=== PATIENT | male | born 1975 | race African-American/Black ===

== ENCOUNTER 2016-12-01 21:42 | Observation (INO) | payer SELFPAY ==
[~2016-12-01] VITALS: Ht 182.9 cm; Wt 82.0 kg
[~2016-12-01 21:42] MED LIST: BENA25TA3 PO; PRED-503 PO
[2016-12-01 21:47] VITALS: BP 168/92; PULSE 83; RESP 15; TEMP 98.2; O2SAT 98
[2016-12-01] MEDS ORDERED: LISI10TA3 PO (22:03)
--- NOTE | 2016-12-01 22:27 | PD ---
HPI Chief Complaint: Syncope/Near-Syncope Time Seen by Provider: 22:03 Travel History International Travel<30 days: No Contact w/Intl Traveler<30days: No Traveled to known affect area: No History of Present Illness HPI The patient is a 41 year old male who presents to the [facility] emergency department with a history of lightheaded since this morning. He has had syncopal events times two today. He reports that he has been staying at a residential as he is homeless. He reports that he has been out in the heat more than usual. He reports that he's had a diminished appetite since yesterday, therefore he has not been eating although he has been drinking fluids earlier today. The patient reports that he began to have chest pain this morning and has been coming and going. It is located in the center of his chest. It feels like a mashing sensation. He had SOB earlier today, however none currently. He had diaphoresis. No nausea, vomiting, or diarrhea. His last BM was yesterday. The patient additionally reports on review of systems that he has had a clear rhinorrhea today and a dry cough. He denies having any known fevers, neck pain , abdominal pain, urinary symptoms, or neurologic symptoms. PFSH Past Medical History Narrative Medical The patient's past medical history is significant for hypertension off meds for 2 months due to no insurance, childhood asthma. Hx Anticoagulant Therapy: Yes (81 MG ASA.) Asthma: Yes Cancer: No Cardiovascular Problems: Yes (HTN) Chest Pain: Yes Diminished Hearing: No Endocrine: No Gastrointestinal Disorders: No Genitourinary: No Headaches: Yes Hypertension: Yes Immune Disorder: No Implanted Vascular Access Dvce: No Musculoskeletal: No Neurologic: Yes Psychiatric: No Reproductive: No Respiratory: No Migraines: Yes Past Surgical History Surgical History: No Previous Surgery Neurologic Surgery: Yes (CYST ON TAIL BONE) Other Surgery: Yes (Cyst removed from lower back/buttocks) Social History Alcohol Use: No Tobacco Use: Yes (2 cigarettes/day) Substance Use: No (Denies) Allergies-Medications (Allergen,Severity, Reaction): Coded Allergies: No Known Allergies (Verified , 12/01/16) Reported Meds & Prescriptions Reported Meds & Active Scripts Active Amlodipine (Amlodipine Besylate) 10 Mg Tab 10 Mg PO DAILY Review of Systems Except as stated in HPI: all other systems reviewed are Neg General / Constitutional: No: Fever Eyes: No: Visual changes HENT: Positive: Rhinorrhea, No: Headaches Cardiovascular: Positive: Chest Pain or Discomfort, Syncope, Dyspnea on exertion Respiratory: Positive: Cough, Shortness of Breath Gastrointestinal: No: Nausea, Vomiting, Diarrhea, Abdominal Pain Genitourinary: No: Dysuria Musculoskeletal: No: Pain Skin: No Rash Neurologic: Positive: Weakness, Dizziness, Syncope, No: Focal Abnormalities, Change in Mentation, Slurred Speech, Sensory Disturbance Psychiatric: No: Depression Endocrine: No: Polydipsia Hematologic/Lymphatic: No: Easy Bruising Physical Exam Narrative General: The patient is a well-developed well-nourished male in no acute distress. Head and Neck exam: Head is normocephalic atraumatic. Eyes: EOMI, pupils are equal round and reactive to light. Nose: Midline septum with pink mucous membranes Mouth: Dentition unremarkable. Moist mucus membranes. Posterior oropharynx is not erythematous. No tonsillar hypertrophy. Uvula midline. Airway patent. Neck: No palpable lymphadenopathy. No nuchal rigidity. No thyromegaly. Cardiovascular: Regular rate and rhythm without murmurs, gallops, or rubs. No pulse deficit to the extremities on spontaneous auscultation and palpation of his radial artery. Lungs: Clear to auscultation bilaterally. No wheezes, rhonchi, or rales. Abdomen: Soft, without tenderness to palpation in all 4 quadrants of the abdomen. No guarding, rebound, or rigidity. Normal bowel sounds are audible. No tenderness on palpation of McBurney's point. Extremities: No clubbing, cyanosis, or edema. 2+ pulses in all 4 extremities. No calf tenderness on palpation. Back: No spinous process tenderness to palpation. No costovertebral angle tenderness to palpation. Neurologic Exam: Grossly nonfocal. Skin Exam: No rash noted. Intact skin that is warm and dry. Data Data Last Documented VS Vital Signs Date Time Temp Pulse Resp B/P (MAP) Pulse Ox O2 Delivery O2 Flow Rate FiO2 12/02/16 00:00 66 17 156/102 (120) 99 Room Air 12/01/16 21:47 98.2 Orders Orders Electrocardiogram (12/01/16 22:08) Complete Blood Count With Diff (12/01/16 22:08) Comprehensive Metabolic Panel (12/01/16 22:08) Creatine Kinase (Cpk) (12/01/16 22:08) Ckmb (Isoenzyme) Profile (12/01/16 22:08) Troponin I (12/01/16 22:08) B-Type Natriuretic Peptide (12/01/16 22:08) Prothrombin Time / Inr (Pt) (12/01/16 22:08) Act Partial Throm Time (Ptt) (12/01/16 22:08) Lipase (12/01/16 22:08) Urinalysis - C+S If Indicated (12/01/16 22:08) D-Dimer (12/01/16 22:08) Magnesium (Mg) (12/01/16 22:08) Chest, Single Ap (12/01/16 22:08) Ct Brain W/O Iv Contrast(Rout) (12/01/16 22:08) Iv Access Insert/Monitor (12/01/16 22:08) Ecg Monitoring (12/01/16 22:08) Oximetry (12/01/16 22:08) Drug Screen, Random Urine (12/01/16 22:08) Alcohol (Ethanol) (12/01/16 22:08) Orthostatic Vital Signs (12/01/16 22:08) Sodium Chlor 0.9% 1000 Ml Inj (Ns 1000 M (12/01/16 22:30) CKMB (12/01/16 22:36) CKMB% (12/01/16 22:36) Aspirin Chew (Aspirin Chew) (12/01/16 23:30) Sodium Chlor 0.9% 1000 Ml Inj (Ns 1000 M (12/02/16 00:30) Admit Order (Ed Use Only) (12/02/16 00:17) Labs Laboratory Tests Test 12/01/16 00:10 12/01/16 22:08 12/01/16 22:36 Urine Color YELLOW Urine Turbidity CLEAR Urine pH 6.0 Urine Specific [place] 1.035 Urine Protein 30 mg/dL Urine Glucose (UA) NEG mg/dL Urine Ketones NEG mg/dL Urine Occult Blood SMALL Urine Nitrite NEG Urine Bilirubin NEG Urine Urobilinogen 4.0 MG/DL Urine Leukocyte Esterase NEG Urine RBC 2 /hpf Urine WBC 1 /hpf Urine Squamous Epithelial Cells <1 /hpf Urine Hyaline Casts 10 /lpf Urine Mucus MOD /lpf Microscopic Urinalysis Comment CULT NOT INDICATED Urine Opiates Screen NEG Urine Barbiturates Screen NEG Urine Amphetamines Screen NEG Urine Benzodiazepines Screen NEG Urine Cocaine Screen POS Urine Cannabinoids Screen POS White Blood Count 5.1 TH/MM3 Red Blood Count 4.22 MIL/MM3 Hemoglobin 12.9 GM/DL Hematocrit 37.9 % Mean Corpuscular Volume 89.6 FL Mean Corpuscular Hemoglobin 30.5 PG Mean Corpuscular Hemoglobin Concent 34.0 % Red Cell Distribution Width 14.6 % Platelet Count 146 TH/MM3 Mean Platelet Volume 9.5 FL Neutrophils (%) (Auto) 47.7 % Lymphocytes (%) (Auto) 38.4 % Monocytes (%) (Auto) 11.1 % Eosinophils (%) (Auto) 2.2 % Basophils (%) (Auto) 0.6 % Neutrophils # (Auto) 2.4 TH/MM3 Lymphocytes # (Auto) 2.0 TH/MM3 Monocytes # (Auto) 0.6 TH/MM3 Eosinophils # (Auto) 0.1 TH/MM3 Basophils # (Auto) 0.0 TH/MM3 CBC Comment DIFF FINAL Differential Comment Prothrombin Time 11.1 SEC Prothromb Time International Ratio 1.0 RATIO Activated Partial Thromboplast Time 26.5 SEC D-Dimer Quantitative (PE/DVT) LESS THAN 0.19 MG/L FEU Blood Urea Nitrogen 12 MG/DL Creatinine 1.14 MG/DL Random Glucose 94 MG/DL Total Protein 7.7 GM/DL Albumin 3.7 GM/DL Calcium Level 8.2 MG/DL Magnesium Level 2.6 MG/DL Alkaline Phosphatase 55 U/L Aspartate Amino Transf (AST/SGOT) 19 U/L Alanine Aminotransferase (ALT/SGPT) 19 U/L Total Bilirubin 0.3 MG/DL Sodium Level 143 MEQ/L Potassium Level 3.8 MEQ/L Chloride Level 108 MEQ/L Carbon Dioxide Level 30.6 MEQ/L Anion Gap 4 MEQ/L Estimat Glomerular Filtration Rate 86 ML/MIN Total Creatine Kinase 610 U/L Creatine Kinase MB 2.3 NG/ML Creatine Kinase MB % 0.4 % Troponin I LESS THAN 0.02 NG/ML B-Type Natriuretic Peptide LESS THAN 2 PG/ML Lipase 101 U/L Ethyl Alcohol Level LESS THAN 3 MG/DL MDM Medical Decision Making Medical Screen Exam Complete: Yes Emergency Medical Condition: Yes Medical Record Reviewed: Yes Interpretation(s) Last Impressions Head CT 12/01/162207 Signed Impressions: Service Date/Time: Thursday, December 01, 2016 23:17 - CONCLUSION: Normal examination for a patient of this age. Mucosal thickening of the paranasal sinuses. Christopher Bhatt MD Chest X-Ray 12/01/162207 Signed Impressions: Service Date/Time: Thursday, December 01, 2016 22:22 - CONCLUSION: No evidence of acute cardiopulmonary disease. Jak To MD Differential Diagnosis Orthostasis, versus dehydration, versus electrolyte abnormalities, versus acute coronary syndrome, versus vasovagal syncope, versus heat exhaustion, versus rhabdomyolysis Narrative Course During the course of the patients emergency department visit, the patients history, examination, and differential diagnosis were reviewed with the patient. The patient had IV access obtained and blood work sent for analysis. The patient was placed on a transition specialist with oximetry and blood pressure monitoring. An ECG was done on arrival. The patient's ECG shows a sinus rhythm heart rate is 62, QRS duration is 97 ms, QTC 405 ms, no acute ST segment elevation or depression, T waves are inverted in V1. Orthostatic vital signs were ordered. The patient was initially provided normal saline a 1 L IV fluid bolus was administered. The patient was given aspirin 324 mg by mouth 1. The patients laboratory studies were reviewed and remarkable for a white count of 5.1, hemoglobin 12.9, platelets 146 with 11.1 monocytes, CMP is remarkable for a chloride of 108, anion gap 4, GFR of 86, calcium 8.2, magnesium 2.6, CPK 610, CK-MB percent 0.4, troponin I less than 0.02, lipase 101, BNP is less than 2, PT PTT within normal limits, d-dimer is less than 0.19 decreased the likelihood of pulmonary embolism in this patient with no other risk factors. Urine drug screen is positive for cocaine and marijuana, alcohol level less than 3, urinalysis shows 30 protein, small occult blood, 4 urobilinogen Radiology studies were reviewed and remarkable for a chest x-ray that shows no evidence of acute cardiopulmonary disease, CT scan of the brain shows a normal examination for patient of this age. The patients results were discussed with the patient, including the plan of care. I explained that further testing and/ or monitoring is indicated based on the patients history, examination, and/ or laboratory findings. Therefore, I recommended admission for additional evaluation. The patient expressed understanding and was agreeable with this plan. The patient was admitted to the hospital in stable condition and sent to a bed under the care of the chest pain center. Diagnosis Primary Impression: Chest pain, rule out acute myocardial infarction Additional Impression: Syncope Qualified Codes: R55 - Syncope and collapse Admitting Information Admitting Physician Requests: Observation Scripts Amlodipine (Amlodipine) 10 Mg Tab 10 MG PO DAILY for Blood Pressure Management, #30 TAB 0 Refills Prov: Alexis Cardona 12/02/16 Violet Harris MD Dec 01, 2016 22:27
[2016-12-01] MEDS ORDERED: SODIUM CHLOR 0.9% 1000 ML INJ 1,000 ML IV ONE (22:30)
--- NOTE | 2016-12-01 22:42 | RADRPT ---
EXAM DATE/TIME: 12/01/2016 22:22 [facility] COMPARISON: CHEST SINGLE AP, September 26, 2015, 15:29. INDICATIONS : Syncope. Patient states he past out today. MEDICAL HISTORY : Hypertension. SURGICAL HISTORY : None. ENCOUNTER: Initial ACUITY: 1 day PAIN SCORE: 0/10 LOCATION: Bilateral chest FINDINGS: A single view of the chest demonstrates the lungs to be symmetrically aerated without evidence of mas s, infiltrate or effusion. The cardiomediastinal contours are unremarkable. Osseous structures are intact. CONCLUSION: No evidence of acute cardiopulmonary disease. Jak To MD on December 01, 2016 at 22:40 Board Certified Radiologist. This report was verified electronically.
[2016-12-01 22:59] LABS: AUTOMATED NEUTROPHIL # 2.4 TH/MM3 (1.8-7.7); BASOPHIL % 0.6 % (0.0-2.0); EOSINOPHIL # 0.1 TH/MM3 (0-0.4); EOSINOPHIL % 2.2 % (0.0-4.0); HEMATOCRIT 37.9 % (39.0-51.0); HEMO FLAGS DIFF FINAL; LYMPH % 38.4 % (9.0-44.0); MEAN CELL VOLUME 89.6 FL (80.0-100.0); MEAN CORPUSCULAR HEMOGLOBIN 30.5 PG (27.0-34.0); MONO % 11.1 % (0.0-8.0); NEUT % 47.7 % (16.0-70.0); PLATELET COUNT 146 TH/MM3 (150-450); RED BLOOD COUNT 4.22 MIL/MM3 (4.50-5.90); RED CELL DISTRIBUTION WIDTH 14.6 % (11.6-17.2); WHITE BLOOD COUNT 5.1 TH/MM3 (4.0-11.0)
[2016-12-01 23:08] LABS: ALT (GPT) 19 U/L (12-78); ANION GAP 4 MEQ/L (5-15); AST (GOT) 19 U/L (15-37); BICARBONATE 30.6 MEQ/L (21.0-32.0); BLOOD UREA NITROGEN 12 MG/DL (7-18); CHLORIDE 108 MEQ/L (98-107); GLOMERULAR FILTRATION RATE 86 ML/MIN (>89); MAGNESIUM 2.6 MG/DL (1.5-2.5); POTASSIUM 3.8 MEQ/L (3.5-5.1); SODIUM (NA) 143 MEQ/L (136-145)
[2016-12-01 23:11] LABS: ALKALINE PHOSPHATASE 55 U/L (45-117); CREATINE KINASE 610 U/L (39-308); TOTAL BILIRUBIN ADULT 0.3 MG/DL (0.2-1.0)
[2016-12-01 23:14] LABS: APTT (PATIENT) 26.5 SEC (24.3-30.1); PROTHROMBIN TIME - PATIENT 11.1 SEC (9.8-11.6)
[2016-12-01 23:16] LABS: ALCOHOL LESS THAN 3 MG/DL (0-5)
[2016-12-01 23:29] LABS: CKMB 2.3 NG/ML (0.5-3.6)
[2016-12-01] MEDS ORDERED: ASPIRIN 81 MG CHEW TAB CHEW ONE (23:30)
--- NOTE | 2016-12-01 23:56 | RADRPT ---
EXAM DATE/TIME: 12/01/2016 23:17 [facility] COMPARISON: No previous studies available for comparison. INDICATIONS : Syncopal episode. RADIATION DOSE: 36.61 CTDIvol (mGy) MEDICAL HISTORY : Hypertension. Asthma. SURGICAL HISTORY : None. ENCOUNTER: Initial ACUITY: 1 day PAIN SCALE: 0/10 LOCATION: cranial TECHNIQUE: Multiple contiguous axial images were obtained of the head. Using automated exposure control and adj ustment of the mA and/or kV according to patient size, radiation dose was kept as low as reasonably a chievable to obtain optimal diagnostic quality images. DICOM format image data is available electro nically for review and comparison. FINDINGS: CEREBRUM: The ventricles are normal for age. No evidence of midline shift, mass lesion, hemorrhage or acute in farction. No extra-axial fluid collections are seen. POSTERIOR FOSSA: The cerebellum and brainstem are intact. The 4th ventricle is midline. The cerebellopontine angle i s unremarkable. EXTRACRANIAL: The visualized portion of the orbits is intact. SKULL: The calvaria is intact. No evidence of skull fracture. CONCLUSION: Normal examination for a patient of this age. Mucosal thickening of the paranasal sinuses. Christopher Bhatt MD on December 01, 2016 at 23:52 Board Certified Radiologist. This report was verified electronically.
[2016-12-02] VITALS (9 sets, daily range): BP systolic 140–163; BP diastolic 92–102; PULSE 55–72; RESP 16–18; TEMP 98–98.5; O2SAT 97–99
[2016-12-02] MEDS ORDERED: SODIUM CHLOR 0.9% 1000 ML INJ 1,000 ML IV ONE (00:30)
[2016-12-02 00:34] LABS: BLOOD, URINE SMALL (NEG); COMMENT (UR) CULT NOT INDICATED; CULTURE IF INDICATED CULT NOT INDICATED; GLUCOSE,URINE NEG (NEG); HYALINE CAST, URINE 10 /lpf (RARE); KETONE, URINE NEG (NEG); MUCUS URINE MOD /lpf (OCC); NITRITE,URINE NEG (NEG); SQUAMOUS EPITHELIAL CELL URINE <1 /hpf (0-5); URINE COLOR YELLOW (YELLW/STRAW)
[2016-12-02] MEDS ORDERED: SODIUM CHLORIDE 0.9% FLUSH 10 ML FLUSH IV FLUSH PRN (02:45)
[2016-12-02 03:54] LABS: CREATINE KINASE 493 U/L (39-308)
[2016-12-02 04:07] LABS: CKMB 1.7 NG/ML (0.5-3.6)
[2016-12-02 06:44] LABS: CREATINE KINASE 478 U/L (39-308)
[2016-12-02 06:57] LABS: CKMB 1.6 NG/ML (0.5-3.6)
[2016-12-02] MEDS ORDERED: amLODIPine BESYLATE 5 MG TAB PO ONE (08:15)
--- NOTE | 2016-12-02 08:49 | HHI.HP ---
[facility] Primary Care Physician Kely Moore MD Chief Complaint Chest pain History of Present Illness This is a 41-year-old male that presents to ED with a complaint of chest discomfort that began 2 days ago. 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 He went back to his room and pulled off and felt better. Little later that evening he had another syncopal episode. Cannot rule or coffee was having chest discomfort when it occurred but states that his chest discomfort has been intermittent for 2-3 days lasting 30-40 minutes with associated diaphoresis. No shortness breath or nausea. He also recalls having a slight headache before having the syncopal episode. He is not sure of his blood pressure was high. States he has hypertension but has not had medication for some time. He denies striking his head with these events. Denies incontinence. Denies seizure activity. Denies numbness tingling weakness in extremities at this time. Review of Systems General: Patient denies fevers, chills recent, and recent travel HEENT: Patient denies headache, sore throat, difficulty swallowing. Cardiovascular: Has the chest discomfort as mentioned above. Denies sensation of heart beating rapidly or irregularly. Has had 2 syncopal episodes. He was diaphoretic. Respiratory: Denies shortness of breath or inspirational chest discomfort. Denies coughing wheezing or hemoptysis. GI: Patient denies nausea, vomiting, diarrhea, abdominal pain, bloody stools. Musculoskeletal: Patient denies joint pain or edema. Denies calf pain or edema. Neurovascular: Patient denies numbness, tingling, weakness in extremities. Complains of a slight headache yesterday. Endocrine: Denies polyuria and polydipsia. Hematologic: Denies easy bruising. Skin: Denies rash or itching. Past Family Social History Allergies: Coded Allergies: No Known Allergies (Verified , 12/01/16) Past Medical History Hypertension and has not medication for some time. Tobacco abuse. Denies hyperlipidemia, diabetes, and known CAD. Past Surgical History Noncontributory. Reported Medications Reported Meds & Active Scripts Active Reported Lisinopril 10 Mg Tab 10 Mg PO DAILY Active Ordered Medications Current Medications Medications (Trade) Dose Ordered Sig/Pato Route Start Time Stop Time Status Last Admin (NS Flush) 2 ml UNSCH PRN IV FLUSH 12/02/16 02:45 (NS Flush) 2 ml BID IV FLUSH 12/02/16 09:00 Family History He is not sure his family medical history. Social History Patient states he smokes 2-3 cigarettes a day. Denies alcohol. Denies illicit drugs however toxicology screen was positive for cocaine and cannabinoids. Physical Exam Vital Signs Vital Signs Date Time Temp Pulse Resp B/P (MAP) Pulse Ox O2 Delivery O2 Flow Rate FiO2 12/02/16 07:44 56 12/02/16 07:10 98.0 59 18 140/101 (114) 98 12/02/16 04:14 72 12/02/16 03:53 146/92 (110) 12/02/16 03:45 98.5 55 18 163/100 (121) 98 12/02/16 03:40 12/02/16 02:43 97 12/02/16 01:09 143/98 (113) 148/100 (116) 151/99 (116) 12/02/16 01:00 62 16 142/94 (110) 97 Room Air 12/02/16 00:00 66 17 156/102 (120) 99 Room Air 12/01/16 21:58 78 98 Room Air 12/01/16 21:47 98.2 83 15 168/92 (117) 98 Room Air Physical Exam GENERAL: This is a well-nourished, well-developed patient, in no apparent distress. Patient speaks in clear complete sentences. Patient is pleasant. HEENT: Head is atraumatic and normocephalic. Neck is supple without lymphadenopathy and trachea is midline. No JVD or carotid bruits. CARDIOVASCULAR: Regular rate and rhythm without murmurs, gallops, or rubs. RESPIRATORY: Clear to auscultation. Breath sounds equal bilaterally. No wheezes , rales, or rhonchi. Chest wall is nontender. No use of accessory muscles. GASTROINTESTINAL: Abdomen is nontender, nondistended. Abdomen soft. No obvious pulsatile mass or bruit. No CVA tenderness. Strong femoral pulses bilaterally. Normal bowel sounds in all quadrants. MUSCULOSKELETAL: Patient is moving upper and lower extremities freely. No calf tenderness or edema, no Homans sign. Strong pulses in upper and lower extremities. NEUROLOGICAL: Patient is alert and oriented. Cranial nerves 2-12 are grossly intact. No focal deficits and speech is clear. SKIN: No rash and turgor is normal. Laboratory Laboratory Tests Test 12/01/16 22:08 12/01/16 22:36 12/02/16 03:00 12/02/16 06:00 Urine Opiates Screen NEG Urine Barbiturates Screen NEG Urine Amphetamines Screen NEG Urine Benzodiazepines Screen NEG Urine Cocaine Screen POS Urine Cannabinoids Screen POS White Blood Count 5.1 Red Blood Count 4.22 Hemoglobin 12.9 Hematocrit 37.9 Mean Corpuscular Volume 89.6 Mean Corpuscular Hemoglobin 30.5 Mean Corpuscular Hemoglobin Concent 34.0 Red Cell Distribution Width 14.6 Platelet Count 146 Mean Platelet Volume 9.5 Neutrophils (%) (Auto) 47.7 Lymphocytes (%) (Auto) 38.4 Monocytes (%) (Auto) 11.1 Eosinophils (%) (Auto) 2.2 Basophils (%) (Auto) 0.6 Neutrophils # (Auto) 2.4 Lymphocytes # (Auto) 2.0 Monocytes # (Auto) 0.6 Eosinophils # (Auto) 0.1 Basophils # (Auto) 0.0 CBC Comment DIFF FINAL Differential Comment Prothrombin Time 11.1 Prothromb Time International Ratio 1.0 Activated Partial Thromboplast Time 26.5 D-Dimer Quantitative (PE/DVT) LESS THAN 0.19 Blood Urea Nitrogen 12 Creatinine 1.14 Random Glucose 94 Total Protein 7.7 Albumin 3.7 Calcium Level 8.2 Magnesium Level 2.6 Alkaline Phosphatase 55 Aspartate Amino Transf (AST/SGOT) 19 Alanine Aminotransferase (ALT/SGPT) 19 Total Bilirubin 0.3 Sodium Level 143 Potassium Level 3.8 Chloride Level 108 Carbon Dioxide Level 30.6 Anion Gap 4 Estimat Glomerular Filtration Rate 86 Total Creatine Kinase 610 493 478 Creatine Kinase MB 2.3 1.7 1.6 Creatine Kinase MB % 0.4 0.3 0.3 Troponin I LESS THAN 0.02 LESS THAN 0.02 LESS THAN 0.02 B-Type Natriuretic Peptide LESS THAN 2 Lipase 101 Ethyl Alcohol Level LESS THAN 3 Result Diagram: 12/01/16223512/01/162235 Imaging Last [address] 12/01/162207 Signed Impressions: Service Date/Time: Thursday, December 01, 2016 23:17 - CONCLUSION: Normal examination for a patient of this age. Mucosal thickening of the paranasal sinuses. Christopher Bahtt MD Chest X-Ray 12/01/163 Signed Impressions: Service Date/Time: Thursday, December 01, 2016 22:22 - CONCLUSION: No evidence of acute cardiopulmonary disease. Jak To MD Course EKGs are sinus rhythm without significant ST segment depressions or elevations. Caprini VTE Risk Assessment Caprini VTE Risk Assessment: No/Low Risk (score <= 1) Caprini Risk Assessment Model Point Value = 1 Point Value = 2 Point Value = 3 Point Value = 5 Age 41-60 Minor surgery BMI > 25 kg/m2 Swollen legs Varicose veins or History of unexplained or recurrent spontaneous Oral contraceptives or hormone replacement Sepsis (< 1 month) Serious lung disease, including pneumonia (< 1 month) Abnormal pulmonary function Acute myocardial infarction Congestive heart failure (< 1 month) History of inflammatory bowel disease Medical patient at bed rest Age 61-74 Arthroscopic surgery Major open surgery (> 45 min) Laparoscopic surgery (> 45 min) Malignancy Confined to bed (> 72 hours) Immobilizing plaster cast Central venous access Age >= 75 History of VTE Family history of VTE Factor V Leiden Prothrombin [id number] Lupus anticoagulant Anticardiolipin antibodies Elevated serum homocysteine Heparin-induced thrombocytopenia Other congenital or acquired thrombophilia Stroke (< 1 month) Elective arthroplasty Hip, pelvis, or leg fracture Acute spinal cord injury (< 1 month) Prophylaxis Regimen Total Risk Factor Score Risk Level Prophylaxis Regimen 0-1 Low Early ambulation 2 Moderate Order ONE of the following: *Sequential Compression Device (SCD) *Heparin 5000 units SQ BID 3-4 Higher Order ONE of the following medications: *Heparin 5000 units SQ TID *Enoxaparin/Lovenox 40 mg SQ daily (WT < 150 kg, CrCl > 30 mL/min) *Enoxaparin/Lovenox 30 mg SQ daily (WT < 150 kg, CrCl > 10-29 mL/min) *Enoxaparin/Lovenox 30 mg SQ BID (WT < 150 kg, CrCl > 30 mL/min) AND/OR *Sequential Compression Device (SCD) 5 or more Highest Order ONE of the following medications: *Heparin 5000 units SQ TID (Preferred with Epidurals) *Enoxaparin/Lovenox 40 mg SQ daily (WT < 150 kg, CrCl > 30 mL/min) *Enoxaparin/Lovenox 30 mg SQ daily (WT < 150 kg, CrCl > 10-29 mL/min) *Enoxaparin/Lovenox 30 mg SQ BID (WT < 150 kg, CrCl > 30 mL/min) AND *Sequential Compression Device (SCD) Assessment and Plan Assessment and Plan * Chest pain: Patient has had serial cardiac enzymes and EKGs for ruling out purposes. He was seen by Dr. Sampson Newberry of cardiology in the chest pain center and will undergo a Gerald protocol ETT and be discharged if stress test is nonischemic. He should follow-up local PCP. * Hypertension: We'll start amlodipine. * Tobacco abuse: Patient counseled on importance of smoking cessation. * Cocaine abuse: Patient has been counseled on importance of no longer using cocaine. Patient is stable at this time. He is agreeable to this plan. Alexis Cardona Dec 02, 2016 08:49
[2016-12-02] MEDS ORDERED: AMLO10TA2 PO (08:51)
--- NOTE | 2016-12-02 08:52 | HHI.DCPOC ---
Discharge Care Plan Diagnosis: (1) Chest pain (2) Hypertension (3) Tobacco use (4) Cocaine abuse Goals to Promote Your Health * To prevent worsening of your condition and complications * To maintain your health at the optimal level Directions to Meet Your Goals Take your medications as prescribed Follow your dietary instruction Follow activity as directed Keep your appointments as scheduled Take your immunizations and boosters as scheduled If your symptoms worsen call your PCP, if no PCP go to Urgent Care Center or Emergency Room Smoking is Dangerous to Your Health. Avoid second hand smoke Call the 24-hour hour crisis hotline for domestic abuse at Alexis Cardona Dec 02, 2016 08:52
[2016-12-02] MEDS ORDERED: SODIUM CHLORIDE 0.9% FLUSH 10 ML FLUSH IV FLUSH SCH (09:00)
--- NOTE | 2016-12-02 16:37 | EKG ---
Date Performed: 12/02/2016 Time Performed: 03:10:05 PTAGE: 41 years EKG: SINUS BRADYCARDIA BORDERLINE ECG PREVIOUS TRACING : 09/26/2015 15.18 Since previous tracing, no significant change noted DOCTOR: Sampson Newberry Interpretating Date/Time 12/02/2016 16:36:06
--- NOTE | 2016-12-02 16:38 | EKG ---
Date Performed: 12/02/2016 Time Performed: 06:05:21 PTAGE: 41 years EKG: Sinus rhythm NORMAL ECG PREVIOUS TRACING : 12/02/2016 03.10 Since previous tracing, no significant change noted DOCTOR: Sampson Newberry Interpretating Date/Time 12/02/2016 16:37:32
--- NOTE | 2016-12-02 16:38 | EKG ---
Date Performed: 12/01/2016 Time Performed: 23:11:22 PTAGE: 41 years EKG: Sinus rhythm NORMAL ECG NO PREVIOUS TRACING DOCTOR: Sampson Newberry Interpretating Date/Time 12/02/2016 16:36:12
--- NOTE | 2016-12-03 16:04 | TR ---
Date Performed: 12/02/2016 Time Performed: 08:23:46 DOCTOR: Avelino Beckham DRUG LIST: CLINICAL HISTORY: REASON FOR TEST: REASON FOR ENDING: OBSERVATION: CONCLUSION: CARLOS PROTOCOL. NO CP. TEST STOPPED AFTER EXCEEDING GOAL HR SECONDARY TO SOB AND LEG FATIGUE.Maximum MB=924 % Max HR Achieved=89.0% Maximum CQ=709/112 Total Exercise Time=10:29 COMMENTS: Conclusion: Normal treadmill exercise. No evidence of ischemia.
== END 2016-12-02 11:25 | disposition home or self-care (01) ==
LOC: NEPC 21:42 → NEDA 12-02 00:20 → NEPFCDU 12-02 03:38
PROVIDERS: ADMIT Internal Medicine Interventional Cardiology; ATTEND Internal Medicine Interventional Cardiology
DX: R55 Syncope and collapse (principal); R07.89 Other chest pain; I10 Essential (primary) hypertension; F14.10 Cocaine abuse, uncomplicated; R94.31 Abnormal electrocardiogram [ECG] [EKG]; F17.210 Nicotine dependence, cigarettes, uncomplicated; J45.909 Unspecified asthma, uncomplicated; Z59.0 Homelessness
CPT/HCPCS: 70450; 71010; 80053; 80307; 81001; 82550; 82552; 83690; 83735; 83880; 84484; 85025; 85379; 85610; 85730; 93005; 93017; 99285; G0378; J7030

== ENCOUNTER 2016-12-11 22:43 | Emergency (ER) | payer SELFPAY ==
[~2016-12-11] VITALS: Ht 182.9 cm; Wt 88.0 kg
[~2016-12-11 22:43] MED LIST changes: +AMLO10TA2 PO; -BENA25TA3 PO; -PRED-503 PO
[2016-12-11 22:46] VITALS: BP 168/89; PULSE 87; RESP 16; TEMP 99; O2SAT 98
[2016-12-11 23:00] VITALS: BP_SYST 155; BP_SYST 157; BP_SYST 163; BP_DIAS 101; BP_DIAS 91; BP_DIAS 96; RESP 19; RESP 20; O2SAT 99
[2016-12-11] MEDS ORDERED: SODIUM CHLOR 0.9% 1000 ML INJ 1,000 ML IV ONE (23:04)
--- NOTE | 2016-12-11 23:11 | PD ---
HPI Chief Complaint: Chest Pain Time Seen by Provider: 22:55 Travel History International Travel<30 days: No Contact w/Intl Traveler<30days: No Traveled to known affect area: No History of Present Illness HPI The patient is a 41-year-old [place] male who presents to the emergency department for any possible syncopal episode. The patient states she was watching TV, sitting in a chair earlier today, when he awakened on the floor. The patient states his girlfriend told him he "fell out "and awakened on the floor. The patient states he had no symptoms prior to this possible syncopal episode. The patient does note he said some intermittent chest pain for the last several years, was actually admitted to the hospital one week ago and underwent a stress test which was unremarkable. The chest pain is described as heaviness, intermittent, and associated with fluttering of the chest. He denies any current shortness of breath, nausea, diaphoresis, or headache. Symptoms are mild to moderate, there are no alleviating or exacerbating factors. The patient denies any history of previous syncope, does note mild lightheadedness with standing. He does have a history of illicit drug use, states he has not used cocaine in one week. He denies any alcohol use earlier tonight. He denies any known history of arrhythmias. He denied any palpitations prior to the possible syncopal episode earlier tonight. PFSH Past Medical History Hx Anticoagulant Therapy: Yes (81 MG ASA.) Asthma: Yes Heart Rhythm Problems: No Cancer: No Cardiac Catheterization: No Cardiovascular Problems: Yes (HTN) High Cholesterol: No Chest Pain: Yes Congestive Heart Failure: No Diabetes: No Diminished Hearing: No Endocrine: No Gastrointestinal Disorders: No Genitourinary: No Headaches: Yes Hypertension: Yes Immune Disorder: No Implanted Vascular Access Dvce: No Musculoskeletal: No Neurologic: Yes Psychiatric: No Reproductive: No Respiratory: No Migraines: Yes Tetanus Vaccination: Unknown Past Surgical History Coronary Artery Bypass Graft: No Neurologic Surgery: Yes (CYST ON TAIL BONE) Other Surgery: Yes (Cyst removed from lower back/buttocks) Social History Alcohol Use: No Tobacco Use: Yes (2 cigarettes/day) Substance Use: Yes (cocaine) Allergies-Medications (Allergen,Severity, Reaction): Coded Allergies: No Known Allergies (Verified , 12/11/16) Reported Meds & Prescriptions Reported Meds & Active Scripts Active Amlodipine (Amlodipine Besylate) 10 Mg Tab 10 Mg PO DAILY Review of Systems Except as stated in HPI: all other systems reviewed are Neg General / Constitutional: No: Fever Cardiovascular: Positive: Chest Pain or Discomfort, Palpitations, Tachycardia, Syncope Respiratory: No: Shortness of Breath Gastrointestinal: No: Nausea, Vomiting, Abdominal Pain Neurologic: Positive: Dizziness, Syncope, No: Focal Abnormalities, Headache, Change in Mentation, Paresthesia, Sensory Disturbance Physical Exam Narrative GENERAL: Awake, alert, nontoxic-appearing 41-year-old male who appears his stated age and is in no acute respiratory distress. SKIN: Focused skin assessment warm/dry. HEAD: Atraumatic. Normocephalic. EYES: Pupils equal and round. No scleral icterus. No injection or drainage. ENT: No nasal bleeding or discharge. Mucous membranes pink and moist. NECK: Trachea midline. No JVD. CARDIOVASCULAR: Regular rate and rhythm. No murmur appreciated. RESPIRATORY: No accessory muscle use. Clear to auscultation. Breath sounds equal bilaterally. GASTROINTESTINAL: Abdomen soft, non-tender, nondistended. No rebound tenderness. MUSCULOSKELETAL: No obvious deformities. No clubbing. No cyanosis. No edema. NEUROLOGICAL: Awake and alert. No obvious cranial nerve deficits. Motor grossly within normal limits. Normal speech. Nonfocal. Oriented 4. Follows commands without difficulty. PSYCHIATRIC: Appropriate mood and affect; insight and judgment normal. Data Data Last Documented VS Vital Signs Date Time Temp Pulse Resp B/P (MAP) Pulse Ox O2 Delivery O2 Flow Rate FiO2 12/11/16 23:00 74 19 155/91 (112) 73 19 157/96 (116) 99 20 163/101 (121) 12/11/16 23:00 Room Air 12/11/16 23:00 99 12/11/16 22:46 99.0 Orders Orders Electrocardiogram (12/11/16 23:04) Complete Blood Count With Diff (12/11/16 23:04) Comprehensive Metabolic Panel (12/11/16 23:04) Magnesium (Mg) (12/11/16 23:04) Ckmb (Isoenzyme) Profile (12/11/16 23:04) Troponin I (12/11/16 23:04) Ecg Monitoring (12/11/16 23:04) Iv Access Insert/Monitor (12/11/16 23:04) Oximetry (12/11/16 23:04) Sodium Chloride 0.9% Flush (Ns Flush) (12/11/16 23:15) Sodium Chlor 0.9% 1000 Ml Inj (Ns 1000 M (12/11/16 23:04) Orthostatic Vital Signs (12/11/16 23:04) Potassium Chloride (Kcl) (12/11/16 23:45) CKMB (12/11/16 23:05) CKMB% (12/11/16 23:05) Labs Laboratory Tests Test 12/11/16 23:05 White Blood Count 5.1 TH/MM3 Red Blood Count 4.42 MIL/MM3 Hemoglobin 13.4 GM/DL Hematocrit 39.5 % Mean Corpuscular Volume 89.3 FL Mean Corpuscular Hemoglobin 30.4 PG Mean Corpuscular Hemoglobin Concent 34.0 % Red Cell Distribution Width 14.5 % Platelet Count 187 TH/MM3 Mean Platelet Volume 9.0 FL Neutrophils (%) (Auto) 44.8 % Lymphocytes (%) (Auto) 44.4 % Monocytes (%) (Auto) 9.0 % Eosinophils (%) (Auto) 1.2 % Basophils (%) (Auto) 0.6 % Neutrophils # (Auto) 2.3 TH/MM3 Lymphocytes # (Auto) 2.3 TH/MM3 Monocytes # (Auto) 0.5 TH/MM3 Eosinophils # (Auto) 0.1 TH/MM3 Basophils # (Auto) 0.0 TH/MM3 CBC Comment DIFF FINAL Differential Comment Blood Urea Nitrogen 13 MG/DL Creatinine 1.20 MG/DL Random Glucose 120 MG/DL Total Protein 7.6 GM/DL Albumin 3.7 GM/DL Calcium Level 8.5 MG/DL Magnesium Level 2.5 MG/DL Alkaline Phosphatase 56 U/L Aspartate Amino Transf (AST/SGOT) 17 U/L Alanine Aminotransferase (ALT/SGPT) 15 U/L Total Bilirubin 0.2 MG/DL Sodium Level 140 MEQ/L Potassium Level 3.2 MEQ/L Chloride Level 108 MEQ/L Carbon Dioxide Level 25.5 MEQ/L Anion Gap 7 MEQ/L Estimat Glomerular Filtration Rate 81 ML/MIN Total Creatine Kinase 276 U/L Creatine Kinase MB 1.9 NG/ML Troponin I LESS THAN 0.02 NG/ML MDM Medical Decision Making Medical Screen Exam Complete: Yes Emergency Medical Condition: Yes Medical Record Reviewed: Yes Interpretation(s) EKG reveals normal sinus rhythm with a rate of 71. Borderline short ME interval but no evidence of delta wave. Nonspecific T wave changes. Laboratory Tests Test 12/11/16 23:05 White Blood Count 5.1 TH/MM3 Red Blood Count 4.42 MIL/MM3 Hemoglobin 13.4 GM/DL Hematocrit 39.5 % Mean Corpuscular Volume 89.3 FL Mean Corpuscular Hemoglobin 30.4 PG Mean Corpuscular Hemoglobin Concent 34.0 % Red Cell Distribution Width 14.5 % Platelet Count 187 TH/MM3 Mean Platelet Volume 9.0 FL Neutrophils (%) (Auto) 44.8 % Lymphocytes (%) (Auto) 44.4 % Monocytes (%) (Auto) 9.0 % Eosinophils (%) (Auto) 1.2 % Basophils (%) (Auto) 0.6 % Neutrophils # (Auto) 2.3 TH/MM3 Lymphocytes # (Auto) 2.3 TH/MM3 Monocytes # (Auto) 0.5 TH/MM3 Eosinophils # (Auto) 0.1 TH/MM3 Basophils # (Auto) 0.0 TH/MM3 CBC Comment DIFF FINAL Differential Comment Blood Urea Nitrogen 13 MG/DL Creatinine 1.20 MG/DL Random Glucose 120 MG/DL Total Protein 7.6 GM/DL Albumin 3.7 GM/DL Calcium Level 8.5 MG/DL Magnesium Level 2.5 MG/DL Alkaline Phosphatase 56 U/L Aspartate Amino Transf (AST/SGOT) 17 U/L Alanine Aminotransferase (ALT/SGPT) 15 U/L Total Bilirubin 0.2 MG/DL Sodium Level 140 MEQ/L Potassium Level 3.2 MEQ/L Chloride Level 108 MEQ/L Carbon Dioxide Level 25.5 MEQ/L Anion Gap 7 MEQ/L Estimat Glomerular Filtration Rate 81 ML/MIN Total Creatine Kinase 276 U/L Creatine Kinase MB 1.9 NG/ML Troponin I LESS THAN 0.02 NG/ML Differential Diagnosis Differential diagnosis includes syncope, arrhythmia, seizure, ACS, electrolyte abnormality, orthostatic hypotension, dehydration. Narrative Course IV was established, labs are drawn and sent, and the patient was placed on cardiac telemetry monitoring and continuous pulse oximetry monitoring. EKG was ordered and interpreted. EKG reveals normal sinus rhythm with nonspecific T- wave changes in a short ME interval but no evidence of a delta wave. I reviewed the EMR, the patient had a stress test last week which was negative, however, I see no echocardiogram that was performed. Orthostatic vital signs were unremarkable. The patient's potassium was low, was replaced orally. The patient was just admitted to the hospital and had a stress test which was unremarkable, there is no evidence of ectopy or ventricular fibrillation. The patient is advised to follow-up with the patient outpatient as he may need an echocardiogram and/or Holter monitor. Patient is stable for outpatient follow- up. He is advised tonight use cocaine. Diagnosis Primary Impression: Syncope Qualified Codes: R55 - Syncope and collapse Additional Impression: Atypical chest pain Patient Instructions: General Instructions Additional Instructions: Follow-up with cardiology on an outpatient basis, you may benefit from a Holter monitor and/or echocardiogram if symptoms persist. Return if symptoms worsen or progress. Do not use cocaine. Med/Other Pt SpecificInfo: No Change to Meds Disposition: 01 DISCHARGE HOME Condition: Stable James Inman MD Dec 11, 2016 23:11
[2016-12-11] MEDS ORDERED: SODIUM CHLORIDE 0.9% FLUSH 10 ML FLUSH IVF PRN (23:15)
[2016-12-11 23:20] LABS: AUTOMATED NEUTROPHIL # 2.3 TH/MM3 (1.8-7.7); BASOPHIL % 0.6 % (0.0-2.0); EOSINOPHIL # 0.1 TH/MM3 (0-0.4); EOSINOPHIL % 1.2 % (0.0-4.0); HEMATOCRIT 39.5 % (39.0-51.0); HEMO FLAGS DIFF FINAL; LYMPH % 44.4 % (9.0-44.0); LYMPHOCYTE # 2.3 TH/MM3 (1.0-4.8); MEAN CELL VOLUME 89.3 FL (80.0-100.0); MEAN CORPUSCULAR HEMOGLOBIN 30.4 PG (27.0-34.0); NEUT % 44.8 % (16.0-70.0); PLATELET COUNT 187 TH/MM3 (150-450); RED BLOOD COUNT 4.42 MIL/MM3 (4.50-5.90); RED CELL DISTRIBUTION WIDTH 14.5 % (11.6-17.2); WHITE BLOOD COUNT 5.1 TH/MM3 (4.0-11.0)
[2016-12-11 23:38] LABS: ANION GAP 7 MEQ/L (5-15); AST (GOT) 17 U/L (15-37); BICARBONATE 25.5 MEQ/L (21.0-32.0); BLOOD UREA NITROGEN 13 MG/DL (7-18); CHLORIDE 108 MEQ/L (98-107); GLOMERULAR FILTRATION RATE 81 ML/MIN (>89); MAGNESIUM 2.5 MG/DL (1.5-2.5); POTASSIUM 3.2 MEQ/L (3.5-5.1); SODIUM (NA) 140 MEQ/L (136-145)
[2016-12-11 23:44] LABS: ALKALINE PHOSPHATASE 56 U/L (45-117); ALT (GPT) 15 U/L (12-78); CREATINE KINASE 276 U/L (39-308); TOTAL BILIRUBIN ADULT 0.2 MG/DL (0.2-1.0)
[2016-12-11] MEDS ORDERED: POTASSIUM CHLORIDE 20 MEQ CONTROLLED RELEASE TAB PO ONE (23:45)
[2016-12-11 23:55] LABS: CKMB 1.9 NG/ML (0.5-3.6)
[2016-12-12] MEDS ORDERED: ASPI81CH CHEW (08:15)
[2016-12-12] MEDS ORDERED: LISI10TA3 PO (08:15)
--- NOTE | 2016-12-12 15:45 | EKG ---
Date Performed: 12/11/2016 Time Performed: 23:06:24 PTAGE: 41 years EKG: Sinus rhythm Within normal limits Compared to prior tracing no significant change BORDERLINE ECG PREVIOUS TRACING : 12/02/2016 06.05 DOCTOR: Avelino Beckham Interpretating Date/Time 12/12/2016 15:43:49
== END 2016-12-12 00:16 | disposition home or self-care (01) ==
LOC: NEPE 22:43
DX: R55 Syncope and collapse (principal); R94.31 Abnormal electrocardiogram [ECG] [EKG]; I10 Essential (primary) hypertension
CPT/HCPCS: 80053; 82550; 82552; 83735; 84484; 85025; 93005; 96360; 99284; J7030

== ENCOUNTER 2016-12-12 03:13 | Inpatient (IN) | payer SELFPAY ==
[~2016-12-12] VITALS: Ht 182.9 cm; Wt 81.2 kg
[2016-12-12] VITALS (10 sets, daily range): BP systolic 132–178; BP diastolic 85–112; PULSE 48–78; RESP 16–20; TEMP 97.6–98.3; O2SAT 98–100
[2016-12-12] MEDS ORDERED: SODIUM CHLOR 0.9% 1000 ML INJ 1,000 ML IV ONE (04:18)
--- NOTE | 2016-12-12 04:23 | PD ---
HPI Chief Complaint: Syncope/Near-Syncope Time Seen by Provider: 04:08 Travel History International Travel<30 days: No Contact w/Intl Traveler<30days: No Traveled to known affect area: No History of Present Illness HPI The patient is a 41-year-old [place] male who presents to the emergency department after a syncopal episode. The patient states he was seen in the emergency department earlier [facility] for chest pain and syncope, was discharged home and advised to follow-up with cardiology. The patient states he had to walk home because his girlfriend works in the morning was unable to pick him up. The patient states he walked [place] the bridge and when he ran across another couple, he apparently had a syncopal episode. The patient states that the couple carried him to the [email or web address] and then called EMS. The patient states he was lightheaded and dizzy and have a syncopal episode, however , he denies falling all the way to the ground. The patient denies any trauma to the head, does state he landed on the left side. The patient does note he was recently hospitalized for chest pain and had a stress test that was unremarkable. He does complain of occasional fluttering of the chest, denies any acute shortness of breath, nausea, vomiting, or diaphoresis. He does complain of chest pain which is been intermittent for the last several weeks. PFSH Past Medical History Hx Anticoagulant Therapy: Yes (81 MG ASA.) Asthma: Yes Heart Rhythm Problems: No Cancer: No Cardiac Catheterization: No Cardiovascular Problems: Yes (HTN) High Cholesterol: No Chest Pain: Yes Congestive Heart Failure: No Diabetes: No Diminished Hearing: No Endocrine: No Gastrointestinal Disorders: No Genitourinary: No Headaches: Yes Hypertension: Yes Immune Disorder: No Implanted Vascular Access Dvce: No Musculoskeletal: No Neurologic: Yes Psychiatric: No Reproductive: No Respiratory: No Migraines: Yes Past Surgical History Coronary Artery Bypass Graft: No Neurologic Surgery: Yes (CYST ON TAIL BONE) Other Surgery: Yes (Cyst removed from lower back/buttocks) Social History Alcohol Use: No Tobacco Use: Yes (2 cigarettes/day) Substance Use: Yes (cocaine) Allergies-Medications (Allergen,Severity, Reaction): Coded Allergies: No Known Allergies (Verified , 12/12/16) Reported Meds & Prescriptions Reported Meds & Active Scripts Active Amlodipine (Amlodipine Besylate) 10 Mg Tab 10 Mg PO DAILY Review of Systems Except as stated in HPI: all other systems reviewed are Neg General / Constitutional: No: Fever HENT: Positive: Lightheadedness Cardiovascular: Positive: Chest Pain or Discomfort, Palpitations, Syncope, No: Diaphoresis Respiratory: No: Shortness of Breath Gastrointestinal: No: Nausea, Vomiting Musculoskeletal: Positive: Weakness Neurologic: Positive: Dizziness, Syncope Physical Exam Narrative GENERAL: Awake, alert, nontoxic-appearing 41-year-old male who appears his stated age and is in no acute respiratory distress. SKIN: Focused skin assessment warm/dry. HEAD: Atraumatic. Normocephalic. EYES: Pupils equal and round. No scleral icterus. No injection or drainage. ENT: No nasal bleeding or discharge. Mucous membranes pink and moist. NECK: Trachea midline. No JVD. CARDIOVASCULAR: Regular rate and rhythm. No murmur appreciated. Heart rate in the 60s. RESPIRATORY: No accessory muscle use. Clear to auscultation. Breath sounds equal bilaterally. GASTROINTESTINAL: Abdomen soft, non-tender, nondistended. No rebound tenderness. MUSCULOSKELETAL: No obvious deformities. No clubbing. No cyanosis. No edema. NEUROLOGICAL: Awake and alert. No obvious cranial nerve deficits. Motor grossly within normal limits. Normal speech. Nonfocal. PSYCHIATRIC: Appropriate mood and affect; insight and judgment normal. Data Data Last Documented VS Vital Signs Date Time Temp Pulse Resp B/P (MAP) Pulse Ox O2 Delivery O2 Flow Rate FiO2 12/12/16 04:29 18 98 Room Air 12/12/16 03:14 98.0 78 Orders Orders Electrocardiogram (12/12/16 04:18) Ckmb (Isoenzyme) Profile (12/12/16 04:18) Troponin I (12/12/16 04:18) Ecg Monitoring (12/12/16 04:18) Iv Access Insert/Monitor (12/12/16 04:18) Oximetry (12/12/16 04:18) Sodium Chloride 0.9% Flush (Ns Flush) (12/12/16 04:30) Sodium Chlor 0.9% 1000 Ml Inj (Ns 1000 M (12/12/16 04:18) Admit Order (Ed Use Only) (12/12/16 04:33) Echo 2d Comp With Doppler (12/12/16 ) Consult Cardiology (12/12/16 ) Place In Observation (12/12/16 ) Vital Signs (Adult) Q4H (12/12/16 04:30) Activity Oob Ad Linda (12/12/16 04:30) Legal Officer / Telemetry .CONTINUOUS (12/12/16 04:30) Intake + Output ALFONSO.QSHIFT (12/12/16 04:30) Diet Regular Basic (12/12/16 Breakfast) Sodium Chlor 0.9% 1000 Ml Inj (Ns 1000 M (12/12/16 04:30) Sodium Chloride 0.9% Flush (Ns Flush) (12/12/16 04:30) Sodium Chloride 0.9% Flush (Ns Flush) (12/12/16 09:00) Ondansetron Inj (Zofran Inj) (12/12/16 04:30) Comprehensive Metabolic Panel (12/12/16 10:00) Complete Blood Count With Diff (12/12/16 10:00) Troponin I (12/12/16 10:00) Troponin I (12/12/16 16:00) Scd Bilateral/Knee High ALFONSO.BID (12/12/16 04:30) Charlie Bilateral/Knee High ALFONSO.QSHIFT (12/12/16 04:33) Acetaminophen (Tylenol) (12/12/16 04:30) Acetamin-Hydrocod 325-5 Mg (Farson 5-325 (12/12/16 04:30) Morphine Inj (Morphine Inj) (12/12/16 04:30) Docusate Sodium-Senna (Tonja-Colace) (12/12/16 09:00) Magnesium Hydroxide Liq (Milk Of Magnesi (12/12/16 04:30) Sennosides (Senokot) (12/12/16 04:30) Bisacodyl Supp (Dulcolax Supp) (12/12/16 04:30) Lactulose Liq (Lactulose Liq) (12/12/16 04:30) CKMB (12/12/16 04:25) CKMB% (12/12/16 04:25) Labs Laboratory Tests Test 12/12/16 04:25 Total Creatine Kinase 272 U/L Creatine Kinase MB 2.0 NG/ML Troponin I LESS THAN 0.02 NG/ML MDM Medical Decision Making Medical Screen Exam Complete: Yes Emergency Medical Condition: Yes Medical Record Reviewed: Yes Interpretation(s) EKG reveals sinus bradycardia with a heart rate of 57. Questionable short CA interval. No ischemic changes noted. Laboratory Tests Test 12/12/16 04:25 Total Creatine Kinase 272 U/L Creatine Kinase MB 2.0 NG/ML Troponin I LESS THAN 0.02 NG/ML Differential Diagnosis Differential diagnosis includes syncope, arrhythmia, vasovagal syncope, dehydration, ACS, seizure, malingering. Narrative Course IV was established, repeat troponin, CPK, and EKG were performed. I reviewed the patient's labs from his prior visit in the emergency department. I also reviewed the EMR, the patient had a negative stress test performed earlier this month. There is no audible murmurs, however, I cannot find any old echocardiograms on record. Therefore, the patient will be 23 hour observation for syncope, will need cardiac telemetry monitoring and an echocardiogram. The on-call medical service was paged for 23 hour observation. Physician Communication Physician Communication The on-call medical service was paged for 23 hour observation. I discussed the patient with Dr. Alcantar who agrees with 23 hour observation. Diagnosis Primary Impression: Syncope Qualified Codes: R55 - Syncope and collapse Admitting Information Admitting Physician Requests: Observation Condition: Stable James Inman MD Dec 12, 2016 04:23
[2016-12-12] MEDS ORDERED: MAGNESIUM HYDROXIDE SUSP 30 ML CUP PO PRN (04:30)
[2016-12-12] MEDS ORDERED: MORPHINE SULFATE 4 MG/ML INJ IV PUSH PRN (04:30)
[2016-12-12] MEDS ORDERED: LACTULOSE SYRUP 20 GM/30 ML CUP PO PRN (04:30)
[2016-12-12] MEDS ORDERED: SODIUM CHLORIDE 0.9% FLUSH 10 ML FLUSH IV FLUSH PRN (04:30)
[2016-12-12] MEDS ORDERED: ONDANSETRON HCL 4 MG/2 ML VIAL IVP PRN (04:30)
[2016-12-12] MEDS ORDERED: SODIUM CHLORIDE 0.9% FLUSH 10 ML FLUSH IVF PRN (04:30)
[2016-12-12] MEDS ORDERED: BISACODYL 10 MG SUPP RECTAL PRN (04:30)
[2016-12-12] MEDS ORDERED: SENNOSIDES 8.6 MG TAB PO PRN (04:30)
[2016-12-12 04:55] LABS: CREATINE KINASE 272 U/L (39-308)
--- NOTE | 2016-12-12 04:57 | HHI.HP ---
[facility] Service [facility] Primary Care Physician No Primary Care Physician Admission Diagnosis syncope, atypical chest pain Diagnoses: (1) Syncope Diagnosis: Principal (2) HTN (hypertension) Diagnosis: Principal (3) Cocaine abuse Diagnosis: Principal (4) Tobacco use Diagnosis: Principal Travel History International Travel<30 Days: No Contact w/Intl Traveler <30 Da: No Traveled to Known Affected Are: No History of Present Illness This is a 41-year-old male with PMH of HTN, Cocaine Abuse and Tobacco Abuse was brought to the ER by EMS after syncopal episode. Recent admit on 12[facility] secondary to complaints of chest pain in addition to syncope, Stress Test 12/02/16 normal w/ no evidence of ischemia. Returned to ER last evening on 12/11/16 for syncope while watching TV, negative work up, d/c'd with instructions to follow up w/ Cardiology as outpatient. After being discharged, pt states he was walking home and had sudden syncopal event, bystanders called EMS. Admits to Cocaine abuse, however last use approx 1wk ago. No complaints at this time. On arrival, BP 168/89, HR 87 to O2 sat 98% on RA, Afebrile. Orthostatic Vital Signs negative. CBC unremarkable. K+ 3.2. GFR 81. Trop negative. EKG w/ no acute ischemia. Review of Systems Except as stated in HPI: all other systems reviewed are Neg ROS: 14 point review of systems otherwise negative. Past Family Social History Past Medical History PMH: HTN, Cocaine Abuse and Tobacco Abuse Past Surgical History PAST SURGICAL HISTORY: Pilonidal Cyst Allergies: Coded Allergies: No Known Allergies (Verified , 12/12/16) Family History PAST FAMILY HISTORY: Reviewed. No h/o DM or CAD Social History PAST SOCIAL HISTORY: Negative for alcohol. Positive for tobacco. Positive for cocaine. Physical Exam Vital Signs Vital Signs Date Time Temp Pulse Resp B/P (MAP) Pulse Ox O2 Delivery O2 Flow Rate FiO2 12/12/16 04:29 18 98 Room Air 12/12/16 03:14 98.0 78 16 160/99 (119) 98 Physical Exam PE: GENERAL: Malaise black male in no acute distress, ambulating to and from bathroom without difficulty. HEENT: PERRLA, EOMI. No scleral icterus or conjunctival pallor. No lid lag or facial droop. CARDIOVASCULAR: Regular rate and rhythm. No obvious murmurs to auscultation. No chest tenderness to palpation. RESPIRATORY: No obvious rhonchi or wheezing. Clear to auscultation. Breath sounds equal bilaterally. GASTROINTESTINAL: Abdomen soft, non-tender, nondistended. BS normal. MUSCULOSKELETAL: Extremities without clubbing, cyanosis, or edema. No obvious deformities. NEUROLOGICAL: Awake, alert and oriented x4. No focal neurologic deficits. Moving both upper and lower extremities spontaneously. Laboratory Laboratory Tests Test 12/12/16 04:25 Caprini VTE Risk Assessment Caprini VTE Risk Assessment: No/Low Risk (score <= 1) Caprini Risk Assessment Model Point Value = 1 Point Value = 2 Point Value = 3 Point Value = 5 Age 41-60 Minor surgery BMI > 25 kg/m2 Swollen legs Varicose veins or History of unexplained or recurrent spontaneous Oral contraceptives or hormone replacement Sepsis (< 1 month) Serious lung disease, including pneumonia (< 1 month) Abnormal pulmonary function Acute myocardial infarction Congestive heart failure (< 1 month) History of inflammatory bowel disease Medical patient at bed rest Age 61-74 Arthroscopic surgery Major open surgery (> 45 min) Laparoscopic surgery (> 45 min) Malignancy Confined to bed (> 72 hours) Immobilizing plaster cast Central venous access Age >= 75 History of VTE Family history of VTE Factor V Leiden Prothrombin [id number] Lupus anticoagulant Anticardiolipin antibodies Elevated serum homocysteine Heparin-induced thrombocytopenia Other congenital or acquired thrombophilia Stroke (< 1 month) Elective arthroplasty Hip, pelvis, or leg fracture Acute spinal cord injury (< 1 month) Prophylaxis Regimen Total Risk Factor Score Risk Level Prophylaxis Regimen 0-1 Low Early ambulation 2 Moderate Order ONE of the following: *Sequential Compression Device (SCD) *Heparin 5000 units SQ BID 3-4 Higher Order ONE of the following medications: *Heparin 5000 units SQ TID *Enoxaparin/Lovenox 40 mg SQ daily (WT < 150 kg, CrCl > 30 mL/min) *Enoxaparin/Lovenox 30 mg SQ daily (WT < 150 kg, CrCl > 10-29 mL/min) *Enoxaparin/Lovenox 30 mg SQ BID (WT < 150 kg, CrCl > 30 mL/min) AND/OR *Sequential Compression Device (SCD) 5 or more Highest Order ONE of the following medications: *Heparin 5000 units SQ TID (Preferred with Epidurals) *Enoxaparin/Lovenox 40 mg SQ daily (WT < 150 kg, CrCl > 30 mL/min) *Enoxaparin/Lovenox 30 mg SQ daily (WT < 150 kg, CrCl > 10-29 mL/min) *Enoxaparin/Lovenox 30 mg SQ BID (WT < 150 kg, CrCl > 30 mL/min) AND *Sequential Compression Device (SCD) Assessment and Plan Problem List: (1) Syncope ICD Code: R55 - Syncope and collapse Status: Acute (2) HTN (hypertension) ICD Code: I10 - Essential (primary) hypertension (3) Cocaine abuse ICD Code: F14.10 - Cocaine abuse, uncomplicated (4) Tobacco use ICD Code: Z72.0 - Tobacco use Status: Chronic Assessment and Plan A/P: 1. Syncope: Recurrent. Admit 12/01/16 for syncope and chest pain, [facility], Stress Test 12/02/16 negative for ischemia. Seen in ER for syncope, d/c'd home after negative work up however brought back by EMS after syncope while walking home. Denies complaints. Check Echo. Telemetry. Consult Cardiology for further evaluation. 2. HTN: BP 160's, resume home Norvasc, monitor BP. 3. Cocaine Abuse: Admits to h/o Cocaine Abuse, last use 12/01/16, denies recent ingestion. Ativan prn if needed for withdrawal. 4. Tobacco Abuse: Counselled. Ativan prn if needed. 5. DVT Prophylaxis: SCD/Teds. 6. Social work for d/c planning as needed. 7. Case discussed w/ ER physician at length. Problem Qualifiers (1) Syncope: Qualified Codes: R55 - Syncope and collapse Elif Alcantar MD Dec 12, 2016 04:57
[2016-12-12] MEDS: SODIUM CHLOR 0.9% 1000 ML INJ 1,000 ML IV SCH ×3 (05:50→20:54)
--- NOTE | 2016-12-12 08:00 | RADRPT ---
EXAM DATE/TIME: 12/12/2016 07:26 [place] COMPARISON: No previous studies available for comparison. INDICATIONS : Syncope. MEDICAL HISTORY : Hypertension. Cyst on tail bone. Asthma. Substance abuse. SURGICAL HISTORY : Cyst removed from buttocks. ENCOUNTER: Initial ACUITY: 1 day PAIN SCORE: 0/10 LOCATION: Bilateral neck PEAK SYSTOLIC VELOCITIES (cm/sec): ICA/CCA RATIO: Right: 0.9 Left: 1.2 ICA: Right: 83 Left: 83 CCA: Right: 89 Left: 98 ECA: Right: 58 Left: 63 VERTEBRAL: Right: 36 antegrade Left: 39 antegrade Elevated flow velocities and ICA/CCA ratios have been found to correlate with increased degrees of vessel stenosis, calculated as percentage of diameter relative to a normal segment of distal ICA/CCA FINDINGS: RIGHT CAROTID: No significant stenosis is visualized. There is minimal calcified plaque in the carotid bulb. The wa veforms are within normal limits. LEFT CAROTID: No significant stenosis is visualized. There is minimal calcified plaque in the carotid bulb. The wa veforms are within normal limits. VERTEBRAL ARTERIES: Antegrade flow is seen in both vertebral arteries. MISCELLANEOUS: None. CONCLUSION: 1. Minimal calcified plaque in the carotid bulbs bilaterally. However, there is no significant stenos is within either internal carotid artery (less than 50% stenosis). 2. There is antegrade flow in both vertebral arteries. Jak Francois MD on December 12, 2016 at 7:58 Board Certified Radiologist. This report was verified electronically.
[2016-12-12] MEDS ORDERED: ASPI81CH CHEW (08:15)
[2016-12-12] MEDS ORDERED: LISI10TA3 PO (08:15)
[2016-12-12] MEDS: SODIUM CHLORIDE 0.9% FLUSH 10 ML FLUSH IV FLUSH SCH ×2 (08:52→20:54)
[2016-12-12] MEDS: LISINOPRIL 10 MG TAB PO SCH (08:53)
[2016-12-12] MEDS: DOCUSATE SODIUM 50 MG/SENNA 8.6 MG TAB PO SCH ×2 (08:53→20:47)
--- NOTE | 2016-12-12 11:55 | HHI.PR ---
Subjective Remarks Follow-up for syncope and chest pain. The patient states that he had a headache and chest pain earlier when his blood pressure was high, which improved after his home blood pressure medications were restarted. He's been off his blood pressure medication for about 3 months now. He states she's been having multiple episodes of syncope recently. He states that he feels like he has a headache and heart palpitations prior to the syncopal episodes. He thinks that he loses consciousness for about 5 minutes at a time. He did walk well with PT today, states he still felt a little lightheaded. He admits to occasional marijuana use, but none around the syncopal episode. Tobacco abuse. No alcohol use. He states he feels like he's been keeping well hydrated with water, or issues, and Gatorade. He is not sure why he continues to feel weak and dehydrated. He denies any nausea, vomiting, diarrhea. Objective Vitals Vital Signs Date Time Temp Pulse Resp B/P (MAP) Pulse Ox O2 Delivery O2 Flow Rate FiO2 12/12/16 10:36 160/98 (118) 12/12/16 08:07 97.7 48 20 178/112 (134) 98 12/12/16 08:05 178/112 (134) 12/12/16 04:29 18 98 Room Air 12/12/16 03:14 98.0 78 16 160/99 (119) 98 I/O 12/11/16 12/11/16 12/11/16 12/12/16 12/12/16 12/12/16 07:00 15:00 23:00 07:00 15:00 23:00 Output Total 400 ml Balance -400 ml Output Urine Total 400 ml Imaging Last Impressions Carotid Artery Ultrasound 12/12/16 0000 Signed Impressions: Service Date/Time: Monday, December 12, 2016 07:26 - CONCLUSION: 1. Minimal calcified plaque in the carotid bulbs bilaterally. However, there is no significant stenosis within either internal carotid artery (less than 50%% stenosis). 2. There is antegrade flow in both vertebral arteries. Jak Francois MD Objective Remarks GENERAL: Well-developed well-nourished. In no acute distress. SKIN: Warm and dry. No lesions noted. HEENT: Normocephalic. Pupils equal and round. Mucous membranes pink and moist. CARDIOVASCULAR: Regular rate and rhythm. No murmur appreciated. RESPIRATORY: No accessory muscle use. Clear to auscultation. Breath sounds equal bilaterally. GASTROINTESTINAL: Abdomen soft, non-tender, nondistended. Bowel sounds x4. MUSCULOSKELETAL: No obvious deformities. No clubbing or cyanosis. No edema. NEUROLOGICAL: Awake and alert. No focal neurological deficits. Moves upper and lower extremities spontaneously. Normal speech. PSYCHIATRIC: Appropriate mood and affect; insight and judgment normal. A/P Problem List: (1) Syncope ICD Code: R55 - Syncope and collapse Status: Acute (2) HTN (hypertension) ICD Code: I10 - Essential (primary) hypertension Status: Acute (3) Cocaine abuse ICD Code: F14.10 - Cocaine abuse, uncomplicated Status: Chronic (4) Tobacco use ICD Code: Z72.0 - Tobacco use Status: Chronic Assessment and Plan 41-year-old male with PMH of HTN, Cocaine Abuse and Tobacco Abuse was brought to the ER by EMS after syncopal episode Syncope: Recurrent. Admit 12/01/16 for syncope and chest pain, [facility], Stress Test 12/02/16 negative for ischemia. Seen in ER for syncope, d/c'd home after negative work up however brought back by EMS after syncope while walking home. Reviewed: Non-orthostatic 12/11. Carotid ultrasound with no significant stenosis. UDS positive for cannabis. EKG shows Telemetry shows episodes of sinus bradycardia in the 40s. Head CT 12/01 was unremarkable. -Check Echo. -Telemetry monitoring. -Cardiology consulted for further evaluation. Chest pain: During episodes of accelerated HTN. EKG shows sinus bradycardia rate 57, no definite ischemic changes. Recent negative stress test earlier this month. Troponin overnight since 12/11 were negative 3. Aspirin. HTN: Accelerated. Often BP meds 3 months. Patient with headache and chest pain with high blood pressure, improved after resuming home amlodipine and lisinopril. BP improving. Monitor. Cocaine/MJ/tobacco Abuse: Admits to h/o Cocaine Abuse, last use 12/01/16, denies recent ingestion. Patient counseled regarding cessation. Hypokalemia: Potassium 3.2 on 12/11. Given oral replacement. Repeat BMP pending. Replace as needed. DVT Prophylaxis: SCD/Teds. Discharge Planning Follow-up echocardiogram. Follow cardiology recommendations. Monitor BP. Problem Qualifiers (1) Syncope: Qualified Codes: R55 - Syncope and collapse (2) HTN (hypertension): Qualified Codes: I10 - Essential (primary) hypertension Jimy Butt Dec 12, 2016 11:55
[2016-12-12 12:30] LABS: AUTOMATED NEUTROPHIL # 1.6 TH/MM3 (1.8-7.7); BASOPHIL % 0.5 % (0.0-2.0); EOSINOPHIL # 0.1 TH/MM3 (0-0.4); EOSINOPHIL % 1.5 % (0.0-4.0); HEMATOCRIT 38.2 % (39.0-51.0); HEMO FLAGS DIFF FINAL; LYMPHOCYTE # 1.7 TH/MM3 (1.0-4.8); MEAN CELL VOLUME 90.1 FL (80.0-100.0); MEAN CORPUSCULAR HGB CONC 33.3 % (32.0-36.0); MONO % 11.8 % (0.0-8.0); NEUT % 42.2 % (16.0-70.0); PLATELET COUNT 174 TH/MM3 (150-450); RED BLOOD COUNT 4.23 MIL/MM3 (4.50-5.90); RED CELL DISTRIBUTION WIDTH 14.3 % (11.6-17.2); WHITE BLOOD COUNT 3.9 TH/MM3 (4.0-11.0)
[2016-12-12 13:02] LABS: ANION GAP 4 MEQ/L (5-15); AST (GOT) 13 U/L (15-37); BICARBONATE 30.3 MEQ/L (21.0-32.0); BLOOD UREA NITROGEN 5 MG/DL (7-18); CHLORIDE 106 MEQ/L (98-107); GLOMERULAR FILTRATION RATE 113 ML/MIN (>89); POTASSIUM 3.8 MEQ/L (3.5-5.1); SODIUM (NA) 140 MEQ/L (136-145)
[2016-12-12 13:04] LABS: ALT (GPT) 18 U/L (12-78)
[2016-12-12 13:07] LABS: ALKALINE PHOSPHATASE 51 U/L (45-117); TOTAL BILIRUBIN ADULT 0.4 MG/DL (0.2-1.0)
[2016-12-12] MEDS: ASPIRIN 81 MG CHEW TAB CHEW SCH (13:11)
--- NOTE | 2016-12-12 14:05 | MB ---
cc: WYATT CORREA DO DATE OF CONSULTATION: 12/12/2016. REASON FOR CONSULTATION: Syncopal episode. HISTORY OF PRESENT ILLNESS: Benji Michele is a pleasant 41-year-old male who presented to [facility] on December 12, 2016 after a syncopal episode. He states that he was recently at [place] in the [facility] secondary to chest pain. He underwent an exercise stress test for which he did ten minutes with no chest pain and no evidence of ischemia per the report. He then presented to [facility] last night (December 11, 2016) after a syncopal episode while watching TV. While he was watching TV, he felt like he just started a blanchard out to the point where he blacked out. His girlfriend said that when he woke up, he was somewhat out of it and he felt like he was having shaking of his eyes and fingers. He states he had no chest pain, shortness of breath or palpitations before the episode. He was seen in the emergency room for the event and discharged home. While walking home, he had another similar type episode of passing out. A bystander helped him to a gas station and they called --1. He was brought to the emergency room in a stable condition. On seeing him in the emergency room, he denies chest pain, shortness of breath. He does state that he occasionally gets palpitations while sitting at home. He states that these palpitations feel somewhat irregular in nature but it is difficult to tell. He does not seem to have these palpitations before the episodes that cause him to pass out. He also has had chest pain on and off for some time and he usually has this when his blood pressure is elevated. He notes that he has been off his blood pressure medicines for about three months and has felt better since being re-started on them. PAST MEDICAL HISTORY: 1. Hypertension. 2. Tobacco abuse. 3. Cannabis abuse. 4. Positive for cocaine on last admission. He does not use cocaine but felt like it possibly could have been (dictation missing). MEDICATIONS: 1. Norvasc 10 milligrams daily. 2. Lisinopril 10 milligrams (dictation missing). FAMILY HISTORY: Denies premature coronary artery disease or sudden cardiac within the family. SOCIAL HISTORY: The patient smokes two to three cigarettes a day. Denies alcohol. He states that he smokes marijuana but adamantly denies cocaine abuse. REVIEW OF SYSTEMS Fourteen systems were reviewed including osteopathic with pertinent positives and negatives as above; otherwise negative. PHYSICAL EXAMINATION VITAL SIGNS: Temperature 97.6, heart rate 60, blood pressure 132/88, respirations 20, pulse oximetry 99% on room air. GENERAL: In general the patient appears well and in no acute distress. Awake, alert and oriented times four. HEENT: Extraocular muscles intact. Mucous membranes moist. NECK: The neck is supple. No JVD at 45 degrees. No carotid bruits heard bilaterally. Carotid upstroke is brisk in nature. HEART: Regular rate and rhythm. Positive first and second heart sounds with no noted murmurs, gallops or rubs. LUNGS: Clear to auscultation bilaterally. No wheezes, rales or rhonchi. ABDOMEN: The abdomen is soft, nontender and nondistended. No organomegaly noted. EXTREMITIES: No clubbing, cyanosis or edema. Femoral and distal pulses are intact bilaterally. NEUROLOGIC: No focal deficits. SKIN: Warm, dry and intact. OSTEOPATHIC: Osteopathically, no kyphoscoliosis, lordosis or paraspinal tender points. LAB WORK: Hemoglobin 12.7, hematocrit 38.2, platelets 174,000. Potassium 3.8, BUN 5, creatinine 0.90. Troponin negative x2. Urine drug screen positive for Marijuana EKGS: Electrocardiogram (December 12, 2016 at 0422): Sinus bradycardia with no acute S-T-T wave changes. IMPRESSIONS: 1. Syncopal episode due to an unknown cause. 2. Hypertension with accelerated hypertension off his medications. 3. Tobacco abuse. 4. Cannabis abuse. 5. Possible cocaine abuse, although the patient adamantly denies and states that he may have had cocaine in his cannabis without knowing it. 6. Sinus bradycardia for which the patient is asymptomatic. 7. Palpitations. RECOMMENDATIONS: 1. Mr. Michele has had multiple syncopal episodes and this is overall concerning as they have happened both standing and sitting. 2. We will check an echocardiogram to look at his overall left ventricular function, cardiac structure and possible valvulopathies. 3. We will watch him on telemetry for possible symptomatic bradycardia, arrhythmias or possible AV block. 4. We will plan on consulting neurology as post syncopal episodes, the patient may have a postictal phase and then has what sounds like possible nystagmus and shaking of his fingers. 5. As far as his blood pressure goes, we will re-start him on his medications. 6. I spoke to him for greater than three minutes about tobacco cessation. 7. The chest pain appears to correlate with his hypertensive episodes. He had an exercise stress test for which he did 10 minutes without chest pain and no ischemic changes. Also during stress testing, he had a rise of his heart rate with exercise showing good chronotropic response. 8. Further recommendations will be made based on the hospital course. Thank you for allowing me to see Benji Michele. If there are any questions, please do not hesitate to call. Wyatt Correa DO VGP/JCC /1:25 PM /1:42 PM STU
--- NOTE | 2016-12-12 15:24 | ECHRPT ---
Indication: cardiomyopathy CONCLUSIONS The left ventricular systolic function is low normal with an estimated ejection fraction in the rang e of 50- 55%. Normal left ventricular size. Mild concentric left ventricular hypertrophy. Mild mitral valve regurgitation. There is mild tricuspid valve regurgitation. The estimated pulmonary arterial pressure is 37.2 mmHg. BP: / HR: Rhythm: MEASUREMENTS (Male / Female) Normal Values Technical Quality:Good 2D ECHO LV Diastolic Diameter PLAX 4.4 cm 4.2 - 5.9 / 3.9 - 5.3 cm LV Systolic Diameter PLAX 3.6 cm IVS Diastolic Thickness 1.3 cm 0.6 - 1.0 / 0.6 - 0.9 cm LVPW Diastolic Thickness 1.0 cm 0.6 - 1.0 / 0.6 - 0.9 cm LV Relative Wall Thickness 0.5 RV Internal Dim ED PLAX 3.1 cm M-MODE Aortic Root Diameter MM 3.0 cm LA Systolic Diameter MM 3.4 cm LA Ao Ratio MM 1.1 AV Cusp Separation MM 2.2 cm DOPPLER LV E' Lateral Velocity 11.1 cm/s LV E' Septal Velocity 9.6 cm/s TR Peak Velocity 261.0 cm/s TR Peak Gradient 27.2 mmHg Right Atrial Pressure 10.0 mmHg Pulmonary Artery Systolic Pressu 37.2 mmHg Right Ventricular Systolic Press 37.2 mmHg FINDINGS LEFT VENTRICLE The left ventricular systolic function is low normal with an estimated ejection fraction in the rang e of 50- 55%. Mild concentric left ventricular hypertrophy. Normal left ventricular size. RIGHT VENTRICLE Normal right ventricular size and systolic function. LEFT ATRIUM The left atrial size is normal. RIGHT ATRIUM The right atrial size is normal. ATRIAL SEPTUM Normal atrial septal thickness without atrial level shunting by limited color doppler interrogation. AORTA The aortic root and proximal ascending aorta are normal in size on limited imaging. MITRAL VALVE Structurally normal mitral valve. Mild mitral valve regurgitation. AORTIC VALVE Trileaflet aortic valve. No aortic valve stenosis or regurgitation. TRICUSPID VALVE Structurally normal tricuspid valve. There is mild tricuspid valve regurgitation. The estimated pulmonary arterial pressure is 37.2 mmHg. PULMONARY VALVE No pulmonary valve regurgitation or stenosis. VESSELS The inferior vena cava is normal in size. PERICARDIUM No pericardial effusion. Elan Lowe MD (Electronically Signed) Final Date:12 December 2016 15:22
--- NOTE | 2016-12-12 15:45 | EKG ---
Date Performed: 12/12/2016 Time Performed: 04:22:28 PTAGE: 41 years EKG: SINUS BRADYCARDIA Compared to previous tracing, HR is slightly slower, otherwise no signifi cant change BORDERLINE ECG PREVIOUS TRACING : 12/02/2016 06.05 DOCTOR: Avelino Beckham Interpretating Date/Time 12/12/2016 15:44:16
[2016-12-12] MEDS: ACETAMINOPHEN/HYDROcodone 325 MG/5 MG TAB PO PRN (20:48)
[2016-12-13] VITALS (8 sets, daily range): BP systolic 128–172; BP diastolic 84–106; PULSE 46–56; RESP 18–21; TEMP 98–98.3; O2SAT 99–100
[2016-12-13] MEDS: SODIUM CHLOR 0.9% 1000 ML INJ 1,000 ML IV SCH (06:32)
[2016-12-13] MEDS: SODIUM CHLORIDE 0.9% FLUSH 10 ML FLUSH IV FLUSH SCH ×2 (09:00→21:00)
--- NOTE | 2016-12-13 09:16 | HHI.PR ---
Subjective Remarks Follow-up for syncope. The patient states that he has a mild headache today. He denies any further chest pain. He states lightheadedness and dizziness have improved. He denies any lightheadedness or dizziness with position changes. He has been ambulating here if no difficulties. Objective Vitals Vital Signs Date Time Temp Pulse Resp B/P (MAP) Pulse Ox O2 Delivery O2 Flow Rate FiO2 12/13/16 04:07 98.2 47 18 128/88 (101) 99 12/13/16 04:05 46 12/13/16 00:09 98.2 49 18 144/84 (104) 99 146/95 (112) 153/101 (118) 12/13/16 00:02 49 12/12/16 22:00 16 12/12/16 20:36 98.3 53 19 142/96 (111) 100 12/12/16 20:00 49 12/12/16 12:55 52 12/12/16 12:47 97.6 60 20 132/88 (103) 99 136/85 (102) 138/89 (105) 12/12/16 10:36 160/98 (118) I/O 12/12/16 12/12/16 12/12/16 12/13/16 12/13/16 12/13/16 07:00 15:00 23:00 07:00 15:00 23:00 Intake Total 720 ml 3136 ml Output Total 400 ml 550 ml Balance -400 ml 720 ml 2586 ml Intake Oral 720 ml 1400 ml IV Total 1736 ml Output Urine Total 400 ml 550 ml Result Diagram: 12/12/16 1202 12/12/16 1202 Imaging Last Impressions Carotid Artery Ultrasound 12/12/16 0000 Signed Impressions: Service Date/Time: Monday, December 12, 2016 07:26 - CONCLUSION: 1. Minimal calcified plaque in the carotid bulbs bilaterally. However, there is no significant stenosis within either internal carotid artery (less than 50%% stenosis). 2. There is antegrade flow in both vertebral arteries. Jak Francois MD Objective Remarks GENERAL: Well-developed well-nourished. In no acute distress. SKIN: Warm and dry. No lesions noted. HEENT: Normocephalic. Pupils equal and round. Mucous membranes pink and moist. CARDIOVASCULAR: Regular bradycardic rate and rhythm. No murmur appreciated. RESPIRATORY: No accessory muscle use. Clear to auscultation. Breath sounds equal bilaterally. GASTROINTESTINAL: Abdomen soft, non-tender, nondistended. Bowel sounds x4. MUSCULOSKELETAL: No obvious deformities. No clubbing or cyanosis. No edema. NEUROLOGICAL: Awake and alert. No focal neurological deficits. Moves upper and lower extremities spontaneously. Normal speech. PSYCHIATRIC: Appropriate mood and affect; insight and judgment normal. A/P Problem List: (1) Syncope ICD Code: R55 - Syncope and collapse Status: Acute (2) HTN (hypertension) ICD Code: I10 - Essential (primary) hypertension Status: Acute (3) Cocaine abuse ICD Code: F14.10 - Cocaine abuse, uncomplicated Status: Chronic (4) Tobacco use ICD Code: Z72.0 - Tobacco use Status: Chronic Assessment and Plan 41-year-old male with PMH of HTN, Cocaine Abuse and Tobacco Abuse was brought to the ER by EMS after syncopal episode Syncope: Recurrent. Admit 12/01/16 for syncope and chest pain, [facility], Stress Test 12/02/16 negative for ischemia. Seen in ER for syncope, d/c'd home after negative work up however brought back by EMS after syncope while walking home. Reviewed: Non-orthostatic 12/11. Carotid ultrasound with no significant stenosis. UDS positive for cannabis. EKG and Telemetry shows episodes of sinus bradycardia in the 40s. Head CT 12/01 was unremarkable. Echocardiogram essentially unremarkable. -Telemetry monitoring. -Cardiology consulted, discussed with Dr. Higgins, recommended neuro and electrophysiology evaluation -Neurology consulted -PT recommended no restrictions Chest pain: During episodes of accelerated HTN, resolved with better blood pressure control. EKG shows sinus bradycardia rate 57, no definite ischemic changes. Recent negative stress test earlier this month. Troponin negative 3. Aspirin. HTN: Better controlled today. Off of BP meds 3 months. Patient with headache and chest pain with high blood pressure, improved after resuming home amlodipine and lisinopril. BP improving. Monitor. Cocaine/MJ/tobacco Abuse: Admits to h/o Cocaine Abuse, last use 12/01/16, denies recent ingestion. Patient counseled regarding cessation. Hypokalemia: Potassium 3.2 on 12/11. Given oral replacement. Repeat potassium 3.8. Resolved. DVT Prophylaxis: SCD/Teds. Discharge Planning Follow-up cardiology and neurology recommendations. Problem Qualifiers (1) Syncope: Qualified Codes: R55 - Syncope and collapse (2) HTN (hypertension): Qualified Codes: I10 - Essential (primary) hypertension Jimy Butt Dec 13, 2016 09:16
[2016-12-13] MEDS: ASPIRIN 81 MG CHEW TAB CHEW SCH (10:23)
[2016-12-13] MEDS: DOCUSATE SODIUM 50 MG/SENNA 8.6 MG TAB PO SCH ×2 (10:24→20:26)
[2016-12-13] MEDS: LISINOPRIL 10 MG TAB PO SCH (10:24)
[2016-12-13] MEDS: ACETAMINOPHEN/HYDROcodone 325 MG/5 MG TAB PO PRN ×2 (10:29→20:26)
--- NOTE | 2016-12-13 12:01 | PD.CARD.PN ---
Subjective Subjective Remarks No events overnight No chest pain/SOB Objective Medications Current Medications Medications (Trade) Dose Ordered Sig/Pato Route Start Time Stop Time Status Last Admin Sodium Chloride 1,000 ml @ 100 mls/hr Q10H IV 12/12/16 04:30 12/13/16 06:32 (NS Flush) 2 ml UNSCH PRN IV FLUSH 12/12/16 04:30 (NS Flush) 2 ml BID IV FLUSH 12/12/16 09:00 (Zofran Inj) 4 mg Q6H PRN IVP 12/12/16 04:30 (Tylenol) 650 mg Q6H PRN PO 12/12/16 04:30 ([place] 5-325 Mg) 1 tab Q4H PRN PO 12/12/16 04:30 12/13/16 10:29 (Morphine Inj) 2 mg Q3H PRN IV PUSH 12/12/16 04:30 12/12/16 08:25 (Tonja-Colace) 1 tab BID PO 12/12/16 09:00 12/13/16 10:24 (Milk Of Magnesia Liq) 30 ml Q12H PRN PO 12/12/16 04:30 (Senokot) 17.2 mg Q12H PRN PO 12/12/16 04:30 (Dulcolax Supp) 10 mg DAILY PRN RECTAL 12/12/16 04:30 (Lactulose Liq) 30 ml DAILY PRN PO 12/12/16 04:30 (Norvasc) 10 mg DAILY PO 12/12/16 09:00 12/13/16 10:24 (Prinivil) 10 mg DAILY PO 12/12/16 09:00 12/13/16 10:24 (Aspirin Chew) 81 mg DAILY CHEW 12/12/16 12:30 12/13/16 10:23 Vital Signs / I&O Vital Signs Date Time Temp Pulse Resp B/P (MAP) Pulse Ox O2 Delivery O2 Flow Rate FiO2 12/13/16 09:13 98.0 48 20 159/104 (122) 100 159/101 (120) 172/106 (128) 12/13/16 04:07 98.2 47 18 128/88 (101) 99 12/13/16 04:05 46 12/13/16 00:09 98.2 49 18 144/84 (104) 99 146/95 (112) 153/101 (118) 12/13/16 00:02 49 12/12/16 22:00 16 12/12/16 20:36 98.3 53 19 142/96 (111) 100 12/12/16 20:00 49 12/12/16 12:55 52 12/12/16 12:47 97.6 60 20 132/88 (103) 99 136/85 (102) 138/89 (105) I/O 12/12/16 12/12/16 12/12/16 12/13/16 12/13/16 12/13/16 07:00 15:00 23:00 07:00 15:00 23:00 Intake Total 720 ml 3136 ml Output Total 400 ml 550 ml Balance -400 ml 720 ml 2586 ml Intake Oral 720 ml 1400 ml IV Total 1736 ml Output Urine Total 400 ml 550 ml Physical Exam GENERAL: NAD, AAOx3 SKIN: Warm and dry. HEAD: Atraumatic. Normocephalic. EYES: Pupils equal and round. No scleral icterus. No injection or drainage. ENT: No nasal bleeding or discharge. Mucous membranes pink and moist. NECK: Trachea midline. No JVD. CARDIOVASCULAR: Regular rate and rhythm. RESPIRATORY: No accessory muscle use. Clear to auscultation. Breath sounds equal bilaterally. GASTROINTESTINAL: Abdomen soft, non-tender, nondistended. Hepatic and splenic margins not palpable. MUSCULOSKELETAL: Extremities without clubbing, cyanosis, or edema. No obvious deformities. NEUROLOGICAL: Awake and alert. No obvious cranial nerve deficits. Motor grossly within normal limits. Five out of 5 muscle strength in the arms and legs. Normal speech. PSYCHIATRIC: Appropriate mood and affect; insight and judgment normal. Laboratory Laboratory Tests Test 12/12/16 12:02 12/12/16 19:05 White Blood Count 3.9 TH/MM3 Red Blood Count 4.23 MIL/MM3 Hemoglobin 12.7 GM/DL Hematocrit 38.2 % Mean Corpuscular Volume 90.1 FL Mean Corpuscular Hemoglobin 30.0 PG Mean Corpuscular Hemoglobin Concent 33.3 % Red Cell Distribution Width 14.3 % Platelet Count 174 TH/MM3 Mean Platelet Volume 9.2 FL Neutrophils (%) (Auto) 42.2 % Lymphocytes (%) (Auto) 44.0 % Monocytes (%) (Auto) 11.8 % Eosinophils (%) (Auto) 1.5 % Basophils (%) (Auto) 0.5 % Neutrophils # (Auto) 1.6 TH/MM3 Lymphocytes # (Auto) 1.7 TH/MM3 Monocytes # (Auto) 0.5 TH/MM3 Eosinophils # (Auto) 0.1 TH/MM3 Basophils # (Auto) 0.0 TH/MM3 CBC Comment DIFF FINAL Differential Comment Blood Urea Nitrogen 5 MG/DL Creatinine 0.90 MG/DL Random Glucose 121 MG/DL Total Protein 6.9 GM/DL Albumin 3.3 GM/DL Calcium Level 8.4 MG/DL Alkaline Phosphatase 51 U/L Aspartate Amino Transf (AST/SGOT) 13 U/L Alanine Aminotransferase (ALT/SGPT) 18 U/L Total Bilirubin 0.4 MG/DL Sodium Level 140 MEQ/L Potassium Level 3.8 MEQ/L Chloride Level 106 MEQ/L Carbon Dioxide Level 30.3 MEQ/L Anion Gap 4 MEQ/L Estimat Glomerular Filtration Rate 113 ML/MIN Troponin I LESS THAN 0.02 NG/ML LESS THAN 0.02 NG/ML Assessment and Plan Problem List: (1) Syncope ICD Codes: R55 - Syncope and collapse Status: Acute (2) Atypical chest pain ICD Codes: R07.89 - Other chest pain Status: Acute (3) Hypertension ICD Codes: I10 - Essential (primary) hypertension Status: Acute (4) Tobacco use ICD Codes: Z72.0 - Tobacco use Status: Chronic Assessment and Plan 1) Syncope while walking and sitting in a chair Unknown cause 2) EF 50-55%, mild LVH 3) Bradycardia at baseline Showed chronotropic competence on ETT stress test, reaching greater than 85% predicted maximum Doubt symptomatic bradycardia as a cause of syncope 4) Will discuss further with EP cardiology 5) Neuro evaluation 6) No arrhythmias noted on telemetry Problem Qualifiers (1) Syncope: Qualified Codes: R55 - Syncope and collapse Wyatt Higgins DO Dec 13, 2016 12:01
--- NOTE | 2016-12-13 12:04 | MB ---
cc: ROGELIO ACKERMAN M.D. DATE OF CONSULTATION: 12/13/2016 HISTORY OF PRESENT ILLNESS He is a 41-year-old seen because of recurrent syncopal episode. There is a history of hypertension and cocaine abuse. The patient was in the hospital on 12/02 with a chest pain and syncope, he was discharged and then returned on 12/11 for syncope. Apparently, he was discharged again and went home and had another syncopal episode and brought back to the hospital. He has no history of seizures, stroke or TIAs. He is a smoker as well but apparently no alcohol. NEUROLOGIC EXAMINATION Neurologic exam was entirely normal. Reflexes were 2+. Ocular movements and visual ray full. Plantar responses were flexor. IMAGING STUDIES Carotid ultrasound was unremarkable. CT had on 12/01 was unremarkable. ASSESSMENT Recurrent syncopal episodes. Cocaine abuse. He is having cardiology evaluation and from neurological standpoint, no additional intervention. We will be happy to see him in the office for outpatient followup. Thank you for asking us to assist in his care. Rogelio Ackerman MD OFC/TLL /10:55 AM /11:55 AM
--- NOTE | 2016-12-13 12:49 | EKG ---
Date Performed: 12/12/2016 Time Performed: 08:31:02 PTAGE: 41 years EKG: SINUS BRADYCARDIA BORDERLINE ECG INTERPRETATION BASED ON A DEFAULT AGE OF 40 YEARS NO PREVIOUS TRACING Since previous tracing, no significant change. DOCTOR: Avelino Beckham Interpretating Date/Time 12/13/2016 12:47:30
[2016-12-14] VITALS (7 sets, daily range): BP systolic 124–150; BP diastolic 78–99; PULSE 46–66; RESP 16–19; TEMP 98–98.5; O2SAT 98–99
[2016-12-14] MEDS: SODIUM CHLOR 0.9% 1000 ML INJ 1,000 ML IV SCH ×3 (03:01→20:44)
[2016-12-14] MEDS: LISINOPRIL 10 MG TAB PO SCH (09:05)
[2016-12-14] MEDS: ASPIRIN 81 MG CHEW TAB CHEW SCH (09:05)
[2016-12-14] MEDS: DOCUSATE SODIUM 50 MG/SENNA 8.6 MG TAB PO SCH ×2 (09:06→20:45)
[2016-12-14] MEDS: ACETAMINOPHEN 325 MG TAB PO PRN (09:06)
[2016-12-14] MEDS: SODIUM CHLORIDE 0.9% FLUSH 10 ML FLUSH IV FLUSH SCH ×2 (09:07→20:45)
--- NOTE | 2016-12-14 09:27 | HHI.PR ---
Subjective Remarks Follow-up for syncope. Discussed with cardiology, Dr. Higgins, recommends EP evaluation today. The patient is agreeable to this plan of care. Patient continues to have occasional frontal headache radiating to his neck. He states he's had these headaches for quite some time. The Tylenol yesterday didn't help too much. He does have chronic neck pain. The patient denies any shortness of breath. He does have some anterior chest discomfort that is worse whenever it is touched. He denies any chest injury. Objective Vitals Vital Signs Date Time Temp Pulse Resp B/P (MAP) Pulse Ox O2 Delivery O2 Flow Rate FiO2 12/14/16 08:40 98.0 51 16 141/99 (113) 99 12/14/16 03:13 98.1 48 19 150/93 (112) 99 12/13/16 23:53 98.2 52 18 134/87 (103) 99 12/13/16 20:44 98.3 56 19 158/98 (118) 100 149/95 (113) 156/96 (116) 12/13/16 13:06 98.2 48 21 146/93 (110) 99 I/O 12/13/16 12/13/16 12/13/16 12/14/16 12/14/16 12/14/16 07:00 15:00 23:00 07:00 15:00 23:00 Intake Total 3136 ml 1804 ml Output Total 550 ml 300 ml 300 ml Balance 2586 ml -300 ml 1504 ml Intake Oral 1400 ml 480 ml IV Total 1736 ml 1324 ml Output Urine Total 550 ml 300 ml 300 ml Result Diagram: 12/12/16 1202 12/12/16 1202 Imaging Last Impressions Carotid Artery Ultrasound 12/12/16 0000 Signed Impressions: Service Date/Time: Monday, December 12, 2016 07:26 - CONCLUSION: 1. Minimal calcified plaque in the carotid bulbs bilaterally. However, there is no significant stenosis within either internal carotid artery (less than 50%% stenosis). 2. There is antegrade flow in both vertebral arteries. Jak Francois MD Objective Remarks GENERAL: Well-developed well-nourished. In no acute distress. SKIN: Warm and dry. No lesions noted. HEENT: Normocephalic. Pupils equal and round. Mucous membranes pink and moist. CARDIOVASCULAR: Regular bradycardic rate and rhythm. No murmur appreciated. Right anterior chest wall TTP. RESPIRATORY: No accessory muscle use. Clear to auscultation. Breath sounds equal bilaterally. GASTROINTESTINAL: Abdomen soft, non-tender, nondistended. Bowel sounds x4. MUSCULOSKELETAL: Cervical paraspinal muscle TTP. No clubbing or cyanosis. No edema. NEUROLOGICAL: Awake and alert. No focal neurological deficits. Moves upper and lower extremities spontaneously. Normal speech. PSYCHIATRIC: Appropriate mood and affect; insight and judgment normal. A/P Problem List: (1) Syncope ICD Code: R55 - Syncope and collapse Status: Acute (2) HTN (hypertension) ICD Code: I10 - Essential (primary) hypertension Status: Acute (3) Cocaine abuse ICD Code: F14.10 - Cocaine abuse, uncomplicated Status: Chronic (4) Tobacco use ICD Code: Z72.0 - Tobacco use Status: Chronic Assessment and Plan 41-year-old male with PMH of HTN, Cocaine Abuse and Tobacco Abuse was brought to the ER by EMS after syncopal episode Syncope: Recurrent. Seen in ER 12/11/16 for syncope, d/c'd home after negative work up however brought back by EMS after syncope while walking home. Reviewed: Non-orthostatic 12/11. Carotid ultrasound with no significant stenosis. UDS positive for cannabis. EKG and Telemetry shows episodes of sinus bradycardia in the 40s. Head CT 12/01 was unremarkable. Echocardiogram essentially unremarkable. -Telemetry monitoring. -Cardiology consulted, discussed with Dr. Higgins, recommended neuro and electrophysiology evaluation -Neurology consulted, and no further neuro workup at this time -PT recommended no restrictions -Awaiting EP recommendation Chest pain: Atypical. Admit 12/01/16 for syncope and chest pain, [facility], Stress Test 12/02/16 negative for ischemia. Secondary to episodes of accelerated hypertension. Also possible musculoskeletal etiology/ costochondritis with reproducible tenderness to palpation and cocaine use. -EKG shows sinus bradycardia rate 57, no definite ischemic changes. Recent negative stress test earlier this month. Troponin negative 3. Aspirin. HTN: Better controlled today. Off of BP meds 3 months. Patient with headache and chest pain with high blood pressure, improved after resuming home amlodipine and lisinopril. BP improving. Monitor. Cocaine/MJ/tobacco Abuse: Admits to h/o Cocaine Abuse, last use 12/01/16, denies recent ingestion. Patient counseled regarding cessation. Hypokalemia: Potassium 3.2 on 12/11. Given oral replacement. Repeat potassium 3.8. Resolved. Headache/neck pain: Seems secondary to cervical muscle spasm on exam. Ibuprofen and Flexeril 1. Continue Tylenol and ibuprofen as needed. DVT Prophylaxis: SCD/Teds. Discharge Planning Awaiting electrophysiology recommendations. Problem Qualifiers (1) Syncope: Qualified Codes: R55 - Syncope and collapse (2) HTN (hypertension): Qualified Codes: I10 - Essential (primary) hypertension Jimy Butt Dec 14, 2016 09:27
[2016-12-14] MEDS ORDERED: IBUPROFEN 800 MG TAB PO ONE (09:30)
[2016-12-14] MEDS ORDERED: CYCLOBENZAPRINE HCL 10 MG TAB PO ONE (09:30)
[2016-12-14] MEDS ORDERED: PILL SPLITTER OTHER PRN (09:45)
[2016-12-14] MEDS: IBUPROFEN 400 MG TAB PO PRN (20:45)
[2016-12-15] VITALS (10 sets, daily range): BP systolic 129–153; BP diastolic 82–102; PULSE 48–61; RESP 18–20; TEMP 97.7–98.2; O2SAT 98–100
[2016-12-15] MEDS: ASPIRIN 81 MG CHEW TAB CHEW SCH (08:31)
[2016-12-15] MEDS: DOCUSATE SODIUM 50 MG/SENNA 8.6 MG TAB PO SCH ×2 (08:31→19:54)
[2016-12-15] MEDS: IBUPROFEN 400 MG TAB PO PRN ×2 (08:31→19:56)
[2016-12-15] MEDS: SODIUM CHLOR 0.9% 1000 ML INJ 1,000 ML IV SCH ×2 (08:31→12:30)
[2016-12-15] MEDS: LISINOPRIL 10 MG TAB PO SCH (08:31)
[2016-12-15] MEDS: SODIUM CHLORIDE 0.9% FLUSH 10 ML FLUSH IV FLUSH SCH ×2 (08:32→19:54)
--- NOTE | 2016-12-15 09:01 | HHI.PR ---
Subjective Remarks Follow up for syncope. The patient reports feeling better today. Does continue to have mild headache but was able to sleep well last night. Denies any further syncopal events. Denies any lightheadedness, dizziness, chest pain, palpitations , shortness of breath, or abdominal complaints. Discussed his positive drug screen for cocaine earlier this month. The patient states his marijuana must've been laced with cocaine because he never does this. He does admit to smoking marijuana regularly. Objective Vitals Vital Signs Date Time Temp Pulse Resp B/P (MAP) Pulse Ox O2 Delivery O2 Flow Rate FiO2 12/15/16 07:41 97.8 52 20 153/102 (119) 99 12/15/16 04:00 48 12/15/16 03:50 97.7 52 18 139/85 (103) 99 12/15/16 01:07 98.0 55 18 136/95 (109) 98 12/15/16 00:00 54 12/14/16 20:00 54 12/14/16 19:26 98.0 52 16 139/98 (112) 99 12/14/16 17:30 98.5 66 16 124/78 (93) 99 12/14/16 12:09 98.1 55 16 139/92 (108) 98 12/14/16 12:09 54 I/O 12/14/16 12/14/16 12/14/16 12/15/16 12/15/16 12/15/16 07:00 15:00 23:00 07:00 15:00 23:00 Intake Total 1804 ml 1928 ml Output Total 300 ml 2000 ml 800 ml Balance 1504 ml -2000 ml 1928 ml -800 ml Intake Oral 480 ml 946 ml IV Total 1324 ml 982 ml Output Urine Total 300 ml 2000 ml 800 ml # Voids 4 Result Diagram: 12/12/16 1202 12/12/16 1202 Imaging Last Impressions Carotid Artery Ultrasound 12/12/16 0000 Signed Impressions: Service Date/Time: Monday, December 12, 2016 07:26 - CONCLUSION: 1. Minimal calcified plaque in the carotid bulbs bilaterally. However, there is no significant stenosis within either internal carotid artery (less than 50%% stenosis). 2. There is antegrade flow in both vertebral arteries. Jak Francois MD Objective Remarks GENERAL: Well-nourished, well-developed middle aged male patient in [facility]. SKIN: Warm and dry. No rash. HEENT: Normocephalic. Atraumatic. Pupils equal and round. Mucous membranes pink and moist. CARDIOVASCULAR: Bradycardic, regular rhythm. S1, S2 noted. No murmur appreciated. RESPIRATORY: No accessory muscle use. Clear to auscultation. Breath sounds equal bilaterally. GASTROINTESTINAL: Abdomen soft, non-tender, nondistended. Normoactive bowel sounds x4. MUSCULOSKELETAL: No obvious deformities. Extremities without clubbing, cyanosis , or edema. NEUROLOGICAL: Awake and alert. No obvious cranial nerve deficits. Motor grossly within normal limits. Normal speech. PSYCHIATRIC: Appropriate mood and affect; insight and judgment normal. Medications and IVs Current Medications Medications (Trade) Dose Ordered Sig/Pato Route Start Time Stop Time Status Last Admin Sodium Chloride 1,000 ml @ 100 mls/hr Q10H IV 12/12/16 04:30 12/15/16 08:31 (NS Flush) 2 ml UNSCH PRN IV FLUSH 12/12/16 04:30 (NS Flush) 2 ml BID IV FLUSH 12/12/16 09:00 12/15/16 08:32 (Zofran Inj) 4 mg Q6H PRN IVP 12/12/16 04:30 (Tylenol) 650 mg Q6H PRN PO 12/12/16 04:30 12/14/16 09:06 (Tonja-Colace) 1 tab BID PO 12/12/16 09:00 12/15/16 08:31 (Milk Of Magnesia Liq) 30 ml Q12H PRN PO 12/12/16 04:30 (Senokot) 17.2 mg Q12H PRN PO 12/12/16 04:30 (Dulcolax Supp) 10 mg DAILY PRN RECTAL 12/12/16 04:30 (Lactulose Liq) 30 ml DAILY PRN PO 12/12/16 04:30 (Norvasc) 10 mg DAILY PO 12/12/16 09:00 12/15/16 08:31 (Aspirin Chew) 81 mg DAILY CHEW 12/12/16 12:30 12/15/16 08:31 (Motrin) 400 mg Q6H PRN PO 12/14/16 15:00 12/15/16 08:31 (Pill Splitter) 1 ea UNSCH PRN OTHER 12/14/16 09:45 (Hydrodiuril) 25 mg DAILY PO 12/15/16 09:00 UNV A/P Problem List: (1) Syncope ICD Code: R55 - Syncope and collapse Status: Acute (2) HTN (hypertension) ICD Code: I10 - Essential (primary) hypertension Status: Acute (3) Cocaine abuse ICD Code: F14.10 - Cocaine abuse, uncomplicated Status: Chronic (4) Tobacco use ICD Code: Z72.0 - Tobacco use Status: Chronic Assessment and Plan 41-year-old male with PMH of HTN, Cocaine Abuse and Tobacco Abuse was brought to the ER by EMS after syncopal episode Syncope: Recurrent. Seen in ER 12/11/16 for syncope, d/c'd home after negative work up however brought back by EMS after syncope while walking home. Reviewed: Non-orthostatic 12/11. Carotid U/S with no significant stenosis. UDS positive for cannabis. EKG and Telemetry shows episodes of sinus bradycardia in the 40s. Head CT 12/01 was unremarkable. Echocardiogram essentially unremarkable. -Telemetry monitoring. -Cardiology consulted, seen by Dr. Higgins, recommended neuro and electrophysiology evaluation -Neurology consulted, and no further neuro workup at this time -PT recommended no restrictions -Awaiting EP recommendation Chest pain: Atypical. Admit 12/01/16 for syncope and chest pain, [facility], Stress Test 12/02/16 negative for ischemia. Secondary to episodes of accelerated hypertension. Also possible musculoskeletal etiology/ costochondritis with reproducible tenderness to palpation and cocaine use. -EKG shows sinus bradycardia rate 57, no definite ischemic changes. Recent negative stress test earlier this month. Troponin negative 3. Aspirin. HTN: Better controlled today. Off of BP meds 3 months. Patient with headache and chest pain with high blood pressure, improved after resuming home amlodipine and lisinopril. BP improving. Monitor. Cocaine/MJ/tobacco Abuse: Admits to h/o Cocaine Abuse, last use 12/01/16, denies recent ingestion. Patient counseled regarding cessation. Hypokalemia: Potassium 3.2 on 12/11. Given oral replacement. Repeat potassium 3.8. Resolved. Headache/neck pain: Seems secondary to cervical muscle spasm on exam. Ibuprofen and Flexeril 1. Continue Tylenol and ibuprofen as needed. DVT Prophylaxis: SCD/Teds. Discharge Planning 0900hrs: Awaiting EP evaluation. Problem Qualifiers (1) Syncope: Qualified Codes: R55 - Syncope and collapse (2) HTN (hypertension): Qualified Codes: I10 - Essential (primary) hypertension Marie Martinez PA-C Dec 15, 2016 9:01 am
--- NOTE | 2016-12-15 09:06 | MB ---
cc: TIM CORREA HANSCY M.D. CUNHA, OLIMPIO F. M.D. DATE OF CONSULTATION 12/15/2016 REASON FOR CONSULTATION Syncopal episode. HISTORY Mr. Michele is a 46-year-old -[place] gentleman with a history of high blood pressure. This gentleman uses cannabis and cocaine. The last time he used was on December 01, 2016. He was admitted in the past with episode of syncope. The gentleman was discharged home, back into the hospital again because he started turning blanchard and blacked out. He was awoken by his girlfriend. He was discharged and passed out again in a gas station. Somebody call and he was brought to the emergency room. During hospitalization, no further episode observed. I was consulted for further evaluation and management. The chart was reviewed. The patient was evaluated. ALLERGIES None reported. SOCIAL HISTORY The gentleman claims he smokes two cigarettes a day and usually occasionally marijuana and cocaine. FAMILY HISTORY Noncontributory to his current medical condition. MEDICATIONS He is on: 1. Amlodipine 10 mg a day 2. Aspirin 3. Ibuprofen 4. Lisinopril 10 mg a day 5. Reglan 6. Magnesium REVIEW OF SYSTEMS Currently he refers no chest pain, no chest discomfort. No vomiting. No syncope. No fever. PHYSICAL EXAM Alert, fully oriented. VITAL SIGNS: His blood pressure is 153/102, pulse 52, respiratory 18. LUNGS: Ventilated. CARDIOVASCULAR: S1, S2 regular, no gallop. ABDOMEN: Soft. No mass. EXTREMITIES: No edema. Electrocardiogram sinus rhythm. No acute ST and T-wave changes. LABORATORY DATA Hemoglobin 12.7, white blood cell 3.9. Potassium 3.8, creatinine 0.90, troponin less than 0.02. Toxicology positive for cannabis. ASSESSMENT AND RECOMMENDATIONS Mr. Michele currently is stable. He has multiple hospitalization due to syncopal episodes. This is the third this month. He was cleared by neurologist. The only positive is cannabis at this at this point in the urine. Previous echocardiogram show apparently a normal ejection fraction. Cardiovascular, no gross valvular abnormality. EF around 55%. No tachyarrhythmia recorded during hospitalization. Stress test was also negative. At this point, my recommendation is an electrophysiology study. If no tachyarrhythmia induced, then put a loop recorder for the patient. At the same time, blood pressure is very high. Medications needs to be reviewed. I had a long conversation with Mr. Michele. I did talk to him about the need to look for help for dependency management. He understands and promised to go and look for some help. I will monitor him during hospitalization. I will keep him on n.p.o. after breakfast, possible procedure today or tomorrow. MD JIM Meza/DEUCE /8:42 AM /8:54 AM
[2016-12-15] MEDS: HYDROCHLOROTHIAZIDE 25 MG TAB PO SCH (09:57)
--- NOTE | 2016-12-15 12:22 | PD.CARD.PN ---
Subjective Subjective Remarks No events overnight Seen by Dr. Rivera for possible EPS Objective Medications Current Medications Medications (Trade) Dose Ordered Sig/Pato Route Start Time Stop Time Status Last Admin Sodium Chloride 1,000 ml @ 100 mls/hr Q10H IV 12/12/16 04:30 12/15/16 08:31 (NS Flush) 2 ml UNSCH PRN IV FLUSH 12/12/16 04:30 (NS Flush) 2 ml BID IV FLUSH 12/12/16 09:00 12/15/16 08:32 (Zofran Inj) 4 mg Q6H PRN IVP 12/12/16 04:30 (Tylenol) 650 mg Q6H PRN PO 12/12/16 04:30 12/14/16 09:06 (Tonja-Colace) 1 tab BID PO 12/12/16 09:00 12/15/16 08:31 (Milk Of Magnesia Liq) 30 ml Q12H PRN PO 12/12/16 04:30 (Senokot) 17.2 mg Q12H PRN PO 12/12/16 04:30 (Dulcolax Supp) 10 mg DAILY PRN RECTAL 12/12/16 04:30 (Lactulose Liq) 30 ml DAILY PRN PO 12/12/16 04:30 (Norvasc) 10 mg DAILY PO 12/12/16 09:00 12/15/16 08:31 (Aspirin Chew) 81 mg DAILY CHEW 12/12/16 12:30 12/15/16 08:31 (Motrin) 400 mg Q6H PRN PO 12/14/16 15:00 12/15/16 08:31 (Pill Splitter) 1 ea UNSCH PRN OTHER 12/14/16 09:45 (Hydrodiuril) 25 mg DAILY PO 12/15/16 09:15 12/15/16 09:57 Vital Signs / I&O Vital Signs Date Time Temp Pulse Resp B/P (MAP) Pulse Ox O2 Delivery O2 Flow Rate FiO2 12/15/16 11:32 98.0 58 18 131/89 (103) 100 12/15/16 08:08 61 12/15/16 07:41 97.8 52 20 153/102 (119) 99 12/15/16 04:00 48 12/15/16 03:50 97.7 52 18 139/85 (103) 99 12/15/16 01:07 98.0 55 18 136/95 (109) 98 12/15/16 00:00 54 12/14/16 20:00 54 12/14/16 19:26 98.0 52 16 139/98 (112) 99 12/14/16 17:30 98.5 66 16 124/78 (93) 99 I/O 12/14/16 12/14/16 12/14/16 12/15/16 12/15/16 12/15/16 07:00 15:00 23:00 07:00 15:00 23:00 Intake Total 1804 ml 1928 ml Output Total 300 ml 2000 ml 800 ml Balance 1504 ml -2000 ml 1928 ml -800 ml Intake Oral 480 ml 946 ml IV Total 1324 ml 982 ml Output Urine Total 300 ml 2000 ml 800 ml # Voids 4 Physical Exam GENERAL: NAD, AAOx3 SKIN: Warm and dry. HEAD: Atraumatic. Normocephalic. EYES: Pupils equal and round. No scleral icterus. No injection or drainage. ENT: No nasal bleeding or discharge. Mucous membranes pink and moist. NECK: Trachea midline. No JVD. CARDIOVASCULAR: Regular rate and rhythm. RESPIRATORY: No accessory muscle use. Clear to auscultation. Breath sounds equal bilaterally. GASTROINTESTINAL: Abdomen soft, non-tender, nondistended. Hepatic and splenic margins not palpable. MUSCULOSKELETAL: Extremities without clubbing, cyanosis, or edema. No obvious deformities. NEUROLOGICAL: Awake and alert. No obvious cranial nerve deficits. Motor grossly within normal limits. Five out of 5 muscle strength in the arms and legs. Normal speech. PSYCHIATRIC: Appropriate mood and affect; insight and judgment normal. Assessment and Plan Problem List: (1) Syncope ICD Codes: R55 - Syncope and collapse Status: Acute (2) Atypical chest pain ICD Codes: R07.89 - Other chest pain Status: Acute (3) Hypertension ICD Codes: I10 - Essential (primary) hypertension Status: Acute (4) Tobacco use ICD Codes: Z72.0 - Tobacco use Status: Chronic Assessment and Plan 1) Syncope while walking and sitting in a chair Unknown cause 2) EF 50-55%, mild LVH 3) Bradycardia at baseline Showed chronotropic competence on ETT stress test, reaching greater than 85% predicted maximum Doubt symptomatic bradycardia as a cause of syncope 4) Discussed with EP, will plan on EP study and possible Loop 5) Neuro evaluation negative 6) No arrhythmias noted on telemetry Problem Qualifiers (1) Syncope: Qualified Codes: R55 - Syncope and collapse Wyatt Higgins DO Dec 15, 2016 12:22
[2016-12-16] VITALS (14 sets, daily range): BP systolic 123–166; BP diastolic 76–105; PULSE 50–60; RESP 14–18; TEMP 97.9–98.3; O2SAT 98–100
[2016-12-16] MEDS: SODIUM CHLOR 0.9% 1000 ML INJ 1,000 ML IV SCH ×3 (00:24→18:30)
--- NOTE | 2016-12-16 08:09 | HHI.PR ---
Subjective Remarks Follow up for syncope, bradycardia. The patient reports feeling well today. Headache improved. Denies any lightheadedness, dizziness, chest pain, palpitations, or shortness of breath. He has been ambulating without difficulty. He has no other medical complaints at this time. Going for EP study today. Objective Vitals Vital Signs Date Time Temp Pulse Resp B/P (MAP) Pulse Ox O2 Delivery O2 Flow Rate FiO2 12/16/16 07:29 98.2 54 14 131/90 (104) 99 12/16/16 04:12 97.9 58 18 127/76 (93) 100 12/16/16 00:27 163/105 (124) 12/16/16 00:04 98.1 52 18 166/101 (122) 99 12/15/16 19:49 98.2 53 18 152/91 (111) 99 Manual Cuff/Auscultation 12/15/16 15:27 98.0 58 18 129/82 (98) 99 12/15/16 12:04 60 12/15/16 11:32 98.0 58 18 131/89 (103) 100 12/15/16 08:08 61 I/O 12/15/16 12/15/16 12/15/16 12/16/16 12/16/16 12/16/16 07:00 15:00 23:00 07:00 15:00 23:00 Intake Total 1928 ml Output Total 800 ml 800 ml Balance 1928 ml -800 ml -800 ml Intake Oral 946 ml IV Total 982 ml Output Urine Total 800 ml 800 ml # Voids 4 2 Result Diagram: 12/12/16 1202 12/12/16 1202 Imaging Last Impressions Carotid Artery Ultrasound 12/12/16 0000 Signed Impressions: Service Date/Time: Monday, December 12, 2016 07:26 - CONCLUSION: 1. Minimal calcified plaque in the carotid bulbs bilaterally. However, there is no significant stenosis within either internal carotid artery (less than 50%% stenosis). 2. There is antegrade flow in both vertebral arteries. Jak Francois MD Objective Remarks GENERAL: Well-nourished, well-developed middle aged male patient in [facility]. SKIN: Warm and dry. No rash. HEENT: Normocephalic. Atraumatic. Pupils equal and round. Mucous membranes pink and moist. CARDIOVASCULAR: Bradycardic, regular rhythm. S1, S2 noted. No murmur appreciated. RESPIRATORY: No accessory muscle use. Clear to auscultation. Breath sounds equal bilaterally. GASTROINTESTINAL: Abdomen soft, non-tender, nondistended. Normoactive bowel sounds x4. MUSCULOSKELETAL: No obvious deformities. Extremities without clubbing, cyanosis , or edema. NEUROLOGICAL: Awake and alert. No obvious cranial nerve deficits. Motor grossly within normal limits. Normal speech. PSYCHIATRIC: Appropriate mood and affect; insight and judgment normal. Medications and IVs Current Medications Medications (Trade) Dose Ordered Sig/Pato Route Start Time Stop Time Status Last Admin Sodium Chloride 1,000 ml @ 100 mls/hr Q10H IV 12/12/16 04:30 12/16/16 00:24 (NS Flush) 2 ml UNSCH PRN IV FLUSH 12/12/16 04:30 (NS Flush) 2 ml BID IV FLUSH 12/12/16 09:00 12/15/16 08:32 (Zofran Inj) 4 mg Q6H PRN IVP 12/12/16 04:30 (Tylenol) 650 mg Q6H PRN PO 12/12/16 04:30 12/14/16 09:06 (Tonja-Colace) 1 tab BID PO 12/12/16 09:00 12/15/16 08:31 (Milk Of Magnesia Liq) 30 ml Q12H PRN PO 12/12/16 04:30 (Senokot) 17.2 mg Q12H PRN PO 12/12/16 04:30 (Dulcolax Supp) 10 mg DAILY PRN RECTAL 12/12/16 04:30 (Lactulose Liq) 30 ml DAILY PRN PO 12/12/16 04:30 (Norvasc) 10 mg DAILY PO 12/12/16 09:00 12/15/16 08:31 (Aspirin Chew) 81 mg DAILY CHEW 12/12/16 12:30 12/15/16 08:31 (Motrin) 400 mg Q6H PRN PO 12/14/16 15:00 12/15/16 19:56 (Pill Splitter) 1 ea UNSCH PRN OTHER 12/14/16 09:45 (Hydrodiuril) 25 mg DAILY PO 12/15/16 09:15 12/15/16 09:57 A/P Problem List: (1) Syncope ICD Code: R55 - Syncope and collapse Status: Acute (2) HTN (hypertension) ICD Code: I10 - Essential (primary) hypertension Status: Acute (3) Cocaine abuse ICD Code: F14.10 - Cocaine abuse, uncomplicated Status: Chronic (4) Tobacco use ICD Code: Z72.0 - Tobacco use Status: Chronic Assessment and Plan 41-year-old male with PMH of HTN, Cocaine Abuse and Tobacco Abuse was brought to the ER by EMS after syncopal episode Syncope: Recurrent. Seen in ER 12/11/16 for syncope, d/c'd home after negative work up however brought back by EMS after syncope while walking home. Reviewed: Non-orthostatic 12/11. Carotid U/S with no significant stenosis. UDS positive for cannabis. EKG and Telemetry shows episodes of sinus bradycardia in the 40s. Head CT 12/01 was unremarkable. Echocardiogram essentially unremarkable. -Telemetry monitoring. -Cardiology consulted, seen by Dr. Higgins, recommended neuro and electrophysiology evaluation -Neurology consulted, and no further neuro workup at this time -PT recommended no restrictions -Dr. Rivera planning EP study today Chest pain: Atypical. Admit 12/01/16 for syncope and chest pain, [facility], Stress Test 12/02/16 negative for ischemia. Secondary to episodes of accelerated hypertension. Also possible musculoskeletal etiology/ costochondritis with reproducible tenderness to palpation and cocaine use. -EKG shows sinus bradycardia rate 57, no definite ischemic changes. Recent negative stress test earlier this month. Troponin negative 3. Aspirin. HTN: Better controlled today. Off of BP meds 3 months. Patient with headache and chest pain with high blood pressure, improved after resuming home amlodipine and lisinopril. BP improving. Monitor. Cocaine/MJ/tobacco Abuse: Admits to h/o Cocaine Abuse, last use 12/01/16, denies recent ingestion. Patient counseled regarding cessation. Hypokalemia: Potassium 3.2 on 12/11. Given oral replacement. Repeat potassium 3.8. Resolved. Headache/neck pain: Seems secondary to cervical muscle spasm on exam. Ibuprofen and Flexeril 1. Continue Tylenol and ibuprofen as needed. DVT Prophylaxis: SCD/Teds. Discharge Planning 0805hrs: Awaiting EP study today. Possible discharge after if cleared by cardiology. Problem Qualifiers (1) Syncope: Qualified Codes: R55 - Syncope and collapse (2) HTN (hypertension): Qualified Codes: I10 - Essential (primary) hypertension Marie Martinez PA-C Dec 16, 2016 8:09 am
[2016-12-16] MEDS: DOCUSATE SODIUM 50 MG/SENNA 8.6 MG TAB PO SCH ×2 (08:39→21:00)
[2016-12-16] MEDS: SODIUM CHLORIDE 0.9% FLUSH 10 ML FLUSH IV FLUSH SCH ×2 (08:40→21:00)
[2016-12-16] MEDS: ASPIRIN 81 MG CHEW TAB CHEW SCH (08:40)
[2016-12-16] MEDS: IBUPROFEN 400 MG TAB PO PRN (08:40)
[2016-12-16] MEDS: HYDROCHLOROTHIAZIDE 25 MG TAB PO SCH (08:40)
--- NOTE | 2016-12-16 16:40 | PD.CARD.PN ---
Subjective Subjective Remarks No problems overnight No complaints Objective Medications Current Medications Medications (Trade) Dose Ordered Sig/Pato Route Start Time Stop Time Status Last Admin Sodium Chloride 1,000 ml @ 100 mls/hr Q10H IV 12/12/16 04:30 12/16/16 08:40 (NS Flush) 2 ml UNSCH PRN IV FLUSH 12/12/16 04:30 (NS Flush) 2 ml BID IV FLUSH 12/12/16 09:00 12/15/16 08:32 (Zofran Inj) 4 mg Q6H PRN IVP 12/12/16 04:30 (Tylenol) 650 mg Q6H PRN PO 12/12/16 04:30 12/14/16 09:06 (Tonja-Colace) 1 tab BID PO 12/12/16 09:00 12/16/16 08:39 (Milk Of Magnesia Liq) 30 ml Q12H PRN PO 12/12/16 04:30 (Senokot) 17.2 mg Q12H PRN PO 12/12/16 04:30 (Dulcolax Supp) 10 mg DAILY PRN RECTAL 12/12/16 04:30 (Lactulose Liq) 30 ml DAILY PRN PO 12/12/16 04:30 (Norvasc) 10 mg DAILY PO 12/12/16 09:00 12/16/16 08:39 (Aspirin Chew) 81 mg DAILY CHEW 12/12/16 12:30 12/16/16 08:40 (Motrin) 400 mg Q6H PRN PO 12/14/16 15:00 12/16/16 08:40 (Pill Splitter) 1 ea UNSCH PRN OTHER 12/14/16 09:45 (Hydrodiuril) 25 mg DAILY PO 12/15/16 09:15 12/16/16 08:40 Vital Signs / I&O Vital Signs Date Time Temp Pulse Resp B/P (MAP) Pulse Ox O2 Delivery O2 Flow Rate FiO2 12/16/16 14:58 98.1 60 16 139/86 (103) 99 12/16/16 12:24 98.0 58 16 138/83 (101) 98 12/16/16 12:11 53 12/16/16 08:00 50 12/16/16 07:29 98.2 54 14 131/90 (104) 99 12/16/16 04:12 97.9 58 18 127/76 (93) 100 12/16/16 00:27 163/105 (124) 12/16/16 00:04 98.1 52 18 166/101 (122) 99 12/15/16 19:49 98.2 53 18 152/91 (111) 99 Manual Cuff/Auscultation I/O 12/15/16 12/15/16 12/15/16 12/16/16 12/16/16 12/16/16 07:00 15:00 23:00 07:00 15:00 23:00 Intake Total 1928 ml 900 ml Output Total 800 ml 800 ml Balance 1928 ml -800 ml -800 ml 900 ml Intake Oral 946 ml IV Total 982 ml 900 ml Output Urine Total 800 ml 800 ml # Voids 4 2 1 Physical Exam GENERAL: NAD, AAOx3 SKIN: Warm and dry. HEAD: Atraumatic. Normocephalic. EYES: Pupils equal and round. No scleral icterus. No injection or drainage. ENT: No nasal bleeding or discharge. Mucous membranes pink and moist. NECK: Trachea midline. No JVD. CARDIOVASCULAR: Regular rate and rhythm. RESPIRATORY: No accessory muscle use. Clear to auscultation. Breath sounds equal bilaterally. GASTROINTESTINAL: Abdomen soft, non-tender, nondistended. Hepatic and splenic margins not palpable. MUSCULOSKELETAL: Extremities without clubbing, cyanosis, or edema. No obvious deformities. NEUROLOGICAL: Awake and alert. No obvious cranial nerve deficits. Motor grossly within normal limits. Five out of 5 muscle strength in the arms and legs. Normal speech. PSYCHIATRIC: Appropriate mood and affect; insight and judgment normal. Assessment and Plan Problem List: (1) Syncope ICD Codes: R55 - Syncope and collapse Status: Acute (2) Atypical chest pain ICD Codes: R07.89 - Other chest pain Status: Acute (3) Hypertension ICD Codes: I10 - Essential (primary) hypertension Status: Acute (4) Tobacco use ICD Codes: Z72.0 - Tobacco use Status: Chronic Assessment and Plan 1) Syncope while walking and sitting in a chair Unknown cause 2) EF 50-55%, mild LVH 3) Bradycardia at baseline Showed chronotropic competence on ETT stress test, reaching greater than 85% predicted maximum Doubt symptomatic bradycardia as a cause of syncope 4) Discussed with EP, will plan on EP study and possible Loop today Will defer further management to Dr. Rivera from a cardiovascular standpoint 5) Neuro evaluation negative 6) No arrhythmias noted on telemetry Problem Qualifiers (1) Syncope: Qualified Codes: R55 - Syncope and collapse Wyatt Higgins DO Dec 16, 2016 16:39
[2016-12-16] MEDS ORDERED: ISOPROTERENOL HCL 1 MG/5 ML AMP ONE (18:31)
[2016-12-16] MEDS ORDERED: ATROPINE SULFATE 1 MG/ML VIAL IV PUSH PRN (19:30)
[2016-12-16] MEDS ORDERED: LORazepam 2 MG/ML VIAL IV PUSH PRN (19:30)
[2016-12-16] MEDS ORDERED: LIDOCAINE HCL 1% 50 ML VIAL INFIL PRN (19:30)
[2016-12-16] MEDS ORDERED: METOCLOPRAMIDE HCL 10 MG/2 ML VIAL IV PUSH PRN (19:30)
[2016-12-16] MEDS ORDERED: ONDANSETRON HCL 4 MG/2 ML VIAL IV PUSH PRN (19:30)
[2016-12-16] MEDS ORDERED: SODIUM CHLOR 0.9% 250 ML INJ 250 ML IV PRN (19:30)
[2016-12-16] MEDS ORDERED: oxyCODONE/ACETAMINOPHEN 5 MG/325 MG TAB PO PRN ×2 (19:30)
--- NOTE | 2016-12-16 19:40 | CATHPROC ---
[employer] HIS Report Study Information Study Number Admission Scheduled Start Study Start [id number] Dec 12 2016 4:34AM 12/16/2016 Dec 16 2016 10:22AM Melvin Service Electrophysiology Study Admit Source Facility Department Other [facility] - Console Operator Physician and Clinical Staff Initial Mejia Dickinson Cold Strip Roller Adrián Jamil,RT(R) Other Anesthesia, VEHICLE CARE SPECIALIST Recorder Romana Burks BSRTerrell Scrub Sole Conner,RT(R) TECH2 Equipment Time Timber Repairer Description Size Mfg Part Number Used/Scraped BIOSOn The BillTER [id number] 18:26 CATHETER, ACUNAV FR10 ICE FR 10 Used INC. *[id number] 10:27 the Shelf INDUST[employer]ES PACK, CCL CUSTOM * Used *[id number] 10:27 the Shelf PACER VOGEL, LIMB * 2530 *[id number] Used [id number] 10:27 Assurely BLANKET,WARM AIR CCL * Used *[id number] 18:27 [employer] CATHETER, JSN, QUAD FR 5 Used *[id number] 18:26 [employer] MED[employer] CATHETER, JSN, QUAD FR 5 Used *[id number] 18:26 [employer] MED[employer] CATHETER, JSN, QUAD FR 5 Used *[id number] 18:26 [employer] MED[employer] CATHETER, JSN, QUAD FR 5 Used *[id number] [id number] 18:26 [employer] MED[employer] SHEATH, EPS, FR5 FAST CATH FR 5 Used *[id number] 18:26 [employer] MED[employer] SHEATH, EPS, FR5 FAST CATH FR 5 Used *[id number] 147030 18:26 [employer] SHEATH, EPS, FR5 FAST CATH FR 5 Used *[id number] 18:26 [employer] MED[employer] SHEATH, EPS, FR6 FAST CATH FR 6 Used *[id number] RECORDER, REVEAL LINQ 9538 LNQSYS 19:23 [employer] Used SYSTEM *[id number] Equipment Model, Serial, Lot Number and Expiration Data Description Model Number Serial Number Lot Number Expiration Date RECORDER, REVEAL LINQ 9538 LNQ11 [id number] 08-02-2017 SYSTEM History: Current Medications Medication Dosage/Unit Route Frequency Last Date/Time Taken NORVASC ASA History: Allergies Allergy Reaction NKDA History: Risk Factors Hypertension Yes History: Symptoms/Diagnosis Selection Items Syncope Labs Hgb (g/dl) Hct (%) WBC (l/cumm) Platelets (thousands) 11.60-17.00 35.00-51.00 4.00-11.00 150.00-450.00 12.7 38.2 3.9 174 Glucose (mg/dl) BUN (mg/dl) Creatinine (mg/dl) BUN:Creatinine (1:x) 74.00-106.00 7.00-18.00 0.50-1.30 10.00-20.00 121 5 0.9 5.6 Na (meq/l) K (meq/l) Ca (mg/dl) 136.00-145.00 3.50-5.10 8.50-10.10 140 3.8 8.4 Medication Medication Total Dose (Bolus/Oral) Medication Total Dosage/Unit 1% XYLOCAINE 20 mL 2% XYLOCAINE 50 mL Medications (Bolus/Oral) Medication Time Given Dosage/Unit Administered By Reason 1% XYLOCAINE 12/16/2016 6:41:45 PM 20 mL Mejia Rivera For pain 20 mL 1% XYLOCAINE given in lab by Mejia Rivera in Right Groin via Subcutaneous. Ordered by Kb Rivera. Reason: For pain. 2% XYLOCAINE 12/16/2016 7:24:05 PM 50 mL Mejia Rivera As per physicians pepito verde order 50 mL 2% XYLOCAINE given in lab by Mejia Rivera via Subcutaneous. Ordered by Mejia Rivera. Reason: As per physicians verbal order. Medication (Drip) Medication Time Given Dosage/Unit Concentration/Unit Diluent (ml) Solution ANCEF 12/16/2016 7:12:00 PM 2 g 2 g ANCEF given in lab by Anesthesia, VEHICLE CARE SPECIALIST in Right Antecubital via Peripheral IV. Ordered by Mejia Rivera. Reason: As per physicians verbal order. ISUPREL 12/16/2016 7:01:00 PM 4 mcg/min 1 mg 250 NaCl .9 4 mcg/min ISUPREL given in lab by Anesthesia, VEHICLE CARE SPECIALIST in Right Antecubital via Peripheral IV. Pump/Drip Flow = 60 ml/hr using NaCl .9 with a concentration of 1 mg in 250 ml. Ordered by Mejia Rivera. Reason: As per physicians verbal order. IV Solutions 12/16/2016 6:21:38 PM 0 mL (IV) NaCl .9 IV Solutions given in lab by Romana Burks BSRN in Left Antecubital via Peripheral IV. Pump/Drip Flow = 50 ml/hr using NaCl .9. Ordered by Mejia Rivera. Reason: As per physicians verbal order. IV Solutions 12/16/2016 6:22:02 PM 0 mL (IV) NaCl .9 IV Solutions given in lab by Romana Burks BSRN in Right Antecubital via Peripheral IV. Pump/Drip Flow = 50 ml/hr using NaCl .9. Ordered by Mejia Rivera. Reason: As per physicians verbal order. Initial Case Assessment Cardiovascular HR NIBP 72 154/97 Edema Present Skin color Skin None Normal Warm Dry Neurological State Oriented to time-place- Alert Moves all extremities person Respiration - General Respiration Rate SpO2 (%) (B/min) 20 98 Final Case Assessment Cardiovascular HR NIBP 69 104/67 Edema Present Skin color Skin None Normal Warm Dry Neurological State Oriented to time-place- Alert Moves all extremities person Respiration - General Respiration Rate SpO2 (%) (B/min) 18 98 Chronological Log Time Study Chronological Log 18:02:33 Patient arrived via Bed. 18:02:36 Patient Name, D.O.B, / Armband Verified By R.N. 18:02:38 Consent signed by the physician and the patient and verified by the Console Operator staff. 18:20:35 Pre-op and post- op instructions given; patient acknowledges understanding of instructions. 18:20:38 Verbal Stimulation=22 Physical Stimulation=2 Airway=2 Respiration=2 TOTAL=10. (0=absent, 1= limited, 2=present) 18:20:53 Anesthesia at bedside. Assumes care of patient. Myles VEHICLE CARE SPECIALIST 18:21:04 Presedation assessment performed by Console Operator RN. 18:21:07 Patient has been NPO for More than 6Hrs. 18:21:09 Skin Breakdown- none 18:21:16 Patient Warmer Placed on the Table. 18:21:19 Disposable Defibrillator Pads Placed On Patient. 18:21:22 Stephani Prominences Protected 18:21:24 A # 20 IV was noted in the Antecubital (left). Grade = ~GRADE~ 18:21:30 A # 20 IV was noted in the Antecubital (right). Grade = ~GRADE~ IV Solutions given in lab by Romana Burks BSRN in Left Antecubital via Peripheral IV. Pump /Drip Flow = 50 ml/hr 18:21:38 using NaCl .9. Ordered by Mejia Rivera. Reason: As per physicians verbal order. IV Solutions given in lab by Romana Burks BSRN in Right Antecubital via Peripheral IV. Pum p/Drip Flow = 50 ml/hr 18:22:02 using NaCl .9. Ordered by Mejia Rivera. Reason: As per physicians verbal order. 18:23:16 History and physical on the chart or being dictated. Assessment: Initial Case, HR=72 BPM, PNDW=122/97 mmhg, Edema=None, Color=Normal, Skin = Warm, D ry 18:23:19 Neurological: State=Alert, Ox3, GLASER Respiration: Resp=20 B/min, SpO2=98 % 18:24:05 Table restraints applied according to hospital policy 18:24:07 Left Upper Chest Prepped Times Two. 18:24:09 Right groin prepped with 2% chlorhexidine, and with a 3 min. waiting time. 18:24:12 Left groin prepped with 2% chlorhexidine, and with a 3 min. waiting time. 18:24:40 Reference ECG taken 18:31:41 2% CHLORHEXIDINE GLUCONATE WASH AND NASAL SWIPE DONE PRIOR TO PROCEDURE. 18:37:28 Immediate Presedation assesment performed by physician. Time Out. Correct patient, procedure, procedure equipment, site and side verified with physicia n present. Time 18:41:02 concurred by MD, individual staff and VEHICLE CARE SPECIALIST. Time Out #2 - Consents verified, patient in correct position, all results are labled and displa yed, safety precautions 18:41:08 taken, antibiotics administered. Time out concurred by , individual staff and VEHICLE CARE SPECIALIST in procedu re 18:41:10 Case Start 20 mL 1% XYLOCAINE given in lab by Mejia Rivera in Right Groin via Subcutaneous. Ordered by Mejia Jaime. 18:41:45 Reason: For pain. 18:41:58 Vascular access was obtained in the Fem Vein (right). 18:42:03 Vascular access was obtained in the Fem Vein (right). 18:42:04 Vascular access was obtained in the Fem Vein (right). 18:42:04 Vascular access was obtained in the Fem Vein (right). 18:42:13 A SHEATH, EPS, FR5 FAST CATH FR 5 was advanced into the Fem Vein (right) using the Percutan eous technique. 18:42:21 A SHEATH, EPS, FR5 FAST CATH FR 5 was advanced into the Fem Vein (right) using the Percutan eous technique. 18:42:28 A SHEATH, EPS, FR5 FAST CATH FR 5 was advanced into the Fem Vein (right) using the Percutan eous technique. 18:42:34 A SHEATH, EPS, FR6 FAST CATH FR 6 was advanced into the Fem Vein (right) using the Percutan eous technique. A CATHETER, JSN, QUAD FR 5 was advanced vis Fem Vein (right) and placed in the HRA. Placement w as visually 18:42:42 confirmed under fluoroscopy. A CATHETER, JSN, QUAD FR 5 was advanced vis Fem Vein (right) and placed in the HIS. Placement w as visually 18:42:52 confirmed under fluoroscopy. A CATHETER, JSN, QUAD FR 5 was advanced vis Fem Vein (right) and placed in the CS. Placement w as visually 18:43:01 confirmed under fluoroscopy. A CATHETER, JSN, QUAD FR 5 was advanced vis Fem Vein (right) and placed in the RVA. Placement was visually 18:43:12 confirmed under fluoroscopy. 18:43:25 EP Study begun. 4 mcg/min ISUPREL given in lab by Anesthesia, VEHICLE CARE SPECIALIST in Right Antecubital via Peripheral IV. Pum p/Drip Flow = 60 ml/hr 19:01:00 using NaCl .9 with a concentration of 1 mg in 250 ml. Ordered by Mejia Rivera. Reason: As per physicians verbal order. 19:08:52 Isuprel gtt turned off. 2 g ANCEF given in lab by Anesthesia, VEHICLE CARE SPECIALIST in Right Antecubital via Peripheral IV. Ordered by Mejia Rivera. Reason: 19:12:00 As per physicians verbal order. 19:13:21 EP study complete. 19:13:47 Catheters were removed. 19:20:40 left upper chest reprepped times two. 50 mL 2% XYLOCAINE given in lab by Mejia Rivera via Subcutaneous. Ordered by Mejia Rivera. Jose geon: As per 19:24:05 physicians verbal order. 19:24:[address] by Dr. Rivera left chest. 19:25:17 Implant Procedure was performed. loop 19:25:26 A Loop Recorder Inserted . (~PPM TYPE~) 19:25:36 Bedside Report will be given. 19:25:38 Steri-strips and a sterile dressing applied to site. 19:27:46 Sheaths removed; pressure applied to access sites by Kb Conner. Hemostasis achieved and st erile dressings applied. 19:28:43 Case End 19:29:36 No case complications noted. 19:29:41 Cine recording checked. 19:30:11 Implantable Device card placed in patient's chart. 19:30:26 Defibrillator and ground pads removed. Skin intact. Assessment: Final Case, HR=69 BPM, EPYA=282/67 mmhg, Edema=None, Color=Normal, Skin = Warm, Dr koch 19:30:42 Neurological: State=Alert, Ox3, GLASER Respiration: Resp=18 B/min, SpO2=98 % 19:42:50 [facility] End Study - Contrast Media Used In Study Contrast Total Opened (mL) Total Used (mL) Total Wasted (mL) Unspecified 0 0 0 End Study - Maximum Contrast Load Max Contrast Load (mL) 451.8 End Study - Radiation Exposure Fluoro Time (minutes) 2.3 End Study - Patient Disposition Complications Transferred To Interventional Outcome No Telemetry Bed successful
[2016-12-16] MEDS ORDERED: BACITRACIN OINT 0.9 GM PKT TOP ONE (20:30)
[2016-12-16] MEDS ORDERED: ceFAZolin 2 GM PREMIX 50 ML IV SCH (21:15)
--- NOTE | 2016-12-16 22:08 | MA ---
cc: LATOYA KC M.D. DATE 12/16/16 PROCEDURE PERFORMED Electrophysiology study, CS cannulation, repeat electrophysiology study on Isuprel infusion. HISTORY Mr. Michele is a 41-year-old -[place] gentleman, multiple hospitalizations due to syncope, who will undergo electrophysiology study. The risks, the nature and the benefit of the procedure are clearly stated to him. The risks include pneumothorax, cardiac perforation, stroke, need for open heart surgery and even . He understood and agreed to proceed. PROCEDURE IN DETAIL After written informed consent was obtained, the patient was brought to the EP lab where he was prepped and draped in the usual sterile fashion. Conscious sedation was initiated and maintained throughout the procedure by anesthesiologist. Once sedation verified, the right inguinal area was anesthetized with 2% Xylocaine. Using modified Seldinger technique, the right femoral vein was cannulated on four occasions, four guidewire were advanced. Over the wire three 5 and a 6-Swiss Hemaquet were advanced. Then under fluoroscopic guidance through the 5 and 6 Swiss Hemaquet, four 5-Swiss María curved quadripolar electrophysiology catheters were advanced into position on the His, upper right atrium, coronary sinus and right ventricular apex. Basic interval was measured. They were within normal limits. At this point atrial pacing protocol was performed. Atrial pacing protocol consists of incremental atrial pacing as well as program stimulation with 110 cycle length and up to one extrastimuli delivered. No tachyarrhythmia was induced. Then ventricular pacing protocol was performed. There was VA conduction. Ventricular pacing protocol consisted of incremental ventricular pacing as well as program stimulation with 110 cycle length and up to three extrastimuli delivered. No tachyarrhythmia was induced. Then Isuprel infusion was initiated. Atrial and ventricular pacing protocol was repeated, again no tachyarrhythmia was induced. Post Isuprel no tachyarrhythmia was induced. At that point procedure was completed. All catheters were removed. The patient going to be kept on the table and loop recorder will be inserted. No incident report. The patient tolerated the procedure. Blood loss minimal. 1. Electrocardiogram: At baseline the patient was in sinus, postprocedure electrocardiogram was unchanged. 2. Basic interval: Base cycle length was 750, AH was around 70 and HV was around 40 milliseconds. 3. Atrial pacing protocol: Wenckebach of the node was around 400 milliseconds. ____ milliseconds. No tachyarrhythmia was induced. 4. Ventricular pacing protocol there was VA conduction. No tachyarrhythmia was induced. CONCLUSION Negative electrophysiology study for supraventricular tachyarrhythmia. Good AV node conduction. COMMENT/RECOMMENDATIONS The patient going to be kept on the table, a loop recorder will be inserted. Latoya Kc MD HS/DERRICK /7:19 PM /9:54 PM
[2016-12-17] VITALS (17 sets, daily range): BP systolic 133–157; BP diastolic 87–98; PULSE 50–78; RESP 16–20; TEMP 97.7–98.3; O2SAT 99–100
[2016-12-17] MEDS: ACETAMINOPHEN 325 MG TAB PO PRN (01:32)
[2016-12-17] MEDS: SODIUM CHLOR 0.9% 1000 ML INJ 1,000 ML IV SCH (07:40)
[2016-12-17] MEDS: DOCUSATE SODIUM 50 MG/SENNA 8.6 MG TAB PO SCH (07:52)
[2016-12-17] MEDS: HYDROCHLOROTHIAZIDE 25 MG TAB PO SCH (07:52)
[2016-12-17] MEDS: ASPIRIN 81 MG CHEW TAB CHEW SCH (07:53)
[2016-12-17] MEDS: SODIUM CHLORIDE 0.9% FLUSH 10 ML FLUSH IV FLUSH SCH (07:53)
[2016-12-17] MEDS: IBUPROFEN 400 MG TAB PO PRN (13:12)
--- NOTE | 2016-12-17 15:55 | HHI.DCPOC ---
Discharge Care Plan Diagnosis: (1) Syncope (2) HTN (hypertension) Goals to Promote Your Health * To prevent worsening of your condition and complications * To maintain your health at the optimal level Directions to Meet Your Goals Take your medications as prescribed Follow your dietary instruction Follow activity as directed Keep your appointments as scheduled Take your immunizations and boosters as scheduled If your symptoms worsen call your PCP, if no PCP go to Urgent Care Center or Emergency Room Smoking is Dangerous to Your Health. Avoid second hand smoke Call the 24-hour hour crisis hotline for domestic abuse at Jose M Becerril MD Dec 17, 2016 15:55
[2016-12-17] MEDS ORDERED: PROP60TA PO (15:57)
--- NOTE | 2016-12-17 15:58 | HHI.DS ---
Discharge Summary Admission Date Dec 17, 2016 at 14:45 Discharge Date: Dec 17, 2016 Admitting Diagnosis syncope, atypical chest pain (1) Syncope ICD Code: R55 - Syncope and collapse Status: Resolved (2) HTN (hypertension) ICD Code: I10 - Essential (primary) hypertension Status: Chronic (3) Tobacco use ICD Code: Z72.0 - Tobacco use Status: Chronic Procedures loop recorder implantation Brief History - From Admission This is a 41-year-old male with PMH of HTN, Cocaine Abuse and Tobacco Abuse was brought to the ER by EMS after syncopal episode. [facility] to complaints of chest pain in addition to syncope, Stress Test 12/02/16 normal w/ no evidence of ischemia. Returned to ER last evening on 12/11/16 for syncope while watching TV, negative work up, d/c'd with instructions to follow up w/ Cardiology as outpatient. After being discharged, pt states he was walking home and had sudden syncopal event, bystanders called EMS. Admits to Cocaine abuse, however last use approx 1wk ago. No complaints at this time. On arrival, BP 168/89, HR 87 to O2 sat 98% on RA, Afebrile. Orthostatic Vital Signs negative. CBC unremarkable. K+ 3.2. GFR 81. Trop negative. EKG w/ no acute ischemia. Imaging Last Impressions Carotid Artery Ultrasound 12/12/16 0000 Signed Impressions: Service Date/Time: Monday, December 12, 2016 07:26 - CONCLUSION: 1. Minimal calcified plaque in the carotid bulbs bilaterally. However, there is no significant stenosis within either internal carotid artery (less than 50%% stenosis). 2. There is antegrade flow in both vertebral arteries. Jak Francois MD PE at Discharge Heart sounds regular rate rhythm, no murmurs Lying in bed, awake alert Hospital Course Patient was admitted on telemetry, started on IV fluids. Neurology was consulted and found no exact cause. Cardiology went ahead and implanted a loop recorder. Patient's syncopal symptoms did not recur otherwise and was tolerating by mouth intake well. He reported chronic headaches that continue to fluctuate during his hospitalization stay. After giving a trial of NSAIDs and Reglan, his headache had completely resolved. The patient had been given thorough counseling on appropriately hydrating himself adequately on a daily basis as well as taking his blood pressure medications consistently due to a history of moderate to severe hypertension. He was also started on propranolol upon discharge to help minimize what could possibly be migraine headaches. Pt Condition on Discharge: Stable Discharge Disposition: Discharge Home Discharge Time: > 30 minutes Discharge Instructions DIET: Follow Instructions for: Heart Healthy Diet Activities to Avoid: Driving Follow up Referrals: Cardiology - 4 Weeks with Mejia Rivera MD PCP Follow-up - 1 Week New Medications: Propranolol (Propranolol) 60 Mg Tab 60 MG PO Q12HR for headaches, #60 TAB 0 Refills Continued Medications: Amlodipine (Amlodipine) 10 Mg Tab 10 MG PO DAILY for Blood Pressure Management, #30 TAB 0 Refills Aspirin (Aspirin) 81 Mg Chew 81 MG CHEW DAILY, TAB 0 Refills Discontinued Medications: Lisinopril (Lisinopril) 10 Mg Tab 10 MG PO DAILY, #30 TAB 0 Refills Jose M Becerril MD Dec 17, 2016 15:58
[2016-12-17] MEDS ORDERED: HYDR25TA5 PO (15:59)
[2016-12-17] MEDS ORDERED: KETOROLAC TROMETHAMINE 60 MG/2 ML (IM) VIAL IM ONE (16:00)
[2016-12-17] MEDS ORDERED: METOCLOPRAMIDE HCL 10 MG/2 ML VIAL IV PUSH ONE (16:00)
--- NOTE | 2016-12-17 17:13 | EKG ---
Date Performed: 12/16/2016 Time Performed: 22:49:06 PTAGE: 41 years EKG: Sinus rhythm with PVC(s) Borderline ECG Since PREVIOUS TRACING , no significant change noted PREVIOUS TRACIN12/12/2016 08.31 DOCTOR: Judith Chang Interpretating Date/Time 12/17/2016 17:13:06
--- NOTE | 2016-12-27 15:57 | MP ---
cc: LATOYA KC M.D. DATE OF SURGERY: 12/16/2016. OPERATION: Loop recorder insertion. SURGEON: Latoya Kc MD. INDICATIONS FOR THE PROCEDURE: Mr. Michele is a 41-year-old -[place] gentleman with syncopal episode and negative electrophysiology study who will undergo loop recorder insertion. The risks, the nature and the benefits of the procedure were clearly stated to him. The risks include pneumothorax, cardiac perforation, stroke, infection and even . He understood and agreed to proceed. DESCRIPTION OF THE PROCEDURE IN DETAIL: After written informed consent was obtained prior to the electrophysiology study, the patient was kept on the table where he was prepped and draped in the usual sterile fashion. Conscious sedation was continuing and maintained by the anesthesiologist. Once sedation was verified, the left parasternal area was anesthetized with 2% Xylocaine. Using a cautery, an 11-cm incision was made. Then a pocket was dissected. Then a loop was injected under the skin. After adequate sensing obtained, the borders were reapproximated using Dermabond and Steri-Strips. No incident report. The patient tolerated the procedure. Blood loss was minimal. 1. IMPLANTED HARDWARE: The implanted loop recorder is a [employer] model #[id number], serial #[id number] . 2. SENSING: Sensing of the R wave at 0.48 millivolts. 3. SETTINGS: The device was set for walter under 30, tachy over 182 beats per minute. CONCLUSIONS: Successful loop recorder insertion. COMMENTS AND RECOMMENDATIONS: The patient is going to be observed and can be discharged home later today. Latoya Kc MD /ABBY /3:15 PM /3:48 PM
== END 2016-12-17 17:00 | disposition home or self-care (01) | DRG 274 ==
LOC: NEPE 03:13 → NEDA 04:34 → NEPFCDU 07:25 → HCIS 12-16 17:57 → OBSVTOIN 12-17 14:45
PROVIDERS: ADMIT Hospitalist; ATTEND Hospitalist
PROC: 4A023FZ Measurement of Cardiac Rhythm, Percutaneous Approach (ICD-10-PCS; principal; 2016-12-17)
PROC: 4A0234Z Measurement of Cardiac Electrical Activity, Percutaneous Approach (ICD-10-PCS; 2016-12-17)
DX: R55 Syncope and collapse (principal); I10 Essential (primary) hypertension; F12.10 Cannabis abuse, uncomplicated; F17.210 Nicotine dependence, cigarettes, uncomplicated; F14.10 Cocaine abuse, uncomplicated; G89.29 Other chronic pain; M54.2 Cervicalgia; J45.909 Unspecified asthma, uncomplicated
CPT/HCPCS: 33282; 80053; 80307; 82550; 82552; 84484; 85025; 93005; 93306; 93620; 93623; 93880; 96361; 96374; C1730; C1764; G0378; G8987-GP; G8988-GP; J1885; J2270; J2765; J7030

== ENCOUNTER 2017-04-08 09:41 | Emergency (ER) | payer OTHER ==
[~2017-04-08] VITALS: Ht 182.9 cm; Wt 88.5 kg
[~2017-04-08 09:41] MED LIST changes: +HYDR25TA5 PO; +PROP60TA PO
[2017-04-08 09:43] VITALS: BP 180/107; PULSE 74; RESP 18; TEMP 98.7; O2SAT 99
[2017-04-08] MEDS ORDERED: LISI10TA3 PO (10:06)
[2017-04-08] MEDS ORDERED: ASPIRIN 81 MG CHEW TAB PO ONE (10:15)
[2017-04-08] MEDS ORDERED: SODIUM CHLORID 0.9% 500 ML INJ 500 ML IV ONE (10:15)
[2017-04-08] MEDS ORDERED: MORPHINE SULFATE 2 MG/ML INJ IV PUSH ONE (10:15)
[2017-04-08] MEDS: METOPROLOL TARTRATE 5 MG/5 ML VIAL IVS SCH ×3 (10:15→10:25)
[2017-04-08] MEDS ORDERED: SODIUM CHLORIDE 0.9% FLUSH 10 ML FLUSH IVF PRN (10:15)
--- NOTE | 2017-04-08 10:21 | PD ---
HPI Chief Complaint: Cold / Flu Symptoms Time Seen by Provider: 10:06 Travel History International Travel<30 days: No Contact w/Intl Traveler<30days: No Traveled to known affect area: No History of Present Illness HPI 41-year-old Afro-[place]ovenian male presents to the emergency Department with several months of chest discomfort from recent loop recorder, placed by Dr. Garrison, the dredge hand. Patient states pain over the loop recorder placement site. Patient also relates generalized muscle aches in the last 24 hours with chills and fever. He denies cough, nausea, vomiting, or other symptoms. Patient is noted be hypertensive triage and patient states he was seen by Dr. Garrison a week ago, and was given hypertensive medication prescriptions was the patient did not fill due to financial reasons. Patient is currently not on hypertensive medications. He has a history of being on lisinopril and amlodipine. Pain in the chest. It is 8 out of 10 and worse with palpation and certain movements. Patient denies shortness of breath . Patient has no known drug allergies PFSH Past Medical History Hx Anticoagulant Therapy: Yes (81 MG ASA.) Asthma: No Blood Disorders: No Heart Rhythm Problems: No Cancer: No Cardiac Catheterization: No Cardiovascular Problems: Yes Chemotherapy: No Chest Pain: Yes Congestive Heart Failure: No COPD: No Diabetes: No Diminished Hearing: No Endocrine: No Gastrointestinal Disorders: No Genitourinary: No Headaches: Yes Hypertension: Yes Immune Disorder: No Implanted Vascular Access Dvce: No Musculoskeletal: No Neurologic: No Psychiatric: No Reproductive: No Respiratory: No Migraines: Yes Radiation Therapy: No Sleep Apnea: No Thyroid Disease: No Past Surgical History Cardiac Surgery: Yes (LOOP RECORDER (11/2016)) Coronary Artery Bypass Graft: No Neurologic Surgery: Yes (CYST ON TAIL BONE) Other Surgery: Yes (Cyst removed from lower back/buttocks) Social History Alcohol Use: No Tobacco Use: Yes (2-3 cigarettes/day) Substance Use: Yes (smokes marijuanna ocasionally) Allergies-Medications (Allergen,Severity, Reaction): Coded Allergies: No Known Allergies (Verified Adverse Reaction, Unknown, 04/08/17) Reported Meds & Prescriptions Reported Meds & Active Scripts Active Amlodipine (Amlodipine Besylate) 10 Mg Tab 10 Mg PO DAILY Reported Lisinopril 10 Mg Tab 10 Mg PO BID Review of Systems Except as stated in HPI: all other systems reviewed are Neg General / Constitutional: Positive: Fever (subjective), Chills Eyes: No: Visual changes HENT: No: Headaches, Vertigo, Lightheadedness, Sore Throat, Rhinitis, Rhinorrhea, Congestion, Nosebleed, Neck Stiffness, Neck Pain, Dental Difficulties, Earache Cardiovascular: Positive: Chest Pain or Discomfort, No: Palpitations, Irregular Rhythm, Tachycardia, Diaphoresis, Syncope (see history of present illness.), Dyspnea on exertion, Edema Respiratory: No: Shortness of Breath Gastrointestinal: No: Abdominal Pain Genitourinary: No: Dysuria Musculoskeletal: Positive: Myalgias, No: Arthralgias, Limited ROM, Pain Skin: No Rash Neurologic: No: Weakness Psychiatric: No: Depression Endocrine: No: Polydipsia Hematologic/Lymphatic: No: Easy Bruising Physical Exam Narrative GENERAL: Patient appears in mild distress. SKIN: Warm and dry. Normal color. Normal turgor. Well healed scar over the loop recorder, with no signs of cellulitis. This area is tender with palpation. HEAD: Atraumatic. Normocephalic. EYES: Pupils equal and round. No scleral icterus. No injection or drainage. ENT: No nasal bleeding or discharge. Mucous membranes pink and moist. Pharynx is clear. Airway is patent. NECK: Trachea midline. Supple and nontender. CARDIOVASCULAR: Regular rate and rhythm. No murmurs gallops or rubs. RESPIRATORY: No accessory muscle use. Clear to auscultation. Breath sounds equal bilaterally. GASTROINTESTINAL: Abdomen soft, non-tender, nondistended. Hepatic and splenic margins not palpable. MUSCULOSKELETAL: Extremities without clubbing, cyanosis, or edema. No obvious deformities. NEUROLOGICAL: Awake and alert. No obvious cranial nerve deficits. Motor grossly within normal limits. Five out of 5 muscle strength in the arms and legs. Normal speech. PSYCHIATRIC: Appropriate mood and affect; insight and judgment normal. Data Data Last Documented VS Vital Signs Date Time Temp Pulse Resp B/P (MAP) Pulse Ox O2 Delivery O2 Flow Rate FiO2 04/08/17 11:12 164/101 (122) 04/08/17 11:06 65 04/08/17 09:43 98.7 18 99 Room Air Orders Orders Complete Blood Count With Diff (04/08/17 10:14) Comprehensive Metabolic Panel (04/08/17 10:14) Prothrombin Time / Inr (Pt) (04/08/17 10:14) Act Partial Throm Time (Ptt) (04/08/17 10:14) Chest, Single Ap (04/08/17 10:14) Ecg Monitoring (04/08/17 10:14) Iv Access Insert/Monitor (04/08/17 10:14) Oximetry (04/08/17 10:14) Aspirin Chew (Aspirin Chew) (04/08/17 10:15) Sodium Chloride 0.9% Flush (Ns Flush) (04/08/17 10:15) Metoprolol Tartrate Inj (Lopressor Inj) (04/08/17 10:15) Sodium Chlorid 0.9% 500 Ml Inj (Ns 500 M (04/08/17 10:15) Influenzae A/B Antigen (04/08/17 10:14) Morphine Inj (Morphine Inj) (04/08/17 10:15) Electrocardiogram (04/08/17 ) Hydralazine Inj (Apresoline Inj) (04/08/17 10:45) Labs Laboratory Tests Test 04/08/17 10:25 White Blood Count 4.0 TH/MM3 Red Blood Count 4.48 MIL/MM3 Hemoglobin 13.9 GM/DL Hematocrit 40.8 % Mean Corpuscular Volume 90.9 FL Mean Corpuscular Hemoglobin 31.1 PG Mean Corpuscular Hemoglobin Concent 34.2 % Red Cell Distribution Width 14.9 % Platelet Count 174 TH/MM3 Mean Platelet Volume 9.0 FL Neutrophils (%) (Auto) 64.0 % Lymphocytes (%) (Auto) 24.5 % Monocytes (%) (Auto) 9.9 % Eosinophils (%) (Auto) 0.8 % Basophils (%) (Auto) 0.8 % Neutrophils # (Auto) 2.5 TH/MM3 Lymphocytes # (Auto) 1.0 TH/MM3 Monocytes # (Auto) 0.4 TH/MM3 Eosinophils # (Auto) 0.0 TH/MM3 Basophils # (Auto) 0.0 TH/MM3 CBC Comment DIFF FINAL Differential Comment Prothrombin Time 11.1 SEC Prothromb Time International Ratio 1.1 RATIO Activated Partial Thromboplast Time 26.5 SEC Blood Urea Nitrogen 8 MG/DL Creatinine 0.88 MG/DL Random Glucose 95 MG/DL Total Protein 8.7 GM/DL Albumin 4.3 GM/DL Calcium Level 8.7 MG/DL Alkaline Phosphatase 64 U/L Aspartate Amino Transf (AST/SGOT) 26 U/L Alanine Aminotransferase (ALT/SGPT) 23 U/L Total Bilirubin 0.4 MG/DL Sodium Level 141 MEQ/L Potassium Level 3.1 MEQ/L Chloride Level 107 MEQ/L Carbon Dioxide Level 25.4 MEQ/L Anion Gap 9 MEQ/L Estimat Glomerular Filtration Rate 116 ML/MIN [facility] Medical Decision Making Medical Screen Exam Complete: Yes Emergency Medical Condition: Yes Medical Record Reviewed: Yes Differential Diagnosis Influenza. Chest pain. Hypertension. Narrative Course Patient appears medically stable at time of exam. Labs ordered including CBC, CMP, coagulation studies, and rapid influenza. Chest x-ray, EKG is ordered. Patient has IV access obtained, patient is given 2 mg morphine IV, 500 mL normal saline bolus, and propranolol 5 mg 3. Propranolol was canceled change to hydralazine 10 mg IV due to the patient's low heart rate. EKG shows normal sinus rhythm 60 bpm which is unchanged from his previous on December 2016. Labs are unremarkable. Rapid influenza test is negative. Recommend patient fill his prescriptions he was given by his dredge hand as soon as possible. Patient is given a prescription for Mapap, 500 mg he is to take 1-2 tabs every 6 hours when necessary #80. Patient is to watch his salt intake and follow up with his primary care physician or dredge hand as discussed. Diagnosis Primary Impression: Atypical chest pain Additional Impression: Hypertension Qualified Codes: I10 - Essential (primary) hypertension Referrals: Mejia Rivera MD Primary Care Physician Patient Instructions: General Instructions Additional Instructions: EKG shows normal sinus rhythm 60 bpm which is unchanged from his previous on December 2016. Labs are unremarkable. Rapid influenza test is negative. Recommend patient fill his prescriptions he was given by his dredge hand as soon as possible. Patient is given a prescription for Mapap, 500 mg he is to take 1-2 tabs every 6 hours when necessary #80. Patient is to watch his salt intake and follow up with his primary care physician or dredge hand as discussed. Med/Other Pt SpecificInfo: Prescription(s) given Disposition: 01 DISCHARGE HOME Condition: Stable Mohamud Schaefer Apr 08, 2017 10:21
[2017-04-08 10:40] VITALS: BP 174/107; PULSE 65
[2017-04-08 10:41] LABS: AUTOMATED NEUTROPHIL # 2.5 TH/MM3 (1.8-7.7); BASOPHIL % 0.8 % (0.0-2.0); EOSINOPHIL % 0.8 % (0.0-4.0); HEMATOCRIT 40.8 % (39.0-51.0); HEMOGLOBIN 13.9 GM/DL (13.0-17.0); LYMPH % 24.5 % (9.0-44.0); MEAN CELL VOLUME 90.9 FL (80.0-100.0); MEAN CORPUSCULAR HEMOGLOBIN 31.1 PG (27.0-34.0); MEAN CORPUSCULAR HGB CONC 34.2 % (32.0-36.0); MONO % 9.9 % (0.0-8.0); MONOCYTE # 0.4 TH/MM3 (0-0.9); PLATELET COUNT 174 TH/MM3 (150-450); RED BLOOD COUNT 4.48 MIL/MM3 (4.50-5.90); RED CELL DISTRIBUTION WIDTH 14.9 % (11.6-17.2)
[2017-04-08] MEDS ORDERED: hydrALAZINE HCL 20 MG/ML VIAL IV PUSH ONE (10:45)
[2017-04-08 10:52] LABS: INTERNATIONAL NORMALIZED RATIO 1.1 RATIO; PROTHROMBIN TIME - PATIENT 11.1 SEC (9.8-11.6)
[2017-04-08 11:04] LABS: ALBUMIN 4.3 GM/DL (3.4-5.0); AST (GOT) 26 U/L (15-37); BICARBONATE 25.4 MEQ/L (21.0-32.0); BLOOD UREA NITROGEN 8 MG/DL (7-18); CALCIUM 8.7 MG/DL (8.5-10.1); CHLORIDE 107 MEQ/L (98-107); CREATININE 0.88 MG/DL (0.60-1.30); GLOMERULAR FILTRATION RATE 116 ML/MIN (>89); GLUCOSE,RANDOM 95 MG/DL (74-106); SODIUM (NA) 141 MEQ/L (136-145)
[2017-04-08 11:06] VITALS: BP 172/104; PULSE 65
--- NOTE | 2017-04-08 11:07 | RADRPT ---
EXAM DATE/TIME: 04/08/2017 10:42 [facility] COMPARISON: CHEST SINGLE AP, January 16, 2017, 18:38. INDICATIONS : Chest pains with pressure and palpitations. MEDICAL HISTORY : A-fib SURGICAL HISTORY : Loop recorder ENCOUNTER: Initial ACUITY: 2 days PAIN SCORE: 7/10 LOCATION: Chest FINDINGS: A single view of the chest demonstrates the lungs to be symmetrically aerated without evidence of mas s, infiltrate or effusion. The cardiomediastinal contours are unremarkable. Osseous structures are intact. CONCLUSION: Normal examination. Byron Gallo MD on April 08, 2017 at 11:05 Board Certified Radiologist. This report was verified electronically.
[2017-04-08 11:08] LABS: ALKALINE PHOSPHATASE 64 U/L (45-117); ALT (GPT) 23 U/L (12-78); TOTAL BILIRUBIN ADULT 0.4 MG/DL (0.2-1.0); TOTAL PROTEIN 8.7 GM/DL (6.4-8.2)
[2017-04-08 11:12] VITALS: BP 164/101
[2017-04-08] MEDS ORDERED: MAPA500T13 PO (11:20)
--- NOTE | 2017-04-08 21:29 | EKG ---
Date Performed: 04/08/2017 Time Performed: 10:50:38 PTAGE: 41 years EKG: Sinus rhythm NORMAL ECG PREVIOUS TRACING : 01/16/2017 18.50 Since previous tracing, no significant change noted DOCTOR: Prem Funez Interpretating Date/Time 04/08/2017 21:27:54
[2017-04-13] MEDS ORDERED: ASPI81CH7 CHEW (01:57)
== END 2017-04-08 11:45 | disposition home or self-care (01) ==
LOC: NEPD 09:41
DX: R07.89 Other chest pain (principal); I10 Essential (primary) hypertension; F12.90 Cannabis use, unspecified, uncomplicated; Z79.82 Long term (current) use of aspirin; Z72.0 Tobacco use
CPT/HCPCS: 71045; 80053; 85025; 85610; 85730; 87804; 93005; 96361; 96374; 96375; 99285; J0360; J2270; J7040

== ENCOUNTER 2017-04-12 10:46 | Emergency (ER) | payer OTHER ==
[2017-04-12 12:13] LABS: AUTOMATED NEUTROPHIL # 1.4 TH/MM3 (1.8-7.7); BASOPHIL % 0.9 % (0.0-2.0); EOSINOPHIL # 0.1 TH/MM3 (0-0.4); EOSINOPHIL % 2.4 % (0.0-4.0); HEMATOCRIT 37.9 % (39.0-51.0); HEMOGLOBIN 12.9 GM/DL (13.0-17.0); LYMPH % 44.3 % (9.0-44.0); LYMPHOCYTE # 1.4 TH/MM3 (1.0-4.8); MEAN CELL VOLUME 91.4 FL (80.0-100.0); MEAN CORPUSCULAR HEMOGLOBIN 31.1 PG (27.0-34.0); MEAN PLATELET VOLUME 8.9 FL (7.0-11.0); MONO % 8.5 % (0.0-8.0); MONOCYTE # 0.3 TH/MM3 (0-0.9); NEUT % 43.9 % (16.0-70.0); PLATELET COUNT 162 TH/MM3 (150-450); RED BLOOD COUNT 4.15 MIL/MM3 (4.50-5.90); RED CELL DISTRIBUTION WIDTH 14.8 % (11.6-17.2); WHITE BLOOD COUNT 3.3 TH/MM3 (4.0-11.0)
[2017-04-12 12:14] LABS: AMPHETAMINE, URINE NEG (NEG); BARBITURATES, URINE NEG (NEG); BENZODIAZEPINE,URINE NEG (NEG); CANNABINOIDS, URINE POS (NEG); COCAINE, URINE NEG (NEG)
[2017-04-12 12:15] LABS: APTT (PATIENT) 26.8 SEC (24.3-30.1); INTERNATIONAL NORMALIZED RATIO 1.1 RATIO; PROTHROMBIN TIME - PATIENT 10.9 SEC (9.8-11.6)
[2017-04-12 12:18] LABS: HEMO FLAGS AUTO DIFF
[2017-04-12 12:18] LABS: D-DIMER 0.24 MG/L FEU (0.00-0.50)
[2017-04-12 12:22] LABS: ALBUMIN 3.4 GM/DL (3.4-5.0); ALT (GPT) 19 U/L (12-78); ANION GAP 8 MEQ/L (5-15); AST (GOT) 24 U/L (15-37); BICARBONATE 26.1 MEQ/L (21.0-32.0); BLOOD UREA NITROGEN 8 MG/DL (7-18); CALCIUM 8.1 MG/DL (8.5-10.1); CHLORIDE 110 MEQ/L (98-107); GLOMERULAR FILTRATION RATE 113 ML/MIN (>89); GLUCOSE,RANDOM 93 MG/DL (74-106); MAGNESIUM 2.7 MG/DL (1.5-2.5); POTASSIUM 3.7 MEQ/L (3.5-5.1); SODIUM (NA) 144 MEQ/L (136-145)
[2017-04-12 12:31] LABS: ALKALINE PHOSPHATASE 54 U/L (45-117); CREATINE KINASE 514 U/L (39-308); TOTAL BILIRUBIN ADULT 0.2 MG/DL (0.2-1.0); TOTAL PROTEIN 7.3 GM/DL (6.4-8.2); TROPONIN I LESS THAN 0.02 NG/ML (0.02-0.05)
[2017-04-12 12:44] LABS: CKMB % 0.6 % (0.0-4.0)
[2017-04-12 13:08] LABS: PLATELET ESTIMATE SMEAR NORMAL (NORMAL); PLATELET MORPHOLOGY CLUMPED (NORMAL); SCAN/DIFF AUTO DIFF CONFIRMED
[2017-04-12] MEDS ORDERED: SODIUM CHLORIDE 0.9% FLUSH 10 ML FLUSH IV FLUSH ×2 (13:45→21:00)
[2017-04-12] MEDS: ACETAMINOPHEN 500 MG CPLT PO (14:10)
== END 2017-04-12 15:00 | disposition home or self-care (01) ==
LOC: NEPE 10:46
DX: R07.89 Other chest pain (principal); R55 Syncope and collapse; I10 Essential (primary) hypertension; F17.210 Nicotine dependence, cigarettes, uncomplicated; Z79.899 Other long term (current) drug therapy
CPT/HCPCS: 70450; 71045; 80053; 80307; 82550; 82552; 83735; 84443; 84484; 85025; 85379; 85610; 85730; 87804; 87804-59; 93005; 99285

== ENCOUNTER 2017-04-12 22:31 | Emergency (ER) | payer OTHER ==
[2017-04-13 02:49] LABS: AUTOMATED NEUTROPHIL # 1.1 TH/MM3 (1.8-7.7); BASOPHIL % 0.9 % (0.0-2.0); EOSINOPHIL # 0.1 TH/MM3 (0-0.4); HEMATOCRIT 38.9 % (39.0-51.0); HEMO FLAGS DIFF FINAL; HEMOGLOBIN 13.2 GM/DL (13.0-17.0); LYMPH % 61.5 % (9.0-44.0); LYMPHOCYTE # 2.5 TH/MM3 (1.0-4.8); MEAN CORPUSCULAR HEMOGLOBIN 31.2 PG (27.0-34.0); MEAN CORPUSCULAR HGB CONC 33.9 % (32.0-36.0); MONO % 7.2 % (0.0-8.0); MONOCYTE # 0.3 TH/MM3 (0-0.9); NEUT % 27.4 % (16.0-70.0); PLATELET COUNT 199 TH/MM3 (150-450); RED BLOOD COUNT 4.23 MIL/MM3 (4.50-5.90); RED CELL DISTRIBUTION WIDTH 14.7 % (11.6-17.2)
[2017-04-13 03:11] LABS: ALBUMIN 3.7 GM/DL (3.4-5.0); ALT (GPT) 22 U/L (12-78); ANION GAP 4 MEQ/L (5-15); AST (GOT) 26 U/L (15-37); BICARBONATE 30.1 MEQ/L (21.0-32.0); BLOOD UREA NITROGEN 8 MG/DL (7-18); CHLORIDE 108 MEQ/L (98-107); CREATININE 0.94 MG/DL (0.60-1.30); GLOMERULAR FILTRATION RATE 107 ML/MIN (>89); GLUCOSE,RANDOM 91 MG/DL (74-106); POTASSIUM 3.4 MEQ/L (3.5-5.1); SODIUM (NA) 142 MEQ/L (136-145)
[2017-04-13 03:15] LABS: ALKALINE PHOSPHATASE 57 U/L (45-117); CREATINE KINASE 510 U/L (39-308); TOTAL BILIRUBIN ADULT 0.3 MG/DL (0.2-1.0); TOTAL PROTEIN 7.6 GM/DL (6.4-8.2); TROPONIN I LESS THAN 0.02 NG/ML (0.02-0.05)
[2017-04-13 03:28] LABS: CKMB 2.9 NG/ML (0.5-3.6); CKMB % 0.6 % (0.0-4.0)
[2017-04-13] MEDS: IBUPROFEN 600 MG TAB PO (04:15)
== END 2017-04-13 06:04 | disposition home or self-care (01) ==
LOC: NEPC 22:31
DX: R55 Syncope and collapse (principal); F17.210 Nicotine dependence, cigarettes, uncomplicated; I10 Essential (primary) hypertension
CPT/HCPCS: 71045; 80053; 82550; 82552; 84484; 85025; 93005; 99284

== ENCOUNTER 2017-05-05 11:29 | Emergency (ER) | payer OTHER ==
[~2017-05-05] VITALS: Ht 182.9 cm; Wt 80.0 kg
[~2017-05-05 11:29] MED LIST changes: +ASPI81CH7 CHEW; -HYDR25TA5 PO; +LISI10TA3 PO; +MAPA500T13 PO; -PROP60TA PO
[2017-05-05 11:31] VITALS: BP 160/97; PULSE 68; RESP 12; TEMP 96.6; O2SAT 99
--- NOTE | 2017-05-05 12:29 | RADRPT ---
EXAM DATE/TIME: 05/05/2017 12:18 [facility] COMPARISON: CHEST SINGLE AP, April 08, 2017, 10:42. CHEST SINGLE AP, April 12, 2017, 11:59. CHEST SINGLE AP , April 13, 2017, 2:45. INDICATIONS : Flu like symptoms for 1 week. MEDICAL HISTORY : Hypertension. Hypercholesterolemia. SURGICAL HISTORY : Loop recorder. ENCOUNTER: Initial ACUITY: 1 week PAIN SCORE: 10/10 LOCATION: Left chest FINDINGS: Portable AP view of the chest demonstrates a normal-sized cardiac silhouette. The lungs demonstrate n o definite effusion, consolidation, or pneumothorax. The bones and soft tissues demonstrate no acute finding. Nipple shadows are visualized. cardiac monitor technician overlies the chest. CONCLUSION: No acute cardiopulmonary abnormality is identified. Jak Francois MD on May 05, 2017 at 12:25 Board Certified Radiologist. This report was verified electronically.
--- NOTE | 2017-05-05 12:48 | PD ---
HPI Chief Complaint: General Weakness Time Seen by Provider: 12:46 Travel History International Travel<30 days: No Contact w/Intl Traveler<30days: No Traveled to known affect area: No History of Present Illness HPI 41-year-old male presents to the emergency Department with complaint of generalized weakness, body aches, headache, subjective fever times one week. Also reports nasal congestion, cough, sore throat, bilateral ear pain 1 week. He reports left-sided chest pain but this is not his complaint today. He is being worked up outpatient for chest pain that has been going on since November and his current chest pain is consistent with his past chest pain. He was seen here in March and worked up for chest pain and had a stress test. His lining strap closer is Dr. Harding. He has a follow-up appointment with lining strap closer on May 30. He has had a loop recorder placed for low heart rate. He reports having some shortness of breath earlier today, but not now. He denies vomiting, diarrhea. Rates chest pain 10/10 and says it stabbing and worse with deep breaths. Has been taking NyQuil for symptom management. No known relieving factors. No one else with similar symptoms. Primary care provider is Dr. Moore. No known allergies. History of hypertension and takes amlodipine and lisinopril and is requesting medication refills also. Has no other medical complaints. No other modifying factors or associated signs and symptoms. PFSH Past Medical History Hx Anticoagulant Therapy: Yes (81 MG ASA.) Asthma: No Blood Disorders: No Heart Rhythm Problems: No Cancer: No Cardiac Catheterization: No Cardiovascular Problems: Yes (HTN) Chemotherapy: No Chest Pain: Yes Congestive Heart Failure: No COPD: No Diabetes: No Diminished Hearing: No Endocrine: No Gastrointestinal Disorders: No Genitourinary: No Headaches: Yes Hypertension: Yes Immune Disorder: No Implanted Vascular Access Dvce: No Musculoskeletal: No Neurologic: No Psychiatric: No Reproductive: No Respiratory: No Migraines: Yes Radiation Therapy: No Sleep Apnea: No Thyroid Disease: No Past Surgical History Cardiac Surgery: Yes (LOOP RECORDER (11/2016)) Coronary Artery Bypass Graft: No Neurologic Surgery: Yes (CYST ON TAIL BONE) Other Surgery: Yes (Cyst removed from lower back/buttocks) Social History Alcohol Use: No Tobacco Use: Yes (2-3 cigarettes/day) Substance Use: Yes (smokes marijuanna ocasionally) Allergies-Medications (Allergen,Severity, Reaction): Coded Allergies: No Known Allergies (Verified Allergy, Unknown, 04/12/17) Reported Meds & Prescriptions Reported Meds & Active Scripts Active Lisinopril 10 Mg Tab 10 Mg PO BID Amlodipine (Amlodipine Besylate) 10 Mg Tab 10 Mg PO DAILY Mapap Extra Strength (Acetaminophen) 500 Mg Tab 1,000 Mg PO Q6HR PRN Reported Aspirin Children's (Aspirin) 81 Mg Chew 81 Mg CHEW DAILY Lisinopril 10 Mg Tab 10 Mg PO BID Review of Systems Except as stated in HPI: all other systems reviewed are Neg Physical Exam Narrative GENERAL: Well-nourished, well-developed black male patient, in no acute distress ; afebrile, nontoxic-appearing SKIN: Warm and dry. No rash. HEAD: Atraumatic. Normocephalic. EYES: Pupils equal and round. No scleral icterus. No injection or drainage. ENT: Mucosa pink and moist. No erythema or exudates. No uvular edema. No uvular , palatal, or tonsillar deviation. Airway patent. EARS: Bilateral pinnae and external canals appear within normal limits. Bilateral tympanic membranes without erythema, dullness or perforation. NECK: Trachea midline. No lymphadenopathy. CHEST: Reproducible tenderness on palpation to the left lower and lateral chest wall; without deformity or crepitance. No retractions or use of accessory muscles. CARDIOVASCULAR: Regular rate and rhythm. No murmur appreciated. RESPIRATORY: No accessory muscle use. Clear to auscultation. Breath sounds equal bilaterally. No retractions or tachypnea. GASTROINTESTINAL: Abdomen soft, non-tender, nondistended. Hepatic and splenic margins not palpable. Bowel sounds are active 4 quadrants. MUSCULOSKELETAL: No obvious deformities. No clubbing. No cyanosis. No edema. NEUROLOGICAL: Awake and alert. Oriented 3. No obvious cranial nerve deficits. Motor grossly within normal limits. Normal speech. Moves all extremities. 5/5 strength to all extremities. PSYCHIATRIC: Appropriate mood and affect; insight and judgment normal. Data Data Last Documented VS Vital Signs Date Time Temp Pulse Resp B/P (MAP) Pulse Ox O2 Delivery O2 Flow Rate FiO2 05/05/17 11:31 96.6 68 12 160/97 (118) 99 Orders Orders Electrocardiogram (05/05/17 11:51) Ckmb (Isoenzyme) Profile (05/05/17 11:51) Complete Blood Count With Diff (05/05/17 11:51) Comprehensive Metabolic Panel (05/05/17 11:51) Magnesium (Mg) (05/05/17 11:51) Prothrombin Time / Inr (Pt) (05/05/17 11:51) Act Partial Throm Time (Ptt) (05/05/17 11:51) Troponin I (05/05/17 11:51) Chest, Pa & Lat (05/05/17 11:51) Influenzae A/B Antigen (05/05/17 12:48) Group A Rapid Strep Screen (05/05/17 12:58) Ibuprofen (Motrin) (05/05/17 13:00) CKMB (05/05/17 12:00) CKMB% (05/05/17 12:00) Strep Culture (Group A) (05/05/17 13:15) Labs Laboratory Tests Test 05/05/17 12:00 White Blood Count 4.0 TH/MM3 Red Blood Count 4.61 MIL/MM3 Hemoglobin 14.6 GM/DL Hematocrit 42.1 % Mean Corpuscular Volume 91.4 FL Mean Corpuscular Hemoglobin 31.8 PG Mean Corpuscular Hemoglobin Concent 34.7 % Red Cell Distribution Width 14.5 % Platelet Count TH/MM3 Mean Platelet Volume 9.2 FL Neutrophils (%) (Auto) 36.8 % Lymphocytes (%) (Auto) 49.7 % Monocytes (%) (Auto) 10.6 % Eosinophils (%) (Auto) 2.2 % Basophils (%) (Auto) 0.7 % Neutrophils # (Auto) 1.5 TH/MM3 Lymphocytes # (Auto) 2.0 TH/MM3 Monocytes # (Auto) 0.4 TH/MM3 Eosinophils # (Auto) 0.1 TH/MM3 Basophils # (Auto) 0.0 TH/MM3 CBC Comment AUTO DIFF Differential Comment AUTO DIFF CONFIRMED Platelet Estimate NORMAL Platelet Morphology Comment CLUMPED Prothrombin Time 10.5 SEC Prothromb Time International Ratio 1.0 RATIO Activated Partial Thromboplast Time 26.5 SEC Blood Urea Nitrogen 6 MG/DL Creatinine 0.94 MG/DL Random Glucose 106 MG/DL Total Protein 8.3 GM/DL Albumin 4.0 GM/DL Calcium Level 8.7 MG/DL Magnesium Level 2.8 MG/DL Alkaline Phosphatase 62 U/L Aspartate Amino Transf (AST/SGOT) 22 U/L Alanine Aminotransferase (ALT/SGPT) 21 U/L Total Bilirubin 0.3 MG/DL Sodium Level 140 MEQ/L Potassium Level 3.6 MEQ/L Chloride Level 105 MEQ/L Carbon Dioxide Level 29.4 MEQ/L Anion Gap 6 MEQ/L Estimat Glomerular Filtration Rate 107 ML/MIN Total Creatine Kinase 404 U/L Creatine Kinase MB 3.1 NG/ML Creatine Kinase MB % 0.8 % Troponin I LESS THAN 0.02 NG/ML MDM Medical Decision Making Medical Screen Exam Complete: Yes Emergency Medical Condition: Yes Medical Record Reviewed: Yes Differential Diagnosis Influenza, strep pharyngitis, viral illness, musculoskeletal chest pain, pneumonia, bronchitis Narrative Course 41-year-old male with cold/flu symptoms 1 week. Patient is complaining of left -sided chest pain. He has had chest pain that is consistent with his current chest pain since November and says he is here for his cold/flu symptoms. He was seen December 12, 2016 and was admitted for chest pain center and cardiac cath with loop recorder placement. He follows up with Dr. Rivera, lining strap closer and has a follow-up appointment on May 30. Physical exam is unremarkable; patient has left lower and lateral chest wall pain that is reproducible on physical exam. Lungs are clear and equal throughout. Patient is in no acute distress without retractions or tachypnea. Chest pain protocol ordered in triage. Influenza, rapid strep, ibuprofen ordered. 1249: Chest x-ray with no acute findings. 1330: EKG with normal sinus rhythm without ST elevation or depression. CBC, CMP unremarkable. Total CK 404, which is consistent with past levels. Troponin less than 0.02. Coags unremarkable. 1400: Influenza and rapid strep negative. Patient provided medication refills on lisinopril and amlodipine. Instructed patient to follow up with lining strap closer at May 30 follow-up visit. Discussed viral illness and symptomatic management. Instructed patient to follow up with primary care provider. Patient verbalizes understanding and agreement with treatment plan. Patient is medically cleared and stable for discharge. Discussed reasons to return to the emergency department. Patient agrees with treatment plan. The patients vital signs are stable and the patient is stable for outpatient follow- up and treatment. Patient discharged home, stable and in no acute distress. Diagnosis Primary Impression: Viral illness Referrals: Chairperson Anesthesiology Primary Care Physician Patient Instructions: Cold Symptoms (ED), General Instructions, Safe Use of Cough and Cold Medicines (ED) Departure Forms: Tests/Procedures, Work Release Enter return to work date: May 06, 2017 Additional Instructions: Ibuprofen or Tylenol as directed and as needed to reduce fever; may alternate ibuprofen and Tylenol as needed every 3 hours to minimize fever [id number] cold/flu medications as directed and as needed for symptom management Get plenty of sleep/rest Drink plenty of fluids to prevent dehydration; such as Gatorade, Powerade, Pedialyte [place] diet to encourage nutrition such as crackers, fruit, applesauce, toast, soup etc. Use an air humidifier/turn off ceiling fans Follow-up with your primary care provider within 1 day Return immediately to the emergency department with worsening of symptoms Med/Other Pt SpecificInfo: Prescription(s) given Scripts Lisinopril (Lisinopril) 10 Mg Tab 10 MG PO BID, #60 TAB 0 Refills Prov: Sarah Kim 05/05/17 Amlodipine (Amlodipine) 10 Mg Tab 10 MG PO DAILY for Blood Pressure Management, #30 TAB 0 Refills Prov: Sarah Kim 05/05/17 Disposition: 01 DISCHARGE HOME Condition: Stable Sarah Kim May 05, 2017 12:47
[2017-05-05 13:00] LABS: PROTHROMBIN TIME - PATIENT 10.5 SEC (9.8-11.6)
[2017-05-05] MEDS ORDERED: IBUPROFEN 800 MG TAB PO ONE (13:00)
[2017-05-05 13:04] LABS: AUTOMATED NEUTROPHIL # 1.5 TH/MM3 (1.8-7.7); BASOPHIL % 0.7 % (0.0-2.0); EOSINOPHIL # 0.1 TH/MM3 (0-0.4); EOSINOPHIL % 2.2 % (0.0-4.0); HEMATOCRIT 42.1 % (39.0-51.0); HEMOGLOBIN 14.6 GM/DL (13.0-17.0); LYMPH % 49.7 % (9.0-44.0); MEAN CELL VOLUME 91.4 FL (80.0-100.0); MEAN CORPUSCULAR HEMOGLOBIN 31.8 PG (27.0-34.0); MEAN CORPUSCULAR HGB CONC 34.7 % (32.0-36.0); MEAN PLATELET VOLUME 9.2 FL (7.0-11.0); MONO % 10.6 % (0.0-8.0); MONOCYTE # 0.4 TH/MM3 (0-0.9); NEUT % 36.8 % (16.0-70.0); RED BLOOD COUNT 4.61 MIL/MM3 (4.50-5.90); RED CELL DISTRIBUTION WIDTH 14.5 % (11.6-17.2)
[2017-05-05 13:17] LABS: ALT (GPT) 21 U/L (12-78); AST (GOT) 22 U/L (15-37); BICARBONATE 29.4 MEQ/L (21.0-32.0); BLOOD UREA NITROGEN 6 MG/DL (7-18); CALCIUM 8.7 MG/DL (8.5-10.1); CHLORIDE 105 MEQ/L (98-107); CREATININE 0.94 MG/DL (0.60-1.30); GLOMERULAR FILTRATION RATE 107 ML/MIN (>89); GLUCOSE,RANDOM 106 MG/DL (74-106); MAGNESIUM 2.8 MG/DL (1.5-2.5); SODIUM (NA) 140 MEQ/L (136-145)
[2017-05-05 13:22] LABS: ALKALINE PHOSPHATASE 62 U/L (45-117); TOTAL BILIRUBIN ADULT 0.3 MG/DL (0.2-1.0); TOTAL PROTEIN 8.3 GM/DL (6.4-8.2); TROPONIN I LESS THAN 0.02 NG/ML (0.02-0.05)
[2017-05-05] MEDS ORDERED: LISI10TA3 PO (13:30)
[2017-05-05] MEDS ORDERED: AMLO10TA2 PO (13:30)
--- NOTE | 2017-05-06 14:51 | EKG ---
Date Performed: 05/05/2017 Time Performed: 12:03:15 PTAGE: 41 years EKG: Sinus rhythm NONSPECIFIC ST & T-WAVE ABNORMALITY BORDERLINE ECG PREVIOUS TRACING : 04/13/2017 02.48 Since the prior tracing, there has been no significant barrientos DOCTOR: Hood Hernandez Interpretating Date/Time 05/06/2017 14:43:56
== END 2017-05-05 14:09 | disposition home or self-care (01) ==
LOC: NEPD 11:29
DX: B34.9 Viral infection, unspecified (principal); I10 Essential (primary) hypertension; R94.31 Abnormal electrocardiogram [ECG] [EKG]; F17.210 Nicotine dependence, cigarettes, uncomplicated; Z79.82 Long term (current) use of aspirin
CPT/HCPCS: 71046; 80053; 82550; 82552; 83735; 84484; 85025; 85610; 85730; 87081; 87804; 87880; 93005; 99285

== ENCOUNTER 2017-05-16 21:44 | Observation (INO) | payer OTHER ==
[~2017-05-16] VITALS: Ht 182.9 cm; Wt 90.0 kg
[2017-05-16 21:45] VITALS: BP 161/102; PULSE 76; RESP 16; TEMP 99.2; O2SAT 99
[2017-05-16 22:00] VITALS: BP 156/97; PULSE 70; RESP 16; O2SAT 99
[2017-05-16 22:05] VITALS: O2SAT 95
--- NOTE | 2017-05-16 22:13 | PD ---
HPI Chief Complaint: Cardiac Complaint Time Seen by Provider: 21:58 Travel History International Travel<30 days: No Contact w/Intl Traveler<30days: No Traveled to known affect area: No History of Present Illness HPI The patient is a 41 year old male who presents to the [facility] emergency department with a history of chest pain that began this morning and he noticed when he first awakened. It has been constant. He has associated shortness of breath. He has had diaphoresis. The pain is in the left side of his chest and axilla and is sharp in character. It radiates into the left arm. He reports that because of this pain and a headache he went back to bed. He then awoke at 8 PM with continued pain. He then also noticed that he had numbness of the left upper and lower extremity. He reports having associated pain in the left upper and lower extremity. He denies ever having symptoms like this previously. He does not have any prior history of stroke. He does have a history of hypertension and syncope. He recently had a stress test that was unremarkable in November. He had a loop recorder implanted by his drug safety data management specialist , Dr. Rivera for his syncope. The patient additionally at that time had a carotid ultrasound that was unremarkable. He reports that he is supposed to be on blood pressure medication which he did get filled in the emergency department on May 05, however he has not gotten the prescriptions filled yet. The patient reports that he is also supposed to be on a low-dose aspirin daily, however he has not been taking this. He recently was diagnosed with an upper respiratory infection. He smokes 2 cigarettes per day. He last used marijuana 3-4 days ago. He denies any other drug use. He reports that he does have a history of migraine headaches. He reports that the headache that he has today began this morning in the left spiritism and now has generalized to involve the entire head. It is a throbbing sensation. Otherwise on review of systems, the patient denies having any known recent fevers, neck pain, abdominal pain, nausea, vomiting, diarrhea, or urinary symptoms. FORMERLY [facility] Past Medical History Narrative Medical The patient's past medical history is significant for recurrent chest pain and syncope followed by , history of hypertension, migraine headaches. Hx Anticoagulant Therapy: Yes (81 MG ASA.) Asthma: No Blood Disorders: No Heart Rhythm Problems: No Cancer: No Cardiac Catheterization: No Cardiovascular Problems: Yes (HTN) Chemotherapy: No Chest Pain: Yes Congestive Heart Failure: No COPD: No Diabetes: No Diminished Hearing: No Endocrine: No Gastrointestinal Disorders: No Genitourinary: No Headaches: Yes Hypertension: Yes Immune Disorder: No Implanted Vascular Access Dvce: No Musculoskeletal: No Neurologic: No Psychiatric: No Reproductive: No Respiratory: No Migraines: Yes Radiation Therapy: No Sleep Apnea: No Thyroid Disease: No ?: Not Past Surgical History Narrative Surgical The patient's past surgical history is significant for a loop recorder implant in November 2016, history of a cyst removal from the buttock area Cardiac Surgery: Yes (LOOP RECORDER (11/2016)) Coronary Artery Bypass Graft: No Neurologic Surgery: Yes (CYST ON TAIL BONE) Other Surgery: Yes (Cyst removed from lower back/buttocks) Social History Alcohol Use: No Tobacco Use: Yes (2-3 cigarettes/day) Substance Use: Yes (smokes marijuanna ocasionally) Allergies-Medications (Allergen,Severity, Reaction): Coded Allergies: No Known Allergies (Verified Allergy, Unknown, 04/12/17) Reported Meds & Prescriptions Reported Meds & Active Scripts Active Lisinopril 10 Mg Tab 10 Mg PO BID Amlodipine (Amlodipine Besylate) 10 Mg Tab 10 Mg PO DAILY Mapap Extra Strength (Acetaminophen) 500 Mg Tab 1,000 Mg PO Q6HR PRN Reported Aspirin Children's (Aspirin) 81 Mg Chew 81 Mg CHEW DAILY Lisinopril 10 Mg Tab 10 Mg PO BID Review of Systems Except as stated in HPI: all other systems reviewed are Neg General / Constitutional: No: Fever Eyes: No: Visual changes HENT: Positive: Headaches, Congestion, No: Neck Stiffness, Neck Pain Cardiovascular: Positive: Chest Pain or Discomfort, Dyspnea on exertion Respiratory: Positive: Cough, Shortness of Breath Gastrointestinal: No: Nausea, Vomiting, Diarrhea, Abdominal Pain Genitourinary: No: Dysuria Musculoskeletal: No: Pain Skin: No Rash Neurologic: Positive: Focal Abnormalities, Headache, Sensory Disturbance, No: Weakness, Change in Mentation, Slurred Speech Psychiatric: No: Depression Endocrine: No: Polydipsia Hematologic/Lymphatic: No: Easy Bruising Physical Exam Narrative General: The patient is a well-developed well-nourished male in no acute distress. Head and Neck exam: Head is normocephalic atraumatic. Eyes: EOMI, pupils are equal round and reactive to light. Nose: Midline septum with pink mucous membranes Mouth: Dentition unremarkable. Moist mucus membranes. Posterior oropharynx is not erythematous. No tonsillar hypertrophy. Uvula midline. Airway patent. Neck: No palpable lymphadenopathy. No nuchal rigidity. No thyromegaly. Cardiovascular: Regular rate and rhythm without murmurs, gallops, or rubs. No pulse deficit to the extremities. Lungs: Clear to auscultation bilaterally. No wheezes, rhonchi, or rales. Abdomen: Soft, without tenderness to palpation in all 4 quadrants of the abdomen. No guarding, rebound, or rigidity. Negative [place] sign. Extremities: No clubbing, cyanosis, or edema. 2+ pulses in all 4 extremities. Back: No spinous process tenderness to palpation. No costovertebral angle tenderness to palpation. Neurologic Exam: Cranial nerves 2-12 were intact on exam. Strength is 4/5 in the left upper and left lower extremity which seems to be partly related to reported pain, 5/5 in the right upper and right lower extremity. No sensory deficits noted. No dysdiadochokinesis. Good finger to nose and Heel to gomez bilaterally. Skin Exam: No rash noted. Intact skin that is warm and dry. Data Data Last Documented VS Vital Signs Date Time Temp Pulse Resp B/P (MAP) Pulse Ox O2 Delivery O2 Flow Rate FiO2 05/17/17 00:00 56 16 135/86 (102) 99 Room Air 05/16/17 21:45 99.2 Orders Orders Electrocardiogram (05/16/17 21:59) Complete Blood Count With Diff (05/16/17 21:59) Basic Metabolic Panel (Bmp) (05/16/17 21:59) Creatine Kinase (Cpk) (05/16/17 21:59) Ckmb (Isoenzyme) Profile (05/16/17 21:59) Troponin I (05/16/17 21:59) Prothrombin Time / Inr (Pt) (05/16/17 21:59) Act Partial Throm Time (Ptt) (05/16/17 21:59) Urinalysis - C+S If Indicated (05/16/17 21:59) Magnesium (Mg) (05/16/17 21:59) Thyroid Stimulating Hormone (05/16/17 21:59) Chest, Single Ap (05/16/17 21:59) Ct Brain W/O Iv Contrast(Rout) (05/16/17 21:59) Iv Access Insert/Monitor (05/16/17 21:59) Ecg Monitoring (05/16/17 21:59) Oximetry (05/16/17 21:59) Drug Screen, Random Urine (05/16/17 21:59) Aspirin Chew (Aspirin Chew) (05/16/17 23:00) Nitroglycerin 2% Oint (Nitroglycerin 2% (05/16/17 23:00) Nitroglycerin Sl (Nitrostat Sl) (05/16/17 23:00) CKMB (05/16/17 22:04) CKMB% (05/16/17 22:04) Admit Order (Ed Use Only) (05/17/17 00:37) Labs Laboratory Tests Test 05/16/17 22:04 05/16/17 22:09 White Blood Count 4.0 TH/MM3 Red Blood Count 4.11 MIL/MM3 Hemoglobin 13.2 GM/DL Hematocrit 37.6 % Mean Corpuscular Volume 91.4 FL Mean Corpuscular Hemoglobin 32.1 PG Mean Corpuscular Hemoglobin Concent 35.2 % Red Cell Distribution Width 14.0 % Platelet Count 148 TH/MM3 Mean Platelet Volume 9.5 FL Neutrophils (%) (Auto) 43.4 % Lymphocytes (%) (Auto) 47.3 % Monocytes (%) (Auto) 7.2 % Eosinophils (%) (Auto) 1.2 % Basophils (%) (Auto) 0.9 % Neutrophils # (Auto) 1.7 TH/MM3 Lymphocytes # (Auto) 1.9 TH/MM3 Monocytes # (Auto) 0.3 TH/MM3 Eosinophils # (Auto) 0.0 TH/MM3 Basophils # (Auto) 0.0 TH/MM3 CBC Comment DIFF FINAL Differential Comment Prothrombin Time 11.1 SEC Prothromb Time International Ratio 1.1 RATIO Activated Partial Thromboplast Time 26.1 SEC Blood Urea Nitrogen 9 MG/DL Creatinine 1.19 MG/DL Random Glucose 121 MG/DL Calcium Level 8.5 MG/DL Magnesium Level 2.4 MG/DL Sodium Level 142 MEQ/L Potassium Level 3.5 MEQ/L Chloride Level 108 MEQ/L Carbon Dioxide Level 28.8 MEQ/L Anion Gap 5 MEQ/L Estimat Glomerular Filtration Rate 82 ML/MIN Total Creatine Kinase 321 U/L Creatine Kinase MB 2.1 NG/ML Creatine Kinase MB % 0.7 % Troponin I LESS THAN 0.02 NG/ML Thyroid Stimulating Hormone 3rd Gen 1.430 uIU/ML Urine Color YELLOW Urine Turbidity CLEAR Urine pH 6.5 Urine Specific [place] 1.019 Urine Protein NEG mg/dL Urine Glucose (UA) NEG mg/dL Urine Ketones NEG mg/dL Urine Occult Blood NEG Urine Nitrite NEG Urine Bilirubin NEG Urine Urobilinogen 2.0 MG/DL Urine Leukocyte Esterase NEG Urine RBC 1 /hpf Urine WBC LESS THAN 1 /hpf Urine Mucus FEW /lpf Microscopic Urinalysis Comment CULT NOT INDICATED Urine Opiates Screen NEG Urine Barbiturates Screen NEG Urine Amphetamines Screen NEG Urine Benzodiazepines Screen NEG Urine Cocaine Screen NEG Urine Cannabinoids Screen POS MDM Medical Decision Making Medical Screen Exam Complete: Yes Emergency Medical Condition: Yes Medical Record Reviewed: Yes Differential Diagnosis Intracranial mass, versus atypical migraine headache, versus acute coronary syndrome, versus ischemic stroke, versus somatization, versus malingering Narrative Course During the course of the patient's emergency department visit, the patient's history, examination, and differential diagnosis were reviewed with the patient. The patient was placed on a property assessment monitor with oximetry and frequent blood pressure monitoring. The patient had IV access obtained and blood work sent for analysis. The patient had an EKG done on arrival. The patient's EKG shows a sinus rhythm heart rate of 65, nonspecific ST-T wave abnormalities, QRS duration is 96 ms, QTC [address] segment elevation. The patient on exam does report numbness to his left upper and left lower extremity. The patient also reports having weakness/pain inducing weakness of the left upper and lower extremity. The patient's NIH score would be 3. The patient is out of the timeframe for TPA administration and the patient unfortunately is a poor historian making it difficult to do a proper neurologic exam. The patient does seem to overcome any weakness that he has which he reports his pain during his neuro exam. A CT scan was ordered. The CT scan came back negative for intracranial hemorrhage the patient was given aspirin 324 mg p.o. 1. The patient was also provided sublingual nitroglycerin 1, nitroglycerin 1 inch the chest wall. The patient's laboratory studies were reviewed and remarkable for A white count of 4.0, hemoglobin 13.2, platelets 148 with 47.3 lymphocytes, basic metabolic profile is remarkable for a chloride of 108, glucose 121, CPK 321, CK-MB 0.7, troponin I is less than 0.02. TSH 1.43 PT 11.1, PTT 26.1. Urine drug screen is positive for cannabinoids. Urinalysis is unremarkable. Radiologic studies are remarkable for a chest x-ray that shows no acute cardiopulmonary disease, CT scan of the brain shows no acute abnormality. The patient will be admitted for further evaluation for possible TIA versus CVA. The patient's results were discussed with the patient, including the plan of care. I explained that further testing and/ or monitoring is indicated based on the patient's history, examination, and/ or laboratory findings. Therefore, I recommended admission for additional evaluation. The patient expressed understanding and was agreeable with this plan. The patient was admitted to the hospital in stable condition and sent to a bed under the care of the [facility] service. Physician Communication Physician Communication The patient's case including history, pertinent physical examination findings, and laboratory studies were discussed with Dr. Alcantar. It was agreed that the patient would be admitted to the [facility] service. Diagnosis Primary Impression: Left-sided weakness Additional Impression: Atypical chest pain Admitting Information Admitting Physician Requests: Violet Alonzo MD May 16, 2017 22:13
--- NOTE | 2017-05-16 22:33 | RADRPT ---
EXAM DATE/TIME: 05/16/2017 21:41 [facility] COMPARISON: No previous studies available for comparison. INDICATIONS : Chest pain, numbness hands and face MEDICAL HISTORY : Hypertension. Hypercholesterolemia SURGICAL HISTORY : Loop recorder ENCOUNTER: Initial ACUITY: 1 day PAIN SCORE: 4/10 LOCATION: chest FINDINGS: A single view of the chest demonstrates the lungs to be symmetrically aerated without evidence of mas s, infiltrate or effusion. The cardiomediastinal contours are unremarkable. Osseous structures are intact. CONCLUSION: No acute disease. Christopher Bhatt MD on May 16, 2017 at 22:31 Board Certified Radiologist. This report was verified electronically.
--- NOTE | 2017-05-16 22:33 | RADRPT ---
EXAM DATE/TIME: 05/16/2017 22:25 [facility] COMPARISON: CT BRAIN W/O CONTRAST, April 12, 2017, 12:06. INDICATIONS : chest pain with left sided weakness. RADIATION DOSE: 34.67 CTDIvol (mGy) MEDICAL HISTORY : Cardiovascular disease. Hypertension. SURGICAL HISTORY : None. ENCOUNTER: Initial ACUITY: 1 day PAIN SCALE: 10/10 LOCATION: chest TECHNIQUE: Multiple contiguous axial images were obtained of the head. Using automated exposure control and adj ustment of the mA and/or kV according to patient size, radiation dose was kept as low as reasonably a chievable to obtain optimal diagnostic quality images. DICOM format image data is available electro nically for review and comparison. FINDINGS: CEREBRUM: The ventricles are normal for age. No evidence of midline shift, mass lesion, hemorrhage or acute in farction. No extra-axial fluid collections are seen. POSTERIOR FOSSA: The cerebellum and brainstem are intact. The 4th ventricle is midline. The cerebellopontine angle i s unremarkable. EXTRACRANIAL: The visualized portion of the orbits is intact. SKULL: The calvaria is intact. No evidence of skull fracture. CONCLUSION: Normal examination. Christopher Bhatt MD on May 16, 2017 at 22:30 Board Certified Radiologist. This report was verified electronically.
[2017-05-16 22:34] LABS: BILIRUBIN, URINE NEG (NEG); BLOOD, URINE NEG (NEG); GLUCOSE,URINE NEG (NEG); KETONE, URINE NEG (NEG); MUCUS URINE FEW /lpf (OCC); NITRITE,URINE NEG (NEG); PH, URINE 6.5 (5.0-8.5); URINE COLOR YELLOW (YELLW/STRAW); URINE LEUKOCYTE ESTERASE NEG (NEG)
[2017-05-16 22:44] LABS: AUTOMATED NEUTROPHIL # 1.7 TH/MM3 (1.8-7.7); BASOPHIL % 0.9 % (0.0-2.0); EOSINOPHIL % 1.2 % (0.0-4.0); HEMATOCRIT 37.6 % (39.0-51.0); HEMOGLOBIN 13.2 GM/DL (13.0-17.0); LYMPH % 47.3 % (9.0-44.0); LYMPHOCYTE # 1.9 TH/MM3 (1.0-4.8); MEAN CELL VOLUME 91.4 FL (80.0-100.0); MEAN CORPUSCULAR HEMOGLOBIN 32.1 PG (27.0-34.0); MEAN CORPUSCULAR HGB CONC 35.2 % (32.0-36.0); MEAN PLATELET VOLUME 9.5 FL (7.0-11.0); MONO % 7.2 % (0.0-8.0); MONOCYTE # 0.3 TH/MM3 (0-0.9); NEUT % 43.4 % (16.0-70.0); PLATELET COUNT 148 TH/MM3 (150-450); RED BLOOD COUNT 4.11 MIL/MM3 (4.50-5.90)
[2017-05-16 22:50] LABS: BICARBONATE 28.8 MEQ/L (21.0-32.0); BLOOD UREA NITROGEN 9 MG/DL (7-18); CALCIUM 8.5 MG/DL (8.5-10.1); CHLORIDE 108 MEQ/L (98-107); CREATININE 1.19 MG/DL (0.60-1.30); GLOMERULAR FILTRATION RATE 82 ML/MIN (>89); GLUCOSE,RANDOM 121 MG/DL (74-106); INTERNATIONAL NORMALIZED RATIO 1.1 RATIO; MAGNESIUM 2.4 MG/DL (1.5-2.5); PROTHROMBIN TIME - PATIENT 11.1 SEC (9.8-11.6); SODIUM (NA) 142 MEQ/L (136-145)
[2017-05-16 23:00] VITALS: BP 147/93; PULSE 68; RESP 16; O2SAT 99
[2017-05-16 23:00] LABS: TROPONIN I LESS THAN 0.02 NG/ML (0.02-0.05)
[2017-05-16] MEDS ORDERED: NITROGLYCERIN 0.4 MG SL 25 TABS/BTL SL ONE (23:00)
[2017-05-16] MEDS ORDERED: ASPIRIN 81 MG CHEW TAB CHEW ONE (23:00)
[2017-05-16] MEDS ORDERED: NITROGLYCERIN 2% OINT 1 GM PACKET TOPICAL ONE (23:00)
[2017-05-17] VITALS (12 sets, daily range): BP systolic 135–157; BP diastolic 86–96; PULSE 47–59; RESP 16–20; TEMP 97.5–98.4; O2SAT 95–100
[2017-05-17] MEDS ORDERED: SENNOSIDES 8.6 MG TAB PO PRN (01:00)
[2017-05-17] MEDS ORDERED: BISACODYL 10 MG SUPP RECTAL PRN (01:00)
[2017-05-17] MEDS ORDERED: SODIUM CHLORIDE 0.9% FLUSH 10 ML FLUSH IV FLUSH PRN (01:00)
[2017-05-17] MEDS ORDERED: ONDANSETRON HCL 4 MG/2 ML VIAL IVP PRN (01:00)
[2017-05-17] MEDS ORDERED: ACETAMINOPHEN/HYDROcodone 325 MG/5 MG TAB PO PRN (01:00)
[2017-05-17] MEDS ORDERED: MAGNESIUM HYDROXIDE SUSP 30 ML CUP PO PRN (01:00)
[2017-05-17] MEDS ORDERED: LACTULOSE SYRUP 20 GM/30 ML CUP PO PRN (01:00)
[2017-05-17] MEDS: SODIUM CHLOR 0.9% 1000 ML INJ 1,000 ML IV SCH ×3 (01:06→22:19)
[2017-05-17] MEDS: MORPHINE SULFATE 2 MG/ML INJ IV PUSH PRN ×2 (01:07→22:16)
[2017-05-17] MEDS: ACETAMINOPHEN 325 MG TAB PO PRN (01:32)
--- NOTE | 2017-05-17 01:58 | HHI.HP ---
[facility] Service [facility] Primary Care Physician No Primary Care Physician Admission Diagnosis TIA vs CVA Diagnoses: (1) Chest pain Diagnosis: Principal (2) Left-sided weakness Diagnosis: Principal (3) Rhabdomyolysis Diagnosis: Principal (4) Tobacco abuse Diagnosis: Principal Travel History International Travel<30 Days: No Contact w/Intl Traveler <30 Da: No Traveled to Known Affected Are: No History of Present Illness This is a 41-year-old male with a PMH of Recurrent Chest Pain, Syncope s/p Loop Recorder by Dr. Rivera 12/16/16, HTN, Non-compliance and Tobacco Abuse who presented to the ER w/ complaints of chest pain and left-sided weakness starting yesterday morning. States he woke up at 7:30am w/ left-sided weakness and went back to sleep, woke up again at approx 8pm w/ persistent symptoms. Also c/o chest pain, multiple presentations/work up for similar symptoms in the past, s/p Stress Test November negative. On arrival, BP 161/102, HR 76, O2 sat 99% on RA Temp 99.2. CBC unremarkable except for platelets 148. Chemistry unremarkable except for GFR 82. Troponin negative. INR 1.1. UA negative. Urine Drug Screen positive for Marijuana. CXR with no acute findings. CT Head normal. Review of Systems Except as stated in HPI: all other systems reviewed are Neg ROS: 14 point review of systems otherwise negative. Past Family Social History Past Medical History PMH: Recurrent Chest Pain, Syncope s/p Loop Recorder by Dr. Rivera 12/16/16, HTN , Non-compliance and Tobacco Abuse Past Surgical History PAST SURGICAL HISTORY: Loop Recorder, Cyst Removal. Allergies: Coded Allergies: No Known Allergies (Verified Allergy, Unknown, 04/12/17) Family History PAST FAMILY HISTORY: Reviewed. No h/o DM or CAD Social History PAST SOCIAL HISTORY: Negative for alcohol. Positive for tobacco. + Marijuana. Physical Exam Vital Signs Vital Signs Date Time Temp Pulse Resp B/P (MAP) Pulse Ox O2 Delivery O2 Flow Rate FiO2 05/17/17 01:26 05/17/17 00:00 56 16 135/86 (102) 99 Room Air 05/16/17 23:00 68 16 147/93 (111) 99 Room Air 05/16/17 22:05 95 Room Air 05/16/17 22:00 70 16 156/97 (116) 99 Room Air 05/16/17 21:45 99.2 76 16 161/102 (121) 99 Room Air Physical Exam PE: GENERAL: Pleasant young black male in no acute distress. HEENT: PERRLA, EOMI. No scleral icterus or conjunctival pallor. No lid lag or facial droop. CARDIOVASCULAR: Regular rate and rhythm. No obvious murmurs to auscultation. No chest tenderness to palpation. RESPIRATORY: No obvious rhonchi or wheezing. Clear to auscultation. Breath sounds equal bilaterally. GASTROINTESTINAL: Abdomen soft, non-tender, nondistended. BS normal. MUSCULOSKELETAL: Extremities without clubbing, cyanosis, or edema. No obvious deformities. NEUROLOGICAL: Awake, alert and oriented x4. Neuro exam difficult to asses due pain complaints, however strength appears to be 5/5. Moving both upper and lower extremities spontaneously. Laboratory Laboratory Tests Test 05/16/17 22:04 05/16/17 22:09 White Blood Count 4.0 Red Blood Count 4.11 Hemoglobin 13.2 Hematocrit 37.6 Mean Corpuscular Volume 91.4 Mean Corpuscular Hemoglobin 32.1 Mean Corpuscular Hemoglobin Concent 35.2 Red Cell Distribution Width 14.0 Platelet Count 148 Mean Platelet Volume 9.5 Neutrophils (%) (Auto) 43.4 Lymphocytes (%) (Auto) 47.3 Monocytes (%) (Auto) 7.2 Eosinophils (%) (Auto) 1.2 Basophils (%) (Auto) 0.9 Neutrophils # (Auto) 1.7 Lymphocytes # (Auto) 1.9 Monocytes # (Auto) 0.3 Eosinophils # (Auto) 0.0 Basophils # (Auto) 0.0 CBC Comment DIFF FINAL Differential Comment Prothrombin Time 11.1 Prothromb Time International Ratio 1.1 Activated Partial Thromboplast Time 26.1 Blood Urea Nitrogen 9 Creatinine 1.19 Random Glucose 121 Calcium Level 8.5 Magnesium Level 2.4 Sodium Level 142 Potassium Level 3.5 Chloride Level 108 Carbon Dioxide Level 28.8 Anion Gap 5 Estimat Glomerular Filtration Rate 82 Total Creatine Kinase 321 Creatine Kinase MB 2.1 Creatine Kinase MB % 0.7 Troponin I LESS THAN 0.02 Thyroid Stimulating Hormone 3rd Gen 1.430 Urine Color YELLOW Urine Turbidity CLEAR Urine pH 6.5 Urine Specific [place] 1.019 Urine Protein NEG Urine Glucose (UA) NEG Urine Ketones NEG Urine Occult Blood NEG Urine Nitrite NEG Urine Bilirubin NEG Urine Urobilinogen 2.0 Urine Leukocyte Esterase NEG Urine RBC 1 Urine WBC LESS THAN 1 Urine Mucus FEW Microscopic Urinalysis Comment CULT NOT INDICATED Urine Opiates Screen NEG Urine Barbiturates Screen NEG Urine Amphetamines Screen NEG Urine Benzodiazepines Screen NEG Urine Cocaine Screen NEG Urine Cannabinoids Screen POS Result Diagram: 05/16/17220305/16/172203 Caprini VTE Risk Assessment Caprini VTE Risk Assessment: No/Low Risk (score <= 1) Caprini Risk Assessment Model Point Value = 1 Point Value = 2 Point Value = 3 Point Value = 5 Age 41-60 Minor surgery BMI > 25 kg/m2 Swollen legs Varicose veins or History of unexplained or recurrent spontaneous Oral contraceptives or hormone replacement Sepsis (< 1 month) Serious lung disease, including pneumonia (< 1 month) Abnormal pulmonary function Acute myocardial infarction Congestive heart failure (< 1 month) History of inflammatory bowel disease Medical patient at bed rest Age 61-74 Arthroscopic surgery Major open surgery (> 45 min) Laparoscopic surgery (> 45 min) Malignancy Confined to bed (> 72 hours) Immobilizing plaster cast Central venous access Age >= 75 History of VTE Family history of VTE Factor V Leiden Prothrombin [id number] Lupus anticoagulant Anticardiolipin antibodies Elevated serum homocysteine Heparin-induced thrombocytopenia Other congenital or acquired thrombophilia Stroke (< 1 month) Elective arthroplasty Hip, pelvis, or leg fracture Acute spinal cord injury (< 1 month) Prophylaxis Regimen Total Risk Factor Score Risk Level Prophylaxis Regimen 0-1 Low Early ambulation 2 Moderate Order ONE of the following: *Sequential Compression Device (SCD) *Heparin 5000 units SQ BID 3-4 Higher Order ONE of the following medications: *Heparin 5000 units SQ TID *Enoxaparin/Lovenox 40 mg SQ daily (WT < 150 kg, CrCl > 30 mL/min) *Enoxaparin/Lovenox 30 mg SQ daily (WT < 150 kg, CrCl > 10-29 mL/min) *Enoxaparin/Lovenox 30 mg SQ BID (WT < 150 kg, CrCl > 30 mL/min) AND/OR *Sequential Compression Device (SCD) 5 or more Highest Order ONE of the following medications: *Heparin 5000 units SQ TID (Preferred with Epidurals) *Enoxaparin/Lovenox 40 mg SQ daily (WT < 150 kg, CrCl > 30 mL/min) *Enoxaparin/Lovenox 30 mg SQ daily (WT < 150 kg, CrCl > 10-29 mL/min) *Enoxaparin/Lovenox 30 mg SQ BID (WT < 150 kg, CrCl > 30 mL/min) AND *Sequential Compression Device (SCD) Assessment and Plan Problem List: (1) Chest pain ICD Code: R07.9 - Chest pain, unspecified Status: Acute (2) Left-sided weakness ICD Code: R53.1 - Weakness Status: Acute (3) Rhabdomyolysis ICD Code: M62.82 - Rhabdomyolysis (4) Tobacco abuse ICD Code: Z72.0 - Tobacco use Assessment and Plan A/P: 1. Chest Pain: atypical chest pain, multiple visits/evaluations for same, Stress 11/2016 negative, initial trop negative. Admit for Observation, Telemetry , check serial cardiac enzymes for trend. ASA, Statin. Hold B-clyde in light of bradycardia. 2. Left Sided Weakness: acute onset of left-sided weakness since yesterday morning, strength 5/[address] Head negative for acute findings, images reviewed by me. Unable to obtain MRI due to loop recorder. PT for eval/tx. Consult Neurology for further evaluation/recommendations. 3. Rhabdomyolysis: CPK 321, IVF for hydration, repeat labs for trend. Urine Drug Screen positive for Marijuana, U/a negative. 4. Tobacco Abuse: Pt counselled. No NicoDerm to avoid vasoconstriction. Ativan prn if needed. 5. DVT Prophylaxis: SCD/Teds. 6. Social work for d/c planning as needed 7. Case discussed w/ ER physician at length, labs/records/imaging reviewed by me. Elif Alcantar MD May 17, 2017 01:58
[2017-05-17 05:20] LABS: TROPONIN I LESS THAN 0.02 NG/ML (0.02-0.05)
[2017-05-17] MEDS: SODIUM CHLORIDE 0.9% FLUSH 10 ML FLUSH IV FLUSH SCH ×2 (09:00→22:14)
--- NOTE | 2017-05-17 09:34 | HHI.PR ---
Subjective Remarks Follow up for left sided weakness and chest pain. The patient reports chest pain improved today, denies any currently. He described the pain yesterday as intermittent pressure 10/10 pains located at the left anterior chest with radiation into the left lateral thorax, associated with diaphoresis, dizziness, and nausea, but no shortness of breath or vomiting. He reports continued LUE and LLE weakness and paresthesias that began around 8pm last night. He is a poor historian but he doesn't not think it has improved much. He does admit that he has been out of all medications [id number]. He does not know what he's supposed to be taking. He states his medications haven't changed since he was last admitted to the hospital. He has no other medical complaints at this time including no lightheadedness, visual changes, speech difficulties, abdominal pain, nausea/vomiting, diarrhea, or urinary complaints. Objective Vitals Vital Signs Date Time Temp Pulse Resp B/P (MAP) Pulse Ox O2 Delivery O2 Flow Rate FiO2 05/17/17 08:25 97.5 56 18 135/94 (108) 98 05/17/17 04:07 56 05/17/17 02:55 98.0 59 18 152/91 (111) 95 05/17/17 02:05 54 05/17/17 01:26 05/17/17 00:00 56 16 135/86 (102) 99 Room Air 05/16/17 23:00 68 16 147/93 (111) 99 Room Air 05/16/17 22:05 95 Room Air 05/16/17 22:00 70 16 156/97 (116) 99 Room Air 05/16/17 21:45 99.2 76 16 161/102 (121) 99 Room Air Result Diagram: 05/16/17220305/16/172203 Imaging Last Impressions Head CT 05/16/172158 Signed Impressions: Service Date/Time: Tuesday, May 16, 2017 22:25 - CONCLUSION: Normal examination. Christopher Bhatt MD Chest X-Ray 05/16/172158 Signed Impressions: Service Date/Time: Tuesday, May 16, 2017 21:41 - CONCLUSION: No acute disease. Christopher Bhatt MD Objective Remarks GENERAL: Well-nourished, well-developed middle aged male patient in NAD. SKIN: Warm and dry. No rash. HEENT: Normocephalic. Atraumatic.Pupils equal and round. Mucous membranes pink and moist. CARDIOVASCULAR: Regular rate and rhythm. S1, S2 noted. No murmur appreciated. RESPIRATORY: No accessory muscle use. Clear to auscultation. Breath sounds equal bilaterally. GASTROINTESTINAL: Abdomen soft, non-tender, nondistended. Normoactive bowel sounds x4. MUSCULOSKELETAL: No obvious deformities. Extremities without clubbing, cyanosis , or edema. NEUROLOGICAL: Awake and alert. No obvious cranial nerve deficits. Motor grossly within normal limits. Initially LUE bath steward/stewardess strength 4/5, however improved throughout examination with LUE strength equal to the RUE. BLE 5/5 strength. Normal speech. No facial droop/lid lag/tongue deviation. Bilateral facial, upper and lower extremity sensation equal and intact. No pronator drift. Medications and IVs Current Medications Medications (Trade) Dose Ordered Sig/Pato Route Start Time Stop Time Status Last Admin (Ecotrin Ec) 81 mg DAILY PO 05/17/17 09:00 05/17/17 09:48 Sodium Chloride 1,000 ml @ 100 mls/hr Q10H IV 05/17/17 00:49 05/17/17 09:41 (NS Flush) 2 ml UNSCH PRN IV FLUSH 05/17/17 01:00 (NS Flush) 2 ml BID IV FLUSH 05/17/17 09:00 (Zofran Inj) 4 mg Q6H PRN IVP 05/17/17 01:00 (Tylenol) 650 mg Q6H PRN PO 05/17/17 01:00 05/17/17 01:32 ([place] 5-325 Mg) 1 tab Q4H PRN PO 05/17/17 01:00 (Morphine Inj) 2 mg Q3H PRN IV PUSH 05/17/17 01:00 05/17/17 01:07 (Tonja-Colace) 1 tab BID PO 05/17/17 09:00 05/17/17 09:48 (Milk Of Magnesia Liq) 30 ml Q12H PRN PO 05/17/17 01:00 (Senokot) 17.2 mg Q12H PRN PO 05/17/17 01:00 (Dulcolax Supp) 10 mg DAILY PRN RECTAL 05/17/17 01:00 (Lactulose Liq) 30 ml DAILY PRN PO 05/17/17 01:00 (Pravachol) 40 mg DAILY PO 05/17/17 09:00 05/17/17 09:48 A/P Problem List: (1) Chest pain ICD Code: R07.9 - Chest pain, unspecified Status: Acute (2) Left-sided weakness ICD Code: R53.1 - Weakness Status: Acute (3) Rhabdomyolysis ICD Code: M62.82 - Rhabdomyolysis (4) Tobacco abuse ICD Code: Z72.0 - Tobacco use Assessment and Plan 41-year-old male with a PMH of Recurrent Chest Pain, Syncope s/p Loop Recorder by Dr. Rivera 12/16/16, HTN, Non-compliance and Tobacco Abuse who presented to the ER w/ complaints of chest pain and left-sided weakness starting yesterday morning. Chest Pain: atypical chest pain, multiple visits/evaluations for same. -EMR reviewed, Nuclear Stress Test negative, and Treadmill Stress Test 12/02/16 normal with no evidence of ischemia. -ACS ruled out with negative serial cardiac enzymes x3, and EKG without acute ischemic changes, stable compared to previous -Monitor on telemetry -Continue ASA, Statin. Hold B-clyde in light of bradycardia. -Chest pain improving. Left Sided Weakness: acute onset of left-sided weakness x1day, exam variable, possibly diminished LUE bath steward/stewardess strength, otherwise strength 5/5 on exam. -CT Head negative for acute findings, images reviewed by me. -Unable to obtain MRI due to loop recorder. -PT for eval/tx. -Monitor neuro checks -Consult Neurology for further evaluation/recommendations. -Head/Neck CTA ordered Hypertension: chronic -Restart patient's home meds once CVA ruled out (patient has been out of all meds [id number] and does not know what he's supposed to be taking) -BP currently fairly well controlled Rhabdomyolysis: CPK 321 upon arrival. Urine Drug Screen positive for Marijuana , U/a negative. -Give IVF for hydration -Repeat labs shows improvement, CPK 256. -Resolved Tobacco Abuse: Pt counselled. No NicoDerm to avoid vasoconstriction. Ativan prn if needed. DVT Prophylaxis: SCD/Teds. Discharge Planning Hopefully discharge tomorrow pending neurology work up and clearance. Marie Martinez PA-C May 17, 2017 9:34 am
[2017-05-17] MEDS: PRAVASTATIN SOD 40 MG TAB PO SCH (09:48)
[2017-05-17] MEDS: ASPIRIN EC 81 MG TABEC PO SCH (09:48)
[2017-05-17] MEDS: DOCUSATE SODIUM 50 MG/SENNA 8.6 MG TAB PO SCH ×2 (09:48→22:14)
[2017-05-17 12:03] LABS: TROPONIN I LESS THAN 0.02 NG/ML (0.02-0.05)
--- NOTE | 2017-05-17 12:20 | EKG ---
Date Performed: 05/16/2017 Time Performed: 22:00:36 PTAGE: 41 years EKG: Sinus rhythm NONSPECIFIC ST & T-WAVE ABNORMALITY BORDERLINE ECG PREVIOUS TRACING : 05/05/2017 12.03 Since the prior tracing, there has been no significant barrientos DOCTOR: Hood Hernandez Interpretating Date/Time 05/17/2017 12:18:24
[2017-05-17] MEDS ORDERED: IOHEXOL 350 MG/ML 10 ML VIAL (for RAD DIAG) IVCONTRAST ONE (14:47)
--- NOTE | 2017-05-17 15:23 | RADRPT ---
EXAM DATE/TIME: 05/17/2017 14:40 [facility] COMPARISON: CT BRAIN W/O CONTRAST, May 16, 2017, 22:25. INDICATIONS : Possible stroke, left sided weakness RADIATION DOSE: 41.73 CTDIvol (mGy) MEDICAL HISTORY : Hypertension. SURGICAL HISTORY : None. ENCOUNTER: Initial ACUITY: 2 days PAIN SCALE: 0/10 LOCATION: flank TECHNIQUE: Multiple contiguous axial images were obtained of the head. Using automated exposure control and adjustment of the mA and/or kV according to patient size, radiation dose was kept as low as reasonably achievable to obtain optimal diagnostic quality images. DICOM format image data is av ailable electronically for review and comparison. FINDINGS: CEREBRUM: The ventricles are normal for age. No evidence of midline shift, mass lesion, hemorrha ge or acute infarction. No extra-axial fluid collections are seen. POSTERIOR FOSSA: The cerebellum and brainstem are intact. The 4th ventricle is midline. The cer ebellopontine angle is unremarkable. EXTRACRANIAL: The visualized portion of the orbits is intact. SKULL: The calvaria is intact. No evidence of skull fracture. CONCLUSION: Negative for acute process. MRI of the brain may offer more information. Lalo Phillips MD FACR on May 17, 2017 at 15:22 Board Certified Radiologist. This report was verified electronically.
--- NOTE | 2017-05-17 15:35 | RADRPT ---
EXAM DATE/TIME: 05/17/2017 14:40 [facility] COMPARISON: No previous studies available for comparison. INDICATIONS : Possible stroke, left sided weakness IV CONTRAST: 80 cc Omnipaque 350 (iohexol) IV ; Cumulative dose for multiple exams. RADIATION DOSE: 28.52 CTDIvol (mGy) ; Combined studies MEDICAL HISTORY : Hypertension. SURGICAL HISTORY : None. ENCOUNTER: Initial ACUITY: 2 days PAIN SCALE: 0/10 LOCATION: cranial TECHNIQUE: Volumetric scanning was performed using a multi-row detector CT scanner. The data was post processed with a variety of visualization algorithms including full volume maximum intensity projection, multi -planar sliding thin slab reformation, curved planar reformation, and surface rendering techniques. Using automated exposure control and adjustment of the mA and/or kV according to patient size, radiat ion dose was kept as low as reasonably achievable to obtain optimal diagnostic quality images. DICO M format image data is available electronically for review and comparison. FINDINGS: There is excellent visualization of the major intracranial arteries out to the second-order branch ve ssels. There is no evidence for aneurysm, vessel truncation or stenosis, and no evidence for vascula r malformation. CONCLUSION: Normal examination. Jak Dixon MD on May 17, 2017 at 15:26 Board Certified Radiologist. This report was verified electronically.
--- NOTE | 2017-05-17 15:43 | MB ---
cc: Agatha Salas MD DATE OF CONSULT: REASON FOR CONSULTATION: Left-sided weakness. This is a 41-year-old man with a history of syncope, loop recorder placed by Dr. Rivera in November of 2016, recurrent chest pain, hypertension, tobacco abuse, comes in because of some chest pain, left-sided weakness, started sometime yesterday. Woke up with it, went back to sleep, then woke up with similar complaints. He had a stress test in November that was negative. He states he does not have numbness or trouble speaking, but just has the feeling of weakness in the left arm and leg. PHYSICAL EXAMINATION: VITALS: His temperature is 98, pulse 55, respiratory rate 20, blood pressure 144/95, satting at 98%. NECK: Supple. I do not appreciate any bruits. HEART: Regular. NEUROLOGIC: He is awake and alert. He is oriented, fluent. His pupils reactive. Face symmetrical. Tongue midline. Motor-ignacio, no significant drift, no significant lid lag. He has a weaker field associate. No wrist drop. Toes withdraw bilaterally. Sensory is normal. DTRs are 1+. Bxqkju-oqiu-bhhboh a little slower on the left, but no dysmetria. Dexterity and random alternating movements in the left hand are slower than on the right. Gait is withheld. LABORATORY STUDIES: His CBC is reviewed. His platelets are 148,000. Chemistries: Glucose 121, GFR 82, CK initially of 321, now at 217. Three sets of troponin were negative. TSH 1.430. Urine is negative and toxicology positive for cannabinoids. CT head normal. Chest x-ray: No acute pathology. IMPRESSION: Weakness in the left side. Certainly, mild stroke in the differential versus just due to chest pain, but unlikely. Enzymes are negative. Worrisome would be a stroke; however, I am not sure his loop recorder is MRI compatible. I would defer to radiology. If it is, then MRI should be done. However, we will go ahead and get a repeat CT and a CTA of the ute of Rivera and carotids and continue on statin therapy. Hold the beta-clyde; he is somewhat bradycardic. Have PT, OT assess him. Counseling on smoking and drugs should be made and discharge planning if stable. MD Teo Bravo , 12:14 PM , 12:51 PM
--- NOTE | 2017-05-17 17:08 | RADRPT ---
EXAM DATE/TIME: 05/17/2017 14:40 [facility] COMPARISON: No previous studies available for comparison. INDICATIONS : Possible stroke, left sided weakness IV CONTRAST: 80 cc Omnipaque 350 (iohexol) IV ; Cumulative dose for multiple exams. RADIATION DOSE: 28.52 CTDIvol (mGy) ; Combined studies MEDICAL HISTORY : Hypertension. SURGICAL HISTORY : None. ENCOUNTER: Initial ACUITY: 1 day PAIN SCALE: 0/10 LOCATION: cranial Elevated flow velocities and ICA/CCA ratios have been found to correlate with increased degrees of vessel stenosis, calculated as percentage of diameter relative to a normal segment of distal ICA/CCA. TECHNIQUE: Volumetric scanning was performed using a multirow detector CT scanner. The data was post processed with a variety of visualization algorithms including full-volume maximum intensity projection, multip lanar sliding thin-slab reformation, curved-planar reformation, and surface-rendering techniques. Us ing automated exposure control and adjustment of the mA and/or kV according to patient size, radiatio n dose was kept as low as reasonably achievable to obtain optimal diagnostic quality images. DICOM f ormat image data is available electronically for review and comparison. FINDINGS: AORTIC ARCH: Truncus arch anatomy. Widely patent arch vessels. RIGHT CAROTID: The common carotid artery is intact. The carotid bulb has a normal configuration without ulceration o r narrowing. The internal carotid artery lumen is smooth without stenosis. The external carotid brice ry is intact. LEFT CAROTID: The common carotid artery is intact. The carotid bulb has a normal configuration without ulceration or narrowing. The internal carotid artery lumen is smooth without stenosis. The external carotid ar gregory is intact. VERTEBRALS: The vertebral arteries are patent bilaterally, left side dominant. No stenotic lesions are seen. CONCLUSION: No evidence of carotid stenosis. Jak Dixon MD on May 17, 2017 at 17:03 Board Certified Radiologist. This report was verified electronically.
[2017-05-18 00:09] VITALS: PULSE 46
[2017-05-18 04:06] VITALS: BP 165/99; PULSE 53; RESP 16; TEMP 98; O2SAT 98
[2017-05-18 04:23] VITALS: PULSE 47
[2017-05-18 06:58] LABS: AUTOMATED NEUTROPHIL # 1.2 TH/MM3 (1.8-7.7); EOSINOPHIL # 0.1 TH/MM3 (0-0.4); HEMATOCRIT 39.1 % (39.0-51.0); HEMOGLOBIN 13.4 GM/DL (13.0-17.0); LYMPH % 55.7 % (9.0-44.0); LYMPHOCYTE # 2.1 TH/MM3 (1.0-4.8); MEAN CELL VOLUME 91.3 FL (80.0-100.0); MEAN CORPUSCULAR HEMOGLOBIN 31.2 PG (27.0-34.0); MEAN CORPUSCULAR HGB CONC 34.2 % (32.0-36.0); MEAN PLATELET VOLUME 8.7 FL (7.0-11.0); MONO % 8.3 % (0.0-8.0); MONOCYTE # 0.3 TH/MM3 (0-0.9); PLATELET COUNT 163 TH/MM3 (150-450); RED BLOOD COUNT 4.29 MIL/MM3 (4.50-5.90); RED CELL DISTRIBUTION WIDTH 13.8 % (11.6-17.2); WHITE BLOOD COUNT 3.7 TH/MM3 (4.0-11.0)
[2017-05-18 07:23] LABS: ALBUMIN 3.5 GM/DL (3.4-5.0); ALT (GPT) 17 U/L (12-78); AST (GOT) 14 U/L (15-37); BICARBONATE 28.1 MEQ/L (21.0-32.0); BLOOD UREA NITROGEN 9 MG/DL (7-18); CALCIUM 8.4 MG/DL (8.5-10.1); CHLORIDE 108 MEQ/L (98-107); CREATININE 0.94 MG/DL (0.60-1.30); GLOMERULAR FILTRATION RATE 107 ML/MIN (>89); GLUCOSE,RANDOM 79 MG/DL (74-106); SODIUM (NA) 140 MEQ/L (136-145)
[2017-05-18 07:26] LABS: ALKALINE PHOSPHATASE 57 U/L (45-117); TOTAL BILIRUBIN ADULT 0.4 MG/DL (0.2-1.0); TOTAL PROTEIN 7.1 GM/DL (6.4-8.2)
[2017-05-18] MEDS: SODIUM CHLORIDE 0.9% FLUSH 10 ML FLUSH IV FLUSH SCH (08:23)
[2017-05-18] MEDS: SODIUM CHLOR 0.9% 1000 ML INJ 1,000 ML IV SCH (08:23)
[2017-05-18] MEDS: PRAVASTATIN SOD 40 MG TAB PO SCH (08:24)
[2017-05-18] MEDS: ACETAMINOPHEN 325 MG TAB PO PRN (08:24)
[2017-05-18] MEDS: ASPIRIN EC 81 MG TABEC PO SCH (08:24)
[2017-05-18] MEDS: DOCUSATE SODIUM 50 MG/SENNA 8.6 MG TAB PO SCH (08:24)
[2017-05-18 09:11] VITALS: BP 153/95; PULSE 50; RESP 18; TEMP 97.8; O2SAT 100
--- NOTE | 2017-05-18 11:14 | RADRPT ---
EXAM DATE/TIME: 05/18/2017 10:30 [facility] COMPARISON: CT BRAIN W/O CONTRAST, May 17, 2017, 14:40. INDICATIONS : Left sided weakness. MEDICAL HISTORY : Hypertension. SURGICAL HISTORY : cyst removed from spine, loop recorder ENCOUNTER: Subsequent ACUITY: 2 day PAIN SCORE: 0/10 LOCATION: cranial TECHNIQUE: Multiplanar, multisequence MRI of the brain was performed without contrast. FINDINGS: CEREBRUM: The ventricles are normal for age. No evidence of midline shift, mass lesion, hemorrhage or acute in farction. No extraaxial fluid collections are seen. The pituitary gland and suprasellar cistern are normal in configuration. WHITE MATTER: A few scattered foci of bright T2 signal abnormalities are seen in the white matter. POSTERIOR FOSSA: The cerebellum and brainstem are intact. The 4th ventricle is midline. The cerebellopontine angle is unremarkable. The cerebellar tonsils are normal in position. DIFFUSION IMAGING: No focal areas of restricted diffusion are seen. No evidence of acute infarction. EXTRACRANIAL: The visualized portions of the orbits and paranasal sinuses are unremarkable. CONCLUSION: 1. Minimal nonspecific white matter changes. 2. No acute infarction. Sancho Cam MD on May 18, 2017 at 11:07 Board Certified Radiologist. This report was verified electronically.
[2017-05-18 11:50] VITALS: PULSE 49
[2017-05-18 12:48] VITALS: BP 140/93; PULSE 52; RESP 18; TEMP 98.1; O2SAT 99
[2017-05-18] MEDS ORDERED: AMLO10TA2 PO (15:25)
--- NOTE | 2017-05-18 15:27 | HHI.DCPOC ---
Discharge Care Plan Diagnosis: (1) Left-sided weakness (2) Atypical chest pain (3) Tobacco abuse Goals to Promote Your Health * To prevent worsening of your condition and complications * To maintain your health at the optimal level Directions to Meet Your Goals Take your medications as prescribed Follow your dietary instruction Follow activity as directed Keep your appointments as scheduled Take your immunizations and boosters as scheduled If your symptoms worsen call your PCP, if no PCP go to Urgent Care Center or Emergency Room Smoking is Dangerous to Your Health. Avoid second hand smoke Call the 24-hour hour crisis hotline for domestic abuse at Valdo Landa MD May 18, 2017 15:26
--- NOTE | 2017-05-18 15:27 | HHI.PR ---
Subjective Remarks Patient reports he is feeling okay. No further weakness. Same chronic chest pain. Unchanged in intensity. Objective Vitals Vital Signs Date Time Temp Pulse Resp B/P (MAP) Pulse Ox O2 Delivery O2 Flow Rate FiO2 05/18/17 12:48 98.1 52 18 140/93 (109) 99 05/18/17 11:50 49 05/18/17 09:11 97.8 50 18 153/95 (114) 100 05/18/17 04:23 47 05/18/17 04:06 98.0 53 16 165/99 (121) 98 05/18/17 00:09 46 05/17/17 23:36 98.3 47 16 152/94 (113) 100 05/17/17 20:15 51 05/17/17 19:22 98.4 55 16 140/90 (107) 98 05/17/17 15:36 98.2 50 19 157/96 (116) 96 I/O 05/17/17 05/17/17 05/17/17 05/18/17 05/18/17 05/18/17 07:00 15:00 23:00 07:00 15:00 23:00 Intake Total 250 ml 1000 ml Output Total 1400 ml Balance 250 ml -400 ml Intake Oral 250 ml IV Total 1000 ml Output Urine Total 1400 ml Result Diagram: 05/18/1761905/18/17619 Objective Remarks GENERAL: This is a well-nourished, well-developed patient, in no apparent distress. CARDIOVASCULAR: Normal rate and regular rhythm without murmurs, gallops, or rubs. RESPIRATORY: Good respiratory efforts. Breath sounds equal and clear to auscultation bilaterally. GASTROINTESTINAL: Abdomen soft, non-tender, non-distended. Normal active bowel sounds MUSCULOSKELETAL: Extremities without cyanosis, or edema. NEURO: Alert & Oriented x4 to person, place, time, situation. Moves all ext x4 PSYCH: Appropriate mood and affect. A/P Problem List: (1) Chest pain ICD Code: R07.9 - Chest pain, unspecified Status: Acute (2) Left-sided weakness ICD Code: R53.1 - Weakness Status: Acute (3) Rhabdomyolysis ICD Code: M62.82 - Rhabdomyolysis (4) Tobacco abuse ICD Code: Z72.0 - Tobacco use Assessment and Plan 41-year-old male with a PMH of Recurrent Chest Pain, Syncope s/p Loop Recorder by Dr. Rivera 12/16/16, HTN, Non-compliance and Tobacco Abuse who presented to the ER w/ complaints of chest pain and left-sided weakness starting yesterday morning. Chest Pain: atypical chest pain, multiple visits/evaluations for same. -EMR reviewed, Nuclear Stress Test negative, and Treadmill Stress Test 12/02/16 normal with no evidence of ischemia. -ACS ruled out with negative serial cardiac enzymes x3, and EKG without acute ischemic changes, stable compared to previous -Continue ASA -Patient advised to follow-up with PCP Left Sided Weakness: acute onset of left-sided weakness x1day, exam variable, possibly diminished LUE veterinary practitioner strength, otherwise strength 5/5 on exam. -CT Head negative for acute findings. -Appreciate neurologist input. MRI negative. Patient's symptoms completely resolved. Hypertension: chronic -Resume amlodipine Rhabdomyolysis: CPK 321 upon arrival. Urine Drug Screen positive for Marijuana , U/a negative. -Give IVF for hydration -Repeat labs shows improvement, CPK 256. -Resolved Tobacco Abuse: Pt counselled. Discharge Planning Discharge home in good condition Diet: Heart healthy Activity: Regular as tolerated Follow-up: With PCP and cardiology Meds: Per med rec Valdo Landa MD May 18, 2017 15:27
== END 2017-05-18 16:17 | disposition home or self-care (01) ==
LOC: NEPE 21:44 → NEDA 05-17 00:41 → NEPHCDU 05-17 01:24
PROVIDERS: ADMIT Hospitalist; ATTEND Hospitalist
DX: R07.89 Other chest pain (principal); R53.1 Weakness; M62.82 Rhabdomyolysis; R00.1 Bradycardia, unspecified; R61 Generalized hyperhidrosis; R42 Dizziness and giddiness; R11.0 Nausea; R06.02 Shortness of breath; I10 Essential (primary) hypertension; F17.210 Nicotine dependence, cigarettes, uncomplicated; Z79.899 Other long term (current) drug therapy; Z79.82 Long term (current) use of aspirin; Z91.19 Patient's noncompliance with other medical treatment and regimen
CPT/HCPCS: 70450; 70496; 70498; 70551; 71045; 80048; 80053; 80307; 81001; 82550; 82552; 83735; 84443; 84484; 85025; 85610; 85730; 93005; 96361; 96374; 96376; 97162; 99285; G0378; G8987; G8988; J2270; J7030; Q9967

== ENCOUNTER 2017-05-22 18:08 | Emergency (ER) | payer OTHER ==
[~2017-05-22] VITALS: Ht 182.9 cm; Wt 85.0 kg
[~2017-05-22 18:08] MED LIST changes: -LISI10TA3 PO
[2017-05-22 18:20] VITALS: BP 150/102; PULSE 70; RESP 18; TEMP 98.6; O2SAT 99
--- NOTE | 2017-05-22 19:19 | PD ---
HPI Chief Complaint: Numbness/Tingling Time Seen by Provider: 18:28 Travel History International Travel<30 days: No Contact w/Intl Traveler<30days: No Traveled to known affect area: No History of Present Illness HPI 41-year-old male presents emergency department complaining of left upper persistent extremity weakness and tingling that started this morning. States that his fingertips have been tingling and is concerned about a worsening CVA. Patient denies fevers, chills, chest pain, shortness of breath, abdominal pain. Denies trauma. Says he walked to the hospital from his house to be evaluated today. He admits that his weakness is the same as when he was discharged from the hospital approximately 1 week ago. Patient has not taken any of his medications as prescribed from his discharge, to include his blood pressure medication. Says his "mother was supposed to pick it up today". PFSH Past Medical History Hx Anticoagulant Therapy: Yes (81 MG ASA.) Asthma: Yes (as a baby) Blood Disorders: No Anxiety: No Depression: No Heart Rhythm Problems: No Cancer: No Cardiac Catheterization: No Cardiovascular Problems: Yes (HTN) Chemotherapy: No Chest Pain: Yes (this admission and off and on this last year) Congestive Heart Failure: No COPD: No Diabetes: No Diminished Hearing: No Endocrine: No Gastrointestinal Disorders: No Genitourinary: Yes (frequent urination at night only) Headaches: Yes Heparin Induced Thrombocytopen: No Hypertension: Yes Immune Disorder: No Implanted Vascular Access Dvce: Yes Musculoskeletal: No Neurologic: Yes (current admit) Psychiatric: No Reproductive: No Respiratory: Yes Migraines: Yes Radiation Therapy: No Sleep Apnea: No Thyroid Disease: No Past Surgical History Body Medical Devices: loop recorder in 2016 Cardiac Surgery: Yes (LOOP RECORDER (11/2016)) Coronary Artery Bypass Graft: No Neurologic Surgery: Yes (CYST ON TAIL BONE) Other Surgery: Yes (Cyst removed from lower back/buttocks 1995/ loop recorder 2016) Family History Family Myocardial Infarction: No Social History Alcohol Use: No Tobacco Use: Yes (2-3 cigarettes/day) Substance Use: Yes (smokes marijuanna ocasionally) Allergies-Medications (Allergen,Severity, Reaction): Coded Allergies: egg (Verified Allergy, Severe, 05/17/17) No Known Allergies (Verified Allergy, Unknown, 04/12/17) Reported Meds & Prescriptions Reported Meds & Active Scripts Active Amlodipine (Amlodipine Besylate) 10 Mg Tab 10 Mg PO DAILY Reported Aspirin Children's (Aspirin) 81 Mg Chew 81 Mg CHEW DAILY Review of Systems Except as stated in HPI: all other systems reviewed are Neg Physical Exam Narrative GENERAL: WD, WN in NAD, resting comfortably in bed SKIN: Focused skin assessment warm/dry. No rashes HEAD: Atraumatic. Normocephalic. EYES: Pupils equal and round. No scleral icterus. No injection or drainage. ENT: No nasal bleeding or discharge. Mucous membranes pink and moist. NECK: Trachea midline. No JVD. No lymphadenopathy CARDIOVASCULAR: Regular rate and rhythm. No murmur appreciated. RESPIRATORY: No accessory muscle use. Clear to auscultation. Breath sounds equal bilaterally. GASTROINTESTINAL: Abdomen soft, non-tender, nondistended. Hepatic and splenic margins not palpable. MUSCULOSKELETAL: No obvious deformities. No clubbing. No cyanosis. No edema. Homans sign negative Tinel sign positive over left wrist, negative [place] NEUROLOGICAL: Awake and alert. No obvious cranial nerve deficits. Motor grossly within normal limits LLE& LUE 4.5/5 strength. Normal speech. PSYCHIATRIC: Appropriate mood and affect; insight and judgment normal. Data Data Last Documented VS Vital Signs Date Time Temp Pulse Resp B/P (MAP) Pulse Ox O2 Delivery O2 Flow Rate FiO2 05/22/17 22:22 50 18 146/88 (107) 100 05/22/17 21:35 Room Air 05/22/17 18:20 98.6 Orders Orders Electrocardiogram (05/22/17 ) Prothrombin Time / Inr (Pt) (05/22/17 18:46) Act Partial Throm Time (Ptt) (05/22/17 18:46) Complete Blood Count With Diff (05/22/17 18:46) Comprehensive Metabolic Panel (05/22/17 18:46) Creatine Kinase (Cpk) (05/22/17 18:46) Drug Screen, Random Urine (05/22/17 18:46) Troponin I (05/22/17 18:46) Urinalysis - C+S If Indicated (05/22/17 18:46) Ct Brain W/O Iv Contrast(Rout) (05/22/17 18:46) Chest, Single Ap (05/22/17 18:46) Ecg Monitoring (05/22/17 18:46) Iv Access Insert/Monitor (05/22/17 18:46) Oximetry (05/22/17 18:46) Blood Glucose (05/22/17 18:46) Acetaminophen (Tylenol) (05/22/17 20:00) CKMB (05/22/17 19:10) CKMB% (05/22/17 19:10) Clonidine (Catapres) (05/22/17 20:45) Ed Discharge Order (05/22/17 21:35) Labs Laboratory Tests Test 05/22/17 19:10 05/22/17 20:40 White Blood Count 4.1 TH/MM3 Red Blood Count 4.29 MIL/MM3 Hemoglobin 13.6 GM/DL Hematocrit 39.2 % Mean Corpuscular Volume 91.5 FL Mean Corpuscular Hemoglobin 31.6 PG Mean Corpuscular Hemoglobin Concent 34.6 % Red Cell Distribution Width 13.9 % Platelet Count 132 TH/MM3 Mean Platelet Volume 9.5 FL Neutrophils (%) (Auto) 39.5 % Lymphocytes (%) (Auto) 50.1 % Monocytes (%) (Auto) 8.0 % Eosinophils (%) (Auto) 1.7 % Basophils (%) (Auto) 0.7 % Neutrophils # (Auto) 1.6 TH/MM3 Lymphocytes # (Auto) 2.1 TH/MM3 Monocytes # (Auto) 0.3 TH/MM3 Eosinophils # (Auto) 0.1 TH/MM3 Basophils # (Auto) 0.0 TH/MM3 CBC Comment AUTO DIFF Differential Comment AUTO DIFF CONFIRMED Platelet Estimate NORMAL Platelet Morphology Comment CLUMPED Red Cell Morphology Comment NORMAL Prothrombin Time 11.3 SEC Prothromb Time International Ratio 1.1 RATIO Activated Partial Thromboplast Time 27.1 SEC Blood Urea Nitrogen 7 MG/DL Creatinine 0.96 MG/DL Random Glucose 84 MG/DL Total Protein 7.7 GM/DL Albumin 4.1 GM/DL Calcium Level 8.6 MG/DL Alkaline Phosphatase 61 U/L Aspartate Amino Transf (AST/SGOT) 23 U/L Alanine Aminotransferase (ALT/SGPT) 23 U/L Total Bilirubin 0.3 MG/DL Sodium Level 141 MEQ/L Potassium Level 3.6 MEQ/L Chloride Level 108 MEQ/L Carbon Dioxide Level 26.9 MEQ/L Anion Gap 6 MEQ/L Estimat Glomerular Filtration Rate 105 ML/MIN Total Creatine Kinase 374 U/L Creatine Kinase MB 3.3 NG/ML Creatine Kinase MB % 0.9 % Troponin I LESS THAN 0.02 NG/ML Urine Color LIGHT-YELLOW Urine Turbidity CLEAR Urine pH 6.5 Urine Specific [place] 1.009 Urine Protein NEG mg/dL Urine Glucose (UA) NEG mg/dL Urine Ketones NEG mg/dL Urine Occult Blood NEG Urine Nitrite NEG Urine Bilirubin NEG Urine Urobilinogen LESS THAN 2.0 MG/DL Urine Leukocyte Esterase NEG Urine RBC 1 /hpf Microscopic Urinalysis Comment CATH-CULT NOT IND Urine Opiates Screen NEG Urine Barbiturates Screen NEG Urine Amphetamines Screen NEG Urine Benzodiazepines Screen NEG Urine Cocaine Screen NEG Urine Cannabinoids Screen POS MDM Medical Decision Making Medical Screen Exam Complete: Yes Emergency Medical Condition: Yes Differential Diagnosis TIA, CVA, generalized weakness, noncompliance, Narrative Course 41-year-old male presents to the emergency department via ambulation concerned about left sided weakness and tingling. According to the note, patient was complained about bilateral upper extremity weakness however, patient only claims that he has tingling of his fingertips and some residual weakness of his left upper and lower extremity. Patient's history and physical is variable at this point. EKG shows sinus bradycardia without STEMI changes. Spoke with my attending regarding this patient. Recommended labs and imaging studies to r/o acute process. Will d/c if normal. Labs and imaging studies ordered. After review of the EMR, it appears the patient has similar symptoms as his discharge from May 18. In addition, patient had a treadmill stress test on 12/02/2016 and a loop recorder placed after a heart catheterization the same month to evaluate for his syncopal episodes. Last echocardiogram demonstrated EF 50-55% with mild LVH. 1951: Patient requests medication for his chest pain. Note that this patient's chest pain has been present for several months and after his loop recorder was placed. Patient has been evaluated for this chest pain to include a d-dimer April 14, 2017. Patient states his pain is similar to previous episodes and I do not believe that further workup is warranted at this point. Labs fairly unremarkable except for an elevated CK at 374. The patient did walk from his house to the emergency department today for evaluation. H&H 4.29/ 13.6, mild thrombocytopenia at 132 noted clumping in the differential, cardiac enzymes negative, no electrolyte abnormalities. Chest x-ray without acute process. Head CT normal. Vital signs are stable and trend with previous notes. Pt should increase his fluid intake and follow up with a neurologist and bass guitar teacher. Take medication as prescribed. 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 Follow-up with the neurologist and bass guitar teacher regarding her loop recorder and other symptoms. Follow up with your primary care physician within 2-3 days. If your symptoms persist or worsen, return to the emergency department. Disposition: 01 DISCHARGE HOME Condition: Stable Lucretia Tavarez May 22, 2017 19:19
[2017-05-22 19:28] LABS: AUTOMATED NEUTROPHIL # 1.6 TH/MM3 (1.8-7.7); BASOPHIL % 0.7 % (0.0-2.0); EOSINOPHIL # 0.1 TH/MM3 (0-0.4); EOSINOPHIL % 1.7 % (0.0-4.0); HEMATOCRIT 39.2 % (39.0-51.0); HEMOGLOBIN 13.6 GM/DL (13.0-17.0); LYMPH % 50.1 % (9.0-44.0); LYMPHOCYTE # 2.1 TH/MM3 (1.0-4.8); MEAN CELL VOLUME 91.5 FL (80.0-100.0); MEAN CORPUSCULAR HEMOGLOBIN 31.6 PG (27.0-34.0); MEAN CORPUSCULAR HGB CONC 34.6 % (32.0-36.0); MEAN PLATELET VOLUME 9.5 FL (7.0-11.0); MONOCYTE # 0.3 TH/MM3 (0-0.9); NEUT % 39.5 % (16.0-70.0); PLATELET COUNT 132 TH/MM3 (150-450); RED BLOOD COUNT 4.29 MIL/MM3 (4.50-5.90); RED CELL DISTRIBUTION WIDTH 13.9 % (11.6-17.2); WHITE BLOOD COUNT 4.1 TH/MM3 (4.0-11.0)
[2017-05-22 19:38] LABS: INTERNATIONAL NORMALIZED RATIO 1.1 RATIO; PROTHROMBIN TIME - PATIENT 11.3 SEC (9.8-11.6)
--- NOTE | 2017-05-22 19:40 | RADRPT ---
EXAM DATE/TIME: 05/22/2017 19:15 [facility] COMPARISON: No previous studies available for comparison. INDICATIONS : Chest pain with left sided numbness. MEDICAL HISTORY : Hypertension. SURGICAL HISTORY : Cyst removed from spine, loop recorder. ENCOUNTER: Initial ACUITY: 1 day PAIN SCORE: 0/10 LOCATION: Bilateral chest FINDINGS: A single view of the chest demonstrates the lungs to be symmetrically aerated without evidence of mas s, infiltrate or effusion. The cardiomediastinal contours are unremarkable. Osseous structures are intact. CONCLUSION: No acute disease. Sukhwinder Bailey MD on May 22, 2017 at 19:38 Board Certified Radiologist. This report was verified electronically.
[2017-05-22 19:46] VITALS: BP 157/100; PULSE 49; RESP 18; O2SAT 100
[2017-05-22 19:52] LABS: ALT (GPT) 23 U/L (12-78)
[2017-05-22 19:55] LABS: ALBUMIN 4.1 GM/DL (3.4-5.0); AST (GOT) 23 U/L (15-37); BICARBONATE 26.9 MEQ/L (21.0-32.0); BLOOD UREA NITROGEN 7 MG/DL (7-18); CALCIUM 8.6 MG/DL (8.5-10.1); CHLORIDE 108 MEQ/L (98-107); CREATININE 0.96 MG/DL (0.60-1.30); GLOMERULAR FILTRATION RATE 105 ML/MIN (>89); GLUCOSE,RANDOM 84 MG/DL (74-106); SODIUM (NA) 141 MEQ/L (136-145)
[2017-05-22 19:56] LABS: ALKALINE PHOSPHATASE 61 U/L (45-117); TOTAL BILIRUBIN ADULT 0.3 MG/DL (0.2-1.0); TOTAL PROTEIN 7.7 GM/DL (6.4-8.2); TROPONIN I LESS THAN 0.02 NG/ML (0.02-0.05)
[2017-05-22] MEDS ORDERED: ACETAMINOPHEN 500 MG CPLT PO ONE (20:00)
--- NOTE | 2017-05-22 20:10 | RADRPT ---
EXAM DATE/TIME: 05/22/2017 19:53 [facility] COMPARISON: MRI BRAIN W/O CONTRAST, May 18, 2017, 10:30. CT BRAIN W/O CONTRAST, May 17, 2017, 14:40. INDICATIONS : Bilateral upper extremity numbness and tingling. RADIATION DOSE: 37.63 CTDIvol (mGy) MEDICAL HISTORY : Cardiovascular disease. Hypertension. Asthma SURGICAL HISTORY : None. ENCOUNTER: Initial ACUITY: 1 day PAIN SCALE: 3/10 LOCATION: cranial TECHNIQUE: Multiple contiguous axial images were obtained of the head. Using automated exposure control and adj ustment of the mA and/or kV according to patient size, radiation dose was kept as low as reasonably a chievable to obtain optimal diagnostic quality images. DICOM format image data is available electro nically for review and comparison. FINDINGS: CEREBRUM: The ventricles are normal for age. No evidence of midline shift, mass lesion, hemorrhage or acute in farction. No extra-axial fluid collections are seen. POSTERIOR FOSSA: The cerebellum and brainstem are intact. The 4th ventricle is midline. The cerebellopontine angle i s unremarkable. EXTRACRANIAL: The visualized portion of the orbits is intact. SKULL: The calvaria is intact. No evidence of skull fracture. CONCLUSION: Normal examination. Sukhwinder Bailey MD on May 22, 2017 at 20:08 Board Certified Radiologist. This report was verified electronically.
[2017-05-22 20:33] VITALS: BP 150/100; PULSE 53; RESP 18; O2SAT 100
[2017-05-22] MEDS ORDERED: cloNIDine HCL 0.1 MG TAB PO ONE (20:45)
[2017-05-22 21:19] LABS: BILIRUBIN, URINE NEG (NEG); BLOOD, URINE NEG (NEG); GLUCOSE,URINE NEG (NEG); KETONE, URINE NEG (NEG); NITRITE,URINE NEG (NEG); PH, URINE 6.5 (5.0-8.5); URINE COLOR LIGHT-YELLOW (YELLW/STRAW); URINE LEUKOCYTE ESTERASE NEG (NEG)
[2017-05-22 21:35] VITALS: BP 148/96; PULSE 49; RESP 18; O2SAT 100
[2017-05-22 22:22] VITALS: BP 146/88
--- NOTE | 2017-05-23 10:19 | EKG ---
Date Performed: 05/22/2017 Time Performed: 18:27:41 PTAGE: 41 years EKG: SINUS BRADYCARDIA BORDERLINE ECG PREVIOUS TRACING : 05/16/2017 22.00 DOCTOR: Byron Koch Interpretating Date/Time 05/23/2017 10:19:10
== END 2017-05-22 22:36 | disposition home or self-care (01) ==
LOC: NEPC 18:08
DX: G62.9 Polyneuropathy, unspecified (principal); R00.1 Bradycardia, unspecified; D69.6 Thrombocytopenia, unspecified; F12.90 Cannabis use, unspecified, uncomplicated; J45.909 Unspecified asthma, uncomplicated; I10 Essential (primary) hypertension; F17.210 Nicotine dependence, cigarettes, uncomplicated; Z79.899 Other long term (current) drug therapy
CPT/HCPCS: 70450; 71045; 80053; 80307; 81001; 82550; 82552; 84484; 85025; 85610; 85730; 93005; 99285

== ENCOUNTER 2017-06-07 01:51 | Emergency (ER) | payer OTHER ==
[~2017-06-07] VITALS: Ht 182.9 cm; Wt 88.0 kg
[~2017-06-07 01:51] MED LIST changes: -MAPA500T13 PO
[2017-06-07 02:03] VITALS: BP 145/94; PULSE 68; RESP 16; TEMP 98.2; O2SAT 99
[2017-06-07] MEDS ORDERED: LISI-519 PO (03:59)
[2017-06-07] MEDS ORDERED: MULTTAB67 PO (03:59)
[2017-06-07 04:00] VITALS: BP 163/114; PULSE 51; RESP 16; O2SAT 99
--- NOTE | 2017-06-07 04:15 | PD ---
HPI Chief Complaint: Chest Pain Time Seen by Provider: 04:09 Travel History International Travel<30 days: No Contact w/Intl Traveler<30days: No Traveled to known affect area: No History of Present Illness HPI The patient is a 41 year old male who presents to the [facility] emergency department with a history of awakening with left side chest pain, left arm tingling, dizziness, and a bitemporal headache that began on Wednesday at 5AM. The patient reports that after the onset of symptoms he went to sleep. He reports that the symptoms have been present since awakening again. The patient has a prior history of recurrent problems with chest pain and has been admitted on multiple occasions for cardiac workups and a workup to evaluate for possible TIA versus CVA. The patient reports that he does not have a primary care physician. His lead setter is . On review of systems otherwise, the patient denies having any recent fevers, cough or congestion, neck pain, shortness of breath, abdominal pain, vomiting, diarrhea, urinary symptoms, one- sided weakness, slurred speech, facial droop, difficulty with word finding ability, vision changes, or dizziness PFSH Past Medical History Hx Anticoagulant Therapy: Yes (81 MG ASA.) Asthma: Yes (as a baby) Blood Disorders: No Anxiety: No Depression: No Heart Rhythm Problems: No Cancer: No Cardiac Catheterization: No Cardiovascular Problems: Yes (HTN) Chemotherapy: No Chest Pain: Yes (this admission and off and on this last year) Congestive Heart Failure: No COPD: No Diabetes: No Diminished Hearing: No Endocrine: No Gastrointestinal Disorders: No Genitourinary: Yes (frequent urination at night only) Headaches: Yes Heparin Induced Thrombocytopen: No Hypertension: Yes Immune Disorder: No Implanted Vascular Access Dvce: Yes Musculoskeletal: No Neurologic: Yes (current admit) Psychiatric: No Reproductive: No Respiratory: Yes Migraines: Yes Radiation Therapy: No Sleep Apnea: No Thyroid Disease: No Tetanus Vaccination: < 5 Years Influenza Vaccination: No Past Surgical History Body Medical Devices: loop recorder in 2016 Cardiac Surgery: Yes (LOOP RECORDER (11/2016)) Coronary Artery Bypass Graft: No Neurologic Surgery: Yes (CYST ON TAIL BONE) Other Surgery: Yes (Cyst removed from lower back/buttocks 1995/ loop recorder 2016) Social History Alcohol Use: No Tobacco Use: Yes (2-3 cigarettes/day) Substance Use: Yes (smokes marijuanna ocasionally) Allergies-Medications (Allergen,Severity, Reaction): Coded Allergies: egg (Verified Allergy, Severe, 06/07/17) Reported Meds & Prescriptions Reported Meds & Active Scripts Active Amlodipine (Amlodipine Besylate) 10 Mg Tab 10 Mg PO DAILY Reported Multiple Vitamin 1 Tab 1 Tab PO DAILY Lisinopril 5 Mg Tab 5 Mg PO DAILY Aspirin Children's (Aspirin) 81 Mg Chew 81 Mg CHEW DAILY Review of Systems Except as stated in HPI: all other systems reviewed are Neg General / Constitutional: No: Fever Eyes: No: Visual changes HENT: No: Headaches Cardiovascular: Positive: Chest Pain or Discomfort Respiratory: No: Shortness of Breath Gastrointestinal: No: Abdominal Pain Genitourinary: No: Dysuria Musculoskeletal: No: Pain Skin: No Rash Neurologic: No: Weakness, Focal Abnormalities, Change in Mentation, Slurred Speech, Sensory Disturbance Psychiatric: No: Depression Endocrine: No: Polydipsia Hematologic/Lymphatic: No: Easy Bruising Physical Exam Narrative General: The patient is a well-developed well-nourished male in no acute distress. Head and Neck exam: Head is normocephalic atraumatic. Eyes: EOMI, pupils are equal round and reactive to light. Nose: Midline septum with pink mucous membranes Mouth: Dentition unremarkable. Moist mucus membranes. Posterior oropharynx is not erythematous. No tonsillar hypertrophy. Uvula midline. Airway patent. Neck: No palpable lymphadenopathy. No nuchal rigidity. No thyromegaly. Cardiovascular: Regular rate and rhythm without murmurs, gallops, or rubs. Lungs: Clear to auscultation bilaterally. No wheezes, rhonchi, or rales. Abdomen: Soft, without tenderness to palpation in all 4 quadrants of the abdomen. No guarding, rebound, or rigidity. Normal bowel sounds are audible. No tenderness on palpation of McBurney's point. Negative Yang sign. Extremities: No clubbing, cyanosis, or edema. 2+ pulses in all 4 extremities. No calf tenderness on palpation. Back: No spinous process tenderness to palpation. No costovertebral angle tenderness to palpation. Neurologic Exam: Cranial nerves 2-12 were intact on exam. Strength is 5/5 in all 4 extremities. No sensory deficits noted. Skin Exam: No rash noted. Intact skin that is warm and dry. Data Data Last Documented VS Vital Signs Date Time Temp Pulse Resp B/P (MAP) Pulse Ox O2 Delivery O2 Flow Rate FiO2 06/07/17 08:15 159/99 (119) 06/07/17 06:09 99 Room Air 06/07/17 04:00 51 16 06/07/17 02:03 98.2 Orders Orders Electrocardiogram (06/07/17 04:10) Complete Blood Count With Diff (06/07/17 04:10) Basic Metabolic Panel (Bmp) (06/07/17 04:10) Creatine Kinase (Cpk) (06/07/17 04:10) Ckmb (Isoenzyme) Profile (06/07/17 04:10) Troponin I (06/07/17 04:10) Prothrombin Time / Inr (Pt) (06/07/17 04:10) Act Partial Throm Time (Ptt) (06/07/17 04:10) Magnesium (Mg) (06/07/17 04:10) Chest, Single Ap (06/07/17 04:10) Iv Access Insert/Monitor (06/07/17 04:10) Ecg Monitoring (06/07/17 04:10) Oximetry (06/07/17 04:10) CKMB (06/07/17 04:26) CKMB% (06/07/17 04:26) Ed Discharge Order (06/07/17 07:48) Acetaminophen (Tylenol) (06/07/17 08:00) Labs Laboratory Tests Test 06/07/17 04:26 06/07/17 06:20 Prothrombin Time 10.5 SEC Prothromb Time International Ratio 1.0 RATIO Activated Partial Thromboplast Time 25.3 SEC Blood Urea Nitrogen 14 MG/DL Creatinine 1.16 MG/DL Random Glucose 90 MG/DL Calcium Level 8.8 MG/DL Magnesium Level 2.9 MG/DL Sodium Level 142 MEQ/L Potassium Level 3.9 MEQ/L Chloride Level 106 MEQ/L Carbon Dioxide Level 28.2 MEQ/L Anion Gap 8 MEQ/L Estimat Glomerular Filtration Rate 84 ML/MIN Total Creatine Kinase 249 U/L Creatine Kinase MB 1.1 NG/ML Troponin I LESS THAN 0.02 NG/ML White Blood Count 4.6 TH/MM3 Red Blood Count 4.43 MIL/MM3 Hemoglobin 13.9 GM/DL Hematocrit 40.4 % Mean Corpuscular Volume 91.2 FL Mean Corpuscular Hemoglobin 31.4 PG Mean Corpuscular Hemoglobin Concent 34.4 % Red Cell Distribution Width 13.7 % Platelet Count TH/MM3 Mean Platelet Volume 9.8 FL Neutrophils (%) (Auto) 32.6 % Lymphocytes (%) (Auto) 57.1 % Monocytes (%) (Auto) 8.3 % Eosinophils (%) (Auto) 1.5 % Basophils (%) (Auto) 0.5 % Neutrophils # (Auto) 1.5 TH/MM3 Lymphocytes # (Auto) 2.6 TH/MM3 Monocytes # (Auto) 0.4 TH/MM3 Eosinophils # (Auto) 0.1 TH/MM3 Basophils # (Auto) 0.0 TH/MM3 CBC Comment AUTO DIFF Differential Comment AUTO DIFF CONFIRMED Platelet Estimate NORMAL Platelet Morphology Comment CLUMPED MDM Medical Decision Making Medical Screen Exam Complete: Yes Emergency Medical Condition: Yes Medical Record Reviewed: Yes Interpretation(s) Last Impressions Chest X-Ray 06/07/17 0410 Signed Impressions: Service Date/Time: Wednesday, June 07, 2017 04:24 - CONCLUSION: The lungs are clear. Farzad Landaverde MD Differential Diagnosis Acid reflux, versus anxiety disorder, versus cervical radiculopathy, versus acute coronary syndrome, versus costochondritis, versus musculoskeletal strain Narrative Course During the course of the patient's emergency department visit, the patient's history, examination, and differential diagnosis were reviewed with the patient. The patient was placed on a hospital monitor with oximetry and frequent blood pressure monitoring. The patient had IV access obtained and blood work sent for analysis. The patient had a EKG done on arrival that shows a sinus rhythm heart rate is 62, QRS duration 89 ms, QTC 396 ms, no acute ST segment elevation, T waves are inverted in V1. The patient was initially provided Tylenol for pain. The patient reports that he did take his aspirin earlier today. The patient's studies were reviewed and remarkable for a white count of 4.6, hemoglobin 13.9, platelets were clumped, therefore they were assessed by the differential and appeared to be in normal amount, lymphocytes 57.1, monocytes 8.3. Basic metabolic profile is unremarkable, magnesium 2.9, cardiac enzymes within normal limits. PT 10.5, PTT 25.3. A chest x-ray shows no acute cardiopulmonary disease. The patient's electronic medical record was reviewed and the patient has had cardiac evaluation with stress testing done as well as evaluation for possible TIA versus CVA which was unremarkable. I recommended that the patient continue on his aspirin daily and medications as previously prescribed by the lead setter. He was instructed regarding the importance of following up with a primary care physician in the area. The patient is resting comfortably and feels better, is alert and in no distress. The patient's results and examination findings were discussed with the patient. The repeat examination is unremarkable and benign. The history, exam, diagnostic testing, and current condition do not suggest any significant pathology to warrant further testing, continued ED treatment, admission, or surgical evaluation at this point. The vital signs have been stable. The patient does not have uncontrollable pain, intractable vomiting, or other significant symptoms. The patient's condition is stable and appropriate for discharge. The patient will pursue further outpatient evaluation with a primary care physician or other designated or consulting physician as indicated in the discharge instructions. The patient expressed understanding and was agreeable with this plan. Diagnosis Primary Impression: Atypical chest pain Referrals: Patient Assistance Program 2 days Patient Instructions: Chest Pain (ED), General Instructions Disposition: 01 DISCHARGE HOME Condition: Stable Violet Harris MD Jun 07, 2017 04:15
--- NOTE | 2017-06-07 04:57 | RADRPT ---
EXAM DATE/TIME: 06/07/2017 04:24 [facility] COMPARISON: CHEST SINGLE AP, May 22, 2017, 19:15. INDICATIONS : Short of breath. MEDICAL HISTORY : Hypertension. SURGICAL HISTORY : Cyst removed from spine, loop recorder. ENCOUNTER: Initial ACUITY: 1 day PAIN SCORE: 0/10 LOCATION: Bilateral chest FINDINGS: A single view of the chest demonstrates the lungs to be symmetrically aerated without evidence of mas s, infiltrate or effusion. The cardiomediastinal contours are unremarkable. Osseous structures are intact. Loop recorder device in place. CONCLUSION: The lungs are clear. Farzad Landaverde MD on June 07, 2017 at 4:55 Board Certified Radiologist. This report was verified electronically.
[2017-06-07 05:16] LABS: PROTHROMBIN TIME - PATIENT 10.5 SEC (9.8-11.6)
[2017-06-07 05:42] LABS: BICARBONATE 28.2 MEQ/L (21.0-32.0); BLOOD UREA NITROGEN 14 MG/DL (7-18); CALCIUM 8.8 MG/DL (8.5-10.1); CHLORIDE 106 MEQ/L (98-107); CREATININE 1.16 MG/DL (0.60-1.30); GLOMERULAR FILTRATION RATE 84 ML/MIN (>89); GLUCOSE,RANDOM 90 MG/DL (74-106); MAGNESIUM 2.9 MG/DL (1.5-2.5); SODIUM (NA) 142 MEQ/L (136-145)
[2017-06-07 05:46] LABS: TROPONIN I LESS THAN 0.02 NG/ML (0.02-0.05)
[2017-06-07 06:09] VITALS: O2SAT 99
[2017-06-07 07:21] LABS: AUTOMATED NEUTROPHIL # 1.5 TH/MM3 (1.8-7.7); BASOPHIL % 0.5 % (0.0-2.0); EOSINOPHIL # 0.1 TH/MM3 (0-0.4); EOSINOPHIL % 1.5 % (0.0-4.0); HEMATOCRIT 40.4 % (39.0-51.0); HEMOGLOBIN 13.9 GM/DL (13.0-17.0); LYMPH % 57.1 % (9.0-44.0); LYMPHOCYTE # 2.6 TH/MM3 (1.0-4.8); MEAN CELL VOLUME 91.2 FL (80.0-100.0); MEAN CORPUSCULAR HEMOGLOBIN 31.4 PG (27.0-34.0); MEAN CORPUSCULAR HGB CONC 34.4 % (32.0-36.0); MEAN PLATELET VOLUME 9.8 FL (7.0-11.0); MONO % 8.3 % (0.0-8.0); MONOCYTE # 0.4 TH/MM3 (0-0.9); NEUT % 32.6 % (16.0-70.0); RED BLOOD COUNT 4.43 MIL/MM3 (4.50-5.90); RED CELL DISTRIBUTION WIDTH 13.7 % (11.6-17.2); WHITE BLOOD COUNT 4.6 TH/MM3 (4.0-11.0)
[2017-06-07] MEDS ORDERED: ACETAMINOPHEN 325 MG TAB PO ONE (08:00)
[2017-06-07 08:15] VITALS: BP 159/99
--- NOTE | 2017-06-07 11:53 | EKG ---
Date Performed: 06/07/2017 Time Performed: 02:11:32 PTAGE: 41 years EKG: Sinus rhythm NORMAL ECG PREVIOUS TRACING : 05/22/2017 18.27 Since the previous tracing, no significant change noted DOCTOR: Judith Chang Interpretating Date/Time 06/07/2017 11:51:46
== END 2017-06-07 08:16 | disposition home or self-care (01) ==
LOC: NEPE 01:51
DX: R07.89 Other chest pain (principal); I10 Essential (primary) hypertension; F17.210 Nicotine dependence, cigarettes, uncomplicated; F12.90 Cannabis use, unspecified, uncomplicated
CPT/HCPCS: 71045; 80048; 82550; 82552; 83735; 84484; 85025; 85610; 85730; 93005

== ENCOUNTER 2017-06-07 09:49 | Observation (INO) | payer OTHER ==
[~2017-06-07] VITALS: Ht 182.9 cm; Wt 88.0 kg
[2017-06-07] VITALS (8 sets, daily range): BP systolic 137–170; BP diastolic 86–113; PULSE 48–58; RESP 15–20; TEMP 98–98.1; O2SAT 98–100
[~2017-06-07 09:49] MED LIST changes: +LISI-519 PO; +MULTTAB67 PO
--- NOTE | 2017-06-07 10:35 | PD ---
HPI Chief Complaint: Syncope/Near-Syncope Time Seen by Provider: 10:26 Travel History International Travel<30 days: No Contact w/Intl Traveler<30days: No Traveled to known affect area: No History of Present Illness HPI 41-year-old male patient with history of previous syncopal episodes and multiple visits for atypical chest pain, apparently has had workup done by cardiology in the past and follows up with Dr. Rivera, seen this morning for chest pains, presents to the ER today because he had a syncopal episode while picking up medication at the pharmacy. He still complains of left-sided chest pains unchanged from visit. He denies any injuries. Modifying Factors: None Associated Signs & Symptoms: Syncope, chest pain Risk Factors: History of evaluations for chest pain PFSH Past Medical History Hx Anticoagulant Therapy: Yes (81 MG ASA.) Asthma: Yes (as a baby) Blood Disorders: No Anxiety: No Depression: No Heart Rhythm Problems: No Cancer: No Cardiac Catheterization: No Cardiovascular Problems: Yes (HTN) Chemotherapy: No Chest Pain: Yes (this admission and off and on this last year) Congestive Heart Failure: No COPD: No Diabetes: No Diminished Hearing: No Endocrine: No Gastrointestinal Disorders: No Genitourinary: Yes (frequent urination at night only) Headaches: Yes Heparin Induced Thrombocytopen: No Hypertension: Yes Immune Disorder: No Implanted Vascular Access Dvce: Yes Musculoskeletal: No Neurologic: Yes (current admit) Psychiatric: No Reproductive: No Respiratory: Yes Migraines: Yes Radiation Therapy: No Sleep Apnea: No Thyroid Disease: No Past Surgical History Body Medical Devices: loop recorder in 2016 Cardiac Surgery: Yes (LOOP RECORDER (11/2016)) Coronary Artery Bypass Graft: No Coronary Stent: Yes (x1) Neurologic Surgery: Yes (CYST ON TAIL BONE) Other Surgery: Yes (Cyst removed from lower back/buttocks 1995/ loop recorder 2016) Social History Alcohol Use: No Tobacco Use: Yes (2-3 cigarettes/day) Substance Use: Yes (smokes marijuanna ocasionally) Allergies-Medications (Allergen,Severity, Reaction): Coded Allergies: egg (Verified Allergy, Severe, 06/07/17) Reported Meds & Prescriptions Reported Meds & Active Scripts Active Amlodipine (Amlodipine Besylate) 10 Mg Tab 10 Mg PO DAILY Reported Multiple Vitamin 1 Tab 1 Tab PO DAILY Lisinopril 5 Mg Tab 5 Mg PO DAILY Aspirin Children's (Aspirin) 81 Mg Chew 81 Mg CHEW DAILY Review of Systems Except as stated in HPI: all other systems reviewed are Neg Physical Exam Narrative GENERAL: Well-developed middle-age -[place] male patient currently not in acute distress. Awake and oriented 3. SKIN: Focused skin assessment warm/dry. HEAD: Atraumatic. Normocephalic. EYES: Pupils equal and round. No scleral icterus. No injection or drainage. ENT: No nasal bleeding or discharge. Mucous membranes pink and moist. NECK: Trachea midline. No JVD. Supple. CARDIOVASCULAR: Regular rate and rhythm. No murmur appreciated. RESPIRATORY: No accessory muscle use. Clear to auscultation. Breath sounds equal bilaterally. GASTROINTESTINAL: Abdomen soft, non-tender, nondistended. Hepatic and splenic margins not palpable. MUSCULOSKELETAL: No obvious deformities. No clubbing. No cyanosis. No edema. NEUROLOGICAL: Awake and alert. No obvious cranial nerve deficits. Motor grossly within normal limits. Normal speech. PSYCHIATRIC: Appropriate mood and affect; insight and judgment normal. Data Data Last Documented VS Vital Signs Date Time Temp Pulse Resp B/P (MAP) Pulse Ox O2 Delivery O2 Flow Rate FiO2 06/07/17 10:02 98.1 58 15 163/99 (120) 100 Orders Orders Electrocardiogram (06/07/17 10:26) Complete Blood Count With Diff (06/07/17 11:46) Basic Metabolic Panel (Bmp) (06/07/17 11:46) Troponin I (06/07/17 11:46) Admit Order (Ed Use Only) (06/07/17 12:49) Labs Laboratory Tests Test 06/07/17 12:09 White Blood Count 3.1 TH/MM3 Red Blood Count 4.38 MIL/MM3 Hemoglobin 13.5 GM/DL Hematocrit 40.1 % Mean Corpuscular Volume 91.6 FL Mean Corpuscular Hemoglobin 30.8 PG Mean Corpuscular Hemoglobin Concent 33.6 % Red Cell Distribution Width 13.6 % Platelet Count 162 TH/MM3 Mean Platelet Volume 8.6 FL Neutrophils (%) (Auto) 33.7 % Lymphocytes (%) (Auto) 51.9 % Monocytes (%) (Auto) 11.6 % Eosinophils (%) (Auto) 2.1 % Basophils (%) (Auto) 0.7 % Neutrophils # (Auto) 1.0 TH/MM3 Lymphocytes # (Auto) 1.6 TH/MM3 Monocytes # (Auto) 0.4 TH/MM3 Eosinophils # (Auto) 0.1 TH/MM3 Basophils # (Auto) 0.0 TH/MM3 CBC Comment DIFF FINAL Differential Comment Blood Urea Nitrogen 10 MG/DL Creatinine 0.99 MG/DL Random Glucose 84 MG/DL Calcium Level 8.4 MG/DL Sodium Level 141 MEQ/L Potassium Level 3.8 MEQ/L Chloride Level 106 MEQ/L Carbon Dioxide Level 31.3 MEQ/L Anion Gap 4 MEQ/L Estimat Glomerular Filtration Rate 101 ML/MIN Troponin I LESS THAN 0.02 NG/ML MDM Medical Decision Making Medical Screen Exam Complete: Yes Emergency Medical Condition: Yes Medical Record Reviewed: Yes Interpretation(s) EKG shows sinus bradycardia rate of 55 bpm. No signs of acute ST elevations or depressions. No deltoids identified. Laboratory Tests Test 06/07/17 12:09 White Blood Count 3.1 TH/MM3 (4.0-11.0) Red Blood Count 4.38 MIL/MM3 (4.50-5.90) Lymphocytes (%) (Auto) 51.9 % (9.0-44.0) Monocytes (%) (Auto) 11.6 % (0.0-8.0) Neutrophils # (Auto) 1.0 TH/MM3 (1.8-7.7) Calcium Level 8.4 MG/DL (8.5-10.1) Anion Gap 4 MEQ/L (5-15) Troponin I LESS THAN 0.02 NG/ML Differential Diagnosis Syncope, chest pain: Dysrhythmias versus vasovagal versus costochondral versus dehydration Narrative Course EKG did not show any signs of acute ST elevations or depressions. He did have a mildly slow heart rate. The rest of the lab work was fairly unremarkable. Case was discussed with Dr. Rivera, of cardiology, and he states that he would like me to admit the patient medically, patient may need catheterization for further evaluation. Case was discussed with Dr. Castillo for admission. Diagnosis Primary Impression: Syncope Additional Impression: Chest pain Admitting Information Admitting Physician Requests: Admit Lito Vasquez MD Jun 07, 2017 10:35
[2017-06-07 12:21] LABS: BASOPHIL % 0.7 % (0.0-2.0); EOSINOPHIL # 0.1 TH/MM3 (0-0.4); EOSINOPHIL % 2.1 % (0.0-4.0); HEMATOCRIT 40.1 % (39.0-51.0); HEMOGLOBIN 13.5 GM/DL (13.0-17.0); LYMPH % 51.9 % (9.0-44.0); LYMPHOCYTE # 1.6 TH/MM3 (1.0-4.8); MEAN CELL VOLUME 91.6 FL (80.0-100.0); MEAN CORPUSCULAR HEMOGLOBIN 30.8 PG (27.0-34.0); MEAN CORPUSCULAR HGB CONC 33.6 % (32.0-36.0); MEAN PLATELET VOLUME 8.6 FL (7.0-11.0); MONO % 11.6 % (0.0-8.0); MONOCYTE # 0.4 TH/MM3 (0-0.9); NEUT % 33.7 % (16.0-70.0); PLATELET COUNT 162 TH/MM3 (150-450); RED BLOOD COUNT 4.38 MIL/MM3 (4.50-5.90); RED CELL DISTRIBUTION WIDTH 13.6 % (11.6-17.2); WHITE BLOOD COUNT 3.1 TH/MM3 (4.0-11.0)
[2017-06-07 12:40] LABS: BICARBONATE 31.3 MEQ/L (21.0-32.0); BLOOD UREA NITROGEN 10 MG/DL (7-18); CALCIUM 8.4 MG/DL (8.5-10.1); CHLORIDE 106 MEQ/L (98-107); CREATININE 0.99 MG/DL (0.60-1.30); GLOMERULAR FILTRATION RATE 101 ML/MIN (>89); GLUCOSE,RANDOM 84 MG/DL (74-106); SODIUM (NA) 141 MEQ/L (136-145)
[2017-06-07 12:44] LABS: TROPONIN I LESS THAN 0.02 NG/ML (0.02-0.05)
[2017-06-07] MEDS ORDERED: SENNOSIDES 8.6 MG TAB PO PRN (13:00)
[2017-06-07] MEDS ORDERED: MAGNESIUM HYDROXIDE SUSP 30 ML CUP PO PRN (13:00)
[2017-06-07] MEDS ORDERED: NALOXONE HCL 0.4 MG/ML AMP IV PUSH PRN ×2 (13:00)
[2017-06-07] MEDS ORDERED: ACETAMINOPHEN 325 MG TAB PO PRN ×2 (13:00→17:00)
[2017-06-07] MEDS ORDERED: BISACODYL 10 MG SUPP RECTAL PRN (13:00)
[2017-06-07] MEDS ORDERED: ONDANSETRON HCL 4 MG/2 ML VIAL IVP PRN (13:00)
[2017-06-07] MEDS ORDERED: ENOXAPARIN SODIUM 40 MG/0.4 ML SYRINGE SQ SCH (13:00)
[2017-06-07] MEDS ORDERED: SODIUM CHLORIDE 0.9% FLUSH 10 ML FLUSH IV FLUSH PRN (13:00)
[2017-06-07] MEDS ORDERED: LACTULOSE SYRUP 20 GM/30 ML CUP PO PRN (13:00)
[2017-06-07] MEDS: SODIUM CHLOR 0.9% 1000 ML INJ 1,000 ML IV SCH ×2 (13:16→22:50)
--- NOTE | 2017-06-07 16:54 | HHI.HP ---
[facility] Service [facility] Primary Care Physician No Primary Care Physician Admission Diagnosis Syncope/chest pain Diagnoses: Chief Complaint: "passed out in [employer]" Travel History International Travel<30 Days: No Contact w/Intl Traveler <30 Da: No Traveled to Known Affected Are: No History of Present Illness Written by Erica Cash, acting as scribe for Dr. Castillo on 06/07/17 at 16:51. Patient is a 41-year-old male with primary medical history of syncopal episodes , status post loop recorder, recurrent chest pain, hypertension who came into the hospital after having another syncopal episode at [facility]. Patient seen and examined today. Reports that he passed out in [employer] while getting his medication. Patient states that he continues to have some chest pain, on and off left arm to axilla radiation, associated by lightheadedness, 10/10, pressure in the chest, right up in the lateral side and axillary area, relieved by repositioning, aggravated by certain position. Reports he has no dizziness now but when he drinks water sometimes or beverages he had some dizziness. States he has significant family medical history for strokes as his mother had a stroke at the age of 20. Admits he continues to smoke cigarettes 1-3 a day and marijuana use 3 times a week. Reports shortness of breath and dyspnea especially on exertion. Denies palpitations, headaches. Denies fevers, chills, n/v/d. Denies dysuria. Review of Systems Except as stated in HPI: all other systems reviewed are Neg Past Family Social History Past Medical History Syncopal episodes Loop recorder Tobacco use Recurrent chest pain Hypertension Past Surgical History Cyst removal in the back Loop recorder Stent placement Reported Medications Reported Meds & Active Scripts Active Amlodipine (Amlodipine Besylate) 10 Mg Tab 10 Mg PO DAILY Reported Multiple Vitamin 1 Tab 1 Tab PO DAILY Lisinopril 5 Mg Tab 5 Mg PO DAILY Aspirin Children's (Aspirin) 81 Mg Chew 81 Mg CHEW DAILY Allergies: Coded Allergies: egg (Verified Allergy, Severe, 06/07/17) Active Ordered Medications Current Medications Medications (Trade) Dose Ordered Sig/Pato Route Start Time Stop Time Status Last Admin Sodium Chloride 1,000 ml @ 100 mls/hr Q10H IV 06/07/17 12:50 06/07/17 13:16 (NS Flush) 2 ml UNSCH PRN IV FLUSH 06/07/17 13:00 (NS Flush) 2 ml BID IV FLUSH 06/07/17 21:00 (Zofran Inj) 4 mg Q6H PRN IVP 06/07/17 13:00 (Lovenox Inj) 40 mg Q24H SQ 06/07/17 13:00 06/07/17 13:17 (Narcan Inj) 0.4 mg UNSCH PRN IV PUSH 06/07/17 13:00 (Tonja-Colace) 1 tab BID PO 06/07/17 21:00 (Milk Of Magnesia Liq) 30 ml Q12H PRN PO 06/07/17 13:00 (Senokot) 17.2 mg Q12H PRN PO 06/07/17 13:00 (Dulcolax Supp) 10 mg DAILY PRN RECTAL 06/07/17 13:00 (Lactulose Liq) 30 ml DAILY PRN PO 06/07/17 13:00 (Norvasc) 10 mg DAILY PO 06/08/17 09:00 (Aspirin Chew) 81 mg DAILY CHEW 06/08/17 09:00 (Prinivil) 5 mg DAILY PO 06/08/17 09:00 Non-Formulary Medication 1 tab DAILY PO 06/08/17 09:00 UNV (Nitrostat Sl) 0.4 mg Q5M PRN SL 06/07/17 17:00 UNV (Morphine Inj) 2 mg Q4H PRN IV PUSH 06/07/17 17:00 UNV (Tylenol) 650 mg Q4H PRN PO 06/07/17 17:00 UNV Family History Mother had a stroke at age of 20 No diabetes in the family Social History Denies Alcohol use Marijuana 3x/week Smoking 1-3 cig/day Physical Exam Vital Signs Vital Signs Date Time Temp Pulse Resp B/P (MAP) Pulse Ox O2 Delivery O2 Flow Rate FiO2 06/07/17 16:05 06/07/17 14:00 48 16 137/89 (105) 100 Room Air 06/07/17 13:00 48 16 149/90 (109) 100 Room Air 06/07/17 12:10 52 16 152/100 (117) 100 Room Air 06/07/17 11:10 50 16 148/96 (113) 99 Room Air 06/07/17 10:10 52 16 170/113 (132) 98 Room Air 06/07/17 10:02 98.1 58 15 163/99 (120) 100 Physical Exam GENERAL: This is a well-nourished, well-developed patient, in no apparent distress. SKIN: Cool and dry. HEAD: Normocephalic. EYES: Pupils equal round and reactive. Extraocular motions intact. No scleral icterus. No injection or drainage. ENT: Nose without bleeding. Throat without erythema. Uvula midline. Airway patent. NECK: Trachea midline. CARDIOVASCULAR: Regular rate and rhythm without murmurs, gallops, or rubs. Nontender to palpation left chest area and left axillary area. RESPIRATORY: Clear to auscultation. Breath sounds equal bilaterally. No wheezes , rales, or rhonchi. GASTROINTESTINAL: Abdomen soft, non-tender, nondistended. MUSCULOSKELETAL: Extremities without clubbing, cyanosis, or edema. NEUROLOGICAL: Awake and alert. Cranial nerves II through XII intact. Motor and sensory grossly within normal limits. Normal speech. Laboratory Laboratory Tests Test 06/07/17 12:09 06/07/17 15:54 White Blood Count 3.1 Red Blood Count 4.38 Hemoglobin 13.5 Hematocrit 40.1 Mean Corpuscular Volume 91.6 Mean Corpuscular Hemoglobin 30.8 Mean Corpuscular Hemoglobin Concent 33.6 Red Cell Distribution Width 13.6 Platelet Count 162 Mean Platelet Volume 8.6 Neutrophils (%) (Auto) 33.7 Lymphocytes (%) (Auto) 51.9 Monocytes (%) (Auto) 11.6 Eosinophils (%) (Auto) 2.1 Basophils (%) (Auto) 0.7 Neutrophils # (Auto) 1.0 Lymphocytes # (Auto) 1.6 Monocytes # (Auto) 0.4 Eosinophils # (Auto) 0.1 Basophils # (Auto) 0.0 CBC Comment DIFF FINAL Differential Comment Blood Urea Nitrogen 10 Creatinine 0.99 Random Glucose 84 Calcium Level 8.4 Sodium Level 141 Potassium Level 3.8 Chloride Level 106 Carbon Dioxide Level 31.3 Anion Gap 4 Estimat Glomerular Filtration Rate 101 Troponin I LESS THAN 0.02 LESS THAN 0.02 Result Diagram: 06/07/17 1209 06/07/17 1209 Caprini VTE Risk Assessment Caprini VTE Risk Assessment: No/Low Risk (score <= 1) Caprini Risk Assessment Model Point Value = 1 Point Value = 2 Point Value = 3 Point Value = 5 Age 41-60 Minor surgery BMI > 25 kg/m2 Swollen legs Varicose veins or History of unexplained or recurrent spontaneous Oral contraceptives or hormone replacement Sepsis (< 1 month) Serious lung disease, including pneumonia (< 1 month) Abnormal pulmonary function Acute myocardial infarction Congestive heart failure (< 1 month) History of inflammatory bowel disease Medical patient at bed rest Age 61-74 Arthroscopic surgery Major open surgery (> 45 min) Laparoscopic surgery (> 45 min) Malignancy Confined to bed (> 72 hours) Immobilizing plaster cast Central venous access Age >= 75 History of VTE Family history of VTE Factor V Leiden Prothrombin [id number] Lupus anticoagulant Anticardiolipin antibodies Elevated serum homocysteine Heparin-induced thrombocytopenia Other congenital or acquired thrombophilia Stroke (< 1 month) Elective arthroplasty Hip, pelvis, or leg fracture Acute spinal cord injury (< 1 month) Prophylaxis Regimen Total Risk Factor Score Risk Level Prophylaxis Regimen 0-1 Low Early ambulation 2 Moderate Order ONE of the following: *Sequential Compression Device (SCD) *Heparin 5000 units SQ BID 3-4 Higher Order ONE of the following medications: *Heparin 5000 units SQ TID *Enoxaparin/Lovenox 40 mg SQ daily (WT < 150 kg, CrCl > 30 mL/min) *Enoxaparin/Lovenox 30 mg SQ daily (WT < 150 kg, CrCl > 10-29 mL/min) *Enoxaparin/Lovenox 30 mg SQ BID (WT < 150 kg, CrCl > 30 mL/min) AND/OR *Sequential Compression Device (SCD) 5 or more Highest Order ONE of the following medications: *Heparin 5000 units SQ TID (Preferred with Epidurals) *Enoxaparin/Lovenox 40 mg SQ daily (WT < 150 kg, CrCl > 30 mL/min) *Enoxaparin/Lovenox 30 mg SQ daily (WT < 150 kg, CrCl > 10-29 mL/min) *Enoxaparin/Lovenox 30 mg SQ BID (WT < 150 kg, CrCl > 30 mL/min) AND *Sequential Compression Device (SCD) Assessment and Plan Problem List: (1) Chest pain ICD Code: R07.9 - Chest pain, unspecified Status: Acute (2) Syncope ICD Code: R55 - Syncope and collapse Status: Acute (3) Atypical chest pain ICD Code: R07.89 - Other chest pain Status: Acute (4) Tobacco abuse ICD Code: Z72.0 - Tobacco use (5) HTN (hypertension) ICD Code: I10 - Essential (primary) hypertension Status: Chronic Assessment and Plan Patient is a 41-year-old male with primary medical history of syncopal episodes , status post loop recorder, recurrent chest pain, hypertension who came into the hospital after having another syncopal episode at [facility]. Recurrent syncope Recurrent chest pain -Noncompliance with substance use, tobacco use -Troponins negative -CK negative -Chest x-ray negative -Consult cardiology. Dr. Rivera consulted and will take the patient to cardiac cath. Recent echo 12/12/16 showed EF 50-55%, normal left ventricular size, mild concentric left ventricular hypertrophy, mild MVR, mild TVR -N.p.o. for cardiac cath -Telemetry -Morphine for pain. Nitro for chest pain -Follow-up labs. Check hemoglobin A1c. Check lipid profile. HTN -Continue home medication aspirin 81 mg daily, Norvasc 10 mg daily, lisinopril 5 mg daily -Monitor BP trend Tobacco Substance use -Counseled -States he will not need nicotine patch DVT prop Lovenox This note was transcribed by DORINA Stafford. I, Dr. Sally Castillo personally performed the history, physical exam, and medical decision making; and confirmed the accuracy of the information in the transcribed note. Authenticated by Dr. Sally Castillo on 06/07/17 at 16:51. Code Status Full code Discussed Condition With Patient, nurse Erica Be Jun 07, 2017 16:54 Sally Castillo MD Jun 07, 2017 17:11
[2017-06-07] MEDS ORDERED: NITROGLYCERIN 0.4 MG SL 25 TABS/BTL SL PRN (17:00)
[2017-06-07] MEDS: MORPHINE SULFATE 2 MG/ML INJ IV PUSH PRN (20:31)
[2017-06-07] MEDS: LISINOPRIL 20 MG TAB PO SCH (20:31)
[2017-06-07] MEDS: SODIUM CHLORIDE 0.9% FLUSH 10 ML FLUSH IV FLUSH SCH (20:31)
[2017-06-07] MEDS: DOCUSATE SODIUM 50 MG/SENNA 8.6 MG TAB PO SCH (20:31)
--- NOTE | 2017-06-07 21:24 | EKG ---
Date Performed: 06/07/2017 Time Performed: 10:11:17 PTAGE: 41 years EKG: SINUS BRADYCARDIA Since previous tracing, no significant change noted BORDERLINE ECG PREVIOUS TRACING : 06/07/2017 02.11 DOCTOR: Judith Chang Interpretating Date/Time 06/07/2017 21:23:49
[2017-06-07 22:51] LABS: CHOLESTEROL 165 MG/DL (120-200); TRIGLYCERIDES 88 MG/DL (42-150)
[2017-06-07 22:52] LABS: CHOLESTEROL/ HDL RATIO 3.01 RATIO; HDL CHOLESTEROL 54.8 MG/DL (40.0-60.0); LDL CHOLESTEROL 93 MG/DL (0-99)
[2017-06-08 07:34] LABS: AUTOMATED NEUTROPHIL # 1.1 TH/MM3 (1.8-7.7); BASOPHIL % 0.9 % (0.0-2.0); EOSINOPHIL # 0.1 TH/MM3 (0-0.4); EOSINOPHIL % 2.4 % (0.0-4.0); HEMATOCRIT 41.4 % (39.0-51.0); HEMOGLOBIN 14.1 GM/DL (13.0-17.0); LYMPH % 51.5 % (9.0-44.0); LYMPHOCYTE # 1.7 TH/MM3 (1.0-4.8); MEAN CELL VOLUME 90.6 FL (80.0-100.0); MEAN CORPUSCULAR HEMOGLOBIN 30.7 PG (27.0-34.0); MEAN CORPUSCULAR HGB CONC 33.9 % (32.0-36.0); MEAN PLATELET VOLUME 9.1 FL (7.0-11.0); MONO % 10.3 % (0.0-8.0); MONOCYTE # 0.3 TH/MM3 (0-0.9); NEUT % 34.9 % (16.0-70.0); PLATELET COUNT 138 TH/MM3 (150-450); RED BLOOD COUNT 4.57 MIL/MM3 (4.50-5.90); RED CELL DISTRIBUTION WIDTH 13.7 % (11.6-17.2); WHITE BLOOD COUNT 3.3 TH/MM3 (4.0-11.0)
[2017-06-08 08:06] VITALS: BP 154/94; PULSE 52; RESP 16; TEMP 97.9; O2SAT 95
[2017-06-08 08:31] LABS: CALCIUM 8.7 MG/DL (8.5-10.1); CREATININE 0.96 MG/DL (0.60-1.30)
--- NOTE | 2017-06-08 08:45 | EKG ---
Date Performed: 06/07/2017 Time Performed: 18:21:47 PTAGE: 41 years EKG: SINUS BRADYCARDIA POSSIBLE EARLY REPOLARIZATION ABNORMAL ECG PREVIOUS TRACING : 06/07/2017 15.51 No significant change from previous tracing noted. DOCTOR: Oscar Hernandez Interpretating Date/Time 06/08/2017 08:36:49
--- NOTE | 2017-06-08 08:50 | HHI.PR ---
Subjective Remarks The patient is in bed. He states complaints of chest pain no shortness of breath. No nausea vomiting no lightheadedness. Objective Vitals Vital Signs Date Time Temp Pulse Resp B/P (MAP) Pulse Ox O2 Delivery O2 Flow Rate FiO2 06/08/17 08:06 97.9 52 16 154/94 (114) 95 06/07/17 23:38 98.0 54 18 142/86 (104) 98 06/07/17 20:36 18 06/07/17 18:11 98.1 56 20 165/105 (125) 100 06/07/17 16:05 06/07/17 14:00 48 16 137/89 (105) 100 Room Air 06/07/17 13:00 48 16 149/90 (109) 100 Room Air 06/07/17 12:10 52 16 152/100 (117) 100 Room Air 06/07/17 11:10 50 16 148/96 (113) 99 Room Air 06/07/17 10:10 52 16 170/113 (132) 98 Room Air 06/07/17 10:02 98.1 58 15 163/99 (120) 100 Result Diagram: 06/08/17 0608 06/08/17 0608 Objective Remarks GENERAL: This is a well-nourished, well-developed patient, in no apparent distress. CARDIOVASCULAR: Regular rate and rhythm without murmurs, gallops, or rubs. Nontender to palpation left chest area and left axillary area. RESPIRATORY: Clear to auscultation. Breath sounds equal bilaterally. No wheezes , rales, or rhonchi. GASTROINTESTINAL: Abdomen soft, non-tender, nondistended. MUSCULOSKELETAL: Extremities without clubbing, cyanosis, or edema. NEUROLOGICAL: Awake and alert. Cranial nerves II through XII intact. Motor and sensory grossly within normal limits. Normal speech. Procedures none A/P Problem List: (1) Chest pain ICD Code: R07.9 - Chest pain, unspecified Status: Acute (2) Syncope ICD Code: R55 - Syncope and collapse Status: Acute (3) Atypical chest pain ICD Code: R07.89 - Other chest pain Status: Acute (4) Tobacco abuse ICD Code: Z72.0 - Tobacco use (5) HTN (hypertension) ICD Code: I10 - Essential (primary) hypertension Status: Chronic Assessment and Plan Patient is a 41-year-old male with primary medical history of syncopal episodes , status post loop recorder, recurrent chest pain, hypertension who came into the hospital after having another syncopal episode at [facility]. Recurrent syncope Recurrent chest pain -Noncompliance with substance use, tobacco use -Troponins negative -CK negative -Chest x-ray negative -Consult cardiology. Dr. Rivera consulted and will take the patient to cardiac cath. Recent echo 12/12/16 showed EF 50-55%, normal left ventricular size, mild concentric left ventricular hypertrophy, mild MVR, mild TVR -N.p.o. for possible cardiac cath. -Telemetry -Morphine for pain. Nitro for chest pain -Follow-up labs. Check hemoglobin A1c. Check lipid profile. HTN -Continue home medication aspirin 81 mg daily, Norvasc 10 mg daily, lisinopril 5 mg daily -Monitor BP trend Tobacco Substance use -Counseled -States he will not need nicotine patch DVT prop Lovenox Patient, nurse Sally Castillo MD Jun 08, 2017 08:50
[2017-06-08] MEDS ORDERED: MULTIVITAMIN TAB PO SCH (09:00)
[2017-06-08] MEDS: LISINOPRIL 20 MG TAB PO SCH (09:00)
[2017-06-08] MEDS ORDERED: NON-FORMULARY DRUG (Multiple Vitamin 1 TAB) PO SCH (09:00)
[2017-06-08] MEDS: DOCUSATE SODIUM 50 MG/SENNA 8.6 MG TAB PO SCH (09:00)
[2017-06-08] MEDS ORDERED: ASPIRIN 81 MG CHEW TAB CHEW SCH (09:00)
[2017-06-08] MEDS ORDERED: LISINOPRIL 5 MG TAB PO SCH (09:00)
[2017-06-08] MEDS: SODIUM CHLORIDE 0.9% FLUSH 10 ML FLUSH IV FLUSH SCH (09:02)
[2017-06-08] MEDS: SODIUM CHLOR 0.9% 1000 ML INJ 1,000 ML IV SCH (09:02)
[2017-06-08] MEDS: MORPHINE SULFATE 2 MG/ML INJ IV PUSH PRN (09:05)
--- NOTE | 2017-06-08 10:17 | MB ---
cc: Mejia Rivera MD DATE OF CONSULT: 06/07/2017 REASON FOR CONSULTATION: Syncopal episode. HISTORY OF PRESENT ILLNESS: Mr. Michele is a 41-year-old gentleman with frequent episode of syncope. The gentleman was admitted last November. The electrophysiology study was negative. Loop recorder inserted. He was in the emergency room yesterday. He was sent home. On his way to order picker his medication, he had another episode and came back to the emergency room. I was consulted for further evaluation and management. The chart was reviewed. The patient was evaluated. ALLERGIES: EGGS. SOCIAL HISTORY: The gentleman at this point denied smoking and drinking. FAMILY HISTORY: Noncontributory to his current medical condition. MEDICATIONS: He is on aspirin, lisinopril and multivitamin. REVIEW OF SYSTEMS: Currently, he feels no chest pain or chest discomfort. He referred new episode of syncope today, but no fever. PHYSICAL EXAMINATION: GENERAL: Alert, fully oriented. VITAL SIGNS: His blood pressure is high, 165/105, pulse is 56, respiratory rate 20. LUNGS: Ventilated. CARDIOVASCULAR: S1, S2. No gallop. No murmur. ABDOMEN: Soft. No masses. No bruit. EXTREMITIES: With no edema. ELECTROCARDIOGRAM: Sinus rhythm, short PA interval. No ST and T-wave changes. Normal QT intervals. LABORATORY DATA: Hemoglobin 13.5, white blood cell 3.1, potassium 2.8, creatinine 0.99. Troponin less than 0.02. IMPRESSION AND RECOMMENDATIONS: Mr. Michele is currently stable. His blood pressure is high. That needs to be controlled. He had a syncopal episode. He has a previous negative electrophysiology study. At this point, the loop recorder will be interrogated. Based on the result, further decision will be taken. Case discussed extensively with him. MD JIM Meza/ANALILIA , 06:49 PM , 10:09 PM
[2017-06-08 11:19] VITALS: BP 148/97; PULSE 51; RESP 16; TEMP 98; O2SAT 98
--- NOTE | 2017-06-08 15:00 | HHI.DS ---
Discharge Summary Admission Date Jun 07, 2017 at 12:51 Discharge Date: Jun 08, 2017 Admitting Diagnosis Syncope/chest pain (1) Chest pain ICD Code: R07.9 - Chest pain, unspecified Status: Acute (2) Syncope ICD Code: R55 - Syncope and collapse Status: Acute (3) Atypical chest pain ICD Code: R07.89 - Other chest pain Status: Acute (4) Tobacco abuse ICD Code: Z72.0 - Tobacco use (5) HTN (hypertension) ICD Code: I10 - Essential (primary) hypertension Status: Chronic Procedures No procedures Brief History - From Admission Written by Erica Cash, acting as scribe for Dr. Castillo on 06/07/17 at 16:51. Patient is a 41-year-old male with primary medical history of syncopal episodes , status post loop recorder, recurrent chest pain, hypertension who came into the hospital after having another syncopal episode at [facility]. Patient seen and examined today. Reports that he passed out in [facility] while getting his medication. Patient states that he continues to have some chest pain, on and off left arm to axilla radiation, associated by lightheadedness, 10/10, pressure in the chest, right up in the lateral side and axillary area, relieved by repositioning, aggravated by certain position. Reports he has no dizziness now but when he drinks water sometimes or beverages he had some dizziness. States he has significant family medical history for strokes as his mother had a stroke at the age of 20. Admits he continues to smoke cigarettes 1-3 a day and marijuana use 3 times a week. Reports shortness of breath and dyspnea especially on exertion. Denies palpitations, headaches. Denies fevers, chills, n/v/d. Denies dysuria. CBC/BMP: 06/08/17 0608 06/08/17 0608 Significant Findings Laboratory Tests Test 06/07/17 12:09 06/07/17 15:54 06/07/17 16:40 06/08/17 06:08 White Blood Count 3.1 TH/MM3 (4.0-11.0) 3.3 TH/MM3 (4.0-11.0) Red Blood Count 4.38 MIL/MM3 (4.50-5.90) Lymphocytes (%) (Auto) 51.9 % (9.0-44.0) 51.5 % (9.0-44.0) Monocytes (%) (Auto) 11.6 % (0.0-8.0) 10.3 % (0.0-8.0) Neutrophils # (Auto) 1.0 TH/MM3 (1.8-7.7) 1.1 TH/MM3 (1.8-7.7) Calcium Level 8.4 MG/DL (8.5-10.1) Anion Gap 4 MEQ/L (5-15) Troponin I LESS THAN 0.02 NG/ML LESS THAN 0.02 NG/ML LESS THAN 0.02 NG/ML Platelet Count 138 TH/MM3 (150-450) Chloride Level 108 MEQ/L (98-107) PE at Discharge Left AMA Hospital Course Left AMA Pt Condition on Discharge: Stable Discharge Disposition: Discharge Home (left AMA) Discharge Time: > 30 minutes Sally Castillo MD Jun 08, 2017 15:00
--- NOTE | 2017-06-08 15:03 | HHI.PR ---
Subjective Remarks No syncopal episode Feeling ok Objective Vital Signs Date Time Temp Pulse Resp B/P (MAP) Pulse Ox O2 Delivery O2 Flow Rate FiO2 06/08/17 11:19 98.0 51 16 148/97 (114) 98 06/08/17 08:06 97.9 52 16 154/94 (114) 95 06/07/17 23:38 98.0 54 18 142/86 (104) 98 06/07/17 20:36 18 06/07/17 18:11 98.1 56 20 165/105 (125) 100 06/07/17 16:05 Result Diagram: 06/08/17 0608 06/08/17 0608 Imaging Alert, fully oriented Lungs: ventilated Heart: S1, S2 regular, no gallop Abdomen: soft, no mass ext: no edema Current Medications Medications (Trade) Dose Ordered Sig/Pato Route Start Time Stop Time Status Last Admin Sodium Chloride 1,000 ml @ 100 mls/hr Q10H IV 06/07/17 12:50 06/08/17 09:02 (NS Flush) 2 ml UNSCH PRN IV FLUSH 06/07/17 13:00 (NS Flush) 2 ml BID IV FLUSH 06/07/17 21:00 06/08/17 09:02 (Zofran Inj) 4 mg Q6H PRN IVP 06/07/17 13:00 (Lovenox Inj) 40 mg Q24H SQ 06/07/17 13:00 06/07/17 13:17 (Narcan Inj) 0.4 mg UNSCH PRN IV PUSH 06/07/17 13:00 (Tonja-Colace) 1 tab BID PO 06/07/17 21:00 06/07/17 20:31 (Milk Of Magnesia Liq) 30 ml Q12H PRN PO 06/07/17 13:00 (Senokot) 17.2 mg Q12H PRN PO 06/07/17 13:00 (Dulcolax Supp) 10 mg DAILY PRN RECTAL 06/07/17 13:00 (Lactulose Liq) 30 ml DAILY PRN PO 06/07/17 13:00 (Norvasc) 10 mg DAILY PO 06/08/17 09:00 06/08/17 09:01 (Aspirin Chew) 81 mg DAILY CHEW 3/20/18 09:00 06/08/17 09:01 (Nitrostat Sl) 0.4 mg Q5M PRN SL 06/07/17 17:00 (Morphine Inj) 2 mg Q4H PRN IV PUSH 06/07/17 17:00 06/08/17 09:05 (Tylenol) 650 mg Q4H PRN PO 06/07/17 17:00 (Theragran) 1 tab DAILY PO 06/08/17 09:00 06/08/17 09:01 (Prinivil) 20 mg BID PO 06/07/17 21:00 06/08/17 09:00 Assessment and Plan Problem List: (1) Syncope ICD Codes: R55 - Syncope and collapse Status: Acute Plan: No new episode reported Loop interrogation shows no walter, no tachy case discussed with patient Will need neurological evaluation Previous EP study was negative patient can be DH Follow up as OP (2) Chest pain ICD Codes: R07.9 - Chest pain, unspecified Status: Acute Plan: No chest pain reported Doing well Mejia Rivera MD Jun 08, 2017 15:03
--- NOTE | 2017-06-08 15:58 | EKG ---
Date Performed: 06/07/2017 Time Performed: 15:51:49 PTAGE: 41 years EKG: SINUS BRADYCARDIA ST ELEVATION, PROBABLY EARLY REPOLARIZATION BORDERLINE ECG PREVIOUS TRACING : 06/07/2017 10.11 No significant change from previous tracing noted. DOCTOR: Oscar Hernandez Interpretating Date/Time 06/08/2017 15:56:47
[2017-06-08 16:06] LABS: HEMOGLOBIN A1C 5.7 % (4.3-6.0)
== END 2017-06-08 17:19 | disposition home or self-care (01) ==
LOC: NEPE 09:49 → NEDA 12:51 → NEPFCDU 16:26
PROVIDERS: ADMIT Hospitalist; ATTEND Hospitalist
DX: R07.89 Other chest pain (principal); R55 Syncope and collapse; R42 Dizziness and giddiness; I11.9 Hypertensive heart disease without heart failure; I51.7 Cardiomegaly; R00.1 Bradycardia, unspecified; R94.31 Abnormal electrocardiogram [ECG] [EKG]; J45.909 Unspecified asthma, uncomplicated; F17.210 Nicotine dependence, cigarettes, uncomplicated; F12.90 Cannabis use, unspecified, uncomplicated; Z79.899 Other long term (current) drug therapy; Z79.82 Long term (current) use of aspirin
CPT/HCPCS: 80048; 80061; 83036; 84484; 85025; 93005; 96361; 96372; 96374; 96376; 99285; G0378; J1650; J2270; J7030

== ENCOUNTER 2017-06-09 23:56 | Emergency (ER) | payer OTHER ==
[~2017-06-09] VITALS: Ht 182.9 cm; Wt 78.0 kg
[2017-06-10 00:09] VITALS: BP 154/98; PULSE 66; RESP 16; TEMP 98.1; O2SAT 98
[2017-06-10 00:21] VITALS: BP_SYST 158; BP_SYST 166; BP_DIAS 100; BP_DIAS 110; PULSE 65; RESP 18; TEMP 98.1; O2SAT 100
--- NOTE | 2017-06-10 00:50 | RADRPT ---
EXAM DATE/TIME: 06/10/2017 00:38 [facility] COMPARISON: CHEST SINGLE AP, June 07, 2017, 4:24. INDICATIONS : Chest pain. MEDICAL HISTORY : Hypertension. SURGICAL HISTORY : Cyst removed from spine, loop recorder. ENCOUNTER: [employer] ACUITY: 4 - 6 days PAIN SCORE: 6/10 LOCATION: Bilateral chest FINDINGS: A single view of the chest demonstrates the lungs to be symmetrically aerated without evidence of mas s, infiltrate or effusion. The cardiomediastinal contours are unremarkable. Osseous structures are intact. Loop recorder device in place. CONCLUSION: The lungs are clear. Farzad Landaverde MD on June 10, 2017 at 0:47 Board Certified Radiologist. This report was verified electronically.
[2017-06-10 01:04] LABS: AUTOMATED NEUTROPHIL # 1.6 TH/MM3 (1.8-7.7); BASOPHIL % 0.7 % (0.0-2.0); EOSINOPHIL % 0.8 % (0.0-4.0); HEMATOCRIT 39.3 % (39.0-51.0); HEMOGLOBIN 13.6 GM/DL (13.0-17.0); LYMPH % 45.9 % (9.0-44.0); LYMPHOCYTE # 1.7 TH/MM3 (1.0-4.8); MEAN CELL VOLUME 89.2 FL (80.0-100.0); MEAN CORPUSCULAR HEMOGLOBIN 30.8 PG (27.0-34.0); MEAN CORPUSCULAR HGB CONC 34.5 % (32.0-36.0); MEAN PLATELET VOLUME 9.4 FL (7.0-11.0); MONO % 9.5 % (0.0-8.0); MONOCYTE # 0.3 TH/MM3 (0-0.9); NEUT % 43.1 % (16.0-70.0); PLATELET COUNT 156 TH/MM3 (150-450); RED CELL DISTRIBUTION WIDTH 13.5 % (11.6-17.2); WHITE BLOOD COUNT 3.6 TH/MM3 (4.0-11.0)
[2017-06-10 01:07] LABS: BICARBONATE 29.3 MEQ/L (21.0-32.0); BLOOD UREA NITROGEN 7 MG/DL (7-18); CALCIUM 8.5 MG/DL (8.5-10.1); CHLORIDE 108 MEQ/L (98-107); CREATININE 1.29 MG/DL (0.60-1.30); GLOMERULAR FILTRATION RATE 74 ML/MIN (>89); GLUCOSE,RANDOM 101 MG/DL (74-106); SODIUM (NA) 144 MEQ/L (136-145)
--- NOTE | 2017-06-10 01:11 | PD ---
HPI . Chest pain Chief Complaint: Chest Pain Time Seen by Provider: 00:32 Travel History International Travel<30 days: No Contact w/Intl Traveler<30days: No Traveled to known affect area: No History of Present Illness HPI This patient presents with a chief complaint of chest pain. Onset was at least 4 days ago. He states that it is associated with shortness of breath and tingling in his left arm. He rates it 10/10. No modifying factors. PFSH Past Medical History Hx Anticoagulant Therapy: Yes (81 MG ASA.) Asthma: Yes (as a baby) Blood Disorders: No Anxiety: No Depression: No Heart Rhythm Problems: No Cancer: No Cardiac Catheterization: No Cardiovascular Problems: Yes (HTN) High Cholesterol: No Chemotherapy: No Chest Pain: Yes (this admission and off and on this last year) Congestive Heart Failure: No COPD: No Diabetes: No Diminished Hearing: No Endocrine: No Gastrointestinal Disorders: No Genitourinary: Yes (frequent urination at night only) Headaches: Yes Heparin Induced Thrombocytopen: No Hypertension: Yes Immune Disorder: No Implanted Vascular Access Dvce: Yes Musculoskeletal: No Neurologic: Yes (current admit) Psychiatric: No Reproductive: No Respiratory: Yes Immunizations Current: Yes Migraines: Yes Radiation Therapy: No Sleep Apnea: No Thyroid Disease: No Tetanus Vaccination: Unknown Influenza Vaccination: No Past Surgical History Body Medical Devices: loop recorder in 2016 Cardiac Surgery: Yes (LOOP RECORDER (11/2016)) Coronary Artery Bypass Graft: No Coronary Stent: Yes (x1) Neurologic Surgery: Yes (CYST ON TAIL BONE) Other Surgery: Yes (Cyst removed from lower back/buttocks 1995/ loop recorder 2016) Family History Family Myocardial Infarction: No Social History Alcohol Use: No Tobacco Use: Yes (2-3 cigarettes/day) Substance Use: Yes (smokes marijuanna ocasionally) Allergies-Medications (Allergen,Severity, Reaction): Coded Allergies: egg (Verified Allergy, Severe, 06/10/17) Reported Meds & Prescriptions Reported Meds & Active Scripts Active Amlodipine (Amlodipine Besylate) 10 Mg Tab 10 Mg PO DAILY Reported Multiple Vitamin 1 Tab 1 Tab PO DAILY Lisinopril 5 Mg Tab 5 Mg PO DAILY Aspirin Children's (Aspirin) 81 Mg Chew 81 Mg CHEW DAILY Review of Systems Except as stated in HPI: all other systems reviewed are Neg Cardiovascular: Positive: Chest Pain or Discomfort Respiratory: Positive: Shortness of Breath Neurologic: Positive: Paresthesia Physical Exam Narrative GENERAL: Awake and alert and in no acute distress. SKIN: warm/dry. HEAD: Normocephalic. Atraumatic. EYES: Pupils equal and round. No scleral icterus. No injection or drainage. ENT: No nasal bleeding or discharge. Mucous membranes pink and moist. NECK: Trachea midline. Full range of motion without pain.. CARDIOVASCULAR: Regular rate and rhythm. Heart sounds are normal. RESPIRATORY: No accessory muscle use. Clear to auscultation. Breath sounds equal bilaterally. Chest wall is tender. GASTROINTESTINAL: Abdomen soft. Nontender. Bowel sounds present. Nondistended. MUSCULOSKELETAL: No obvious deformities. NEUROLOGICAL: Awake and alert. No obvious cranial nerve deficits. Motor grossly within normal limits. Normal speech. PSYCHIATRIC: Appropriate mood and affect; insight and judgment normal. Data Data Last Documented VS Vital Signs Date Time Temp Pulse Resp B/P (MAP) Pulse Ox O2 Delivery O2 Flow Rate FiO2 06/10/17 00:21 98.1 65 18 158/100 (119) 100 Room Air 166/110 (128) Orders Orders Electrocardiogram (06/10/17 00:33) Complete Blood Count With Diff (06/10/17 00:33) Basic Metabolic Panel (Bmp) (06/10/17 00:33) Ckmb (Isoenzyme) Profile (06/10/17 00:33) Troponin I (06/10/17 00:33) Chest, Single Ap (06/10/17 00:33) Iv Access Insert/Monitor (06/10/17 00:33) Ecg Monitoring (06/10/17 00:33) Oxygen Administration (06/10/17 00:33) Oximetry (06/10/17 00:33) CKMB (06/10/17 00:35) CKMB% (06/10/17 00:35) Ketorolac Inj (Toradol Inj) (06/10/17 01:30) Labs Laboratory Tests Test 06/10/17 00:35 White Blood Count 3.6 TH/MM3 Red Blood Count 4.40 MIL/MM3 Hemoglobin 13.6 GM/DL Hematocrit 39.3 % Mean Corpuscular Volume 89.2 FL Mean Corpuscular Hemoglobin 30.8 PG Mean Corpuscular Hemoglobin Concent 34.5 % Red Cell Distribution Width 13.5 % Platelet Count 156 TH/MM3 Mean Platelet Volume 9.4 FL Neutrophils (%) (Auto) 43.1 % Lymphocytes (%) (Auto) 45.9 % Monocytes (%) (Auto) 9.5 % Eosinophils (%) (Auto) 0.8 % Basophils (%) (Auto) 0.7 % Neutrophils # (Auto) 1.6 TH/MM3 Lymphocytes # (Auto) 1.7 TH/MM3 Monocytes # (Auto) 0.3 TH/MM3 Eosinophils # (Auto) 0.0 TH/MM3 Basophils # (Auto) 0.0 TH/MM3 CBC Comment DIFF FINAL Differential Comment Blood Urea Nitrogen 7 MG/DL Creatinine 1.29 MG/DL Random Glucose 101 MG/DL Calcium Level 8.5 MG/DL Sodium Level 144 MEQ/L Potassium Level 3.4 MEQ/L Chloride Level 108 MEQ/L Carbon Dioxide Level 29.3 MEQ/L Anion Gap 7 MEQ/L Estimat Glomerular Filtration Rate 74 ML/MIN Total Creatine Kinase 329 U/L Creatine Kinase MB 1.5 NG/ML Creatine Kinase MB % 0.5 % Troponin I LESS THAN 0.02 NG/ML MDM Medical Decision Making Medical Screen Exam Complete: Yes Emergency Medical Condition: Yes Medical Record Reviewed: Yes (The patient has been evaluated several times in the recent past. The etiology of his chest pain has been undetermined. He had an EP study done in November because of recurrent syncope and EP study was negative. He had an echo done also in November which shows a normal ejection fraction. He had an exercise stress test which was normal.) Interpretation(s) EKG shows a sinus rhythm with no acute ischemic changes. Differential Diagnosis Differential diagnosis of chest pain includes but is not limited to musculoskeletal pain, pulmonary embolism, acute coronary syndrome, pneumonia, pleurisy Narrative Course This patient presents with a chief complaint of chest pain. He has been evaluated on numerous previous occasions with no etiology for chest pain discovered. I have a very low index of suspicion for a significant etiology for his chest pain. CBC & BMP Diagram 06/10/17 00:35 Calcium Level 8.5 trop < 0.02 This patient has been evaluated on many previous occasions for chest pain. His workups have been negative. He comes in tonight complaining with a four-day history of chest pain. Enzymes are negative. He is effectively ruled out for NSTEMI as he has had chest pain for 4 days with normal enzymes. He will be given a dose of Toradol and discharged home. Diagnosis Primary Impression: Atypical chest pain Patient Instructions: Chest Pain (DC), General Instructions Disposition: 01 DISCHARGE HOME Condition: Stable Jenae Guillory MD Jun 10, 2017 01:11
[2017-06-10 01:12] LABS: TROPONIN I LESS THAN 0.02 NG/ML (0.02-0.05)
[2017-06-10] MEDS ORDERED: KETOROLAC TROMETHAMINE 30 MG/ML (IVP) VIAL IV PUSH ONE (01:30)
[2017-06-10 01:48] VITALS: BP 154/95
--- NOTE | 2017-06-10 14:13 | EKG ---
Date Performed: 06/10/2017 Time Performed: 00:37:05 PTAGE: 41 years EKG: Sinus rhythm NORMAL ECG Compared to prior electrocardiogram, rate has increased PREVIOUS TRACING : 06/07/2017 18.21 DOCTOR: Carlos Patten Interpretating Date/Time 06/10/2017 14:12:27
== END 2017-06-10 01:48 | disposition home or self-care (01) ==
LOC: NEPC 23:56
DX: R07.89 Other chest pain (principal); I10 Essential (primary) hypertension; F17.210 Nicotine dependence, cigarettes, uncomplicated; F12.90 Cannabis use, unspecified, uncomplicated
CPT/HCPCS: 71045; 80048; 82550; 82552; 84484; 85025; 93005; 96374; 99285; J1885

== ENCOUNTER 2017-06-10 09:52 | Observation (INO) | payer OTHER ==
[~2017-06-10] VITALS: Ht 182.9 cm; Wt 90.0 kg
[2017-06-10 09:55] VITALS: BP 169/104; PULSE 70; RESP 16; TEMP 97.6; O2SAT 99
--- NOTE | 2017-06-10 10:55 | RADRPT ---
EXAM DATE/TIME: 06/10/2017 10:36 [facility] COMPARISON: CHEST SINGLE AP, June 10, 2017, 0:38. INDICATIONS : Chest pain MEDICAL HISTORY : Hypertension. SURGICAL HISTORY : Cyst removed from spine, loop recorder ENCOUNTER: [employer] ACUITY: 4 - 6 days PAIN SCORE: 6/10 LOCATION: Bilateral chest FINDINGS: A single view of the chest demonstrates the lungs to be symmetrically aerated without evidence of mas s, infiltrate or effusion. The cardiomediastinal contours are unremarkable. Osseous structures are intact. CONCLUSION: No acute disease. Jak Dixon MD on June 10, 2017 at 10:52 Board Certified Radiologist. This report was verified electronically.
--- NOTE | 2017-06-10 10:57 | PD ---
HPI Chief Complaint: Chest Pain Time Seen by Provider: 10:28 Travel History International Travel<30 days: No Contact w/Intl Traveler<30days: No Traveled to known affect area: No History of Present Illness HPI Patient is a 41 year old male who comes in complaining of chest pain and syncope. He has been here multiple times for this, most recently earlier this morning. He was seen by Dr. Rivera in the hospital a few days ago and was cleared for discharge. He says he tried to go to his office today (without an appointment), and was told to come to the ED. He says that he continues to syncopize. He believes his symptoms are related to his implanted loop recorder. He says he takes Tylenol for his pain without relief. Severity is mild. PFSH Past Medical History Hx Anticoagulant Therapy: Yes (81 MG ASA.) Asthma: Yes (as a baby) Blood Disorders: No Anxiety: No Depression: No Heart Rhythm Problems: No Cancer: No Cardiac Catheterization: No Cardiovascular Problems: Yes (HTN) High Cholesterol: No Chemotherapy: No Chest Pain: Yes (this admission and off and on this last year) Congestive Heart Failure: No COPD: No Diabetes: No Diminished Hearing: No Endocrine: No Gastrointestinal Disorders: No Genitourinary: Yes (frequent urination at night only) Headaches: Yes Heparin Induced Thrombocytopen: No Hypertension: Yes Immune Disorder: No Implanted Vascular Access Dvce: Yes Musculoskeletal: No Neurologic: Yes (TIA) Psychiatric: No Reproductive: No Respiratory: Yes Immunizations Current: Yes Migraines: Yes Radiation Therapy: No Sleep Apnea: No Thyroid Disease: No Influenza Vaccination: No Past Surgical History Body Medical Devices: loop recorder in 2016 Cardiac Surgery: Yes (LOOP RECORDER (11/2016)) Coronary Artery Bypass Graft: No Coronary Stent: Yes (x1) Neurologic Surgery: Yes (CYST ON TAIL BONE) Other Surgery: Yes (Cyst removed from lower back/buttocks 1995/ loop recorder 2016) Social History Alcohol Use: No Tobacco Use: Yes (2-3 cigarettes/day) Substance Use: Yes (smokes marijuanna ocasionally) Allergies-Medications (Allergen,Severity, Reaction): Coded Allergies: egg (Verified Allergy, Severe, 06/10/17) Reported Meds & Prescriptions Reported Meds & Active Scripts Active Amlodipine (Amlodipine Besylate) 10 Mg Tab 10 Mg PO DAILY Reported Multiple Vitamin 1 Tab 1 Tab PO DAILY Lisinopril 5 Mg Tab 5 Mg PO DAILY Aspirin Children's (Aspirin) 81 Mg Chew 81 Mg CHEW DAILY Review of Systems Except as stated in HPI: all other systems reviewed are Neg General / Constitutional: No: Fever, Chills HENT: No: Headaches, Lightheadedness Cardiovascular: Positive: Chest Pain or Discomfort Respiratory: No: Shortness of Breath Gastrointestinal: No: Nausea, Vomiting Neurologic: Positive: Syncope, No: Weakness, Dizziness Physical Exam Narrative GENERAL: Awake and alert, in no acute distress. SKIN: Focused skin assessment warm/dry. HEAD: Atraumatic. Normocephalic. EYES: Pupils equal and round. No scleral icterus. ENT: Mucous membranes pink and moist. NECK: Trachea midline. No JVD. CARDIOVASCULAR: Regular rate and rhythm. No murmur appreciated. RESPIRATORY: No accessory muscle use. Clear to auscultation. Breath sounds equal bilaterally. GASTROINTESTINAL: Abdomen soft, non-tender, nondistended. MUSCULOSKELETAL: No obvious deformities. No clubbing. No cyanosis. No edema. NEUROLOGICAL: Awake and alert. No obvious cranial nerve deficits. Motor grossly within normal limits. Normal speech. PSYCHIATRIC: Appropriate mood and affect; insight and judgment normal. Data Data Last Documented VS Vital Signs Date Time Temp Pulse Resp B/P (MAP) Pulse Ox O2 Delivery O2 Flow Rate FiO2 06/10/17 10:13 99 Room Air 06/10/17 09:55 97.6 70 16 169/104 (125) Orders Orders Complete Blood Count With Diff (06/10/17 10:36) Comprehensive Metabolic Panel (06/10/17 10:36) Troponin I (06/10/17 10:36) Chest, Single Ap (06/10/17 10:36) Act Partial Throm Time (Ptt) (06/10/17 11:16) Prothrombin Time / Inr (Pt) (06/10/17 11:16) Electrocardiogram (06/10/17 10:08) Labs Laboratory Tests Test 06/10/17 10:45 06/10/17 11:24 Blood Urea Nitrogen 11 MG/DL Creatinine 1.03 MG/DL Random Glucose 85 MG/DL Total Protein 8.4 GM/DL Albumin 4.1 GM/DL Calcium Level 8.9 MG/DL Alkaline Phosphatase 64 U/L Aspartate Amino Transf (AST/SGOT) 31 U/L Alanine Aminotransferase (ALT/SGPT) 32 U/L Total Bilirubin 0.3 MG/DL Sodium Level 140 MEQ/L Potassium Level 3.6 MEQ/L Chloride Level 107 MEQ/L Carbon Dioxide Level 24.9 MEQ/L Anion Gap 8 MEQ/L Estimat Glomerular Filtration Rate 96 ML/MIN Troponin I LESS THAN 0.02 NG/ML White Blood Count 4.6 TH/MM3 Red Blood Count 4.37 MIL/MM3 Hemoglobin 13.5 GM/DL Hematocrit 39.4 % Mean Corpuscular Volume 90.2 FL Mean Corpuscular Hemoglobin 30.9 PG Mean Corpuscular Hemoglobin Concent 34.3 % Red Cell Distribution Width 13.4 % Platelet Count 139 TH/MM3 Mean Platelet Volume 9.1 FL Neutrophils (%) (Auto) 57.5 % Lymphocytes (%) (Auto) 31.6 % Monocytes (%) (Auto) 9.6 % Eosinophils (%) (Auto) 0.7 % Basophils (%) (Auto) 0.6 % Neutrophils # (Auto) 2.7 TH/MM3 Lymphocytes # (Auto) 1.5 TH/MM3 Monocytes # (Auto) 0.5 TH/MM3 Eosinophils # (Auto) 0.0 TH/MM3 Basophils # (Auto) 0.0 TH/MM3 CBC Comment DIFF FINAL Differential Comment Prothrombin Time 11.4 SEC Prothromb Time International Ratio 1.1 RATIO Activated Partial Thromboplast Time 26.4 SEC MDM Medical Decision Making Medical Screen Exam Complete: Yes Emergency Medical Condition: Yes Medical Record Reviewed: Yes Interpretation(s) ECG shows normal sinus rhythm with no ST elevation or depression Differential Diagnosis ACS versus an STEMI versus STEMI versus costochondritis versus pneumothorax Narrative Course Patient is a 41-year-old male comes in complaining of chest pain. He has been here multiple times for this, but it does not appear that he has had a stress test or cardiac cath within the past 6 months. He has been seen by Dr. Mehta, the plant worker for possible rhythm issues, but the coronary arteries have not been addressed. Labs show no acute abnormalities. However, I do feel patient would benefit from further testing due to the continued chest pain. Diagnosis Primary Impression: Chest pain Qualified Codes: R07.9 - Chest pain, unspecified Maggie Roach MD Jun 10, 2017 10:57
[2017-06-10 11:33] LABS: ALBUMIN 4.1 GM/DL (3.4-5.0); AST (GOT) 31 U/L (15-37); BICARBONATE 24.9 MEQ/L (21.0-32.0); BLOOD UREA NITROGEN 11 MG/DL (7-18); CALCIUM 8.9 MG/DL (8.5-10.1); CHLORIDE 107 MEQ/L (98-107); CREATININE 1.03 MG/DL (0.60-1.30); GLOMERULAR FILTRATION RATE 96 ML/MIN (>89); GLUCOSE,RANDOM 85 MG/DL (74-106); SODIUM (NA) 140 MEQ/L (136-145)
[2017-06-10 11:34] LABS: ALT (GPT) 32 U/L (12-78)
[2017-06-10 11:38] LABS: ALKALINE PHOSPHATASE 64 U/L (45-117); TOTAL BILIRUBIN ADULT 0.3 MG/DL (0.2-1.0); TOTAL PROTEIN 8.4 GM/DL (6.4-8.2); TROPONIN I LESS THAN 0.02 NG/ML (0.02-0.05)
[2017-06-10 11:53] LABS: AUTOMATED NEUTROPHIL # 2.7 TH/MM3 (1.8-7.7); BASOPHIL % 0.6 % (0.0-2.0); EOSINOPHIL % 0.7 % (0.0-4.0); HEMATOCRIT 39.4 % (39.0-51.0); HEMOGLOBIN 13.5 GM/DL (13.0-17.0); LYMPH % 31.6 % (9.0-44.0); LYMPHOCYTE # 1.5 TH/MM3 (1.0-4.8); MEAN CELL VOLUME 90.2 FL (80.0-100.0); MEAN CORPUSCULAR HEMOGLOBIN 30.9 PG (27.0-34.0); MEAN CORPUSCULAR HGB CONC 34.3 % (32.0-36.0); MEAN PLATELET VOLUME 9.1 FL (7.0-11.0); MONO % 9.6 % (0.0-8.0); MONOCYTE # 0.5 TH/MM3 (0-0.9); NEUT % 57.5 % (16.0-70.0); RED BLOOD COUNT 4.37 MIL/MM3 (4.50-5.90); RED CELL DISTRIBUTION WIDTH 13.4 % (11.6-17.2)
[2017-06-10 11:57] LABS: PLATELET COUNT 139 TH/MM3 (150-450); WHITE BLOOD COUNT 4.6 TH/MM3 (4.0-11.0)
[2017-06-10 11:58] LABS: INTERNATIONAL NORMALIZED RATIO 1.1 RATIO; PROTHROMBIN TIME - PATIENT 11.4 SEC (9.8-11.6)
--- NOTE | 2017-06-10 13:41 | EKG ---
Date Performed: 06/10/2017 Time Performed: 10:08:51 PTAGE: 41 years EKG: Sinus rhythm NORMAL ECG No significant change from prior electrocardiogram. PREVIOUS TRACING : 06/10/2017 00.37 DOCTOR: Carlos Patten Interpretating Date/Time 06/10/2017 13:19:03
[2017-06-10 14:35] VITALS: BP 161/96; PULSE 52; RESP 18; TEMP 98.3; O2SAT 99
--- NOTE | 2017-06-10 15:34 | HHI.HP ---
HPI Primary Care Physician No Primary Care Physician Chief Complaint Chest pain History of Present Illness This is a 41-year-old male presents to ED via private vehicle with a complaint of 3 months of constant chest discomfort. He states he has had chest pain for more than a year but it has been constant for the last 3 months. He thinks that this constant discomfort is related to the loop recorder and states "I want someone to take it out." He has been to the hospital 6 times this year for chest discomfort. He was here yesterday as well as twice the day before. A consultation to Dr. Rivera occurred on June 07 and loop recorder was interrogated and did not detect any irregularities. States that the area around the loop recorder is area that is most tender but the chest discomfort is essentially across the entire chest. It is worse when he presses on the area or if he sits completely upright. Denies associated shortness breath, nausea, or diaphoresis. He has had multiple syncopal episodes and he states last time was 3 days ago. When asked what is different today than it has been over the last several months he states "I want the loop recorder out." Review of Systems General: Patient denies fevers, chills, and recent travel. HEENT: Patient denies headache, sore throat, difficulty swallowing. Cardiovascular: Has the chest discomfort as mentioned above. Denies sensation of heart beating rapidly or irregularly. No syncope today, states last syncopal episode was 3 days ago.. Respiratory: Denies shortness of breath or inspirational chest discomfort. Denies coughing wheezing or hemoptysis. GI: Patient denies nausea, vomiting, diarrhea, abdominal pain, bloody stools. Musculoskeletal: Patient denies joint pain or edema. Denies calf pain or edema. Neurovascular: Patient denies numbness, tingling, weakness in extremities. Denies headache. Endocrine: Denies polyuria and polydipsia. Hematologic: Denies easy bruising. Skin: Denies rash or itching. Past Family Social History Allergies: Coded Allergies: egg (Verified Allergy, Severe, 06/10/17) Past Medical History Hypertension. Tobacco abuse. Syncopal episodes. Denies hyperlipidemia, diabetes, and known CAD. Past Surgical History He has a loop recorder. Reported Medications Reported Meds & Active Scripts Active Amlodipine (Amlodipine Besylate) 10 Mg Tab 10 Mg PO DAILY Reported Multiple Vitamin 1 Tab 1 Tab PO DAILY Lisinopril 5 Mg Tab 5 Mg PO DAILY Aspirin Children's (Aspirin) 81 Mg Chew 81 Mg CHEW DAILY Family History Denies family history of CAD. Social History Smokes on average 3 cigarettes a day. Has done so for 10 years. He smokes marijuana 2-3 times a week. Denies other illicit drugs. Denies alcohol use. Physical Exam Vital Signs Vital Signs Date Time Temp Pulse Resp B/P (MAP) Pulse Ox O2 Delivery O2 Flow Rate FiO2 06/10/17 14:35 98.3 52 18 161/96 (117) 99 06/10/17 10:13 99 Room Air 06/10/17 09:55 97.6 70 16 169/104 (125) 99 Physical Exam GENERAL: This is a well-nourished, well-developed patient, in no apparent distress. Patient speaks in clear complete sentences. Patient is pleasant. HEENT: Head is atraumatic and normocephalic. Neck is supple without lymphadenopathy and trachea is midline. No JVD or carotid bruits. CARDIOVASCULAR: Regular rate and rhythm without murmurs, gallops, or rubs. RESPIRATORY: Clear to auscultation. Breath sounds equal bilaterally. No wheezes , rales, or rhonchi. Chest wall is tender more so at the site of the loop recorder. There is no erythema. No edema.. No use of accessory muscles. GASTROINTESTINAL: Abdomen is nontender, nondistended. Abdomen soft. No obvious pulsatile mass or bruit. No CVA tenderness. Strong femoral pulses bilaterally. Normal bowel sounds in all quadrants. MUSCULOSKELETAL: Patient is moving upper and lower extremities freely. No calf tenderness or edema, no Homans sign. Strong pulses in upper and lower extremities. NEUROLOGICAL: Patient is alert and oriented. Cranial nerves 2-12 are grossly intact. No focal deficits and speech is clear. SKIN: No rash and turgor is normal. Laboratory Laboratory Tests Test 06/10/17 10:45 06/10/17 11:24 Blood Urea Nitrogen 11 Creatinine 1.03 Random Glucose 85 Total Protein 8.4 Albumin 4.1 Calcium Level 8.9 Alkaline Phosphatase 64 Aspartate Amino Transf (AST/SGOT) 31 Alanine Aminotransferase (ALT/SGPT) 32 Total Bilirubin 0.3 Sodium Level 140 Potassium Level 3.6 Chloride Level 107 Carbon Dioxide Level 24.9 Anion Gap 8 Estimat Glomerular Filtration Rate 96 Troponin I LESS THAN 0.02 White Blood Count 4.6 Red Blood Count 4.37 Hemoglobin 13.5 Hematocrit 39.4 Mean Corpuscular Volume 90.2 Mean Corpuscular Hemoglobin 30.9 Mean Corpuscular Hemoglobin Concent 34.3 Red Cell Distribution Width 13.4 Platelet Count 139 Mean Platelet Volume 9.1 Neutrophils (%) (Auto) 57.5 Lymphocytes (%) (Auto) 31.6 Monocytes (%) (Auto) 9.6 Eosinophils (%) (Auto) 0.7 Basophils (%) (Auto) 0.6 Neutrophils # (Auto) 2.7 Lymphocytes # (Auto) 1.5 Monocytes # (Auto) 0.5 Eosinophils # (Auto) 0.0 Basophils # (Auto) 0.0 CBC Comment DIFF FINAL Differential Comment Prothrombin Time 11.4 Prothromb Time International Ratio 1.1 Activated Partial Thromboplast Time 26.4 Result Diagram: 06/10/17 1124 06/10/17 1045 Imaging Last 48 hours Impressions Chest X-Ray 06/10/17 1036 Signed Impressions: Service Date/Time: May 10:36 - CONCLUSION: No acute disease. Jak Dixon MD Course Initial EKG is sinus rhythm without significant ST segment depressions or elevations. Caprini VTE Risk Assessment Caprini VTE Risk Assessment: No/Low Risk (score <= 1) Caprini Risk Assessment Model Point Value = 1 Point Value = 2 Point Value = 3 Point Value = 5 Age 41-60 Minor surgery BMI > 25 kg/m2 Swollen legs Varicose veins or History of unexplained or recurrent spontaneous Oral contraceptives or hormone replacement Sepsis (< 1 month) Serious lung disease, including pneumonia (< 1 month) Abnormal pulmonary function Acute myocardial infarction Congestive heart failure (< 1 month) History of inflammatory bowel disease Medical patient at bed rest Age 61-74 Arthroscopic surgery Major open surgery (> 45 min) Laparoscopic surgery (> 45 min) Malignancy Confined to bed (> 72 hours) Immobilizing plaster cast Central venous access Age >= 75 History of VTE Family history of VTE Factor V Leiden Prothrombin [id number] Lupus anticoagulant Anticardiolipin antibodies Elevated serum homocysteine Heparin-induced thrombocytopenia Other congenital or acquired thrombophilia Stroke (< 1 month) Elective arthroplasty Hip, pelvis, or leg fracture Acute spinal cord injury (< 1 month) Prophylaxis Regimen Total Risk Factor Score Risk Level Prophylaxis Regimen 0-1 Low Early ambulation 2 Moderate Order ONE of the following: *Sequential Compression Device (SCD) *Heparin 5000 units SQ BID 3-4 Higher Order ONE of the following medications: *Heparin 5000 units SQ TID *Enoxaparin/Lovenox 40 mg SQ daily (WT < 150 kg, CrCl > 30 mL/min) *Enoxaparin/Lovenox 30 mg SQ daily (WT < 150 kg, CrCl > 10-29 mL/min) *Enoxaparin/Lovenox 30 mg SQ BID (WT < 150 kg, CrCl > 30 mL/min) AND/OR *Sequential Compression Device (SCD) 5 or more Highest Order ONE of the following medications: *Heparin 5000 units SQ TID (Preferred with Epidurals) *Enoxaparin/Lovenox 40 mg SQ daily (WT < 150 kg, CrCl > 30 mL/min) *Enoxaparin/Lovenox 30 mg SQ daily (WT < 150 kg, CrCl > 10-29 mL/min) *Enoxaparin/Lovenox 30 mg SQ BID (WT < 150 kg, CrCl > 30 mL/min) AND *Sequential Compression Device (SCD) Assessment and Plan Assessment and Plan * Chest pain: His symptoms are atypical. He states that constant chest discomfort 3 months that is worsened during examination when palpating the area. First EKG and cardiac enzymes normal. Patient had a nonischemic ETT 12/02. Patient to be seen by Dr. Hernandez of cardiology in the chest pain center. He has been seen for chest discomfort and syncopal episodes multiple times recently. He follows Dr. Rivera of cardiology. Further plan is pending conversation with Dr. Rivera. * Hypertension: Patient forgot to take his medications morning. This will be provided. * Tobacco abuse: Patient has been counseled on the importance of smoking cessation. Patient is stable at this time. He is agreeable to this plan. I spoke with Dr. Rivera. He is not taking out the loop recorder. States the patient can go home at this time. Patient does not need any further testing. He will see him in the office in 2-3 weeks. This is explained to the patient. He is agreeable. Alexis Cardona Jun 10, 2017 15:33
[2017-06-10] MEDS ORDERED: ACETAMINOPHEN/HYDROcodone 325 MG/7.5 MG TAB PO PRN (15:45)
[2017-06-10] MEDS ORDERED: ACETAMINOPHEN 500 MG CPLT PO PRN (15:45)
[2017-06-10] MEDS ORDERED: ONDANSETRON HCL 4 MG/2 ML VIAL IV PUSH PRN (15:45)
[2017-06-10] MEDS ORDERED: PANTOPRAZOLE SOD 40 MG DELAYED RELEASE TAB PO SCH (15:45)
[2017-06-10] MEDS ORDERED: LISINOPRIL 5 MG TAB PO SCH (16:00)
--- NOTE | 2017-06-10 16:03 | HHI.DCPOC ---
Discharge Care Plan Diagnosis: (1) Chest pain (2) HTN (hypertension) (3) Tobacco abuse Goals to Promote Your Health * To prevent worsening of your condition and complications * To maintain your health at the optimal level Directions to Meet Your Goals Take your medications as prescribed Follow your dietary instruction Follow activity as directed Keep your appointments as scheduled Take your immunizations and boosters as scheduled If your symptoms worsen call your PCP, if no PCP go to Urgent Care Center or Emergency Room Smoking is Dangerous to Your Health. Avoid second hand smoke Call the 24-hour hour crisis hotline for domestic abuse at Alexis Cardona Jun 10, 2017 16:03
--- NOTE | 2017-06-10 17:10 | PD.CARD.PN ---
Subjective Subjective Remarks The patient was reviewed with PA in the medical records were reviewed. I personally saw and examined the patient and am in agreement with documentation He has a protracted history of syncopal episodes that resulted in placement of a loop recorder to verify or exclude cardiac etiology. The loop is been in place since about November and he is adamant about wanting it removed. This was discussed with Dr. Harding who wishes to see him in outpatient follow-up in his office. I took time to personally explain, again, the need for loop recorder the purpose of a loop recorder and the ultimate impact on his long- term care and safety. We also discussed further outpatient evaluation should the loop recorder prove to be unremarkable. He does have high blood pressure but states that he is taking his medication and does check his pressure regularly. I believe he understands the importance of working with Dr. Harding and abiding by the decision-making that he and Dr. Harding come to. He also understands that simply returning to the emergency room repeatedly is not accomplishing much in terms of his evaluation or care. He is strongly encouraged to establish either with [facility] or possibly the [facility]. Objective Medications Current Medications Medications (Trade) Dose Ordered Sig/Pato Route Start Time Stop Time Status Last Admin (Tylenol) 500 mg Q4H PRN PO 06/10/17 15:45 ([place] 7.5-325 Mg) 1 tab Q4H PRN PO 06/10/17 15:45 (Zofran Inj) 4 mg Q6H PRN IV PUSH 06/10/17 15:45 (Protonix) 40 mg DAILY PO 06/10/17 15:45 (Aspirin) 325 mg DAILY PO 06/11/17 09:00 (Norvasc) 10 mg DAILY PO 06/10/17 16:00 (Prinivil) 5 mg DAILY PO 06/10/17 16:00 Vital Signs / I&O Vital Signs Date Time Temp Pulse Resp B/P (MAP) Pulse Ox O2 Delivery O2 Flow Rate FiO2 06/10/17 16:24 21 06/10/17 14:35 98.3 52 18 161/96 (117) 99 06/10/17 10:13 99 Room Air 06/10/17 09:55 97.6 70 16 169/104 (125) 99 Physical Exam Well-nourished well-developed pleasantly cooperative black male who is in no acute distress Chest is clear to auscultation with good breath sounds no rales wheezes or rhonchi Loop recorder appears stable There is a regular sinus rhythm without gallop rub or murmur Laboratory Laboratory Tests Test 06/10/17 10:45 06/10/17 11:24 Blood Urea Nitrogen 11 MG/DL Creatinine 1.03 MG/DL Random Glucose 85 MG/DL Total Protein 8.4 GM/DL Albumin 4.1 GM/DL Calcium Level 8.9 MG/DL Alkaline Phosphatase 64 U/L Aspartate Amino Transf (AST/SGOT) 31 U/L Alanine Aminotransferase (ALT/SGPT) 32 U/L Total Bilirubin 0.3 MG/DL Sodium Level 140 MEQ/L Potassium Level 3.6 MEQ/L Chloride Level 107 MEQ/L Carbon Dioxide Level 24.9 MEQ/L Anion Gap 8 MEQ/L Estimat Glomerular Filtration Rate 96 ML/MIN Troponin I LESS THAN 0.02 NG/ML White Blood Count 4.6 TH/MM3 Red Blood Count 4.37 MIL/MM3 Hemoglobin 13.5 GM/DL Hematocrit 39.4 % Mean Corpuscular Volume 90.2 FL Mean Corpuscular Hemoglobin 30.9 PG Mean Corpuscular Hemoglobin Concent 34.3 % Red Cell Distribution Width 13.4 % Platelet Count 139 TH/MM3 Mean Platelet Volume 9.1 FL Neutrophils (%) (Auto) 57.5 % Lymphocytes (%) (Auto) 31.6 % Monocytes (%) (Auto) 9.6 % Eosinophils (%) (Auto) 0.7 % Basophils (%) (Auto) 0.6 % Neutrophils # (Auto) 2.7 TH/MM3 Lymphocytes # (Auto) 1.5 TH/MM3 Monocytes # (Auto) 0.5 TH/MM3 Eosinophils # (Auto) 0.0 TH/MM3 Basophils # (Auto) 0.0 TH/MM3 CBC Comment DIFF FINAL Differential Comment Prothrombin Time 11.4 SEC Prothromb Time International Ratio 1.1 RATIO Activated Partial Thromboplast Time 26.4 SEC Imaging Last 24 hours Impressions Chest X-Ray 06/10/17 1036 Signed Impressions: Service Date/Time: May 10:36 - CONCLUSION: No acute disease. Jak Dixon MD Assessment and Plan Assessment and Plan Discharge to follow-up with Dr. Sayed as scheduled and also attempt to establish outpatient follow-up with either [facility] or the [facility] or a physician of his choice Discussed Condition With This was discussed with the patient at some length Hood Hernandez MD Jun 10, 2017 17:10
[2017-06-11] MEDS ORDERED: ASPIRIN 325 MG TAB PO SCH (09:00)
== END 2017-06-10 18:45 | disposition home or self-care (01) ==
LOC: NEPC 09:52 → NEDA 13:47 → NEPGCP 14:20
PROVIDERS: ADMIT Internal Medicine Interventional Cardiology; ATTEND Internal Medicine Interventional Cardiology
DX: R07.89 Other chest pain (principal); R55 Syncope and collapse; I10 Essential (primary) hypertension; F17.210 Nicotine dependence, cigarettes, uncomplicated; Z79.899 Other long term (current) drug therapy; Z79.82 Long term (current) use of aspirin; Z86.73 Personal history of transient ischemic attack (TIA), and cerebral infarction without residual deficits
CPT/HCPCS: 71045; 80053; 84484; 85025; 85610; 85730; 93005; 99285; G0378

== ENCOUNTER 2017-09-19 03:39 | Observation (INO) ==
[2017-09-19] MEDS ORDERED: Morphine Inj 4 MG/ML Vial IV.PUSH ONE (04:48)
[2017-09-19] MEDS ORDERED: Sodium Chlor 0.9% Inj 500 ML IV.SIG ONE (04:48)
--- NOTE | 2017-09-19 04:54 | ED ---
HPI General Chief Complaint: Chest Pain Stated Complaint: Chest / abd pain Time Seen by Provider: 09/19/17 04:48 Source: patient Mode of arrival: ambulatory Limitations: no limitations History of Present Illness HPI narrative: 41-year-old male patient with history of hypertension, syncopal episodes currently being evaluated by cardiology with a loop recorder, presents to the ER today because of 1 day history of substernal chest pains which she states are sharp and 10 out of 10. He also complains of a right lower quadrant abdominal pain also a 10 out of 10 that started yesterday. He has noticed blood in his urine yesterday as well. He has been nauseous, vomited one time. He denies any diarrhea, fevers, shortness of breath, or any other symptoms. He denies any previous history of chest pains and abdominal pains. Complete Quality Measures for STEMI Alert Patients Related Data Home Medications Medication Instructions Recorded Confirmed Aspir-81 81 mg PO DAILY 09/19/17 09/19/17 lisinopril 10 mg PO DAILY 09/19/17 09/19/17 Allergies Allergy/AdvReac Type Severity Reaction Status Date / Time egg Allergy Severe Verified 06/10/17 00:09 Review of Systems ROS Unobtainable All other systems reviewed negative except as stated in HPI [facility] Medical History Medical History Chronic neck and back pain (Acute) Hypertension (Acute) Syncope (Acute) Surgical History Surgical History History of loop recorder (Acute) Social History Social History Smoking Status: Current every day smoker Tobacco Type: Cigarettes How Often Do You Have a Drink Containing Alcohol: Never Recent Travel in [place] within the Last 8 Weeks: No Recent Out of Country Travel within the Last 8 Weeks: No Exam Narrative Exam Narrative: GENERAL: Well-developed middle-age -[place] male patient currently in mild distress. Awake and oriented x3. SKIN: Focused skin assessment warm/dry. HEAD: Atraumatic. Normocephalic. EYES: Pupils equal and round. No scleral icterus. No injection or drainage. ENT: No nasal bleeding or discharge. Mucous membranes pink and moist. NECK: Trachea midline. No JVD. CARDIOVASCULAR: Regular rate and rhythm. No murmur appreciated. RESPIRATORY: No accessory muscle use. Clear to auscultation. Breath sounds equal bilaterally. GASTROINTESTINAL: Abdomen soft, mild right lower quadrant tenderness without guarding or rebound, nondistended. Hepatic and splenic margins not palpable. MUSCULOSKELETAL: No obvious deformities. No clubbing. No cyanosis. No edema. NEUROLOGICAL: Awake and alert. No obvious cranial nerve deficits. Motor grossly within normal limits. Normal speech. PSYCHIATRIC: Appropriate mood and affect; insight and judgment normal. Course Hospital Course: Initial EKG shows sinus bradycardia with no signs of acute ST elevations or depressions. Patient was given morphine for pain, IV fluids, and lab and chest x-ray and CAT scans were ordered for the patient. Lab work was unremarkable except for mildly elevated lipase, CAT scan was ordered for further evaluation and did not show any signs of acute intra- abdominal process. There is no signs of significant pancreatitis. Cardiac enzymes were negative. At this point, my plan would be to admit the patient for further evaluation of chest pain in the chest pain center. Initial Documented Vital Signs Temperature 98.9 F 09/19/17 03:47 Pulse Rate 73 09/19/17 03:47 Respiratory Rate 15 09/19/17 03:47 Blood Pressure 175/100 H 09/19/17 03:47 Pulse Oximetry 99 09/19/17 03:47 Last Documented Vital Signs Temperature 98.9 F 09/19/17 03:47 Pulse Rate 56 L 09/19/17 05:07 Respiratory Rate 16 09/19/17 05:27 Blood Pressure 155/102 H 09/19/17 05:07 Pulse Oximetry 100 09/19/17 05:07 Medical Decision Making Lab Data Result diagrams: 09/19/17 06:40 09/19/17 05:05 Lab Results 09/19/17 09/19/17 09/19/17 Range/Units 05:05 05:05 05:05 PT 11.3 (9.8-11.6) sec INR 1.1 Ratio APTT 26.4 (24.3-30.1) sec Sodium 143 (136-145) meq/L Potassium 3.5 (3.5-5.1) meq/L Chloride 106 (98-107) meq/L Carbon Dioxide 26.7 (21.0-32.0) meq/L Anion Gap 10 (5-15) meq/L BUN 9 (7-18) mg/dL Creatinine 0.98 (0.60-1.30) mg/dL Estimated GFR Greater than 89 (>89) mL/min Random Glucose 84 (74-106) mg/dL Calcium 8.5 (8.5-10.1) mg/dL Magnesium 2.5 (1.5-2.5) mg/dL Total Bilirubin 0.3 (0.2-1.0) mg/dL AST 17 (15-37) U/L ALT 29 (12-78) U/L Alkaline Phosphatase 60 (45-117) U/L Troponin I Less than 0.02 L (0.02-0.05) ng/mL Total Protein 8.0 (6.4-8.2) g/dL Albumin 4.2 (3.4-5.0) g/dL Lipase 539 H (73-393) U/L Urine Color Straw (Yellw/Straw) Urine Clarity Clear (Clear) Urine pH 7.0 (5.0-8.5) Ur Specific [place] 1.006 (1.002-1.035) Urine Protein Negative (Neg-Trace) mg/dL Urine Glucose (UA) Negative (Negative) mg/dL Urine Ketones Negative (Negative) mg/dL Urine Occult Blood Negative (Negative) Urine Nitrate Negative (Negative) Urine Bilirubin Negative (Negative) Urine Urobilinogen Less than 2 (Less than 2) mg/dL Ur Leukocyte Esterase Negative (Negative) Urine RBC Less than 1 (0-3) /hpf Urine WBC Less than 1 (0-5) /hpf Ur Squamous Epith Cells <1 (0-5) /hpf Micro UA Comment Culture not ind Urine Culture Comments Culture not ind Imaging Data Radiologist's impression: ITS Impressions Chest X-Ray 09/19/17 04:48 CONCLUSION: No active disease. Mildly tortuous aorta. Loop recorder unchanged. Abdomen/Pelvis CT 09/19/17 04:49 CONCLUSION: 1. No acute findings on abdomen and pelvic CT. Discharge Plan Discharge Disposition Patient Disposition: 30 Still Patient Discharge Details Discharge Problem: Chest pain Physicians Team ED Provider: Lito Vasquez Primary Care Provider: Primary Care VamshiiVivien Rxs /Orders / Referrals /Forms Prescriptions: No Action lisinopril 10 mg PO DAILY RF: 0 Aspir-81 81 mg PO DAILY RF: 0 Discharge Instructions Patient Printed Instructions: Chest Pain (ED) Status ED Status: With Doctor
--- NOTE | 2017-09-19 05:20 | XR ---
EXAM DATE: 09/19/2017 5:11 AM EDT AGE/SEX: 41 years / Male INDICATIONS: Chest pain, shortness of breath. CLINICAL DATA: This is the patient's initial encounter. Patient reports that signs and symptoms have been present for 2 days and indicates a pain score of 10/10. MEDICAL/SURGICAL HISTORY: Hypertension. Smoker. . Loop recorder. [place] [facility] [place]. . FINDINGS: A single AP view of the chest demonstrates the lungs to be symmetrically aerated without evidence of mass, infiltrate or effusion. The cardiomediastinal contours are unremarkable. Osseous structures a re intact. CONCLUSION: No active disease. Mildly tortuous aorta. Loop recorder unchanged. Electronically signed by: Christopher Bhatt MD 09/19/2017 5:19 AM EDT
[2017-09-19 05:51] LABS: Bilirubin,Urine Negative (Negative); Clarity,Urine Clear (Clear); Color,Urine Straw (Yellw/Straw); Glucose,Urine (UA) Negative (Negative); Leukocyte Esterase,Urine Negative (Negative); Nitrite,Urine Negative (Negative); Specific Gravity,Urine 1.006 (1.002-1.035); Squamous Epithelial Cell,Urine <1 /hpf (0-5)
[2017-09-19 06:03] LABS: Activated Partial Thrombo Time 26.4 sec (24.3-30.1); INR 1.1 Ratio; Prothrombin Time 11.3 sec (9.8-11.6)
[2017-09-19 06:04] LABS: Alanine Aminotransferase 29 U/L (12-78); Albumin 4.2 g/dL (3.4-5.0); Anion Gap 10 meq/L (5-15); Aspartate Aminotransferase 17 U/L (15-37); Blood Urea Nitrogen 9 mg/dL (7-18); Calcium 8.5 mg/dL (8.5-10.1); Carbon Dioxide 26.7 meq/L (21.0-32.0); Chloride 106 meq/L (98-107); Glomerular Filtration Rate Greater Than 89 mL/min (>89); Glucose,Random 84 mg/dL (74-106); Lipase 539 U/L (73-393); Magnesium 2.5 mg/dL (1.5-2.5); Potassium 3.5 meq/L (3.5-5.1); Sodium 143 meq/L (136-145)
[2017-09-19 06:09] LABS: Alkaline Phosphatase 60 U/L (45-117)
[2017-09-19] MEDS ORDERED: Metoclopramide Inj 10 MG in Sodium Chlor 0.9% Inj 50 ML IV.SIG ONE (06:43)
[2017-09-19 07:10] LABS: Baso % (Auto) 1.1 % (0.0-2.0); Eos % (Auto) 1.1 % (0.0-4.0); Hematocrit 38.8 % (39.0-51.0); Lymph # (Auto) 1.9 th/mm3 (1.0-4.8); Lymph % (Auto) 45.6 % (9.0-44.0); Mean Corpuscular HGB Conc 33.4 % (32.0-36.0); Mean Corpuscular Hemoglobin 29.9 pg (27.0-34.0); Mean Corpuscular Volume 89.5 fL (80.0-100.0); Mean Platelet Volume 9.2 fL (7.0-11.0); Mono # (Auto) 0.3 th/mm3 (0.0-0.9); Mono % (Auto) 7.8 % (0.0-8.0); Neut # (Auto) 1.8 th/mm3 (1.8-7.7); Neut % (Auto) 44.4 % (16.0-70.0); Red Blood Count 4.34 mil/mm3 (4.50-5.90); Red Cell Distribution Width 14.5 % (11.6-17.2); White Blood Count 4.1 th/mm3 (4.0-11.0)
[2017-09-19 07:31] LABS: Platelet Count 152 th/mm3 (150-450)
[2017-09-19 07:32] LABS: Platelet Estimate Normal (Normal)
[2017-09-19] MEDS ORDERED: Ibuprofen 600 MG Tablet PO ONE (08:00)
[2017-09-19] MEDS ORDERED: Acetaminophen 500 MG Tablet PO PRN (08:59)
[2017-09-19] MEDS ORDERED: Aspirin 325 MG Tablet PO SCH (09:00)
--- NOTE | 2017-09-19 09:52 | P.PNCA ---
Subjective Interval history: 41-year-old black male was seen and evaluated by the nurse practitioner and myself in concert. He has a long and extensive history of emergency room visits and has been very thoroughly evaluated in the recent past for ischemic heart disease. He is followed by Dr. Harding for his reported syncopal episodes has had an EP study has a loop recorder in which has apparently shown no evidence of cardiovascular etiology for his syncope. He presents again today with complaints of left lower chest pain exactly the same as he presented a few weeks to months ago with his description is the same basically intermittent chest pain that has been going on for years in the left lower ribs which he views as being very severe. The only difference in his visit today is that he is now complaining of some abdominal pain that started yesterday along with some nausea and possibly a fever and some sweating. He had no vomiting diarrhea or other GI symptoms in essence his problem is that he used to be followed by Dr. John but since she has left he has no primary care physician in the community and he seems to have continuing ongoing anxiety about general problems. Physical Exam Vital signs: Vital Signs 09/19/17 03:47 09/19/17 04:52 09/19/17 05:06 Temperature 98.9 F Pulse Rate 73 55 L Respiratory Rate 15 Blood Pressure 175/100 H Pulse Oximetry 99 99 09/19/17 05:07 09/19/17 05:27 09/19/17 07:33 Temperature Pulse Rate 56 L 56 L Respiratory Rate 16 16 17 Blood Pressure 155/102 H 142/88 H Pulse Oximetry 100 98 Intake & Output 09/18/17 09/19/17 09/19/17 18:59 06:59 18:59 Weight 86.183 kg Narrative: Patient is a somewhat thin black male in no distress although he complains of abdominal pain. Head normocephalic atraumatic Eyes PERRLA EOMI Mouth mucous membranes moist and well papillated no lesions Neck supple no JVD masses nodes or bruits Chest clear to auscultation with no rales wheezes or rhonchi. There is a loop recorder in the left mid chest he has quite tender in the area of the recorder in the left lower rib cage Cardiovascular regular sinus rhythm with no gallops rubs or murmurs Abdomen is somewhat tender in the mid epigastrium and slightly to the right lower quadrant. Bowel sounds are normal there is no guarding or rebound no referred pain and no hepatosplenomegaly. Extremities no clubbing cyanosis or edema and good pulses Assessment and Plan - Plan This patient has been extensively evaluated on repeated occasions. He has no evidence of ischemic heart disease as a cause of his chest pain in his presentation is consistent with chest wall pain rather than ischemic pain. He clearly wants his loop recorder out but apparently Dr. Harding is been hesitant to remove it. His abdominal pain is relatively new complaint although he has some mild elevation of his lipase he has no other findings to suggest significant problem. He has had a CT of the abdomen which was reviewed carefully. His complaints of blood in the urine were not verified on urinalysis. This was all reviewed with the patient carefully explained to him. It was also explained that he needs to establish with community physician so that he has ongoing care and management of his multiple complaints. He was also instructed to contact Dr. Harding's office this coming week and simply request that Dr. Harding remove the loop recorder. The desire to get this removed may have been his main impetus of presenting to the emergency room today Discussed Condition With: This was carefully discussed with the patient with instructions to establish with a primary care physician and follow-up with Dr. Harding for removal of the loop recorder
--- NOTE | 2017-09-19 10:03 | P.HPCA ---
History of Present Illness Primary Care Physician: No Primary Care Physician Chief Complaint: chest pain, abdominal paiin History of Present Illness: 41 y.o. AA male who presented to the emergency room with complaints of chest pain throbbing, sharp and constant for hours since awakening yesterday am. Describes location along rib area mid to lower anterior chest and extending laterally along ribs. No associated dyspnea, N/V. He did have a wave of nausea yesterday am but did not vomit. Also had one episode of diaphoresis yesterday am , took a shower and none since. No documented fever. States he has has this type of chest pain on and off since having his loop recorder placed. (Records in EHR show EP study 12/16/16 which was negative findings then Loop recorder placed by Dr. Rivera). Separately from this he c/o abdominal pain right side and 1 episode of hematuria yesterday. NO back pain. No blood since. One episode of nausea, no diarrhea or fevers. - Diagnosis (1) Chest pain, atypical (2) Abdominal pain - Inpatient Certification If this patient has been admitted as an Inpatient: I certify that the inpatient services were ordered in accordance with Medicare regulations governing the order. This includes certification that hospital inpatient services are reasonable and necessary and in the case of services not specified as inpatient-only under 42 CFR 419.22(n), that they are appropriately provided as inpatient services in accordance to with the 2-midnight benchmark under 43 CFR 412.3(e) Review of Systems All other systems reviewed negative except as stated in HPI PMFSH - History History Provided By: Patient - Medical History Medical History: Medical History (Last Updated 09/19/17 @ 10:05 by CHEYENNE Reece) Chronic neck and back pain Hypertension Pilonidal cyst Syncope - Surgical History Surgical History: Surgical History (Last Reviewed 09/19/17 @ 04:53 by Lito Vasquez MD) History of loop recorder - Family History Family History: Family History (Last Updated 09/19/17 @ 10:06 by CHEYENNE Reece) Father Family history of hypertension - Tobacco History Tobacco Use In Past 30 Days: Yes Smoking Status: Current every day smoker (2-3 cigarettes daily) Tobacco Type: Cigarettes - Alcohol History How Often Do You Have a Drink Containing Alcohol: Never - Substance Use Type Marijuana Status: Active Route Used: Inhalation Reason for Use: Calm Down - Travel History Recent Travel in the [place] Within the Last 8 Weeks: No Recent Travel Out of the Country Within the Last 8 Weeks: No - Immunization History Tetanus Immunization: >5 Years Hx Influenza Vaccine This Season: No Medications and Allergies Active Medications: Active Medications Acetaminophen (Tylenol) 500 mg PO Q4H PRN PRN Reason: HEADACHE Aspirin (Aspirin) 325 mg PO DAILY LISSETH Nitroglycerin (Nitrostat Sl) 0.4 mg SL Q5M PRN PRN Reason: CHEST PAIN Sodium Chloride (Ns Flush) 2 ml IV.FLUSH UNSCH PRN PRN Reason: FLUSH AFTER USING IV ACCESS Last Admin: 09/19/17 05:02 Dose: 2 ml Sodium Chloride (Ns Flush) 2 ml IV.FLUSH BID LISSETH Sodium Chloride (Ns Flush) 2 ml IV.FLUSH PRN PRN PRN Reason: FLUSH AFTER USING IV ACCESS Allergies Allergy/AdvReac Type Severity Reaction Status Date / Time egg Allergy Severe Verified 06/10/17 00:09 Home Medications Medication Instructions Recorded Confirmed Type Aspir-81 81 mg PO DAILY 09/19/17 09/19/17 History lisinopril 10 mg PO DAILY 09/19/17 09/19/17 History Exam Vital signs: 2 Vital Signs 09/19/17 03:47 09/19/17 04:52 09/19/17 05:06 Temperature 98.9 F Pulse Rate 73 55 L Respiratory Rate 15 Blood Pressure 175/100 H Pulse Oximetry 99 99 09/19/17 05:07 09/19/17 05:27 09/19/17 07:33 Temperature Pulse Rate 56 L 56 L Respiratory Rate 16 16 17 Blood Pressure 155/102 H 142/88 H Pulse Oximetry 100 98 Intake & Output 09/18/17 09/19/17 09/19/17 18:59 06:59 18:59 Weight 86.183 kg - Constitutional no acute distress Comments: Lying quietly on stretcher, seen initially in Pod E - Routine HEENT Exam Head: Present: normocephalic, atraumatic Eye: Present: EOMI, PERRL, normal accommodation ENT: Present: mucous membranes moist - Routine Neck Exam Present: supple, trachea midline - Routine Chest/Breast/Axilla Exam Chest wall: Present: tenderness - Routine Respiratory Exam Present: CTA bilaterally - Routine Cardiovascular Exam Present: RRR, S1, S2 Comments: No JVD, Carotid bruits. No S3, S4, rub, gallop or murmur - Routine Abdominal Exam Present: soft, normoactive bowel sounds, tenderness Comments: RUQ and RLQ tenderness on exam. NO HSM. NO LUQ tenderness. No guarding, rigidity or rebound tenderness. - Routine Extremities Exam Present: full ROM, pulses intact - Routine Skin Exam Present: intact, dry - Routine Neurological Exam Present: alert, oriented X3, CN II-XII intact, normal speech - Routine Psychiatric Exam Present: normal affect Results 09/19/17 06:40 09/19/17 05:05 Cardiac Enzymes 09/19/17 Range/Units 05:05 AST 17 (15-37) U/L Troponin I Less than 0.02 L (0.02-0.05) ng/mL Coagulation 09/19/17 Range/Units 05:05 PT 11.3 (9.8-11.6) sec APTT 26.4 (24.3-30.1) sec CBC 09/19/17 Range/Units 06:40 WBC 4.1 (4.0-11.0) th/mm3 RBC 4.34 L (4.50-5.90) mil/mm3 Hgb 13.0 (13.0-17.0) gm/dL Hct 38.8 L (39.0-51.0) % Plt Count 152 (150-450) th/mm3 Neut # (Auto) 1.8 (1.8-7.7) th/mm3 Lymph # (Auto) 1.9 (1.0-4.8) th/mm3 [place] # (Auto) 0.3 (0.0-0.9) th/mm3 Eos # (Auto) 0.0 (0.0-0.4) th/mm3 Baso # (Auto) 0.0 (0.0-0.2) th/mm3 Comprehensive Metabolic Panel 09/19/17 Range/Units 05:05 Sodium 143 (136-145) meq/L Potassium 3.5 (3.5-5.1) meq/L Chloride 106 (98-107) meq/L Carbon Dioxide 26.7 (21.0-32.0) meq/L BUN 9 (7-18) mg/dL Creatinine 0.98 (0.60-1.30) mg/dL Calcium 8.5 (8.5-10.1) mg/dL AST 17 (15-37) U/L ALT 29 (12-78) U/L Alkaline Phosphatase 60 (45-117) U/L Total Protein 8.0 (6.4-8.2) g/dL Albumin 4.2 (3.4-5.0) g/dL Intake and Output 09/18/17 09/19/17 09/19/17 22:59 06:59 14:59 Other: Weight 86.183 kg EKG interpretations - EKG EKG results cardiology: interpreted by WAQAR Ramachandran VTE Risk Assessment Duarte VTE Risk Assessment: No/Low Risk (score <= 1) Duarte Risk Assessment Model: Point Value = 1 Point Value = 2 Point Value = 3 Point Value = 5 Age 41-60 Minor surgery BMI > 25 kg/m2 Swollen legs Varicose veins or History of unexplained or recurrent spontaneous Oral contraceptives or hormone replacement Sepsis (< 1 month) Serious lung disease, including pneumonia (< 1 month) Abnormal pulmonary function Acute myocardial infarction Congestive heart failure (< 1 month) History of inflammatory bowel disease Medical patient at bed rest Age 61-74 Arthroscopic surgery Major open surgery (> 45 min) Laparoscopic surgery (> 45 min) Malignancy Confined to bed (> 72 hours) Immobilizing plaster cast Central venous access Age >= 75 History of VTE Family history of VTE Factor V Leiden Prothrombin [id number] Lupus anticoagulant Anticardiolipin antibodies Elevated serum homocysteine Heparin-induced thrombocytopenia Other congenital or acquired thrombophilia Stroke (< 1 month) Elective arthroplasty Hip, pelvis, or leg fracture Acute spinal cord injury (< 1 month) Prophylaxis Regimen: Total Risk Factor Score Risk Level Prophylaxis Regimen 0-1 Low Early ambulation 2 Moderate Order ONE of the following: *Sequential Compression Device (SCD) *Heparin 5000 units SQ BID 3-4 Higher Order ONE of the following medications: *Heparin 5000 units SQ TID *Enoxaparin/Lovenox 40 mg SQ daily (WT < 150 kg, CrCl > 30 mL/min) *Enoxaparin/Lovenox 30 mg SQ daily (WT < 150 kg, CrCl > 10-29 mL/min) *Enoxaparin/Lovenox 30 mg SQ BID (WT < 150 kg, CrCl > 30 mL/min) AND/OR *Sequential Compression Device (SCD) 5 or more Highest Order ONE of the following medications: *Heparin 5000 units SQ TID (Preferred with Epidurals) *Enoxaparin/Lovenox 40 mg SQ daily (WT < 150 kg, CrCl > 30 mL/min) *Enoxaparin/Lovenox 30 mg SQ daily (WT < 150 kg, CrCl > 10-29 mL/min) *Enoxaparin/Lovenox 30 mg SQ BID (WT < 150 kg, CrCl > 30 mL/min) AND *Sequential Compression Device (SCD) Assessment and Plan - Assessment (1) Chest pain, atypical Code(s): R07.89 - Other chest pain Status: Chronic Plan: Chest wall pain similar to pain he has had in the past chronically. Troponin negative. Can use OTC pain relievers as directed for pain. Should f/u with Dr. Rivera regarding his Loop recorder. (2) Abdominal pain Code(s): R10.9 - Unspecified abdominal pain Status: Ruled-out Plan: Patient has CT abd/pelvis which is negative for acute findings. CBC no left shift. No fevers. Mildly elevated lipase with normal appearing pancreas on CT imaging and no tenderness on LUQ/mid epigastric area. Patient will be discharged and recommended to hydrate adequately. F/U with PCP of choice. - Plan This patient has been extensively evaluated on repeated occasions. He has no evidence of ischemic heart disease as a cause of his chest pain in his presentation is consistent with chest wall pain rather than ischemic pain. He clearly wants his loop recorder out but apparently Dr. Harding is been hesitant to remove it. His abdominal pain is relatively new complaint although he has some mild elevation of his lipase he has no other findings to suggest significant problem. He has had a CT of the abdomen which was reviewed carefully. His complaints of blood in the urine were not verified on urinalysis. This was all reviewed with the patient carefully explained to him. It was also explained that he needs to establish with community physician so that he has ongoing care and management of his multiple complaints. He was also instructed to contact Dr. Harding's office this coming week and simply request that Dr. Harding remove the loop recorder. The desire to get this removed may have been his main impetus of presenting to the emergency room today Code Status: Full Code Discussed Condition With: Dr. Hernandez saw patient with myself. Discharge Planning: Patient will be discharged from the ER. Chest pain is chronic. Abdominal pain workup is negative. Recommended to f/u with Dr. Rivera. (2) Abdominal pain Qualifiers: Abdominal location: right lower quadrant Qualified Code(s): R10.31 - Right lower quadrant pain
--- NOTE | 2017-09-20 00:07 | ECG ---
Date Performed: 09/19/2017 Time Performed: 08:16:20 PTAGE: 41 years EKG: SINUS BRADYCARDIA BORDERLINE ECG PREVIOUS TRACING : 09/19/2017 04.56 Since the previous tracing, no significant change noted DOCTOR: Wyatt Higgins Interpretating Date/Time 09/20/2017 00:05:55
--- NOTE | 2017-09-20 00:09 | ECG ---
Date Performed: 09/19/2017 Time Performed: 04:56:11 PTAGE: 41 years EKG: SINUS BRADYCARDIA MINIMAL VOLTAGE CRITERIA FOR LVH, CONSIDER NORMAL VARIANT BORDERLINE ECG INTERPRETATION BASED ON A DEFAULT AGE OF 40 YEARS PREVIOUS TRACING : 06/10/2017 10.08 Since the previous tracing, no significant change not ed DOCTOR: Wyatt Higgins Interpretating Date/Time 09/20/2017 00:09:15
== END 2017-09-19 10:40 | disposition home or self-care (01) ==
LOC: UNDODISOB → NEDA 03:39 → NEPE 03:39 → NEDA 10:21
PROVIDERS: ADMIT Internal Medicine Interventional Cardiology; ATTEND Internal Medicine Interventional Cardiology

== ENCOUNTER 2017-09-22 11:04 | Observation (INO) ==
[2017-09-22] MEDS ORDERED: Lisinopril 10 MG Tablet PO ONE (11:27)
--- NOTE | 2017-09-22 11:57 | ED ---
HPI General Chief Complaint: Dizziness Stated Complaint: cardiac/vertigo Time Seen by Provider: 09/22/17 11:15 History of Present Illness HPI Narrative: Patient was just discharged from the pot this morning secondary to dizziness and syncope. Dates that he went to [facility] to get his medication and he felt dizzy. States that he has recurrent syncopal episodes for which he is wearing a loop recorder. Last night he reports that he did pass out but he did not hit his head, and was out for approximately 4-5 minutes. He did not take his blood pressure medication today. Reports bilateral headache radiating down to his back, similar pain in the past, he does have a history of migraines. Feels like a migraine except that he goes to his neck and his back. He is also reporting left-sided chest pain that radiates to mid back and right lower back. He denies recent travel, lower extremity edema, abdominal pain, cough, fever, chills, dysuria, hematuria, but reports shortness of breath with sitting up. Also reporting vomiting 1 and right flank pain. Patient was given an aspirin 324 mg p.o. and nitroglycerin to his chest wall in the ER earlier today. Related Data Home Medications Medication Instructions Recorded Confirmed Aspir-81 81 mg PO DAILY 09/19/17 09/22/17 lisinopril 10 mg PO DAILY 09/19/17 09/22/17 multivitamin 1 tab PO DAILY 09/22/17 09/22/17 Allergies Allergy/AdvReac Type Severity Reaction Status Date / Time egg Allergy Severe Verified 06/10/17 00:09 Review of Systems ROS Unobtainable All other systems reviewed negative except as stated in HPI [facility] Social History Social History Substance History: Active Abuse Second Hand Smoke Exposure: Yes Smoking Status: Current every day smoker Tobacco Type: Cigarettes How Often Do You Have a Drink Containing Alcohol: Never Recent Travel in [place] within the Last 8 Weeks: No Recent Out of Country Travel within the Last 8 Weeks: No Substance Abuse Detail Marijuana: Substance Use Status: Active Immunization History Tetanus Immunization: >5 Years Hx Influenza Vaccine This Season: No Exam Narrative Exam Narrative: GENERAL: No acute distress. SKIN: Focused skin assessment warm/dry. HEAD: Atraumatic. Normocephalic. EYES: Extra ocular muscles intact bilaterally. No scleral icterus. No injection or drainage. ENT: No nasal bleeding or discharge. Mucous membranes pink and moist. NECK: Trachea midline. No JVD. CARDIOVASCULAR: Regular rate and rhythm. No murmur appreciated. RESPIRATORY: No accessory muscle use. Clear to auscultation. Breath sounds equal bilaterally. GASTROINTESTINAL: Abdomen soft, non-tender, nondistended. Hepatic and splenic margins not palpable. MUSCULOSKELETAL: No obvious deformities. No clubbing. No cyanosis. No edema. NEUROLOGICAL: Awake and alert. No obvious cranial nerve deficits. Motor grossly within normal limits. Normal speech. PSYCHIATRIC: Appropriate mood and affect; insight and judgment normal. Course Initial Documented Vital Signs Temperature 97.8 F 09/22/17 11:06 Pulse Rate 90 09/22/17 11:06 Respiratory Rate 16 09/22/17 11:06 Blood Pressure 155/107 H 09/22/17 11:06 Pulse Oximetry 98 09/22/17 11:06 Last Documented Vital Signs Temperature 97.8 F 09/22/17 11:06 Pulse Rate 50 L 09/22/17 15:07 Respiratory Rate 17 09/22/17 15:07 Blood Pressure 154/88 H 09/22/17 15:07 Pulse Oximetry 100 09/22/17 15:07 Medical Decision Making MDM Narrative Medical decision making narrative: Patient presents to the emergency department with dizziness. Just discharged from the ER a few hours ago. Patient placed on journeyman welder, IV access obtained, and head CT/chest x-ray/EKG/labs ordered. Patient is hypertensive and did not take his blood pressure medication , lisinopril 10 mg p.o. ordered. ECG: Sinus bradycardia, rate 52, normal axis, QTC 398, T-wave inversion in V1 Labs: Decrease wbc, PLT, Hbg, HCT; u/a-neg; trop neg, CK increased (but decreased from earlier today) Head CT-neg CXR- FINDINGS: A single AP view of the chest demonstrates left basilar and right perihilar densities. The cardiomediastinal contours are unremarkable. Osseous structures are intact. CONCLUSION: Left basilar and right perihilar infiltrates 1415: BP 154/96, patient reports feeling better 1610: Patient admitted for obs Differential Diagnosis Differential Diagnosis: CVA, TIA, hypertensive urgency/emergency, migraine headache Lab Data Result diagrams: 09/22/17 11:50 07/04/18 11:50 Lab Results 09/22/17 09/22/17 09/22/17 Range/Units 11:50 11:50 11:50 WBC 3.8 L (4.0-11.0) th/mm3 RBC 4.18 L (4.50-5.90) mil/mm3 Hgb 12.7 L (13.0-17.0) gm/dL Hct 38.0 L (39.0-51.0) % MCV 91.1 (80.0-100.0) fL MCH 30.5 (27.0-34.0) pg MCHC 33.5 (32.0-36.0) % RDW 14.7 (11.6-17.2) % Plt Count 133 L (150-450) th/mm3 MPV 9.6 (7.0-11.0) fL Neut % (Auto) 43.7 (16.0-70.0) % Lymph % (Auto) 45.2 H (9.0-44.0) % [place] % (Auto) 9.0 H (0.0-8.0) % Eos % (Auto) 1.4 (0.0-4.0) % Baso % (Auto) 0.7 (0.0-2.0) % Neut # (Auto) 1.7 L (1.8-7.7) th/mm3 Lymph # (Auto) 1.7 (1.0-4.8) th/mm3 [place] # (Auto) 0.3 (0.0-0.9) th/mm3 Eos # (Auto) 0.1 (0.0-0.4) th/mm3 Baso # (Auto) 0.0 (0.0-0.2) th/mm3 WBC Differential . Differential Comment Auto diff final Sodium 145 (136-145) meq/L Potassium 4.0 (3.5-5.1) meq/L Chloride 112 H (98-107) meq/L Carbon Dioxide 24.5 (21.0-32.0) meq/L Anion Gap 9 (5-15) meq/L BUN 15 (7-18) mg/dL Creatinine 0.98 (0.60-1.30) mg/dL Estimated GFR Greater than 89 (>89) mL/min Random Glucose 83 (74-106) mg/dL Calcium 8.1 L (8.5-10.1) mg/dL Total Creatine Kinase 491 H (39-308) U/L CK-MB (CK-2) 1.2 (0.5-3.6) ng/mL CK-MB (CK-2) % 0.2 (0.0-4.0) % Troponin I Less than 0.02 L (0.02-0.05) ng/mL Urine Color (Yellw/Straw) Urine Clarity (Clear) Urine pH (5.0-8.5) Ur Specific [place] (1.002-1.035) Urine Protein (Neg-Trace) mg/dL Urine Glucose (UA) (Negative) mg/dL Urine Ketones (Negative) mg/dL Urine Occult Blood (Negative) Urine Nitrate (Negative) Urine Bilirubin (Negative) Urine Urobilinogen (Less than 2) mg/dL Ur Leukocyte Esterase (Negative) Urine RBC (0-3) /hpf Urine WBC (0-5) /hpf Ur Squamous Epith Cells (0-5) /hpf Urine Mucus (Occasional) /lpf Micro UA Comment Urine Culture Comments 09/22/17 Range/Units 13:00 WBC (4.0-11.0) th/mm3 RBC (4.50-5.90) mil/mm3 Hgb (13.0-17.0) gm/dL Hct (39.0-51.0) % MCV (80.0-100.0) fL MCH (27.0-34.0) pg MCHC (32.0-36.0) % RDW (11.6-17.2) % Plt Count (150-450) th/mm3 MPV (7.0-11.0) fL Neut % (Auto) (16.0-70.0) % Lymph % (Auto) (9.0-44.0) % [place] % (Auto) (0.0-8.0) % Eos % (Auto) (0.0-4.0) % Baso % (Auto) (0.0-2.0) % Neut # (Auto) (1.8-7.7) th/mm3 Lymph # (Auto) (1.0-4.8) th/mm3 [place] # (Auto) (0.0-0.9) th/mm3 Eos # (Auto) (0.0-0.4) th/mm3 Baso # (Auto) (0.0-0.2) th/mm3 WBC Differential Differential Comment Sodium (136-145) meq/L Potassium (3.5-5.1) meq/L Chloride (98-107) meq/L Carbon Dioxide (21.0-32.0) meq/L Anion Gap (5-15) meq/L BUN (7-18) mg/dL Creatinine (0.60-1.30) mg/dL Estimated GFR (>89) mL/min Random Glucose (74-106) mg/dL Calcium (8.5-10.1) mg/dL Total Creatine Kinase (39-308) U/L CK-MB (CK-2) (0.5-3.6) ng/mL CK-MB (CK-2) % (0.0-4.0) % Troponin I (0.02-0.05) ng/mL Urine Color Straw (Yellw/Straw) Urine Clarity Clear (Clear) Urine pH 7.0 (5.0-8.5) Ur Specific [place] 1.009 (1.002-1.035) Urine Protein Negative (Neg-Trace) mg/dL Urine Glucose (UA) Negative (Negative) mg/dL Urine Ketones Negative (Negative) mg/dL Urine Occult Blood Negative (Negative) Urine Nitrate Negative (Negative) Urine Bilirubin Negative (Negative) Urine Urobilinogen Less than 2 (Less than 2) mg/dL Ur Leukocyte Esterase Negative (Negative) Urine RBC Less than 1 (0-3) /hpf Urine WBC 1 (0-5) /hpf Ur Squamous Epith Cells <1 (0-5) /hpf Urine Mucus Few H (Occasional) /lpf Micro UA Comment Culture not ind Urine Culture Comments Culture not ind Imaging Data Radiologist's impression: ITS Impressions Chest X-Ray 09/22/17 11:27 CONCLUSION: Left basilar and right perihilar infiltrates Head CT 09/22/17 11:27 CONCLUSION: 1. No acute intracranial abnormality Discharge Plan Physicians Team ED Provider: Denisa Harkins Primary Care Provider: Primary Care Physici,Vivien Rxs /Orders / Referrals /Forms Prescriptions: No Action lisinopril 10 mg PO DAILY RF: 0 Aspir-81 81 mg PO DAILY RF: 0 multivitamin Tablet 1 tab PO DAILY RF: 0 Discharge Interventions Interventions: Vital Signs Last Done: 09/22/17 15:07 Status ED Status: With Doctor
--- NOTE | 2017-09-22 12:04 | XR ---
EXAM DATE: 09/22/2017 12:01 PM EDT AGE/SEX: 41 years / Male INDICATIONS: Shortness of breath, near syncope, and lower left chest pain. CLINICAL DATA: This is the patient's initial encounter. Patient reports that signs and symptoms have been present for 2 days and indicates a pain score of 3/10. MEDICAL/SURGICAL HISTORY: Hypertension. . Loop recorder. COMPARISON: C, CHEST 1V SINGLE AP, 09/22/2017. . FINDINGS: A single AP view of the chest demonstrates left basilar and right perihilar densities. The cardiomedi astinal contours are unremarkable. Osseous structures are intact. CONCLUSION: Left basilar and right perihilar infiltrates Electronically signed by: Sancho Cam MD 09/22/2017 12:03 PM EDT
[2017-09-22 12:21] LABS: Baso % (Auto) 0.7 % (0.0-2.0); Eos # (Auto) 0.1 th/mm3 (0.0-0.4); Eos % (Auto) 1.4 % (0.0-4.0); Hemoglobin 12.7 gm/dL (13.0-17.0); Lymph # (Auto) 1.7 th/mm3 (1.0-4.8); Lymph % (Auto) 45.2 % (9.0-44.0); Mean Corpuscular HGB Conc 33.5 % (32.0-36.0); Mean Corpuscular Hemoglobin 30.5 pg (27.0-34.0); Mean Corpuscular Volume 91.1 fL (80.0-100.0); Mean Platelet Volume 9.6 fL (7.0-11.0); Mono # (Auto) 0.3 th/mm3 (0.0-0.9); Neut # (Auto) 1.7 th/mm3 (1.8-7.7); Neut % (Auto) 43.7 % (16.0-70.0); Platelet Count 133 th/mm3 (150-450); Red Blood Count 4.18 mil/mm3 (4.50-5.90); Red Cell Distribution Width 14.7 % (11.6-17.2); White Blood Count 3.8 th/mm3 (4.0-11.0)
[2017-09-22 12:55] LABS: Anion Gap 9 meq/L (5-15); Blood Urea Nitrogen 15 mg/dL (7-18); Calcium 8.1 mg/dL (8.5-10.1); Carbon Dioxide 24.5 meq/L (21.0-32.0); Chloride 112 meq/L (98-107); Glomerular Filtration Rate Greater Than 89 mL/min (>89); Glucose,Random 83 mg/dL (74-106); Sodium 145 meq/L (136-145)
[2017-09-22 13:24] LABS: Bilirubin,Urine Negative (Negative); Clarity,Urine Clear (Clear); Color,Urine Straw (Yellw/Straw); Glucose,Urine (UA) Negative (Negative); Leukocyte Esterase,Urine Negative (Negative); Mucus,Urine Few /lpf (Occasional); Nitrite,Urine Negative (Negative); Specific Gravity,Urine 1.009 (1.002-1.035); Squamous Epithelial Cell,Urine <1 /hpf (0-5)
[2017-09-22 15:30] LABS: Creatine Kinase 491 U/L (39-308)
[2017-09-22 15:42] LABS: CKMB Percent 0.2 % (0.0-4.0); Creatine Kinase MB 1.2 ng/mL (0.5-3.6)
--- NOTE | 2017-09-22 16:59 | P.HPFP ---
History of Present Illness Primary Care Physician: No Primary Care Physician <Dax Urias 09/23/17 14:18> No Primary Care Physician <Farrah Connell 09/22/17 16:59> Chief Complaint: continual dizziness <Farrah Connell 09/23/17 05:32> History of Present Illness: Patient is a 41-year-old male with past medical history of syncope for the past year (s/p loop recorder [place] [address] 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 Patient was discharged later today. However he reports that when he was at [facility] picking up his blood pressure medication he became lightheaded, dizzy with sensation of room spinning and his vision "blacked out". He denies falling, confusion, or seizure activity. He vomited x1, NBNB. They also reports CP of pressure-like sensation, rating 10/10, CP wraps around his back. CP has now resolved. He endorses SOB relieved by sitting up. Endorses [place]. At the previous episode where he had a syncopal episode at [facility] he states he lost consciousness for about 5 minutes. He also experienced blurred vision, tenesmus, prior to the syncopal episode. He also endorses confusion after regaining conscious. Denies no bowel or urine incontinence. Prior to this episode the last syncopal episode he experienced was 1 month ago. Patient reports he last saw Dr. Harding 2 months ago and was told he was doing well. Per chart review: Patient EP study from loop recorder has shown no evidence of cardiovascular etiology for his syncopal episodes. Denies sick contacts or any changes in his medication regiment within the past month. <Farrah Connell 09/23/17 05:32> - Diagnosis (1) Syncope (2) Elevated creatine kinase (3) Chest pain, atypical (4) Hypertension (5) Nutrition, metabolism, and development symptoms <Dax Urias 09/23/17 14:18> (1) Syncope (2) Chest pain, atypical (3) Hypertension (4) Nutrition, metabolism, and development symptoms <Farrah Connell 09/23/17 05:54> - Inpatient Certification If this patient has been admitted as an Inpatient: I certify that the inpatient services were ordered in accordance with Medicare regulations governing the order. This includes certification that hospital inpatient services are reasonable and necessary and in the case of services not specified as inpatient-only under 42 CFR 419.22(n), that they are appropriately provided as inpatient services in accordance to with the 2-midnight benchmark under 43 CFR 412.3(e) <Dax Urias R 09/23/17 14:18> I certify that the inpatient services were ordered in accordance with Medicare regulations governing the order. This includes certification that hospital inpatient services are reasonable and necessary and in the case of services not specified as inpatient-only under 42 CFR 419.22(n), that they are appropriately provided as inpatient services in accordance to with the 2-midnight benchmark under 43 CFR 412.3(e) <Farrah Connell 09/22/17 16:59> Review of Systems Constitutional: Reports excessive sweating, Reports fever(s), Reports headache(s ), Reports increased appetite, Reports night sweats, Reports weight loss (last 5 months lost 70lbs), Denies chills, Denies fatigue <Farrah Connell D 16:59> Eyes: Denies blurry vision <Farrah Connell D 09/22/17 16:59> Ears, Nose, Mouth, and Throat: Reports dizziness, Denies sore throat <Farrah Connell D 09/22/17 16:59> Cardiovascular: Reports chest pain, Reports excessive sweating, Reports lightheadedness, Reports rapid, pounding, or irregular heartbeat, Reports shortness of breath <Farrah Connell D 09/22/17 16:59> Respiratory: Reports shortness of breath, Denies cough, Denies wheezing < CalFarrah carrera D 09/22/17 16:59> Gastrointestinal: Reports nausea, Reports vomiting, Denies abdominal pain, Denies loose stools <CalFarrah carrera D 09/22/17 16:59> Genitourinary: Denies urinary frequency <CalFarrah carrera D 09/22/17 16:59> Musculoskeletal: Reports back pain, Denies neck pain <Farrah Connell D - 16:59> Skin/Breast: Denies rash, Denies skin ulcer <Farrah Connell D - 09/22/17 16:59> Neurologic: Reports confusion, Reports weakness, Denies tingling/numbness/ burning sensations <Farrah Connell D - 09/22/17 16:59> Endocrine: Reports excessive sweating, Reports heat intolerance <Farrah Connell D - 09/22/17 16:59> Allergic/Immunologic: Denies lip swelling, Denies tongue swelling <Farrah Connell D 09/22/17 16:59> PMFSH - History History Provided By: Patient <Farrah Connell - 09/22/17 16:59> - Medical History Medical History: Medical History (Last Reviewed 09/22/17 @ 19:28 by Claudia Hayes, RN) Chronic neck and back pain Hypertension Pilonidal cyst Syncope <Dax Urias R - 09/23/17 14:18> Medical History (Last Reviewed 09/22/17 @ 19:28 by Claudia Hayes, RN) Chronic neck and back pain Hypertension Pilonidal cyst Syncope <Farrah Connell D - 09/23/17 05:32> - Surgical History Surgical History: Surgical History (Last Reviewed 09/22/17 @ 19:28 by Claudia Hayes, RN) History of loop recorder <Dax Urias R - 09/23/17 14:18> Surgical History (Last Reviewed 09/22/17 @ 19:28 by Claudia Hayes, RN) History of loop recorder <Farrah Connell D - 09/23/17 05:32> - Family History Family History: Family History (Last Reviewed 09/22/17 @ 19:28 by Claudia Hayes, RN) Father Family history of hypertension <OsDax combs R - 09/23/17 14:18> Family History (Last Reviewed 09/22/17 @ 19:28 by Claudia Hayes, RN) Father Family history of hypertension <Farrah Connell - 09/23/17 05:32> - Tobacco History Second Hand Smoke Exposure: Yes <Farrah Connell - 09/22/17 16:59> Tobacco Use In Past 30 Days: Yes <Farrah Connell 09/22/17 16:59> Smoking Status: Current every day smoker <Farrah Connell 09/22/17 16:59> Tobacco Type: Cigarettes <Farrah Connell 09/22/17 16:59> Cigarettes Per Day: 2 (for >10 yrs) <Farrah Connell 09/22/17 16:59> - Alcohol History How Often Do You Have a Drink Containing Alcohol: Never <Farrah Connell 07/07 16:59> - Substance Use History Substance History: Active Abuse <Farrah Connell 09/22/17 16:59> - Substance Use Type Marijuana Status: Active (3 times per wk, jewel banerjee. 2 months ago someone put cocaine in mj ) <Farrah Connell 09/22/17 16:59> - Travel History Recent Travel in the [facility] Within the Last 8 Weeks: No <Farrha Connell 16:59> Recent Travel Out of the Country Within the Last 8 Weeks: No <Farrah Connell 09/22/17 16:59> - Immunization History Tetanus Immunization: >5 Years <Farrah Connell 09/22/17 16:59> Hx Influenza Vaccine This Season: No <Farrah Connell 09/22/17 16:59> Medications and Allergies Allergies Allergy/AdvReac Type Severity Reaction Status Date / Time egg Allergy Severe Verified 06/10/17 00:09 <Dax Urias 09/23/17 14:18> Home Medications Medication Instructions Recorded Confirmed Type Aspir-81 81 mg PO DAILY 09/19/17 09/22/17 History lisinopril 10 mg PO DAILY 09/19/17 09/22/17 History multivitamin 1 tab PO DAILY 09/22/17 09/22/17 History <Dax Urias 09/23/17 14:18> Active Medications: Active Medications Acetaminophen (Tylenol) 650 mg PO Q4H PRN PRN Reason: Temp > 100.4 Acetaminophen (Tylenol) 650 mg PO Q6HR PRN PRN Reason: PAIN SCALE 1 TO 2 Last Admin: 09/23/17 11:33 Dose: 650 mg Al Hydroxide/Mg Hydroxide (Milk Of Magnesia Liq) 30 ml PO Q12H PRN PRN Reason: Mild Constipation Bisacodyl (Dulcolax Supp) 10 mg RECTAL DAILY PRN PRN Reason: SEVERE CONSITIPATION Clonidine HCl (Catapres) 0.1 mg PO Q6H PRN PRN Reason: SEE LABEL COMMENTS Ketorolac Tromethamine (Toradol Inj) 30 mg IV.PUSH Q6H PRN PRN Reason: PAIN 6-10;IF UNABLE TO TAKE PO Stop: 09/27/17 21:54 Ketorolac Tromethamine (Toradol Inj) 15 mg IV.PUSH Q6H PRN PRN Reason: PAIN 3-5; IF UABLE TO TAKE PO Stop: 09/27/17 21:54 Lactulose (Lactulose Liq) 30 ml PO DAILY PRN PRN Reason: SEVERE CONSITIPATION Senna/Docusate Sodium (Tonja-Colace) 1 tab PO BID PRN PRN Reason: CONSTIPATION Sennosides (Senokot) 17.2 mg PO Q12H PRN PRN Reason: Moderate Constipation <Dax Urias R - 09/23/17 14:18> Exam Vital signs: Vital Signs 09/22/17 15:07 09/22/17 18:00 09/22/17 20:49 Temperature 98.0 F Pulse Rate 50 L 51 L 49 L Respiratory Rate 17 20 18 Blood Pressure 154/88 H 157/93 H 176/98 H Pulse Oximetry 100 99 09/23/17 00:46 09/23/17 03:42 09/23/17 08:04 Temperature 98.0 F 98.1 F 97.8 F Pulse Rate 62 46 L 99 H Respiratory Rate 18 18 18 Blood Pressure 131/86 143/82 H 124/60 Pulse Oximetry 100 97 Intake & Output 09/22/17 09/23/17 09/23/17 18:59 06:59 18:59 Weight 86.183 kg 87.09 kg Other: # Voids 3 Date of Last Bowel Movement 09/21/17 Weight On Admission 87.09 kg <Dax Urias R - 09/23/17 14:18> Vital Signs 09/22/17 11:06 09/22/17 11:26 09/22/17 11:43 Temperature 97.8 F Pulse Rate 90 60 Respiratory Rate 16 20 Blood Pressure 155/107 H 155/90 H Pulse Oximetry 98 99 99 09/22/17 15:07 Temperature Pulse Rate 50 L Respiratory Rate 17 Blood Pressure 154/88 H Pulse Oximetry 100 Intake & Output 09/21/17 09/22/17 09/22/17 18:59 06:59 18:59 Weight 86.183 kg <Farrah Connell 09/22/17 16:59> - Constitutional no acute distress <Farrah Connell 09/23/17 05:32> - Routine HEENT Exam Head: Present: normocephalic, atraumatic <Farrah Connell 09/23/17 05:32> - Routine Neck Exam Present: supple, full ROM. Absent: JVD, lymphadenopathy <Farrah Connell 05:32> - Routine Chest/Breast/Axilla Exam Chest wall: Present: tenderness <Farrah Connell 09/23/17 05:32> - Routine Respiratory Exam Present: CTA bilaterally. Absent: accessory muscle use <Farrah Connell 08/06 05:32> - Routine Cardiovascular Exam Present: RRR, S1, S2. Absent: murmur, gallop, rubs <Farrah Connell 05:32> - Routine Abdominal Exam Present: soft, normoactive bowel sounds <Farrah Connell 09/23/17 05:32> - Routine Extremities Exam Present: full ROM, pulses intact, normal capillary refill, calf tenderness. Absent: cyanosis, clubbing, edema <Farrah Connell 09/23/17 05:32> - Routine Skin Exam Present: intact. Absent: urticaria, rash <Farrah Connell 09/23/17 05:32> - Routine Neurological Exam Present: alert, oriented X3, CN II-XII intact, normal reflexes, plantar reflex <Farrah Connell 09/23/17 05:32> Results - Labs Result diagrams: 09/23/17 03:35 09/22/17 11:50 <Dax Urias - 09/23/17 14:18> Abnormal lab results 09/22/17 09/22/17 09/23/17 Range/Units 11:50 20:30 03:35 WBC (4.0-11.0) th/mm3 Plt Count (150-450) th/mm3 Lymph % (Auto) (9.0-44.0) % Barton % (Auto) (0.0-8.0) % Neut # (Auto) (1.8-7.7) th/mm3 Total Creatine Kinase 491 H (39-308) U/L Troponin I Less than 0.02 L Less than 0.02 L Less than 0.02 L (0.02-0.05) ng/mL 09/23/17 Range/Units 03:35 WBC 3.4 L (4.0-11.0) th/mm3 Plt Count 125 L (150-450) th/mm3 Lymph % (Auto) 55.2 H (9.0-44.0) % Barton % (Auto) 8.5 H (0.0-8.0) % Neut # (Auto) 1.1 L (1.8-7.7) th/mm3 Total Creatine Kinase (39-308) U/L Troponin I (0.02-0.05) ng/mL Short CBC 09/23/17 Range/Units 03:35 WBC 3.4 L (4.0-11.0) th/mm3 Hgb 13.7 (13.0-17.0) gm/dL Hct 40.8 (39.0-51.0) % Plt Count 125 L (150-450) th/mm3 Cardiac Enzymes 09/22/17 09/22/17 09/23/17 Range/Units 11:50 20:30 03:35 Total Creatine Kinase 491 H (39-308) U/L CK-MB (CK-2) 1.2 (0.5-3.6) ng/mL Troponin I Less than 0.02 L Less than 0.02 L Less than 0.02 L (0.02-0.05) ng/mL <Dax Urias - 09/23/17 14:18> Abnormal lab results 09/22/17 09/22/17 09/22/17 Range/Units 11:50 11:50 11:50 WBC 3.8 L (4.0-11.0) th/mm3 RBC 4.18 L (4.50-5.90) mil/mm3 Hgb 12.7 L (13.0-17.0) gm/dL Hct 38.0 L (39.0-51.0) % Plt Count 133 L (150-450) th/mm3 Lymph % (Auto) 45.2 H (9.0-44.0) % Barton % (Auto) 9.0 H (0.0-8.0) % Neut # (Auto) 1.7 L (1.8-7.7) th/mm3 Chloride 112 H (98-107) meq/L Calcium 8.1 L (8.5-10.1) mg/dL Total Creatine Kinase 491 H (39-308) U/L Troponin I Less than 0.02 L (0.02-0.05) ng/mL Urine Mucus (Occasional) /lpf 09/22/17 Range/Units 13:00 WBC (4.0-11.0) th/mm3 RBC (4.50-5.90) mil/mm3 Hgb (13.0-17.0) gm/dL Hct (39.0-51.0) % Plt Count (150-450) th/mm3 Lymph % (Auto) (9.0-44.0) % Barton % (Auto) (0.0-8.0) % Neut # (Auto) (1.8-7.7) th/mm3 Chloride (98-107) meq/L Calcium (8.5-10.1) mg/dL Total Creatine Kinase (39-308) U/L Troponin I (0.02-0.05) ng/mL Urine Mucus Few H (Occasional) /lpf Short CBC 09/22/17 Range/Units 11:50 WBC 3.8 L (4.0-11.0) th/mm3 Hgb 12.7 L (13.0-17.0) gm/dL Hct 38.0 L (39.0-51.0) % Plt Count 133 L (150-450) th/mm3 BMP 09/22/17 11:50 Sodium 145 Potassium 4.0 Chloride 112 H Carbon Dioxide 24.5 BUN 15 Creatinine 0.98 Calcium 8.1 L Cardiac Enzymes 09/22/17 Range/Units 11:50 Total Creatine Kinase 491 H (39-308) U/L CK-MB (CK-2) 1.2 (0.5-3.6) ng/mL Troponin I Less than 0.02 L (0.02-0.05) ng/mL Urine 09/22/17 Range/Units 13:00 Urine Color Straw (Yellw/Straw) Urine Clarity Clear (Clear) Urine pH 7.0 (5.0-8.5) Ur Specific [place] 1.009 (1.002-1.035) Urine Protein Negative (Neg-Trace) mg/dL Urine Glucose (UA) Negative (Negative) mg/dL <Farrah Connell - 09/22/17 16:59> - Imaging Impressions Carotid Doppler Study 09/22/17 00:00 CONCLUSION: 1. Right Internal Carotid Artery: Minimal plaque without stenosis. 2. Left Internal Carotid Artery: Minimal plaque without stenosis. <Dax Urias R - 09/23/17 14:18> Impressions Chest X-Ray 09/22/17 11:27 CONCLUSION: Left basilar and right perihilar infiltrates Head CT 09/22/17 11:27 CONCLUSION: 1. No acute intracranial abnormality <Farrah Connell - 09/23/17 05:32> Caprini VTE Risk Assessment Caprini VTE Risk Assessment: No/Low Risk (score <= 1) <Farrah Connell 09/23 05:54> Caprini Risk Assessment Model: Point Value = 1 Point Value = 2 Point Value = 3 Point Value = 5 Age 41-60 Minor surgery BMI > 25 kg/m2 Swollen legs Varicose veins or History of unexplained or recurrent spontaneous Oral contraceptives or hormone replacement Sepsis (< 1 month) Serious lung disease, including pneumonia (< 1 month) Abnormal pulmonary function Acute myocardial infarction Congestive heart failure (< 1 month) History of inflammatory bowel disease Medical patient at bed rest Age 61-74 Arthroscopic surgery Major open surgery (> 45 min) Laparoscopic surgery (> 45 min) Malignancy Confined to bed (> 72 hours) Immobilizing plaster cast Central venous access Age >= 75 History of VTE Family history of VTE Factor V Leiden Prothrombin [id number] Lupus anticoagulant Anticardiolipin antibodies Elevated serum homocysteine Heparin-induced thrombocytopenia Other congenital or acquired thrombophilia Stroke (< 1 month) Elective arthroplasty Hip, pelvis, or leg fracture Acute spinal cord injury (< 1 month) <Dax Urias R 09/23/17 14:18> Point Value = 1 Point Value = 2 Point Value = 3 Point Value = 5 Age 41-60 Minor surgery BMI > 25 kg/m2 Swollen legs Varicose veins or History of unexplained or recurrent spontaneous Oral contraceptives or hormone replacement Sepsis (< 1 month) Serious lung disease, including pneumonia (< 1 month) Abnormal pulmonary function Acute myocardial infarction Congestive heart failure (< 1 month) History of inflammatory bowel disease Medical patient at bed rest Age 61-74 Arthroscopic surgery Major open surgery (> 45 min) Laparoscopic surgery (> 45 min) Malignancy Confined to bed (> 72 hours) Immobilizing plaster cast Central venous access Age >= 75 History of VTE Family history of VTE Factor V Leiden Prothrombin [id number] Lupus anticoagulant Anticardiolipin antibodies Elevated serum homocysteine Heparin-induced thrombocytopenia Other congenital or acquired thrombophilia Stroke (< 1 month) Elective arthroplasty Hip, pelvis, or leg fracture Acute spinal cord injury (< 1 month) <Farrah Connell D 09/22/17 16:59> Prophylaxis Regimen: Total Risk Factor Score Risk Level Prophylaxis Regimen 0-1 Low Early ambulation 2 Moderate Order ONE of the following: *Sequential Compression Device (SCD) *Heparin 5000 units SQ BID 3-4 Higher Order ONE of the following medications: *Heparin 5000 units SQ TID *Enoxaparin/Lovenox 40 mg SQ daily (WT < 150 kg, CrCl > 30 mL/min) *Enoxaparin/Lovenox 30 mg SQ daily (WT < 150 kg, CrCl > 10-29 mL/min) *Enoxaparin/Lovenox 30 mg SQ BID (WT < 150 kg, CrCl > 30 mL/min) AND/OR *Sequential Compression Device (SCD) 5 or more Highest Order ONE of the following medications: *Heparin 5000 units SQ TID (Preferred with Epidurals) *Enoxaparin/Lovenox 40 mg SQ daily (WT < 150 kg, CrCl > 30 mL/min) *Enoxaparin/Lovenox 30 mg SQ daily (WT < 150 kg, CrCl > 10-29 mL/min) *Enoxaparin/Lovenox 30 mg SQ BID (WT < 150 kg, CrCl > 30 mL/min) AND *Sequential Compression Device (SCD) <Dax Urias 09/23/17 14:18> Total Risk Factor Score Risk Level Prophylaxis Regimen 0-1 Low Early ambulation 2 Moderate Order ONE of the following: *Sequential Compression Device (SCD) *Heparin 5000 units SQ BID 3-4 Higher Order ONE of the following medications: *Heparin 5000 units SQ TID *Enoxaparin/Lovenox 40 mg SQ daily (WT < 150 kg, CrCl > 30 mL/min) *Enoxaparin/Lovenox 30 mg SQ daily (WT < 150 kg, CrCl > 10-29 mL/min) *Enoxaparin/Lovenox 30 mg SQ BID (WT < 150 kg, CrCl > 30 mL/min) AND/OR *Sequential Compression Device (SCD) 5 or more Highest Order ONE of the following medications: *Heparin 5000 units SQ TID (Preferred with Epidurals) *Enoxaparin/Lovenox 40 mg SQ daily (WT < 150 kg, CrCl > 30 mL/min) *Enoxaparin/Lovenox 30 mg SQ daily (WT < 150 kg, CrCl > 10-29 mL/min) *Enoxaparin/Lovenox 30 mg SQ BID (WT < 150 kg, CrCl > 30 mL/min) AND *Sequential Compression Device (SCD) <Farrah Connell D 09/22/17 16:59> Assessment and Plan - Assessment (1) Syncope Code(s): R55 - Syncope and collapse Status: Acute (2) Elevated creatine kinase Code(s): R74.8 - Abnormal levels of other serum enzymes Status: Acute (3) Chest pain, atypical Code(s): R07.89 - Other chest pain Status: Chronic (4) Hypertension Code(s): I10 - Essential (primary) hypertension Status: Chronic (5) Nutrition, metabolism, and development symptoms Code(s): R63.8 - Other symptoms and signs concerning food and fluid intake Status: Acute <Dax Urias R 09/23/17 14:18> (1) Syncope Code(s): R55 - Syncope and collapse Status: Acute Plan: Patient with one-year history of syncope accompanied by chest pain, dizziness, diaphoresis and heart palpitations. Patient had loop recorder placed last year by Dr. Harding, per chart review no cardiac findings on loop recorder for syncopal episodes. Patient reports he saw Dr. Harding 2 months ago and was told everything was okay. Continue with ACS rule out Patient placed on telemetry Follow-up echo Patient with H&H of 12.7/38 on admission Continue to monitor vital signs See plan below (2) Chest pain, atypical Code(s): R07.89 - Other chest pain Status: Chronic Plan: Patient with complaints of pressure -like chest pain, chest pain had resolved at time of continue Blood pressure on admission 155/107, all other vital signs within normal limits In the ED troponin 1 negative and EKG showed sinus bradycardia Follow-up serial troponin and EKG (3) Hypertension Code(s): I10 - Essential (primary) hypertension Status: Acute Plan: Bp 150s/ 100s on re-admission Continue to monitor vital signs (4) Nutrition, metabolism, and development symptoms Code(s): R63.8 - Other symptoms and signs concerning food and fluid intake Status: Acute Plan: Fluids: Not indicated at this time Electrolytes: replete as needed Nutrition: cardiac diet DVT ppx: SCds <Farrah Connell D - 09/23/17 05:54> - Attending Attestation THIS CASE WAS DISCUSSED WITH THE RESIDENT PHYSICIAN. I HAVE REVIEWED THE RECORD AND AGREE WITH THE ABOVE NOTE AND PLAN OF CARE WAS DISCUSSED. I HAVE AUTHORIZED THE ORDER FOR PLACEMENT IN OUT-PATIENT OBSERVATION STATUS. <Dax Urias R - 09/23/17 14:18> <Dax Urias R - Last Filed: 09/23/17 14:18> (1) Syncope Qualifiers: Syncope type: unspecified Qualified Code(s): R55 - Syncope and collapse <Dax Urias R - Steve Filed: 09/23/17 14:18> (1) Syncope Qualifiers: Syncope type: unspecified Qualified Code(s): R55 - Syncope and collapse
[2017-09-22] MEDS ORDERED: Bisacodyl 10 MG Supp RECTAL PRN (17:22)
[2017-09-22] MEDS ORDERED: Acetaminophen 325 MG Tablet PO PRN ×2 (17:22→21:55)
[2017-09-22] MEDS ORDERED: Senna/Docusate Sodium 8.6/50 MG Tablet PO PRN (17:22)
--- NOTE | 2017-09-22 18:42 | US ---
EXAM DATE: 09/22/2017 6:22 PM EDT AGE/SEX: 41 years / Male INDICATIONS: Syncope. CLINICAL DATA: This is the patient's initial encounter. Patient reports that signs and symptoms have been present for 1 day and indicates a pain score of 0/10. MEDICAL/SURGICAL HISTORY: Hypertension. Chronic back/neck pain. Pilonidal cyst. Syncope. . Loo p recorder. COMPARISON: [facility], CTA CAROTID ARTERIES W 3D RECON, 05/17/2017. . VELOCITY PARAMETERS: ICA/CCA Ratio: Right 1.1 , Left 0.9 ICA: Right 96.8 cm/sec, Left 74.7 cm/sec CCA: Right 86.2 cm/sec, Left 91.4 cm/sec ECA: Right 87.5 cm/sec, Left 66.8 cm/sec Vertebral: Right 42.4 cm/sec antegrade, Left 39.8 cm/sec antegrade FINDINGS: Right Carotid: No significant plaque is visualized.The waveforms are within normal limits. Left Carotid: No significant plaque is visualized. The waveforms are within normal limits. Other: None. CONCLUSION: 1. Right Internal Carotid Artery: Minimal plaque without stenosis. 2. Left Internal Carotid Artery: Minimal plaque without stenosis. Electronically signed by: Christopher Bhatt MD 09/22/2017 6:40 PM EDT
[2017-09-22] MEDS ORDERED: Ketorolac Inj 30 MG/ML (IVP) Vial IV.PUSH ONE (21:54)
[2017-09-22] MEDS ORDERED: Ketorolac Inj 30 MG/ML (IVP) Vial IV.PUSH PRN ×2 (21:55)
[2017-09-23 04:46] LABS: Baso % (Auto) 0.9 % (0.0-2.0); Eos # (Auto) 0.1 th/mm3 (0.0-0.4); Eos % (Auto) 1.9 % (0.0-4.0); Hematocrit 40.8 % (39.0-51.0); Hemoglobin 13.7 gm/dL (13.0-17.0); Lymph # (Auto) 1.9 th/mm3 (1.0-4.8); Lymph % (Auto) 55.2 % (9.0-44.0); Mean Corpuscular HGB Conc 33.7 % (32.0-36.0); Mean Corpuscular Hemoglobin 30.3 pg (27.0-34.0); Mean Corpuscular Volume 89.9 fL (80.0-100.0); Mean Platelet Volume 9.5 fL (7.0-11.0); Mono # (Auto) 0.3 th/mm3 (0.0-0.9); Mono % (Auto) 8.5 % (0.0-8.0); Neut # (Auto) 1.1 th/mm3 (1.8-7.7); Neut % (Auto) 33.5 % (16.0-70.0); Platelet Count 125 th/mm3 (150-450); Red Blood Count 4.53 mil/mm3 (4.50-5.90); Red Cell Distribution Width 14.6 % (11.6-17.2); White Blood Count 3.4 th/mm3 (4.0-11.0)
--- NOTE | 2017-09-23 12:10 | P.PNFP ---
Subjective Interval history: Patient seen and examined this morning by medical team. No acute events overnight per nursing staff. Patient resting comfortably lying in bed with mother at bedside. Patient states that he has not had any syncope or presyncopal feeling overnight. He does continue to report left-sided chest pain near his loop recorder which he states is very "bothersome." He has no other acute complaints at this time and denies any fevers, chills, shortness of breath, chest pain, NVD, abdominal pain, or calf tenderness. His mother does note that there is an extensive family history of seizure disorder which the patient did not report at the time of his admission. <Myles Thomason H - 09/23/17 12:10> Results - Labs Result diagrams: 09/23/17 03:35 09/23/17 14:17 <Dax Urias R - 09/25/17 09:43> Abnormal lab results 09/22/17 09/22/17 09/22/17 Range/Units 11:50 11:50 11:50 WBC 3.8 L (4.0-11.0) th/mm3 RBC 4.18 L (4.50-5.90) mil/mm3 Hgb 12.7 L (13.0-17.0) gm/dL Hct 38.0 L (39.0-51.0) % Plt Count 133 L (150-450) th/mm3 Lymph % (Auto) 45.2 H (9.0-44.0) % [place] % (Auto) 9.0 H (0.0-8.0) % Neut # (Auto) 1.7 L (1.8-7.7) th/mm3 Chloride 112 H (98-107) meq/L Calcium 8.1 L (8.5-10.1) mg/dL Total Creatine Kinase 491 H (39-308) U/L Troponin I Less than 0.02 L (0.02-0.05) ng/mL Urine Mucus (Occasional) /lpf 09/22/17 09/22/17 09/23/17 Range/Units 13:00 20:30 03:35 WBC (4.0-11.0) th/mm3 RBC (4.50-5.90) mil/mm3 Hgb (13.0-17.0) gm/dL Hct (39.0-51.0) % Plt Count (150-450) th/mm3 Lymph % (Auto) (9.0-44.0) % [place] % (Auto) (0.0-8.0) % Neut # (Auto) (1.8-7.7) th/mm3 Chloride (98-107) meq/L Calcium (8.5-10.1) mg/dL Total Creatine Kinase (39-308) U/L Troponin I Less than 0.02 L Less than 0.02 L (0.02-0.05) ng/mL Urine Mucus Few H (Occasional) /lpf 09/23/17 Range/Units 03:35 WBC 3.4 L (4.0-11.0) th/mm3 RBC (4.50-5.90) mil/mm3 Hgb (13.0-17.0) gm/dL Hct (39.0-51.0) % Plt Count 125 L (150-450) th/mm3 Lymph % (Auto) 55.2 H (9.0-44.0) % [place] % (Auto) 8.5 H (0.0-8.0) % Neut # (Auto) 1.1 L (1.8-7.7) th/mm3 Chloride (98-107) meq/L Calcium (8.5-10.1) mg/dL Total Creatine Kinase (39-308) U/L Troponin I (0.02-0.05) ng/mL Urine Mucus (Occasional) /lpf Short CBC 09/22/17 09/23/17 Range/Units 11:50 03:35 WBC 3.8 L 3.4 L (4.0-11.0) th/mm3 Hgb 12.7 L 13.7 (13.0-17.0) gm/dL Hct 38.0 L 40.8 (39.0-51.0) % Plt Count 133 L 125 L (150-450) th/mm3 BMP 09/22/17 11:50 Sodium 145 Potassium 4.0 Chloride 112 H Carbon Dioxide 24.5 BUN 15 Creatinine 0.98 Calcium 8.1 L Cardiac Enzymes 09/22/17 09/22/17 09/23/17 Range/Units 11:50 20:30 03:35 Total Creatine Kinase 491 H (39-308) U/L CK-MB (CK-2) 1.2 (0.5-3.6) ng/mL Troponin I Less than 0.02 L Less than 0.02 L Less than 0.02 L (0.02-0.05) ng/mL Urine 09/22/17 Range/Units 13:00 Urine Color Straw (Yellw/Straw) Urine Clarity Clear (Clear) Urine pH 7.0 (5.0-8.5) Ur Specific [place] 1.009 (1.002-1.035) Urine Protein Negative (Neg-Trace) mg/dL Urine Glucose (UA) Negative (Negative) mg/dL <Myles Thomason - 09/23/17 12:10> - Imaging Impressions Carotid Doppler Study 09/22/17 00:00 CONCLUSION: 1. Right Internal Carotid Artery: Minimal plaque without stenosis. 2. Left Internal Carotid Artery: Minimal plaque without stenosis. Chest X-Ray 09/22/17 11:27 CONCLUSION: Left basilar and right perihilar infiltrates Head CT 09/22/17 11:27 CONCLUSION: 1. No acute intracranial abnormality <Myles Thomason - 09/23/17 12:10> Physical Exam Vital signs: Vital Signs 09/22/17 15:07 09/22/17 18:00 09/22/17 20:49 Temperature 98.0 F Pulse Rate 50 L 51 L 49 L Respiratory Rate 17 20 18 Blood Pressure 154/88 H 157/93 H 176/98 H Pulse Oximetry 100 99 09/23/17 00:46 09/23/17 03:42 09/23/17 08:04 Temperature 98.0 F 98.1 F 97.8 F Pulse Rate 62 46 L 99 H Respiratory Rate 18 18 18 Blood Pressure 131/86 143/82 H 124/60 Pulse Oximetry 100 97 Intake & Output 09/22/17 09/23/17 09/23/17 18:59 06:59 18:59 Weight 86.183 kg 87.09 kg Other: # Voids 3 Date of Last Bowel Movement 09/21/17 Weight On Admission 87.09 kg <Myles Thomason - 09/23/17 12:10> Narrative: GENERAL: Well-nourished, well-developed male lying in bed in no acute distress with mother at his bedside. SKIN: Warm and dry. No rash. HEENT: Atraumatic, normocephalic with extraocular motions intact. No rhinorrhea. No visible lymphadenopathy or jugulovenous distension appreciated. CARDIOVASCULAR: Regular rate and rhythm without obvious murmurs, gallops, or rubs. 2+ pulses in all four extremities. Patient mildly tender to palpation of the left chest near his loop recorder without obvious abnormality. RESPIRATORY: Clear to auscultation bilaterally with no crackles, wheezes, or rhonchi. No increased work of breathing. GASTROINTESTINAL: Abdomen soft, non-tender, nondistended with positive bowel sounds. No masses appreciated. MUSCULOSKELETAL: No cyanosis or edema. No calf tenderness. Ambulating well without assistance per report. NEURO/PSYCH: Afocal. Awake, alert, and oriented x3. Normal speech and judgement. <Myles Thomason H - 09/23/17 12:10> Assessment and Plan - Assessment (1) Syncope Code(s): R55 - Syncope and collapse Status: Acute (2) Elevated creatine kinase Code(s): R74.8 - Abnormal levels of other serum enzymes Status: Acute (3) Chest pain, atypical Code(s): R07.89 - Other chest pain Status: Chronic (4) Hypertension Code(s): I10 - Essential (primary) hypertension Status: Chronic (5) Nutrition, metabolism, and development symptoms Code(s): R63.8 - Other symptoms and signs concerning food and fluid intake Status: Acute <Dax Urias R - 09/25/17 09:43> (1) Syncope Code(s): R55 - Syncope and collapse Status: Acute Plan: Patient with one-year history of syncope accompanied by chest pain, dizziness, diaphoresis and heart palpitations. Patient had loop recorder placed last year by Dr. Garrison, per chart review no cardiac findings on loop recorder for syncopal episodes. Patient reports he saw Dr. Garrison 2 months ago and was told everything was okay. H/H stable since admission. Troponins and EKGs negative 3 Patient placed on telemetry with multiple episodes of sinus bradycardia Most recent echocardiogram 12/12/16: Left ventricular systolic function is low normal with an EF of 50-55%. Normal left ventricular size with mild concentric left ventricular hypertrophy. Mild mitral and tricuspid valve regurgitation estimated pulmonary artery pressure 32.2 mmHg. Stress test 12/02/16: Normal exercise treadmill test. No evidence of ischemia. Electrophysiology study 12/16/16: Negative study, good A-V node conduction. Loop recorder placed. EEG: Ordered Repeat CPK ordered ESR ordered Medical team to reach out to cardiology, Dr. Garrison, to discuss further workup (2) Elevated creatine kinase Code(s): R74.8 - Abnormal levels of other serum enzymes Status: Acute Plan: -Patient with elevated creatinine kinase to 491 on admission -Kidney function intact -Encouraged oral fluids -Repeat creatinine kinase ordered (3) Chest pain, atypical Code(s): R07.89 - Other chest pain Status: Chronic Plan: -ACS rule out negative -ESR ordered to evaluate for possible inflammatory process -Please see plan as above (4) Hypertension Code(s): I10 - Essential (primary) hypertension Status: Chronic Plan: -Bp 150s/ 100s on re-admission -Clonidine as needed for blood pressure greater than 180/110 -Continue to monitor vital signs (5) Nutrition, metabolism, and development symptoms Code(s): R63.8 - Other symptoms and signs concerning food and fluid intake Status: Acute Plan: Fluids: Not indicated at this time, patient tolerating oral fluids well without signs of dehydration Electrolytes: Within normal limits, continue to monitor Nutrition: cardiac diet as tolerated DVT ppx: SCds, plan to initiate medical prophylaxis for continued hospital stay if indicated <Myles Thomason H - 09/23/17 16:50> - Assessment and Plan Update at 1600: Medical team reached out to cardiology, Dr. Rivera, however he is currently away from the office. Discussed with patient need for close follow-up care with Dr. Rivera as he indicates the medical team he would like to have his loop recorder removed. Regarding his laboratory evaluations this afternoon, his electrolytes remain within normal limits, his ESR is 10, and CK has decreased on oral fluids. Finally his EEG was read as normal by neurology. Discussed discharge with patient who agrees with medical plan. He was encouraged to increase his oral fluids and have close follow-up with Dr. Rivera. He was also encouraged to follow-up with a new PCP as he currently does not have one. He was encouraged to reach out to the [facility] as well as the [facility]. <Myles Thomason - 09/23/17 16:56> - Attending Attestation This patient was seen and examined. The assessment and plan was discussed with the resident physician and I am in agreement with continued medical care as documented in this encounter. <Dax Urias R - 09/25/17 09:43> <Myles Thomason H - Last Filed: 09/23/17 16:50> (1) Syncope Qualifiers: Syncope type: unspecified Qualified Code(s): R55 - Syncope and collapse <Dax Urias R - Last Filed: 09/25/17 09:43> (1) Syncope Qualifiers: Syncope type: unspecified Qualified Code(s): R55 - Syncope and collapse <Myles Thomason H - Last Filed: 09/23/17 16:50> (1) Syncope Qualifiers: Syncope type: unspecified Qualified Code(s): R55 - Syncope and collapse <Dax Urias R - Last Filed: 09/25/17 09:43> (1) Syncope Qualifiers: Syncope type: unspecified Qualified Code(s): R55 - Syncope and collapse
--- NOTE | 2017-09-23 15:32 | MG ---
cc: Harry Steiner MD, PhD DATE OF SERVICE: 09/23/2017. TEST NUMBER: [id number]. TECHNIQUE: A 17-channel EEG. DESCRIPTION: The background rhythm is a symmetrical alpha rhythm, frequency of 8 Hz. Amplitude is 20 microvolts. No lateralizing features are seen. No epileptiform discharges are present. Hyperventilation was done with good effort with no change in background rhythm. Photic stimulation resulted in a normal driving response. INTERPRETATION: This is a normal EEG. Harry Steiner MD, PhD LOYDA/TL , 03:22 PM , 03:30 PM
[2017-09-23 15:46] LABS: Anion Gap 10 meq/L (5-15); Blood Urea Nitrogen 9 mg/dL (7-18); Calcium 8.9 mg/dL (8.5-10.1); Carbon Dioxide 26.4 meq/L (21.0-32.0); Chloride 106 meq/L (98-107); Glomerular Filtration Rate Greater Than 89 mL/min (>89); Glucose,Random 56 mg/dL (74-106); Potassium 3.6 meq/L (3.5-5.1); Sodium 142 meq/L (136-145)
[2017-09-23 15:57] LABS: CKMB Percent 0.2 % (0.0-4.0); Creatine Kinase MB 0.7 ng/mL (0.5-3.6)
--- NOTE | 2017-09-23 17:48 | ECHRPT ---
Indication: CHEST PAIN CONCLUSIONS Normal left ventricular size. Wall thickness is measured at the upper limits of normal. The left ventricular systolic function is low normal with an estimated ejection fraction in the rang e of 50- 55%. Trace mitral valve regurgitation. The estimated pulmonary arterial pressure is 32 mmHg. There is mild tricuspid valve regurgitation. BP: / HR: Rhythm: MEASUREMENTS (Male / Female) Normal Values Technical Quality: 2D ECHO LV Diastolic Diameter PLAX 4.6 cm 4.2 - 5.9 / 3.9 - 5.3 cm LV Systolic Diameter PLAX 3.5 cm IVS Diastolic Thickness 1.2 cm 0.6 - 1.0 / 0.6 - 0.9 cm LVPW Diastolic Thickness 0.9 cm 0.6 - 1.0 / 0.6 - 0.9 cm LV Relative Wall Thickness 0.5 RV Internal Dim ED PLAX 2.4 cm LA Systolic Diameter LX 3.1 cm 3.0 - 4.0 / 2.7 - 3.8 cm M-MODE Aortic Root Diameter MM 3.2 cm AV Cusp Separation MM 2.0 cm DOPPLER Mitral E Point Velocity 76.5 cm/s Mitral A Point Velocity 41.0 cm/s Mitral E to A Ratio 1.9 TR Peak Velocity 236.0 cm/s TR Peak Gradient 22.3 mmHg Right Atrial Pressure 10.0 mmHg Pulmonary Artery Systolic Pressu 32.3 mmHg Right Ventricular Systolic Press 32.3 mmHg FINDINGS LEFT VENTRICLE Normal left ventricular size. Wall thickness is measured at the upper limits of normal. The left ventricular systolic function is low normal with an estimated ejection fraction in the rang e of 50- 55%. No regional wall motion abnormalities are present. RIGHT VENTRICLE Normal right ventricular size and systolic function. LEFT ATRIUM The left atrial size is normal. RIGHT ATRIUM The right atrial size is normal. ATRIAL SEPTUM Normal atrial septal thickness without atrial level shunting by limited color doppler interrogation. AORTA The aortic root and proximal ascending aorta are normal in size on limited imaging. MITRAL VALVE Trace mitral valve regurgitation. AORTIC VALVE Trileaflet aortic valve. No aortic valve stenosis or regurgitation. TRICUSPID VALVE The estimated pulmonary arterial pressure is 32 mmHg. There is mild tricuspid valve regurgitation. PULMONARY VALVE No pulmonary valve regurgitation or stenosis. VESSELS The inferior vena cava is normal in size. PERICARDIUM No pericardial effusion. Floyd Harris MD (Electronically Signed) Final Date:23 September 2017 17:47
--- NOTE | 2017-09-23 17:51 | ECG ---
Date Performed: 09/22/2017 Time Performed: 20:44:26 PTAGE: 41 years EKG: SINUS BRADYCARDIA BORDERLINE ECG PREVIOUS TRACING : 09/22/2017 11.50 Since the previous tracing, no significant change noted DOCTOR: Yue Swan Interpretating Date/Time 09/23/2017 17:49:23
--- NOTE | 2017-09-23 17:51 | ECG ---
Date Performed: 09/23/2017 Time Performed: 05:14:34 PTAGE: 41 years EKG: SINUS BRADYCARDIA WITH SINUS ARRHYTHMIA BORDERLINE ECG PREVIOUS TRACING : 09/22/2017 20.44 Since the previous tracing, no significant change noted DOCTOR: Yue Swan Interpretating Date/Time 09/23/2017 17:49:39
--- NOTE | 2017-09-23 17:51 | ECG ---
Date Performed: 09/22/2017 Time Performed: 11:50:46 PTAGE: 41 years EKG: SINUS BRADYCARDIA BORDERLINE ECG INTERPRETATION BASED ON A DEFAULT AGE OF 40 YEARS PREVIOUS TRACING : 09/22/2017 01.02 Since the previous tracing, no significant change not ed DOCTOR: Yue Swan Interpretating Date/Time 09/23/2017 17:49:13
== END 2017-09-23 18:55 | disposition home or self-care (01) ==
LOC: NEPFCDU 11:04 → NEDA 11:04 → NEPC 11:04 → NEDA 18:58 → NEPFCDU 19:34
PROVIDERS: ADMIT Family Medicine; ATTEND Family Medicine